=== PATIENT | female | born 1935 | race Caucasian/White ===

== ENCOUNTER 2020-04-08 10:43 | Outpatient (REF) | payer MEDICARE, SELFPAY ==
[2020-04-08 13:55] LABS: Red Blood Count 4.61 X10*6/uL (4.20-5.50); Red Cell Distribution Width 23.5 % (11.0-16.0)
[2020-04-08 13:57] LABS: Basophils Absolute Auto 0.1 X10*3/uL (0.0-0.2); Basophils Percent Auto 1.3 % (0-2); Eosinophils Absolute Auto 0.3 X10*3/uL (0.0-0.4); Eosinophils Percent Auto 6.9 % (0-4); Hematocrit 35.8 % (37-47); Hemoglobin 10.1 g/dl (12.0-16.0); Imm Gran Abs Auto 0.01 X10*3/uL (0.00-0.03); Imm Gran Pct Auto 0.2 % (0.0-0.4); Lymphocytes Absolute Auto 1.3 X10*3/uL (1.2-4.9); Lymphocytes Percent Auto 26.3 % (20-40); Mean Corpuscular HGB Conc 28.2 g/dl (31.0-35.0); Mean Corpuscular Hemoglobin 21.9 pg (27.0-33.0); Mean Corpuscular Volume 77.7 fL (80-98); Mean Platelet Volume 10.6 fL (9.4-12.3); Monocytes Absolute Auto 0.6 X10*3/uL (0.1-1.2); Monocytes Percent Auto 13.1 % (2-11); Neutrophils Absolute Auto 2.5 X10*3/uL (2.0-8.3); Neutrophils Percent Auto 52.2 % (45-73); Platelet Count 202 X10*3/uL (160-400); White Blood Count 4.8 X10*3/uL (4.8-10.8)
[2020-04-08 14:01] LABS: MANUAL DIFF FLAG NO
== END 2020-04-08 10:44 | disposition home or self-care (01) ==
LOC: HO.HMGCLDS 10:43
PROVIDERS: PCP Internal Medicine; Visit Provider Internal Medicine
DX: I34.0 Nonrheumatic mitral (valve) insufficiency (principal); I51.7 Cardiomegaly; K92.1 Melena; D64.9 Anemia, unspecified; R58 Hemorrhage, not elsewhere classified; K92.2 Gastrointestinal hemorrhage, unspecified
CPT/HCPCS: 36415; 85025

== ENCOUNTER → 2020-04-17 09:20 | Outpatient (BNVA) | payer MEDICARE, SELFPAY | PROVIDERS: PCP Internal Medicine; Referring Provider Internal Medicine; Visit Provider Nurse Practitioner | DX: K92.1 Melena (principal); K59.00 Constipation, unspecified; K21.9 Gastro-esophageal reflux disease without esophagitis; I34.0 Nonrheumatic mitral (valve) insufficiency; I51.7 Cardiomegaly; Z87.19 Personal history of other diseases of the digestive system | CPT/HCPCS: 99203 ==

== ENCOUNTER 2020-04-22 13:46 | Outpatient (REF) | payer MEDICARE, SELFPAY ==
[2020-04-22 15:45] LABS: Hematocrit 35.2 % (37-47); Hemoglobin 10.5 g/dl (12.0-16.0); Mean Corpuscular HGB Conc 29.8 g/dl (31.0-35.0); Mean Corpuscular Hemoglobin 23.1 pg (27.0-33.0); Mean Corpuscular Volume 77.5 fL (80-98); Mean Platelet Volume 10.5 fL (9.4-12.3); Platelet Count 202 X10*3/uL (160-400); Red Blood Count 4.54 X10*6/uL (4.20-5.50); Red Cell Distribution Width 23.9 % (11.0-16.0); White Blood Count 5.7 X10*3/uL (4.8-10.8)
== END 2020-04-22 13:47 | disposition home or self-care (01) ==
LOC: HO.LAB 13:46
PROVIDERS: PCP Internal Medicine; Referring Provider Internal Medicine; Visit Provider Internal Medicine Cardiovascular Disease
DX: Z01.818 Encounter for other preprocedural examination (principal); K92.2 Gastrointestinal hemorrhage, unspecified
CPT/HCPCS: 36415; 85027; 99204

== ENCOUNTER → 2020-04-30 14:15 | Outpatient (BNVA) | payer MEDICARE, SELFPAY | PROVIDERS: PCP Internal Medicine; Referring Provider Internal Medicine; Visit Provider Nurse Practitioner | DX: K92.1 Melena (principal); K59.00 Constipation, unspecified; D64.9 Anemia, unspecified; Z87.19 Personal history of other diseases of the digestive system | CPT/HCPCS: 99212 ==

== ENCOUNTER 2020-06-25 07:26 | Day surgery (SDC) | payer MEDICARE, SELFPAY ==
--- NOTE | 2020-06-22 12:04 | P.CONAN_ITS ---
Documented by User: Josee Johnson 06/22/20 12:10 HPI - Anesthesia Eval Consult details Narrative: 84yo F for Upper Endoscopy and Colonoscopy Cardiac cleared @ [facility] (in April, pt was rescheduled) [facility] Past Medical History Medical History Atrial enlargement, left Cancer of left tibia Constipation Depression with anxiety GERD (gastroesophageal reflux disease) High cholesterol History of small bowel obstruction Lipid disorder Lipoma Low hematocrit Mitral valve insufficiency Morbid obesity Osteoarthritis of both hips Osteosarcoma of bone RLS (restless legs syndrome) Tricuspid regurgitation Tubular adenoma of colon Urinary, incontinence, stress female Family History Family History Mother Alzheimers disease Brother Lung cancer Epilepsy Surgical History Surgical History H/O hysterectomy with oophorectomy History of appendectomy History of intestinal surgery Hx of colonoscopy S/P cataract surgery Social History Social History Alcohol intake: never Smoking Status: Never smoker Use of substances other than those prescribed or required for medical reasons: No Advance Directives: No Advance Directives Information Provided: No Meds Allergies Allergy/AdvReac Type Severity Reaction Status Date / Time codeine AdvReac Unknown GI upset Verified 06/25/20 08:19 Home Medications Medication Instructions Recorded Confirmed Type clotrimazole-betamethasone 1 applic TOPICAL 04/08/20 06/23/20 History %-0.05 % topical cream ropinirole 0.5 mg tablet 0.5 mg PO DAILY tab 04/22/20 06/23/20 History Exam Exam Date and Time: June 22, 2020 1204 Pertinent Lab Results Pertinent Lab Results: Laboratory Tests 03/27/20 04/22/20 09:40 15:05 WBC 5.7 Hgb 10.5 L Hct 35.2 L Plt Count 202 Sodium 140 Potassium 4.5 Chloride 105 BUN 13 Creatinine 1.12 Narrative Narrative: EKG 04/2020: NSR, LBBB ECHO 04/2019: EF 60-65%, pseudonormal filling pattern Mod LAE Mild to mod MR Mod to Severe TR Normal RV systolic pressure No pericardial pathology Assessment and Plan Assessment Anesthesia Assessment: Chart Reviewed Documented by User: Rusty Kwon MD 06/25/20 08:39 PMFSH Past Medical History Medical History Atrial enlargement, left Cancer of left tibia Constipation Depression with anxiety GERD (gastroesophageal reflux disease) High cholesterol History of small bowel obstruction Lipid disorder Lipoma Low hematocrit Mitral valve insufficiency Morbid obesity Osteoarthritis of both hips Osteosarcoma of bone RLS (restless legs syndrome) Tricuspid regurgitation Tubular adenoma of colon Urinary, incontinence, stress female Family History Family History Mother Alzheimers disease Brother Lung cancer Epilepsy Surgical History Surgical History H/O hysterectomy with oophorectomy History of appendectomy History of intestinal surgery Hx of colonoscopy S/P cataract surgery Social History Social History Alcohol intake: never Smoking Status: Never smoker Use of substances other than those prescribed or required for medical reasons: No Advance Directives: No Advance Directives Information Provided: No Meds Allergies Allergy/AdvReac Type Severity Reaction Status Date / Time codeine AdvReac Unknown GI upset Verified 06/25/20 08:19 Home Medications Medication Instructions Recorded Confirmed Type clotrimazole-betamethasone 1 applic TOPICAL 04/08/20 06/23/20 History %-0.05 % topical cream ropinirole 0.5 mg tablet 0.5 mg PO DAILY tab 04/22/20 06/23/20 History Exam Airway TM Dist: >3cm Neck ROM: Full Denture: Upper Loose/Missing/Broken Teeth: No Heart: irregular rhythm Lungs: Assessment and Plan Assessment Anesthesia Assessment: Anesthesia Plan Discussed and Chart Reviewed Final Anesthetic Review NPO: Yes ASA Class: III Final Preanesthetic Review: No Changes in Pt Med Stat, Meds/Allgs Chart Reviewed and Anes Risks/Benef Reviewed Patient Risk: High Procedure Risk: Low Anesthetic Plan Anesthetic Plan: MAC: Disposition: Standard PACU
[2020-06-22 14:52] VITALS: BMI 26.1
[2020-06-25 07:54] VITALS: BP 143/46; PULSE 52; RESP 20; TEMP 36.1; O2SAT 97
[2020-06-25] MEDS: Lactated Ringers 1,000 ML 20 ML IVCONT (08:18)
--- NOTE | 2020-06-25 08:40 | P.HPSUR_ITS ---
Pre-Procedural Eval Section B Chief Complaint: GI bleed Details of Present Illness: daughter with smith syndrome, hx of anemia and rectal bleeding Relevant Family History (Specify if Yes): Yes Relevant Social History: None Present Medications: see Short Stay Collaborative assessment Medical History: Significant History (Atrial enlargement, left Cancer of left tibia Constipation Depression with anxiety GERD (gastroesophageal reflux disease) High cholesterol History of small bowel obstruction Lipid disorder Lipoma Low hematocrit Mitral valve insufficiency Morbid obesity Osteoarthritis of both hips Osteosarcoma of bon) History of Previous Operations: Relevant previous surgery/procedure and date(s) (H/O hysterectomy with oophorectomy History of appendectomy History of intestinal surgery Hx of colonoscopy S/P cataract surgery) Allergies: Allergies Allergy/AdvReac Type Severity Reaction Status Date / Time codeine AdvReac Unknown GI upset Verified 06/25/20 08:19 Review of Systems Sugical H&P ROS: Negative: Constitution, Cardiovascular, Respiratory, Suzie rological, Psychiatric, Hem-Onc, Allergic/Immunologic, Gastrointestinal, Genitourinary, Musculoskeletal, Integumentary, Endocrine and Eyes/Ears/Nose/Throat Exam Surgical H&P Exam: Normal: HEENT, Normal: Heart, Normal: Lungs, Normal: Extremities, Normal: Abdomen, Normal: Skin and Normal: Neurological Plan Diagnosis/Plan: Unchanged I have reviewed the history and physical and performed a pertinent physical examination on my patient. No changes have occurred unless specified.
--- NOTE | 2020-06-25 08:56 | PM.OP ---
Brief Operative Note Date of Service: 06/25/20 Pre-op diagnosis: anemia, rectal bleeding, daughter with smith syndrome Post-op diagnosis: same Procedure: Operative Information Procedure Description: EGD, Colonoscopy FLEXIBLE TRANSORAL UPPER GASTROINTESTINAL ENDOSCOPY AND COLONOSCOPY PROCEDURE NOTE UPPER ENDOSCOPY Consent: Indications for the procedure and potential complications of bleeding, perforation, reaction to medications and missed diagnosis were discussed with the patient and informed consent was obtained. Instrument: Olympus GIF H 190 J mid size upper endoscope Monitoring: Vital signs and clinical assessment, continuous EKG monitoring, Pulse oximetry, Carbon Dioxide monitoring and blood pressure monitoring were done throughout the procedure. Procedure: The patient was placed in the left lateral decubitis position and pre-procedure medications were administered and a bite block was placed. The endoscope was inserted into the mouth and advanced under direct vision to the third part of duodenum. A careful inspection was made as the upper endoscope was withdrawn including a retroflexed examination of the proximal stomach; Findings and interventions are described below. Findings: Larynx:normal Esophagus: GE junction at 30 cm, diaphragm hiatus at 36 cm, consistent with 6 cm sliding hiatal hernia, normal mucosa Stomach: Patchy erythema and erosions in antrum. Biopsies were obtained. Grade 2 flap valve on retroflexed examination of the cardia. Duodenum: erosive bulbar duodenitis, bx taken Intervention: Biopsies as noted above COLONOSCOPY Instrument: Olympus variable stiffness pediatric scope 190L Colonoscopy Monitoring: Vital signs and clinical assessment, continuous EKG monitoring, Pulse oximetry, Carbon Dioxide monitoring and blood pressure monitoring were done throughout the procedure. Colon withdrawal time was 16 minutes. Procedure: The patient was placed in the left lateral decubitis position and pre-procedure medications were administered. After a digital rectal examination of the ano-rectum, the video colonoscope was inserted into the rectum and advanced through the colon to the cecum/TI. The colonoscope was slowly withdrawn in a retrograde panoramic fashion and the colon mucosa was carefully examined including a retroflexed view of the rectum. Findings and interventions are described below. Procedure Difficulty:easy Findings: Terminal Ileum-normal, bx taken right sided bx, transverse, descending and sigmoid, rectal bx taken in separate jars Cecum:normal Ascending Colon: normal Transverse Colon -normal Descending Colon:normal Sigmoid Colon: severe erythema, micro abscesses, edema and friability contiguous from rectum to 38 cm from anal verge-bx taken, the proximal sigmoid appeared normal. Scattered diverticula noted. A 9-10 mm pedunculated polypoid lesion was removed with cold snare Rectum: Retroflexion not done due to severe inflammation, bx taken Anorectum - normal Colon preparation: Mcwilliams Bowel Preparation Scale Right colon; 3 Transverse colon: 3 Left colon; 3 (0 = Unprepared colon segment with mucosa not seen due to solid stool that cannot be cleared. 1 = Portion of mucosa of the colon segment seen, but other areas of the colon segment not well seen due to staining, residual stool and/or opaque liquid. 2 = Minor amount of residual staining, small fragments of stool and/or opaque liquid, but mucosa of colon segment seen well. 3 = Entire mucosa of colon segment seen well with no residual staining, small fragments of stool or opaque liquid) Impression and Post Procedure Diagnosis: Endoscopy Findings: gastritis erosive duodenitis hiatal hernia Colonoscopy Findings: severe proctosigmoiditis polyp diverticular disease Plan: Await Pathology results Repeat Colonoscopy in 1-2 years or earlier if clinically indicated High fiber diet leaflet confirm compliance with PPI, check NSAID hx commence mesalamine enema and PO tabs short course of pred 40 mg for 1 week Above findings were reviewed with the patient and relevant handouts were provided if indicated. Surgeon: Margret Clark MD Anesthesia: MAC Estimated blood loss (mL): 0 Condition: stable Disposition: PACU
[2020-06-25 09:31] VITALS: BP 122/101; PULSE 58; RESP 20; TEMP 36.2; O2SAT 100
[2020-06-25 09:33] VITALS: BP 106/48
[2020-06-25 09:48] VITALS: BP 109/54; PULSE 53; RESP 14; TEMP 36.2; O2SAT 99
== END 2020-06-25 10:52 | disposition home or self-care (01) ==
PROVIDERS: PCP Internal Medicine; Visit Provider Internal Medicine Gastroenterology
PROC: (CPT 45385; principal; 2020-06-25 08:30)
DX: K52.9 Noninfective gastroenteritis and colitis, unspecified (principal); D12.5 Benign neoplasm of sigmoid colon; K57.30 Diverticulosis of large intestine without perforation or abscess without bleeding; K59.00 Constipation, unspecified; K29.80 Duodenitis without bleeding; K29.50 Unspecified chronic gastritis without bleeding; K44.9 Diaphragmatic hernia without obstruction or gangrene; D64.9 Anemia, unspecified; Z87.19 Personal history of other diseases of the digestive system
CPT/HCPCS: 45385; 45380; 88305; 88342; J0171; J3010

== ENCOUNTER 2020-07-21 14:58 | Inpatient (IN) | payer MEDICARE, SELFPAY ==
--- NOTE | 2020-07-21 | ECG_ITS ---
Test Reason : BRADYCARDIA Blood Pressure : / mmHG Vent. Rate : 056 BPM Atrial Rate : 056 BPM P-R Int : 254 ms QRS Dur : 118 ms QT Int : 506 ms P-R-T Axes : 079 -43 056 degrees QTc Int : 488 ms Sinus bradycardia with 1st degree A-V block Left axis deviation Left bundle branch block Abnormal ECG When compared with ECG of 18-DEC-2001 13:42, Significant changes have occurred Referred By: Generic ED Physician Electronically Signed By:CHAVEZ SQUIRES
[2020-07-21 15:09] VITALS: BP 132/52; PULSE 49; RESP 15; O2SAT 98; BMI 27.4
--- NOTE | 2020-07-21 15:21 | ED.SOB ---
HPI - SOB/Dyspnea General Chief Complaint: Dyspnea Stated Complaint: sob Time Seen by Provider: 07/21/20 14:59 Source: patient Mode of arrival: ambulatory Limitations: no limitations History of Present Illness HPI Narrative: For the past few weeks patient with increasing shortness of breath. Patient states when she walks around her house she is very short of breath and lightheaded MD elicited complaint: shortness of breath Onset (ago): week(s) Timing: intermittent Severity: moderate Exacerbating factors: exertion Known history of: congestive heart failure Associated symptoms: orthopnea and lightheadedness Related Data Home Medications Medication Instructions Recorded Confirmed ropinirole 0.5 mg tablet 0.5 mg PO DAILY tab 04/22/20 07/21/20 permethrin 1 appl TOPICAL DAILY 07/21/20 07/21/20 Previous Rx's Medication Instructions Recorded atorvastatin 10 mg tablet 10 mg PO DAILY 90 Days #90 tab 06/15/20 escitalopram oxalate 20 mg tablet 20 mg PO ONCE 90 Days #90 tab 06/15/20 lansoprazole 30 mg capsule,delayed 30 mg PO DAILY 90 Days #90 cap 06/15/20 release furosemide 20 mg tablet 20 mg PO DAILY #30 tab 07/06/20 mesalamine 1.2 gram tablet,delayed 4.8 g PO DAILY 30 Days #120 tab 07/09/20 release mesalamine 4 gram/60 mL enema 4 g [place] BEDTIME 30 Days #1800 ml 07/09/20 Allergies Allergy/AdvReac Type Severity Reaction Status Date / Time codeine AdvReac Unknown GI upset Verified 06/25/20 08:19 Review of Systems Constitutional: Constitutional: Reports no additional constitutional complaints Eyes: Eyes: Reports no additional eye complaints ENT: Denies dizziness Cardiovascular: Cardiovascular: Reports no additional cardiovascular complaints Respiratory: Respiratory: Reports as per HPI Gastrointestinal: Gastrointestinal: Reports no additional gastrointestinal complaints Genitourinary: Genitourinary: Reports no additional female genitourinary complaints Musculoskeletal: Musculoskeletal: Reports no additional musculoskeletal complaints Integumentary/Breasts: Skin/Breast: Denies rash Neurologic: Reports system reviewed and no additional complaints, except as documented, Denies dizziness and Denies Sensory deficit (Neuro) Psychiatric: Psychiatric: Denies anxiety PMFSH Past Medical History Medical History Atrial enlargement, left Cancer of left tibia Constipation Depression with anxiety GERD (gastroesophageal reflux disease) High cholesterol History of small bowel obstruction Lipid disorder Lipoma Low hematocrit Mitral valve insufficiency Morbid obesity Osteoarthritis of both hips Osteosarcoma of bone RLS (restless legs syndrome) Tricuspid regurgitation Tubular adenoma of colon Urinary, incontinence, stress female Surgical History H/O hysterectomy with oophorectomy History of appendectomy History of intestinal surgery Hx of colonoscopy S/P cataract surgery Family History Family History Mother Alzheimers disease Brother Lung cancer Epilepsy Social History Social History Alcohol intake: never Smoking Status: Never smoker Use of substances other than those prescribed or required for medical reasons: No Advance Directives: No Advance Directives Information Provided: No Physical Exam Vital Signs: Vital Signs: Last Vital Signs Pulse 43 L 07/21/20 16:00 Resp 16 07/21/20 16:00 BP 136/55 L 07/21/20 16:00 Pulse Ox 97 07/21/20 16:00 Body Mass Index 27.4 Const: Other: elderly female looking comfortable Nutritional Appearance: average body habitus Orientation/consciousness: oriented to person and patient oriented x3 Limitations: no limitations HENMT: Head: Yes normal to inspection Ears: external ears normal General nose exam: Normal external nose present Mouth: Normal oral and palatal mucosa present and oropharynx normal Throat: Yes posterior oropharynx normal Eyes: General: appearance normal, both eyes and all related structures Neck: Other: supple, slight JVD Neck: Yes normal visual inspection Chest: Chest palpation & inspection: normal inspection of the chest Resp: Auscultation: clear to auscultation bilaterally Cardio: Other: moments of bradycardia Jugular venous distension: no JVD Rate: regular rate Rhythm: regular rhythm Heart sounds: S1 normal heart sound present and S2 normal heart sound present GI: Inspection: Yes normal to inspection Palpation (GI): Soft to palpation, nontender and No hepatosplenomegaly present Auscultation: normal bowel sounds : General: Yes no CVA tenderness Back/Spine/Pelvis: Back: no CVA tenderness Skin: General skin exam: no rashes or lesions noted Neuro: General: oriented to person and patient oriented x3 Cranial nerves: Yes CN's II-XII intact bilaterally Motor exam (neuro): 5/5 motor strength present throughout Sensory Exam: No Sensory deficit (Neuro) Extrem: General: Yes normal to inspection Psych: Appearance: grossly normal Course Course Course Narrative: patients heart rate went down to 30, rhythm strip looked like second degree heart block Reevaluation(s) Reevaluation #1: Troponin negative, BNP only slightly elevated, will admit for symptomatic second degree heart block Time: 16:47 MDM - SOB/Dyspnea MDM Narrative Medical decision making narrative: heart block, TX, CHF, COVID, pneumonia all considered Lab Data Result diagrams: 07/21/20 15:56 07/21/20 15:56 Labs: Lab Results 07/21/20 07/21/20 07/21/20 Range/Units 15:56 15:56 15:56 WBC 4.8 (4.8-10.8) X10*3/uL RBC 3.42 L D (4.20-5.50) X10*6/uL Hgb 8.5 L (12.0-16.0) g/dl Hct 28.3 L (37-47) % MCV 82.7 (80-98) fL MCH 24.9 L (27.0-33.0) pg MCHC 30.0 L (31.0-35.0) g/dl RDW 14.6 (11.0-16.0) % Plt Count 232 (160-400) X10*3/uL MPV 9.3 L (9.4-12.3) fL Immature Gran % (Auto) 0.4 (0.0-0.4) % Neut % (Auto) 57.5 (45-73) % Lymph % (Auto) 27.5 (20-40) % [place] % (Auto) 10.0 (2-11) % Eos % (Auto) 4.0 (0-4) % Baso % (Auto) 0.6 (0-2) % Lymph # (Auto) 1.3 (1.2-4.9) X10*3/uL [place] # (Auto) 0.5 (0.1-1.2) X10*3/uL Eos # (Auto) 0.2 (0.0-0.4) X10*3/uL Baso # (Auto) 0.0 (0.0-0.2) X10*3/uL Abs Immat Gran (auto) 0.02 (0.00-0.03) X10*3/uL Absolute Neuts (auto) 2.8 (2.0-8.3) X10*3/uL Absolute Nucleated RBC 0.000 (0.0-0.012) X10*3/uL Nucleated RBC % (auto) 0.0 (0.0-0.2) /100WBC Hold Blue Top Sodium 141 (135-145) mmol/L Potassium 4.7 (3.3-5.1) mmol/l Chloride 107 (96-108) mmol/L Carbon Dioxide 23 (22-29) mmol/L Anion Gap 16 (12-20) BUN 23 H (9-16) mg/dL Creatinine 1.44 H (0.5-1.4) mg/dL Estim Creat Clear Calc 27.9 Estimated GFR 35 Random Glucose 98 (60-115) mg/dL Calcium 8.6 (8.4-10.2) mg/dL Troponin I High Sens 4.8 (<3.5-17.0) ng/L B-Natriuretic Peptide (<100) pg/mL COVID-19 ([facility]URU) (Negative) COVID-19 Clin Com 07/21/20 07/21/20 07/21/20 Range/Units 15:56 15:56 15:56 WBC (4.8-10.8) X10*3/uL RBC (4.20-5.50) X10*6/uL Hgb (12.0-16.0) g/dl Hct (37-47) % MCV (80-98) fL MCH (27.0-33.0) pg MCHC (31.0-35.0) g/dl RDW (11.0-16.0) % Plt Count (160-400) X10*3/uL MPV (9.4-12.3) fL Immature Gran % (Auto) (0.0-0.4) % Neut % (Auto) (45-73) % Lymph % (Auto) (20-40) % [place] % (Auto) (2-11) % Eos % (Auto) (0-4) % Baso % (Auto) (0-2) % Lymph # (Auto) (1.2-4.9) X10*3/uL [place] # (Auto) (0.1-1.2) X10*3/uL Eos # (Auto) (0.0-0.4) X10*3/uL Baso # (Auto) (0.0-0.2) X10*3/uL Abs Immat Gran (auto) (0.00-0.03) X10*3/uL Absolute Neuts (auto) (2.0-8.3) X10*3/uL Absolute Nucleated RBC (0.0-0.012) X10*3/uL Nucleated RBC % (auto) (0.0-0.2) /100WBC Hold Blue Top SEE NOTE Sodium (135-145) mmol/L Potassium (3.3-5.1) mmol/l Chloride (96-108) mmol/L Carbon Dioxide (22-29) mmol/L Anion Gap (12-20) BUN (9-16) mg/dL Creatinine (0.5-1.4) mg/dL Estim Creat Clear Calc Estimated GFR Random Glucose (60-115) mg/dL Calcium (8.4-10.2) mg/dL Troponin I High Sens (<3.5-17.0) ng/L B-Natriuretic Peptide 733 H (<100) pg/mL COVID-19 (GURU) Negative (Negative) COVID-19 Clin Com See Note ECG Data Attestation: I personally reviewed and interpreted this ECG as follows: Interpretation: normal sinus second degree AV block old septal TX, no acute st or twave changes Critical Care Time Critical Care Time Attestation: I spent 40 minutes of critical care, with interventions, assessments, speaking to patient, consultants, and family. Discharge Plan Discharge Clinical Impression: Heart block AV second degree Congestive heart failure Qualifiers: Heart failure type: combined systolic and diastolic Heart failure chronicity: unspecified Qualified Code(s): I50.40 - Unspecified combined systolic (congestive) and diastolic (congestive) heart failure Patient Disposition: Admitted As Inpatient
--- NOTE | 2020-07-21 15:25 | PC.NURSE ---
During triage pt placed on pacer pads, EKG obtained, Dr. Kaur and Roma ETIENNE brought to bedside. 18gL ac established.
[2020-07-21 15:27] VITALS: PULSE 42
[2020-07-21 15:32] VITALS: BP 126/56; PULSE 48; RESP 18; O2SAT 97
--- NOTE | 2020-07-21 15:41 | XR_ITS ---
EXAMINATION: XR CHEST CLINICAL INFORMATION: Shortness of breath COMPARISON: None TECHNIQUE: Frontal portable view of the chest was obtained. 1552 hours FINDINGS: No significant abnormality is noted involving the heart, lungs, mediastinum, bony thorax or soft tissues. XR/XR chest 1V IMPRESSION: Unremarkable examination.
[2020-07-21 16:00] VITALS: BP 136/55; PULSE 43; RESP 16; O2SAT 97
[2020-07-21 16:03] LABS: MANUAL DIFF FLAG NO
[2020-07-21 16:06] LABS: Basophils Percent Auto 0.6 % (0-2); Eosinophils Absolute Auto 0.2 X10*3/uL (0.0-0.4); Hematocrit 28.3 % (37-47); Hemoglobin 8.5 g/dl (12.0-16.0); Imm Gran Abs Auto 0.02 X10*3/uL (0.00-0.03); Imm Gran Pct Auto 0.4 % (0.0-0.4); Lymphocytes Absolute Auto 1.3 X10*3/uL (1.2-4.9); Lymphocytes Percent Auto 27.5 % (20-40); Mean Corpuscular Hemoglobin 24.9 pg (27.0-33.0); Mean Corpuscular Volume 82.7 fL (80-98); Mean Platelet Volume 9.3 fL (9.4-12.3); Monocytes Absolute Auto 0.5 X10*3/uL (0.1-1.2); Neutrophils Absolute Auto 2.8 X10*3/uL (2.0-8.3); Neutrophils Percent Auto 57.5 % (45-73); Platelet Count 232 X10*3/uL (160-400); Red Blood Count 3.42 X10*6/uL (4.20-5.50); Red Cell Distribution Width 14.6 % (11.0-16.0); White Blood Count 4.8 X10*3/uL (4.8-10.8)
[2020-07-21 16:23] LABS: IDNOW Serial# 9DD0AD1C
[2020-07-21 16:24] LABS: COVID-19 Test Negative (Negative)
[2020-07-21 16:32] LABS: Anion Gap 16 (12-20); Blood Urea Nitrogen 23 mg/dL (9-16); Calcium 8.6 mg/dL (8.4-10.2); Carbon Dioxide 23 mmol/L (22-29); Chloride 107 mmol/L (96-108); Creatinine Clr Calc Pharmacy 27.9; Estimated Glomerular Filt Rate 35; Glucose Random 98 mg/dL (60-115); Potassium 4.7 mmol/l (3.3-5.1); Sodium 141 mmol/L (135-145)
[2020-07-21 16:41] LABS: B Type Natriuretic Peptide 733 pg/mL (<100); Troponin-I High Sensitivity 4.8 ng/L (<3.5-17.0)
[2020-07-21 19:22] VITALS: BP 145/93; PULSE 36; RESP 20; O2SAT 98
[2020-07-21] MEDS: Heparin Sodium,Porcine 5,000 UNIT/ML VIAL 5000 UNIT SUBCUT (19:29)
[2020-07-21] MEDS: rOPINIRole HCL 0.5 MG TABLET PO (19:29)
[2020-07-21 19:30] LABS: Magnesium 2.2 mg/dL (1.6-2.6)
--- NOTE | 2020-07-21 19:32 | PC.NURSE ---
Pt found ringing her call milan, requesting to use the bathroom. Pt was assisted to the bathroom, moving a large loose, liquid, brown stool. Pt reports persistent diarrhea since her Colonoscopy around [place]. Pt states that she has been discussing this with her MD. Pt assisted OOB onto toilet, reports dizziness and increased SOB. Pt assisted back to bed and into room. Pt medicated per MAR with Requip and Heparin. VSS. Pt aware of plan for placement of pacemaker in the morning. Pt resting in POC, lights dim for comfort. Continue to monitor.
--- NOTE | 2020-07-21 20:22 | HP_ITS ---
DATE OF SERVICE: 07/21/2020 HISTORY OF PRESENTING ILLNESS: This is an 84-year-old female patient with past medical history significant for anxiety, depression, history of GERD, history of recent upper and lower colonoscopy that showed that the patient has significant colitis of large bowel with [id number] acute ulceration in the rectum. The patient was recently treated with prednisone. The patient also has history of hyperlipidemia, history of mitral valve insufficiency with left atrial enlargement, history of osteoarthritis of both hips, history of osteosarcoma of bone, and restless legs syndrome. The patient presented to [facility] with several weeks history of being lightheaded, dizzy, and with worsening shortness of breath. As per patient, her shortness of breath is gradually getting worse, now feels short of breath with minimal activity, accompanied with lightheadedness. She denies any symptoms of chest pain, palpitation. She denies any syncope, loss of consciousness, or fall. The patient's workup in the emergency room revealed that her hematocrit is 28.3 with a hemoglobin 8.5. Her last hematocrit was 35.2 in April of 2020. Her electrolytes are stable with a creatinine of 1.4 that had jumped up from a creatinine 1.1 in March of 2020. Her potassium is within normal range. Her EKG revealed significant bradycardia with heart rate in mid 30s to 40 range with 2:1 heart block. The patient has pacer pads in place. The patient is now being admitted to [facility] with a diagnosis of shortness of breath and lightheadedness related to second-degree heart block. PAST MEDICAL HISTORY: 1. History of GI bleed, status post both upper and lower endoscopy, which showed that the patient has focal active colitis of proximal sigmoid and chronic active colitis with [id number] activity as well as a rectal biopsy shows chronic active colitis with moderate to severe activity and ulceration. No granulomas or dysplasias were seen. The patient was treated with prednisone. 2. History of anxiety and depression. 3. History of GERD. 4. History of hyperlipidemia. 5. History of mitral valve insufficiency. 6. History of osteoarthritis of both hips. 7. History of osteosarcoma of bone. 8. History of restless legs syndrome. 9. History of tricuspid regurgitation. 10. History of tubular adenoma of colon. 11. History of urinary incontinence. MEDICATIONS: On admission are, 1. Lipitor 10 mg at bedtime. 2. Escitalopram 20 mg daily. 3. Lasix 20 mg daily. 4. Lansoprazole 30 mg daily. 5. Mesalamine 1.2 g tablet, the patient is taking 4.8 g by mouth daily. 6. Permethrin 1 application topically daily. 7. Requip 0.5 mg by mouth daily. SOCIAL HISTORY: The patient lives alone. She ambulates with the help of a cane and a walker. Her daughter assists her in decision-making and groceries. PAST SURGICAL HISTORY: 1. The patient is status post hysterectomy and oophorectomy. 2. Status post appendectomy. 3. Status post colonoscopy. 4. Status post cataract surgery. FAMILY HISTORY: Mother is , had Alzheimer disease. Brother , had lung cancer and epilepsy. REVIEW OF SYSTEMS: CONSTITUTIONAL: The patient denies headache, complaining of lightheadedness with ambulation. CVS: Denies any chest pain or palpitation. Denies orthopnea or PND. GI: Denies nausea, vomiting. Denies bloody stools. SKIN: Denies any rashes. Rest of all other systems are reviewed and negative. PHYSICAL EXAMINATION: GENERAL: The patient is awake, alert. Does not appear to be in acute distress. VITAL SIGNS: Her blood pressure is 136/55 with a pulse of 43, respiratory rate 16, O2 saturation 97% on room air. HEENT: Pupils equal, round, and reactive to light and accommodation. NECK: Supple. No JVD. LUNGS: Clear to auscultation. No crackles. No respiratory distress. HEART: Regular, shirley. ABDOMEN: Soft, nontender. Bowel sounds are audible. No palpable masses. EXTREMITIES: Without clubbing, cyanosis, or edema. She has good peripheral pulses. SKIN: Warm and dry. NEURO: Nonfocal. LABORATORY DATA: Hemoglobin 8.5, hematocrit 28.3, platelet of 232. Sodium 141, potassium 4.7, chloride 107, carbon dioxide 23, anion gap 16, creatinine 1.4. BNP 733. COVID-19 is negative. Chest x-ray showed no acute cardiopulmonary disease. ASSESSMENT AND PLAN: This is an 84-year-old female patient, who came into [facility] due to lightheadedness, dizziness, and shortness of breath with exertion. The patient has been diagnosed to have significant bradycardia with 2:1 block. The patient will be admitted to telemetry for continued monitoring and treatment. 1. Symptomatic bradycardia with second-degree heart block. The patient will be admitted to telemetry unit. The patient has external pacer in place. We will order atropine 0.5 mg every 8 minutes x3. We will keep the patient n.p.o. after midnight. The patient is not on beta blockers or calcium channel blockers at home. The patient was noticed to have similar rhythm in June of 2020. The patient has mild anemia. The hematocrit and hemoglobin will be followed closely. The patient's electrolytes are stable. We will check magnesium level. 2. History of recent GI bleed and anemia. We will follow hematocrit closely. Currently, no active bleeding noted. 3. History of hypertension. Currently blood pressure is stable. 4. History of hyperlipidemia. Continue beta janelle. 5. History of restless legs syndrome. Continue Requip. 6. Deep vein thrombosis prophylaxis. We will place patient on mechanical device. MD ARELY Ray/ERIC / [id number]
[2020-07-21 20:43] VITALS: BP 130/58; PULSE 38; RESP 24
--- NOTE | 2020-07-21 21:15 | PC.NURSE ---
Pt incontinent of another small, liquid stool. Pt provided buck care and clean bedding. Pt moved from [facility] 3 to 3 due to negative Covid result. VSS. Continue to monitor.
[2020-07-22] VITALS (16 sets, daily range): BP systolic 116–176; BP diastolic 46–74; PULSE 34–64; RESP 16–22; TEMP 36.1–36.7; O2SAT 97–100
--- NOTE | 2020-07-22 | XR_ITS ---
EXAMINATION: XR CHEST CLINICAL INFORMATION: Pacemaker COMPARISON: 07/21/2020 TECHNIQUE: Frontal view of the chest was obtained. FINDINGS: New 2-lead left pectoral pacemaker in place with contiguous, intact leads terminating over the expected location of the right atrium and right ventricle. There is a similar appearance of diffuse interstitial opacity. No focal consolidation or mass. No pleural effusion or pneumothorax. S-shaped thoracolumbar scoliosis and multilevel degenerative changes. XR/XR chest 1V IMPRESSION: New 2-lead left pectoral pacemaker with leads terminating over the expected location of the right atrium and right ventricle. Similar appearance of diffuse interstitial prominence. This can be seen acutely with interstitial pulmonary edema, bronchiolitis or viral pneumonitis, chronically with chronic bronchitis or reactive airways disease.
[2020-07-22] MEDS: 0.9 % Sodium Chloride Flush 3 ML SYRINGE IVFLUSH ×3 (00:35→19:30)
[2020-07-22] MEDS: rOPINIRole HCL 0.5 MG TABLET PO (04:32)
[2020-07-22] MEDS: Omeprazole 40 MG CAPSULE.DR PO (04:42)
--- NOTE | 2020-07-22 05:51 | ECG_ITS ---
Test Reason : confirm heart block Blood Pressure : / mmHG Vent. Rate : 036 BPM Atrial Rate : 036 BPM P-R Int : 000 ms QRS Dur : 110 ms QT Int : 600 ms P-R-T Axes : 000 -27 040 degrees QTc Int : 464 ms Artifact tracing sinus rhythm with 2nd degree A-V block (Mobitz I) Low voltage QRS Abnormal ECG When compared to the previous EKG of 21 jul 2020, changes noted- progression of heart block Referred By: Mari Amin Electronically Signed By:CHAVEZ SQUIRES
[2020-07-22] MEDS: Atropine Sulfate 1 MG/ML VIAL 0.5 MG IVPUSH (06:00)
--- NOTE | 2020-07-22 06:08 | PC.NURSE ---
HR 27-38, Mobitz 1 type 2 into 3rd degree Heart block intermittently. Patient asymptomatic. MD notified. EKG obtained- Junctional Bradycardia. Cardiology consult pending. Atropine 0.5mg IV given at 0608. HR at this time 34-45. NPO incase of pacemaker placement today.
--- NOTE | 2020-07-22 09:15 | MHC.CM.PN ---
spoke with pt s daughter maurice she explainsthat pt is from independent living pt receives laundry servcies and meals plan is for pt to return to her indepdent living when she is dcd her daughter will transport her home
[2020-07-22 10:49] LABS: INTERNATIONAL NORM RATIO 1.1 (0.9-1.1); Prothrombin Time 12.6 SEC (10.8-13.0)
--- NOTE | 2020-07-22 10:58 | PM.CNCAR ---
History of Present Illness History of Present Illness Date of Service: 07/22/20 Consult reason: other (Heart block) Chief complaint: dizziness and 2ng degree heart block Narrative: This is a cardiology consultation regarding heart block. Patient states that she has been feeling dizzy in the last few weeks. She has also been having difficulty breathing. Because of this, she got hospitalized. She was found to have Mobitz type 1 heart block at times and at other times 2-1 block as well as some episodes of complete heart block. Hence we have been asked to see her. Patient states that these symptoms started in the last 3 weeks or so but prior to that she was doing reasonably okay. There is a question of heart failure in the past based on office records. Otherwise she also has a history of GI bleeding and anemia as well. Review of Systems Review of Systems: Yes all other systems are reviewed and are negative ENT: Denies dizziness Cardiovascular: Cardiovascular: Reports as per HPI, Reports no additional cardiovascular complaints, Denies acrocyanosis, Denies cool extremities, Denies painful fingertips, Denies chest pain, Denies chest pain at rest, Denies diaphoresis, Denies syncope, Denies irregular heart rhythm, Denies claudication, Denies leg edema, Reports lightheadedness, Denies palpitations and Reports dyspnea Respiratory: Respiratory: Reports dyspnea Neurologic: Reports system reviewed and no additional complaints, except as documented, Denies dizziness, Denies syncope and Denies Sensory deficit (Neuro) Endocrine: Endocrine: Denies palpitations [facility] Past Medical History Medical History Atrial enlargement, left Cancer of left tibia Constipation Depression with anxiety GERD (gastroesophageal reflux disease) High cholesterol History of small bowel obstruction Lipid disorder Lipoma Low hematocrit Mitral valve insufficiency Morbid obesity Osteoarthritis of both hips Osteosarcoma of bone RLS (restless legs syndrome) Tricuspid regurgitation Tubular adenoma of colon Urinary, incontinence, stress female Family History Family History Mother Alzheimers disease Brother Lung cancer Epilepsy Surgical History Surgical History H/O hysterectomy with oophorectomy History of appendectomy History of intestinal surgery Hx of colonoscopy S/P cataract surgery Social History Social History Housing: Assisted Living Facility Do you presently have visiting nurse or other home services: Yes Alcohol intake: never Smoking Status: Never smoker Use of substances other than those prescribed or required for medical reasons: No Have you been hit, kicked, punched, or otherwise hurt by someone within the past year? If so, by whom?: No Do you feel safe in your current relationship?: No Current Relationship Is there a partner from a previous relationship who is making you feel unsafe now?: No Are you made to feel afraid or neglected: No Spiritual Healthcare Practices: None. [facility] Healthcare Practices: None. Cultural Healthcare Practices: None. Advance Directives: No Advance Directives Information Provided: No Do you have thoughts of harming others: None Do you have a plan to hurt others: No Plan Recently lost weight without trying: No service: No Meds Allergies Allergy/AdvReac Type Severity Reaction Status Date / Time codeine AdvReac Unknown GI upset Verified 06/25/20 08:19 Home Medications Medication Instructions Recorded Confirmed Type ropinirole 0.5 mg tablet 0.5 mg PO DAILY tab 04/22/20 07/21/20 History permethrin 1 appl TOPICAL DAILY 07/21/20 07/21/20 History Physical Exam Vital Signs: Vital Signs: Last Vital Signs Temp 97 F 07/22/20 07:12 Pulse 64 07/22/20 07:12 Resp 20 07/22/20 07:12 BP 125/60 07/22/20 07:12 Pulse Ox 98 07/22/20 07:12 Body Mass Index 27.4 Const: General: cooperative, comfortable and no acute distress Orientation/consciousness: patient oriented x3 HENMT: Other: Unremarkable Neck: Neck: Yes normal visual inspection Chest: Chest palpation & inspection: normal inspection of the chest Resp: Auscultation: clear to auscultation bilaterally, no crackles and no wheezes Cardio: Jugular venous distension: no JVD Palpation: normal PMI Heart sounds: S1 normal heart sound present, S2 normal heart sound present, no gallops, Murmur heart sound present systolic II/ and at the left sternal border and no rubs GI: Palpation (GI): Soft to palpation Back/Spine/Pelvis: Other: unremarkable Skin: General skin exam: no rashes or lesions noted Neuro: General: patient oriented x3 Sensory Exam: No Sensory deficit (Neuro) Extrem: General: Yes no clubbing, cyanosis or edema Psych: Mental Status: mental status grossly normal Results Labs and Meds Result diagrams: 07/21/20 15:56 07/21/20 15:56 Lab results: Laboratory Results - last 24 hr 07/21/20 07/21/20 07/21/20 15:56 15:56 15:56 WBC 4.8 RBC 3.42 L D Hgb 8.5 L Hct 28.3 L MCV 82.7 MCH 24.9 L MCHC 30.0 L RDW 14.6 Plt Count 232 MPV 9.3 L Immature Gran % (Auto) 0.4 Neut % (Auto) 57.5 Lymph % (Auto) 27.5 [place] % (Auto) 10.0 Eos % (Auto) 4.0 Baso % (Auto) 0.6 Lymph # (Auto) 1.3 [place] # (Auto) 0.5 Eos # (Auto) 0.2 Baso # (Auto) 0.0 Abs Immat Gran (auto) 0.02 Absolute Neuts (auto) 2.8 Absolute Nucleated RBC 0.000 Nucleated RBC % (auto) 0.0 PT INR Hold Blue Top Sodium 141 Potassium 4.7 Chloride 107 Carbon Dioxide 23 Anion Gap 16 BUN 23 H Creatinine 1.44 H Estim Creat Clear Calc 27.9 Estimated GFR 35 Random Glucose 98 Calcium 8.6 Magnesium 2.2 Troponin I High Sens 4.8 B-Natriuretic Peptide COVID-19 (GURU) COVID-Authorly Com 07/21/20 07/21/20 07/21/20 15:56 15:56 15:56 WBC RBC Hgb Hct MCV MCH MCHC RDW Plt Count MPV Immature Gran % (Auto) Neut % (Auto) Lymph % (Auto) [place] % (Auto) Eos % (Auto) Baso % (Auto) Lymph # (Auto) [place] # (Auto) Eos # (Auto) Baso # (Auto) Abs Immat Gran (auto) Absolute Neuts (auto) Absolute Nucleated RBC Nucleated RBC % (auto) PT INR Hold Blue Top SEE NOTE Sodium Potassium Chloride Carbon Dioxide Anion Gap BUN Creatinine Estim Creat Clear Calc Estimated GFR Random Glucose Calcium Magnesium Troponin I High Sens B-Natriuretic Peptide 733 H COVID-19 (GURU) Negative COVID-BiOM Clin Com See Note 07/22/20 10:10 WBC RBC Hgb Hct MCV MCH MCHC RDW Plt Count MPV Immature Gran % (Auto) Neut % (Auto) Lymph % (Auto) [place] % (Auto) Eos % (Auto) Baso % (Auto) Lymph # (Auto) [place] # (Auto) Eos # (Auto) Baso # (Auto) Abs Immat Gran (auto) Absolute Neuts (auto) Absolute Nucleated RBC Nucleated RBC % (auto) PT 12.6 INR 1.1 Hold Blue Top Sodium Potassium Chloride Carbon Dioxide Anion Gap BUN Creatinine Estim Creat Clear Calc Estimated GFR Random Glucose Calcium Magnesium Troponin I High Sens B-Natriuretic Peptide COVID-19 (GURU) COVID-19 Clin Com ECG Attestation: I personally reviewed and interpreted this ECG as follows: Interpretation: EKGs reviewed. There is evidence of bradycardia/Mobitz type 1 heart block. Heart rate on the EKG was 36/Min. Admission EKG had shown [place] bradycardia at 56/Min with first-degree heart block with left bundle morphology. Telemetry shows evidence of Mobitz type 1 as well as 2-1 and some episodes of complete heart block. Imaging Radiologist's impression: Impressions Chest X-Ray 07/21/20 15:41 IMPRESSION: Unremarkable examination. Assessment and Plan (1) Heart block AV second degree: Status: Acute (2) Complete heart block: Status: Acute Patient with symptoms of dizziness, shortness of breath for the last few weeks accompanied by conduction system disease manifesting as second-degree as well as third-degree heart block. She needs a permanent pacemaker. Discussed with the patient and she seems to understand and okay with. We will plan on proceeding with the procedure today. Also discussed with Dr. Amin from hospitalist. Informed thoracic surgery, .
--- NOTE | 2020-07-22 11:42 | MHC.CM.PN ---
per rounds pt to have pacemaker today or tomorrow dc plan remanins to return to her independent living situaion
--- NOTE | 2020-07-22 14:23 | FL_ITS ---
EXAMINATION: XR FLUOROSCOPY WITH IMAGES CLINICAL INFORMATION: Insertion dual-chamber pacemaker COMPARISON: Chest x-ray 07/21/2020 TECHNIQUE: Fluoroscopy performed by Dr. Alisha Conteh. Fluoroscopy time: 2.5) minutes DAP: [id number] A single fluoroscopic spot image and a dose report were submitted for review. FL/FL guidance in OR IMPRESSION: Single intraoperative fluoroscopic spot image demonstrates pacer leads projecting over the expected location of the right atrium and right ventricle.
--- NOTE | 2020-07-22 15:58 | MHC.SHP ---
Pre-Procedural Eval Section B Chief Complaint: dizziness and 2ng degree heart block Allergies: Allergies Allergy/AdvReac Type Severity Reaction Status Date / Time codeine AdvReac Unknown GI upset Verified 06/25/20 08:19 Plan I have reviewed the history and physical and performed a pertinent physical examination on my patient. No changes have occurred unless specified.
--- NOTE | 2020-07-22 16:01 | P.CONAN_ITS ---
HPI - Anesthesia Eval Consult details Narrative: 84 F for pacemaker insertion PMFSH Past Medical History Medical History Atrial enlargement, left Cancer of left tibia Constipation Depression with anxiety GERD (gastroesophageal reflux disease) High cholesterol History of small bowel obstruction Lipid disorder Lipoma Low hematocrit Mitral valve insufficiency Morbid obesity Osteoarthritis of both hips Osteosarcoma of bone RLS (restless legs syndrome) Tricuspid regurgitation Tubular adenoma of colon Urinary, incontinence, stress female Family History Family History Mother Alzheimers disease Brother Lung cancer Epilepsy Surgical History Surgical History H/O hysterectomy with oophorectomy History of appendectomy History of intestinal surgery Hx of colonoscopy S/P cataract surgery Social History Social History Housing: Assisted Living Facility Do you presently have visiting nurse or other home services: Yes Alcohol intake: never Smoking Status: Never smoker Use of substances other than those prescribed or required for medical reasons: No Have you been hit, kicked, punched, or otherwise hurt by someone within the past year? If so, by whom?: No Do you feel safe in your current relationship?: No Current Relationship Is there a partner from a previous relationship who is making you feel unsafe now?: No Are you made to feel afraid or neglected: No Spiritual Healthcare Practices: None. [facility] Healthcare Practices: None. Cultural Healthcare Practices: None. Advance Directives: No Advance Directives Information Provided: No Do you have thoughts of harming others: None Do you have a plan to hurt others: No Plan Recently lost weight without trying: No service: No Meds Allergies Allergy/AdvReac Type Severity Reaction Status Date / Time codeine AdvReac Unknown GI upset Verified 06/25/20 08:19 Home Medications Medication Instructions Recorded Confirmed Type ropinirole 0.5 mg tablet 0.5 mg PO DAILY tab 04/22/20 07/21/20 History permethrin 1 appl TOPICAL DAILY 07/21/20 07/21/20 History Exam Exam Date and Time: July 22, 2020 1601 Height,Weight and Vital Signs: Height 5 ft 4 in Weight 72.575 kg Last Vital Signs Temp 97.0 F 07/22/20 15:36 Pulse 47 L 07/22/20 15:36 Resp 16 07/22/20 15:36 BP 166/56 H 07/22/20 15:36 Pulse Ox 97 07/22/20 15:36 Pertinent Lab Results Pertinent Lab Results: Laboratory Tests 07/21/20 07/21/20 07/21/20 15:56 15:56 15:56 WBC 4.8 RBC 3.42 L D Hgb 8.5 L Hct 28.3 L MCV 82.7 MCH 24.9 L MCHC 30.0 L RDW 14.6 Plt Count 232 MPV 9.3 L Immature Gran % (Auto) 0.4 Neut % (Auto) 57.5 Lymph % (Auto) 27.5 [place] % (Auto) 10.0 Eos % (Auto) 4.0 Baso % (Auto) 0.6 Lymph # (Auto) 1.3 [place] # (Auto) 0.5 Eos # (Auto) 0.2 Baso # (Auto) 0.0 Abs Immat Gran (auto) 0.02 Absolute Neuts (auto) 2.8 Absolute Nucleated RBC 0.000 Nucleated RBC % (auto) 0.0 PT INR Hold Blue Top Sodium 141 Potassium 4.7 Chloride 107 Carbon Dioxide 23 Anion Gap 16 BUN 23 H Creatinine 1.44 H Estim Creat Clear Calc 27.9 Estimated GFR 35 Random Glucose 98 Calcium 8.6 Magnesium 2.2 Troponin I High Sens 4.8 B-Natriuretic Peptide COVID-19 (GURU) COVID-19 Clin [facility] Blood Type Antibody Screen Crossmatch (AHG) 07/21/20 07/21/20 07/21/20 15:56 15:56 15:56 WBC RBC Hgb Hct MCV MCH MCHC RDW Plt Count MPV Immature Gran % (Auto) Neut % (Auto) Lymph % (Auto) [place] % (Auto) Eos % (Auto) Baso % (Auto) Lymph # (Auto) [place] # (Auto) Eos # (Auto) Baso # (Auto) Abs Immat Gran (auto) Absolute Neuts (auto) Absolute Nucleated RBC Nucleated RBC % (auto) PT INR Hold Blue Top SEE NOTE Sodium Potassium Chloride Carbon Dioxide Anion Gap BUN Creatinine Estim Creat Clear Calc Estimated GFR Random Glucose Calcium Magnesium Troponin I High Sens B-Natriuretic Peptide 733 H COVID-19 (GURU) Negative COVID-19 Clin Com See Note Blood Type Antibody Screen Crossmatch (AHG) 07/22/20 07/22/20 10:10 11:16 WBC RBC Hgb Hct MCV MCH MCHC RDW Plt Count MPV Immature Gran % (Auto) Neut % (Auto) Lymph % (Auto) [place] % (Auto) Eos % (Auto) Baso % (Auto) Lymph # (Auto) [place] # (Auto) Eos # (Auto) Baso # (Auto) Abs Immat Gran (auto) Absolute Neuts (auto) Absolute Nucleated RBC Nucleated RBC % (auto) PT 12.6 INR 1.1 Hold Blue Top Sodium Potassium Chloride Carbon Dioxide Anion Gap BUN Creatinine Estim Creat Clear Calc Estimated GFR Random Glucose Calcium Magnesium Troponin I High Sens B-Natriuretic Peptide COVID-19 (GURU) COVID-19 Clin Com Blood Type A Positive Antibody Screen NEGATIVE Crossmatch ([facility]) See Detail Airway Mallampati Class: III TM Dist: >3cm Denture: Upper and Lower Heart: Bradycardia Lungs: NL Assessment and Plan Assessment Anesthesia Assessment: Anesthesia Plan Discussed and Chart Reviewed Final Anesthetic Review NPO: Yes ASA Class: IV Final Preanesthetic Review: No Changes in Pt Med Stat, Meds/Allgs Chart Reviewed, Consent Obtained/Reviewed and Anes Risks/Benef Reviewed Patient Risk: High Procedure Risk: Intermediate Anesthetic Plan Anesthetic Plan: MAC: Disposition: Standard PACU
--- NOTE | 2020-07-22 16:01 | HO.POSTANES ---
Post Anesthesia Evaluation Post Anesthesia Evaluation Vital Signs: Vital Signs Temp Pulse Resp BP Pulse Ox 07/22/20 15:36 97.0 F 47 L 16 166/56 H 97 07/22/20 11:09 98 F 34 L 18 136/62 97 07/22/20 07:12 97 F 64 20 125/60 98
--- NOTE | 2020-07-22 17:08 | P.PNIM_ITS ---
Subjective Subjective Date of Service: 07/22/20 Interval History: Patient admitted for lightheadedness and shortness of breath, patient had an uneventful night heart rate remained low overnight, patient is NPO for possible pacemaker placement this afternoon. Review of Systems General no headache, mild lightheadedness, no fever chills. CVS no chest pain, no palpitation. Respiratory no cough, no shortness of breath. Gastrointestinal no nausea, no vomiting, no abdominal pain Physical Exam Vital Signs: Vital Signs: Last Vital Signs Temp 97.0 F 07/22/20 15:36 Pulse 47 L 07/22/20 15:36 Resp 16 07/22/20 15:36 BP 166/56 H 07/22/20 15:36 Pulse Ox 97 07/22/20 15:36 Body Mass Index 27.4 Const: Other: General patient resting comfortably in no acute distress. Neck is supple no JVD. CVS bradycardia Respiratory lungs clear to auscultation, no respiratory distress Gastrointestinal abdomen soft, nontender, bowel sounds audible Extremities no clubbing cyanosis or edema. Neuro nonfocal Skin no rash Objective Data Current Medications Generic Name Dose Route Start Last Admin Trade Name Freq PRN Reason Stop Dose Admin Acetaminophen 650 mg 07/21/20 18:34 Acetaminophen 325 Mg Tablet PO Q6H PRN Pain, Mild (Pain Scale 1-3) Acetaminophen 650 mg 07/22/20 17:03 Acetaminophen 325 Mg Tablet PO ONCE PRN Pain, Mild (Pain Scale 1-3) Atorvastatin Calcium 10 mg 07/22/20 09:00 07/22/20 07:34 Atorvastatin Calcium 10 Mg Tablet PO Not Given DAILY [facility] Atropine Sulfate 0.5 mg 07/21/20 18:34 07/22/20 06:00 Atropine Sulfate 1 Mg/Ml Vial IVPUSH 0.5 mg Q5MX3 PRN Administration Bradycardia Escitalopram Oxalate 20 mg 07/21/20 18:34 Escitalopram Oxalate 20 Mg Tablet PO ONCE [facility] Heparin Sodium (Porcine) 5,000 unit 07/21/20 20:00 07/22/20 05:52 Heparin Sodium,Porcine 5,000 Unit/Ml Vial SUBCUT Not Given Q12H [facility] Omeprazole 40 mg 07/22/20 06:30 07/22/20 04:42 Omeprazole 40 Mg Capsule. PO 40 mg DAILY@0630 [facility] Administration Ondansetron HCl 4 mg 07/21/20 18:34 Ondansetron Hcl 4 Mg/2 Ml Vial IVPUSH Q8H PRN Nausea and Vomiting Ondansetron HCl 4 mg 07/22/20 17:03 Ondansetron Hcl 4 Mg/2 Ml Vial IVPUSH ONCE PRN Nausea and Vomiting Pharmacy Consult 1 each 07/21/20 16:50 Consult Rx Perform Med Rec MISCELLANE ONCE PRN Consult order Ropinirole HCl 0.5 mg 07/21/20 18:45 07/22/20 04:32 Ropinirole Hcl 0.5 Mg Tablet PO 0.5 mg DAILY [facility] Administration Sodium Chloride 3 ml 07/22/20 00:00 07/22/20 04:43 0.9 % Sodium Chloride Flush 3 Ml Syringe IVFLUSH 3 ml QSHIFT DENISE Administration Labs CBC & Chem 7: 07/21/20 15:56 07/21/20 15:56 Assessment and Plan (1) Complete heart block: Status: Acute (2) Congestive heart failure: Status: Acute (3) Heart block AV second degree: Status: Acute (4) Anemia: Status: Acute (5) Lipid disorder: Status: Acute Assessment and Plan: 84-year-old female patient, who came into [facility] due to lightheadedness, dizziness, and shortness of breath with exertion. The patient has been diagnosed to have significant bradycardia with 2:1 block. The patient will be admitted to telemetry for continued monitoring and treatment. 1. Symptomatic bradycardia with second-degree and complete heart block. Tele monitor showed persistent bradycardia and heart block, obtain cardiology and thoracic surgery consultation case discussed with Dr. Sandoval and thoracic surgery PA patient is scheduled for pacemaker placement this afternoon Patient is NPO, spoke with patient's daughter and informed her about the plan patient and daughter are agreeable for pacemaker placement. 2. History of recent GI bleed and anemia. Case discussed with patient polysomnograph tech Dr. Johnston he recommend IV iron infusion since hct trending down, patient has no active GI bleed But has colitis likely intermittent blood loss. 3. History of hypertension. Currently blood pressure is stable not on antihypertensive medication. 4. History of hyperlipidemia. Continue Lipitor. 5. History of restless legs syndrome. Continue Requip. 6. Deep vein thrombosis prophylaxis. mechanical device.
[2020-07-22] MEDS: Heparin Sodium,Porcine 5,000 UNIT/ML VIAL 5000 UNIT SUBCUT (22:46)
[2020-07-23] VITALS (13 sets, daily range): BP systolic 111–157; BP diastolic 45–73; PULSE 36–66; RESP 18–26; TEMP 36.1–37.1; O2SAT 93–99
--- NOTE | 2020-07-23 | XR_ITS ---
EXAMINATION: XR CHEST CLINICAL INFORMATION: New pacemaker. Lead placement COMPARISON: Chest 07/21/2020 TECHNIQUE: Frontal view of the chest was obtained. FINDINGS: There are new pacer electrodes with tips in the right atrium and right ventricle. Heart size and pulmonary vascularity is normal. The lungs are expanded and clear. No gross bony abnormality. XR/XR chest 1V IMPRESSION: New pacer electrodes in right atrium and right ventricle. The lungs are clear.
--- NOTE | 2020-07-23 00:10 | OP_ITS ---
SURGEON: Alisha Conteh MD PREOPERATIVE DIAGNOSIS: Complete heart block. POSTOPERATIVE DIAGNOSIS: Complete heart block. PROCEDURE PERFORMED: Dual-chamber permanent pacemaker with fluoroscopic guidance. ESTIMATED BLOOD LOSS: Minimal. COMPLICATIONS: ANESTHESIA: MAC with local. ASSISTANTS: SPECIMENS: None. OPERATIVE FINDINGS: The pacemaker placed was a [employer] Assurity MRI 2272, serial number [id number]. The atrial lead placed was [employer] Tendril STS 2088TC/46 cm, serial number is [id number]. The ventricular lead placed was [employer] Tendril STS 2088TC/52 cm, serial number [id number]. The patient's parameters in the atrial lead, threshold is 1.25 V at 0.5 milliseconds with a P-wave of 1.5 mV and impedance of 400 ohms. Ventricular lead threshold was 0.375 V at 0.5 milliseconds with an R-wave of 4.3 mV and an impedance of 540 ohms. The patient tolerated the procedure well. DESCRIPTION OF PROCEDURE: On the day of the operation, the patient was brought to the operating room and placed supine on the operating room table. Anesthesia and monitoring devices were placed. The patient was gently sedated. The left infraclavicular area was then prepped and draped in the standard sterile fashion and a time-out was performed confirming the correct patient, site and procedure. After injection of local anesthetic, a 3 cm incision was made and carried down to the pectoralis fascia with electrocautery. The patient was then placed in Trendelenburg. An 18-gauge needle was used to access the subclavian vein and a wire was placed and parked in the right atrium under fluoroscopic guidance. Additional attempts at accessing the vein were a little more difficult and for that reason, the 6-Faroese sheath was placed over the wire that was in place. The dilator was removed and the second wire was placed through that same sheath, removing the sheath completely now having 2 wires parked in the right atrium. The patient was then taken out of Trendelenburg and the pocket was formed using electrocautery and blunt dissection. The first 6-Faroese sheath was placed over the first wire, and the wire and dilator were removed. The ventricular lead was then placed and directed into the right ventricular apex under fluoroscopic guidance. The endocardial screw was deployed and the lead was tested with excellent parameters above. This lead was secured to the pectoralis fascia with silk sutures. The second 6-Faroese sheath was placed over the second wire and the wire and dilator were removed. The atrial lead was then placed and parked in the right atrium. A J-stylet was used to access the right atrial appendage and the endocardial screw was deployed. The lead was tested with excellent parameters listed above. The peel-away sheath was removed and the lead was secured to the pectoralis fascia with silk sutures. The pocket was then copiously irrigated with antibiotic solution and the excess lead and generator were then placed into the pocket and the wound was closed with a deep layer of running 3-0 Vicryl suture, followed by running 3-0 Vicryl suture, and Dermabond glue on the skin. The leads were again tested wirelessly with excellent parameters. The patient tolerated procedure well and was brought to the recovery room in stable condition. MD MECHELLE Ayon/ERIC / [phone]
--- NOTE | 2020-07-23 00:35 | CONS_ITS ---
DATE OF SERVICE: 07/22/2020 REFERRING PHYSICIAN: Oscar Sandoval MD REASON FOR CONSULTATION: Heart block. HISTORY OF PRESENT ILLNESS: The patient is an 84-year-old woman, who has been feeling dizzy in the past few weeks. She has also been complaining of some shortness of breath. She was hospitalized and had Mobitz type 1 heart block at times and other times 2:1 block as well as some episodes of complete heart block on EKG and telemetry. REVIEW OF SYSTEMS: Other than above, 12-point review of systems was done and is negative. PAST MEDICAL HISTORY: Enlarged left atrium, cancer of the left tibia, constipation, depression, anxiety, GERD, high cholesterol, history of small-bowel obstruction, lipid disorder, lipoma, low hematocrit, mitral valve insufficiency, morbid obesity, osteoarthritis of both hips, osteosarcoma of the bone, restless legs syndrome, tricuspid regurgitation, tubular adenoma of the colon, urinary incontinence to stress. FAMILY HISTORY: Mother from Alzheimer's. Brother from lung cancer and epilepsy. PAST SURGICAL HISTORY: Hysterectomy with oophorectomy, appendectomy, intestinal surgery, history of colonoscopy, status post cataract. SOCIAL HISTORY: She lives in assisted living. She does not drink alcohol. She is a nonsmoker and never smoker. HOME MEDICATIONS: Ropinirole and permethrin. PHYSICAL EXAMINATION: VITAL SIGNS: Temperature is 97, heart rate is in the 20s currently, respiratory rate 20, blood pressure is 166/60, pulse oximetry is 98% on room air. GENERAL: She is not in acute distress. HEENT: Moist mucous membranes. No scleral icterus. Normocephalic. NECK: Supple. No JVD. No thyromegaly. LYMPH: There is no cervical, supraclavicular, or other lymphadenopathy appreciated. CHEST: No chest wall abnormalities or deformities. HEART: Regular rate and rhythm. Bradycardic. LUNGS: Clear to auscultation bilaterally. ABDOMEN: Soft, nontender, nondistended. Normal bowel sounds. No hernias appreciated. EXTREMITIES: No lower extremity edema. Warm and well perfused. No cyanosis or clubbing. Full range of motion. NEUROLOGIC: Grossly intact. Alert and oriented x3. Nonfocal. SKIN: Warm and dry. PSYCHIATRIC: Her affect is appropriate. LABORATORY DATA: Her hematocrit is 28.3, white count is 4.8, and platelets are 232. BUN and creatinine are 23 and 1.44, potassium is 4.7. EKG shows episodes of complete heart block and Mobitz type 1 heart block. ASSESSMENT AND PLAN: In summary, she is an 84-year-old woman with second-degree and intermittent complete heart block with heart rate in the 20s and 30s that is symptomatic. I had a long discussion with her about the pacemaker placement, including the risks, benefits, and alternatives, which she understood and agreed to proceed. The patient has been n.p.o. and will be brought to the operating room for a dual-chamber permanent pacemaker. MD MECHELLE Ayon/ERIC / [phone]
[2020-07-23] MEDS: 0.9 % Sodium Chloride Flush 3 ML SYRINGE IVFLUSH ×3 (01:12→15:39)
--- NOTE | 2020-07-23 04:34 | ECG_ITS ---
Test Reason : dizzy, sob Blood Pressure : / mmHG Vent. Rate : 045 BPM Atrial Rate : 045 BPM P-R Int : 000 ms QRS Dur : 112 ms QT Int : 552 ms P-R-T Axes : 000 -38 007 degrees QTc Int : 477 ms Atrial pacing noted Ventricular pacing spikes without capture Underlying 2:1 block Pacemaker malfunction Abnormal ECG No previous ECGs available Referred By: Mari Amin Electronically Signed By:CHAVEZ SQUIRES
--- NOTE | 2020-07-23 05:20 | PM.EVENT ---
Event Note Date of Service: 07/23/20 Event Note: pt s/p pacemaker. has episodes of bradycardia on tele dipping to the 30s. Pt is symptomatic with dizziness and sob. will give one dose of atropine
[2020-07-23] MEDS: Atropine Sulfate 1 MG/ML VIAL 0.5 MG IVPUSH ×2 (05:33→06:23)
[2020-07-23] MEDS: Omeprazole 40 MG CAPSULE.DR PO (05:34)
--- NOTE | 2020-07-23 05:37 | PC.NURSE ---
Addendum entered by Maria E Bruner RN 07/23/20 07:17: Patient pressure stable 119/58, placed on 2lpm oxygen for discomfort. Day MD made aware Original Note: 0500 Patient had runs of VT, RN in room to assess patient. Complaints of SOB and dizziness. Vitals are stable, lung sounds clear throughout. Tele is reading heart rate of low 30s, patient had pacemaker placed late afternoon on 07/22. EKG performed, interpreted as dual paced with junctional. MD made aware at this time, new order for atropine IV push x1. Administered with education to patient, heart rate reached to mid 70s briefly and returned to mid 30s/40s. Patient only complaint now is dizziness with ambulation, will recheck pressure and update.
[2020-07-23] MEDS: rOPINIRole HCL 0.5 MG TABLET PO (06:45)
--- NOTE | 2020-07-23 08:14 | P.CDIC_ITS ---
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 Please clarify the information noted below in your progress notes and discharge summary. Risk Factors/Clinical Indicators/Treatments 84 year old female admitted with symptomatic bradycardia with Second Degree Heart Block. Plan is for OR 07/23/20 for insertion dual chamber pacemaker H/H 8.5/28.3 History GI bleed and mild anemia Per H&P: Mild Anemia, currently no active bleeding. Per GI: recommend iron infusion since HCT trending down. Has Colitis, intermittent blood loss CDS: Marline De Los Santos RN Contact Number: [phone] Please Review the information above and exercise your independent professional judgment in responding to the query. If you concur, pleas document in the PROGRESS NOTES and DISCHARGE SUMMARY. If you do not agree with the query, please document in the query above. THIS QUERY IS PART OF THE PERMANENT MEDICAL RECORD
--- NOTE | 2020-07-23 09:15 | PM.PNCARD ---
Subjective Subjective Date of Service: 07/23/20 Principal diagnosis: Second degree heart block, s/p [employer] Dual chamber pacemaker placement Interval history: Cardiology follow up for heart block, s/p PPM. Seen at 0840. Pt awake, confused. Denies pain, sob. Accuracy of subjective exam unclear. Did not eat breakfast. Tele showing pacemaker has intermittent loss of capture. Review of Systems Review of Systems as above - unable to obtain accurate assessment Physical Exam Vital Signs: Last Vital Signs Temp 98 F 07/23/20 07:09 Pulse 56 07/23/20 07:09 Resp 22 H 07/23/20 07:09 BP 132/64 07/23/20 07:09 Pulse Ox 94 07/23/20 07:09 Body Mass Index 27.4 Const Other: Mildly restless, wearing sling losely on left arm, not oriented, pleasant. General: cooperative, no acute distress, alert and awake Neck Neck: Yes normal visual inspection and Yes no JVD Chest Other: Pacemaker site left upper chest with mild swelling, no drainage, fulling intact. Resp Effort & Inspection: able to speak in complete sentences and not labored Auscultation: clear to auscultation bilaterally, no rales, no rhonchi and no wheezes Cardio Jugular venous distension: JVD present Palpation: normal PMI Rate: regular rate Rhythm: regular rhythm Heart sounds: S1 normal heart sound present and S2 normal heart sound present GI Inspection: Yes normal to inspection Skin Other: Warm and dry, normal skin color General skin exam: no rashes or lesions noted Extrem General: Yes normal to inspection and No edema Results Labs and Meds Result diagrams: 07/21/20 15:56 07/21/20 15:56 Lab results: Laboratory Results - last 24 hr 07/22/20 07/22/20 10:10 11:16 PT 12.6 INR 1.1 Blood Type A Positive Antibody Screen NEGATIVE Crossmatch (AHG) See Detail Imaging Radiologist's impression: Impressions Chest X-Ray 07/22/20 00:00 IMPRESSION: New 2-lead left pectoral pacemaker with leads terminating over the expected location of the right atrium and right ventricle. Similar appearance of diffuse interstitial prominence. This can be seen acutely with interstitial pulmonary edema, bronchiolitis or viral pneumonitis, chronically with chronic bronchitis or reactive airways disease. Guidance Fluoroscopy 07/22/20 14:23 IMPRESSION: Single intraoperative fluoroscopic spot image demonstrates pacer leads projecting over the expected location of the right atrium and right ventricle. Progress Note: A&P Assessment and plan (1) Heart block AV second degree: Status: Acute Assessment and Plan: Admit with sob and dizziness. EKG/ Tele showing 2:1 heart block with rates into 30s. She underwent [employer] dual chamber pacemaker placement yesterday with Dr Conteh. Wearing sling. Does have confusion. Initially pacemaker working normally. During the night, tele strips show loss of capture at times in both the A and the V. Interrogation this am does show device again functioning normally at that moment however, Afterwards noted to have loss of capture again. Pt tolerates without noted symptoms, BP stable. Dr Conteh notified of events. Portable CXR pending. Will need lead placement revision. Keep NPO. Continual Tele monitoring. Discussed with RN. We will follow (2) Pacemaker: Status: Acute Assessment and Plan: Interrogation this am shows batttery 2.98 V, A capture 1.25 v @ 0.5ms, V 0.75 @ 0.5ms, DDD mode, low rate 60, auto capture turned off, V pulse amplitude turned up to 3.5 V, V sensitivity changed to auto with max 0.5mV. There was capture at time of interrogation - then noted again to have loss of capture with underlying second degree heart block. (3) Pacemaker complications: Status: Acute Fall Risk Details Current Medications: Current Medications Generic Name Dose Route Start Last Admin Trade Name Freq PRN Reason Stop Dose Admin Acetaminophen 650 mg 07/21/20 18:34 Acetaminophen 325 Mg Tablet PO Q6H PRN Pain, Mild (Pain Scale 1-3) Acetaminophen 650 mg 07/22/20 17:03 Acetaminophen 325 Mg Tablet PO ONCE PRN Pain, Mild (Pain Scale 1-3) Atorvastatin Calcium 10 mg 07/22/20 09:00 07/22/20 07:34 Atorvastatin Calcium 10 Mg Tablet PO Not Given DAILY [facility] Atropine Sulfate 0.5 mg 07/21/20 18:34 07/23/20 06:23 Atropine Sulfate 1 Mg/Ml Vial IVPUSH 0.5 mg Q5MX3 PRN Administration Bradycardia Escitalopram Oxalate 20 mg 07/21/20 18:34 Escitalopram Oxalate 20 Mg Tablet PO ONCE [facility] Fentanyl 25 mcg 07/22/20 17:37 Fentanyl Citrate/Pf 100 Mcg/2 Ml Vial IVPUSH Q5M PRN Pain, Moderate (Pain Scale 4-6 Heparin Sodium (Porcine) 5,000 unit 07/21/20 20:00 07/22/20 22:46 Heparin Sodium,Porcine 5,000 Unit/Ml Vial SUBCUT 5,000 unit Q12H DENISE Administration Ferric Sodium Gluconate 110 mls @ 100 mls/hr 07/23/20 08:21 Complex 125 mg/ Sodium IV 07/23/20 09:26 Chloride ONCE ONE Omeprazole 40 mg 07/22/20 06:30 07/23/20 05:34 Omeprazole 40 Mg Capsule.Dr PO 40 mg DAILY@0630 [facility] Administration Ondansetron HCl 4 mg 07/21/20 18:34 Ondansetron Hcl 4 Mg/2 Ml Vial IVPUSH Q8H PRN Nausea and Vomiting Ondansetron HCl 4 mg 07/22/20 17:03 Ondansetron Hcl 4 Mg/2 Ml Vial IVPUSH ONCE PRN Nausea and Vomiting Pharmacy Consult 1 each 07/21/20 16:50 Consult Rx Perform Med Rec MISCELLANE ONCE PRN Consult order Ropinirole HCl 0.5 mg 07/21/20 18:45 07/23/20 06:45 Ropinirole Hcl 0.5 Mg Tablet PO 0.5 mg DAILY [facility] Administration Sodium Chloride 3 ml 07/22/20 00:00 07/23/20 05:33 0.9 % Sodium Chloride Flush 3 Ml Syringe IVFLUSH 3 ml QSHIFT DENISE Administration Time Spent With Patient Time: Total time spent is greater than 50% in coordination of care (as documented) at patient's floor/unit and/or counseling patient: 30 Time with patient: 25 - 35 minutes
--- NOTE | 2020-07-23 09:18 | ECG_ITS ---
Test Reason : PACER CHECK Blood Pressure : / mmHG Vent. Rate : 022 BPM Atrial Rate : 000 BPM P-R Int : 000 ms QRS Dur : 132 ms QT Int : 564 ms P-R-T Axes : 000 -39 -36 degrees QTc Int : 341 ms Idioventricular rhythm with Premature ventricular complexes or Fusion complexes Left axis deviation Left bundle branch block Abnormal ECG When compared with ECG of 23-JUL-2020 04:45, Idioventricular rhythm has replaced Electronic ventricular pacemaker Vent. rate has decreased BY 23 BPM Referred By: Chavez Squires Electronically Signed By: CHAVEZ SQUIRES [facility]
[2020-07-23] MEDS: Atorvastatin Calcium 10 MG TABLET PO (09:32)
[2020-07-23] MEDS: Sodium Ferric Gluconat/Sucrose 125 MG in 0.9 % Sodium Chloride 100 ML 100 MG IV (09:33)
--- NOTE | 2020-07-23 10:24 | FL_ITS ---
EXAMINATION: XR FLUOROSCOPY WITH IMAGES CLINICAL INFORMATION: Pacemaker lead revision. COMPARISON: None. TECHNIQUE: Fluoroscopy performed by Dr. Alisha Conteh. Fluoroscopy time: 3.9 minutes Total dose: 62.25 mGycm2 Images: 1 FINDINGS: Single fluoroscopic spot view coned to the cardiopericardial silhouette demonstrates both atrial and ventricular pacer leads. FL/FL guidance in OR IMPRESSION: Fluoroscopy for pacer lead revision.
--- NOTE | 2020-07-23 10:54 | HO.ANESPROP2 ---
HPI - Anesthesia Eval Consult details Narrative: 84 F s/p pacemaker insertion yesterday represents for pacemaker revision emergently due to lead malfunction. patient is pleasantly delirious and not oriented PMFSH Past Medical History Medical History Atrial enlargement, left Cancer of left tibia Constipation Depression with anxiety GERD (gastroesophageal reflux disease) High cholesterol History of small bowel obstruction Lipid disorder Lipoma Low hematocrit Mitral valve insufficiency Morbid obesity Osteoarthritis of both hips Osteosarcoma of bone RLS (restless legs syndrome) Tricuspid regurgitation Tubular adenoma of colon Urinary, incontinence, stress female Family History Family History Mother Alzheimers disease Brother Lung cancer Epilepsy Surgical History Surgical History H/O hysterectomy with oophorectomy History of appendectomy History of intestinal surgery Hx of colonoscopy S/P cataract surgery Social History Social History Housing: Assisted Living Facility Do you presently have visiting nurse or other home services: Yes Alcohol intake: never Smoking Status: Never smoker Use of substances other than those prescribed or required for medical reasons: No Currently Displaying Signs/Symptoms of Drug Intoxication Withdrawal: No Have you been hit, kicked, punched, or otherwise hurt by someone within the past year? If so, by whom?: No Do you feel safe in your current relationship?: No Current Relationship Is there a partner from a previous relationship who is making you feel unsafe now?: No Are you made to feel afraid or neglected: No Spiritual Healthcare Practices: None. [facility] Healthcare Practices: None. Cultural Healthcare Practices: None. Advance Directives: No Advance Directives Information Provided: No Do you have thoughts of harming others: None Do you have a plan to hurt others: No Plan Recently lost weight without trying: No service: No Meds Allergies Allergy/AdvReac Type Severity Reaction Status Date / Time codeine AdvReac Unknown GI upset Verified 06/25/20 08:19 Home Medications Medication Instructions Recorded Confirmed Type ropinirole 0.5 mg tablet 0.5 mg PO DAILY tab 04/22/20 07/21/20 History permethrin 1 appl TOPICAL DAILY 07/21/20 07/21/20 History Exam Exam Date and Time: July 23, 2020 1054 Height,Weight and Vital Signs: Height 5 ft 4 in Weight 72.575 kg Last Vital Signs Temp 98 F 07/23/20 07:09 Pulse 56 07/23/20 07:09 Resp 22 H 07/23/20 07:09 BP 132/64 07/23/20 07:09 Pulse Ox 94 07/23/20 07:09 Pertinent Lab Results Pertinent Lab Results: Laboratory Tests 07/21/20 07/21/20 07/21/20 15:56 15:56 15:56 WBC 4.8 RBC 3.42 L D Hgb 8.5 L Hct 28.3 L MCV 82.7 MCH 24.9 L MCHC 30.0 L RDW 14.6 Plt Count 232 MPV 9.3 L Immature Gran % (Auto) 0.4 Neut % (Auto) 57.5 Lymph % (Auto) 27.5 [place] % (Auto) 10.0 Eos % (Auto) 4.0 Baso % (Auto) 0.6 Lymph # (Auto) 1.3 [place] # (Auto) 0.5 Eos # (Auto) 0.2 Baso # (Auto) 0.0 Abs Immat Gran (auto) 0.02 Absolute Neuts (auto) 2.8 Absolute Nucleated RBC 0.000 Nucleated RBC % (auto) 0.0 PT INR Hold Blue Top Sodium 141 Potassium 4.7 Chloride 107 Carbon Dioxide 23 Anion Gap 16 BUN 23 H Creatinine 1.44 H Estim Creat Clear Calc 27.9 Estimated GFR 35 Random Glucose 98 Calcium 8.6 Magnesium 2.2 Troponin I High Sens 4.8 B-Natriuretic Peptide COVID-19 ([facility]) COVID-19 Clin Com Blood Type Antibody Screen Crossmatch ([facility]G) 07/21/20 07/21/20 07/21/20 15:56 15:56 15:56 WBC RBC Hgb Hct MCV MCH MCHC RDW Plt Count MPV Immature Gran % (Auto) Neut % (Auto) Lymph % (Auto) [place] % (Auto) Eos % (Auto) Baso % (Auto) Lymph # (Auto) [place] # (Auto) Eos # (Auto) Baso # (Auto) Abs Immat Gran (auto) Absolute Neuts (auto) Absolute Nucleated RBC Nucleated RBC % (auto) PT INR Hold Blue Top SEE NOTE Sodium Potassium Chloride Carbon Dioxide Anion Gap BUN Creatinine Estim Creat Clear Calc Estimated GFR Random Glucose Calcium Magnesium Troponin I High Sens B-Natriuretic Peptide 733 H COVID-19 ([facility]) Negative COVID-19 Clin Com See Note Blood Type Antibody Screen Crossmatch ([facility]G) 07/22/20 07/22/20 10:10 11:16 WBC RBC Hgb Hct MCV MCH MCHC RDW Plt Count MPV Immature Gran % (Auto) Neut % (Auto) Lymph % (Auto) [place] % (Auto) Eos % (Auto) Baso % (Auto) Lymph # (Auto) [place] # (Auto) Eos # (Auto) Baso # (Auto) Abs Immat Gran (auto) Absolute Neuts (auto) Absolute Nucleated RBC Nucleated RBC % (auto) PT 12.6 INR 1.1 Hold Blue Top Sodium Potassium Chloride Carbon Dioxide Anion Gap BUN Creatinine Estim Creat Clear Calc Estimated GFR Random Glucose Calcium Magnesium Troponin I High Sens B-Natriuretic Peptide COVID-19 ([facility]) COVID-19 Clin Com Blood Type A Positive Antibody Screen NEGATIVE Crossmatch ([facility]) See Detail Airway Mallampati Class: III TM Dist: >3cm Denture: Upper and Lower Assessment and Plan Assessment Anesthesia Assessment: Anesthesia Plan Discussed and Chart Reviewed Final Anesthetic Review NPO: Yes ASA Class: IV and Emergency Final Preanesthetic Review: No Changes in Pt Med Stat, Meds/Allgs Chart Reviewed, Consent Obtained/Reviewed and Anes Risks/Benef Reviewed Patient Risk: High Procedure Risk: Low Anesthetic Plan Anesthetic Plan: MAC: Disposition: Standard PACU
[2020-07-23] MEDS: ceFAZolin Sodium/Dextrose,Iso 2 GM/50 ML PIGGYBACK IV (11:03)
--- NOTE | 2020-07-23 11:04 | PC.NURSE ---
CALLED [facility] FOR PERMISSION. PATIENT DELIRIOUS AND CONFUSED. UNABLE TO GET IN TOUCH WITH [facility] ON THE [facility] FORM. EMERGENT CASE PER MD CONDON. TWO MD'S AND MYSELF SIGNED CONSENT FOR PATIENT. PATIENT WASNT ABLE TO TELL WHAT PROCEDURE, WHERE SHE WAS, LAUGHING AND SMILING.
--- NOTE | 2020-07-23 12:29 | PM.OP ---
Brief Operative Note Date of Service: 07/23/20 Pre-op diagnosis: Pacemaker lead dislodgement Post-op diagnosis: same Procedure: Atrial and ventricular lead revisions with fluoro Surgeon: Alisha Conteh MD Anesthesia: MAC Estimated blood loss (mL): 2 Condition: stable Disposition: PACU
[2020-07-23] MEDS: Dextrose 5 % and 0.9 % NaCl 1,000 ML 100 ML IVCONT (14:34)
[2020-07-23 15:53] LABS: Hematocrit 26.6 % (37-47); Hemoglobin 7.9 g/dl (12.0-16.0)
--- NOTE | 2020-07-23 15:56 | HO.POSTANES ---
Post Anesthesia Evaluation Post Anesthesia Evaluation Vital Signs: Vital Signs Temp Pulse Resp BP Pulse Ox 07/23/20 15:38 97.3 F 63 19 137/64 96 07/23/20 12:50 66 20 118/45 L 93 07/23/20 12:45 61 22 H 132/59 L 97 07/23/20 12:41 60 22 H 136/53 L 97 07/23/20 12:35 98.0 F 60 26 H 128/58 L 97 07/23/20 07:09 98 F 56 22 H 132/64 94 07/23/20 06:24 36 L 19 119/58 L 94 07/23/20 04:00 97.7 F 59 18 116/63 95 Anesthesia: Monitored Mental Status: Awake Pain Control: Satisfactory Nausea/Vomiting: None Hydration: Adequate Anesthesia-Related Issues: No Anes. Related Issues
--- NOTE | 2020-07-23 16:15 | HO.PM.IMPN ---
Subjective Subjective Date of Service: 07/23/20 Interval History: Patient admitted for lightheadedness and shortness of breath, patient had an uneventful night heart rate remained low overnight, patient is NPO for possible pacemaker placement this afternoon. Review of Systems Patient unable to provide any meaningful history due to confusion except complaining of dry mouth. Physical Exam Vital Signs: Vital Signs: Last Vital Signs Temp 97.3 F 07/23/20 15:38 Pulse 63 07/23/20 15:38 Resp 19 07/23/20 15:38 BP 137/64 07/23/20 15:38 Pulse Ox 96 07/23/20 15:38 Body Mass Index 27.4 Const: Other: General no acute distress. Neck is supple no JVD. CVS bradycardia site of pace maker with clean incision, no drainage Respiratory lungs clear to auscultation, no respiratory distress Gastrointestinal abdomen soft, nontender, bowel sounds audible Extremities edema. Neuro pleasantly confused not aware of place or person Skin no rash Objective Data Current Medications Generic Name Dose Route Start Last Admin Trade Name Freq PRN Reason Stop Dose Admin Acetaminophen 650 mg 07/21/20 18:34 Acetaminophen 325 Mg Tablet PO Q6H PRN Pain, Mild (Pain Scale 1-3) Acetaminophen 650 mg 07/22/20 17:03 Acetaminophen 325 Mg Tablet PO ONCE PRN Pain, Mild (Pain Scale 1-3) Atorvastatin Calcium 10 mg 07/22/20 09:00 07/23/20 09:32 Atorvastatin Calcium 10 Mg Tablet PO 10 mg DAILY DENISE Administration Atropine Sulfate 0.5 mg 07/21/20 18:34 07/23/20 06:23 Atropine Sulfate 1 Mg/Ml Vial IVPUSH 0.5 mg Q5MX3 PRN Administration Bradycardia Escitalopram Oxalate 20 mg 07/21/20 18:34 Escitalopram Oxalate 20 Mg Tablet PO ONCE DENISE Fentanyl 25 mcg 07/22/20 17:37 Fentanyl Citrate/Pf 100 Mcg/2 Ml Vial IVPUSH Q5M PRN Pain, Moderate (Pain Scale 4-6 Heparin Sodium (Porcine) 5,000 unit 07/21/20 20:00 07/23/20 09:33 Heparin Sodium,Porcine 5,000 Unit/Ml Vial SUBCUT Not Given Q12H DENISE Dextrose/Sodium Chloride 1,000 mls @ 100 mls/hr 07/23/20 11:00 07/23/20 14:34 D5ns IVCONT 100 mls/hr .Q10H DENISE Administration Omeprazole 40 mg 07/22/20 06:30 07/23/20 05:34 Omeprazole 40 Mg Capsule. PO 40 mg DAILY@0630 DENISE Administration Ondansetron HCl 4 mg 07/21/20 18:34 Ondansetron Hcl 4 Mg/2 Ml Vial IVPUSH Q8H PRN Nausea and Vomiting Ondansetron HCl 4 mg 07/22/20 17:03 Ondansetron Hcl 4 Mg/2 Ml Vial IVPUSH ONCE PRN Nausea and Vomiting Pharmacy Consult 1 each 07/21/20 16:50 Consult Rx Perform Med Rec MISCELLANE ONCE PRN Consult order Ropinirole HCl 0.5 mg 07/21/20 18:45 07/23/20 06:45 Ropinirole Hcl 0.5 Mg Tablet PO 0.5 mg DAILY DENISE Administration Sodium Chloride 3 ml 07/22/20 00:00 07/23/20 15:39 0.9 % Sodium Chloride Flush 3 Ml Syringe IVFLUSH 3 ml QSHIFT DENISE Administration Labs CBC & Chem 7: 07/23/20 15:43 07/21/20 15:56 Assessment and Plan (1) Complete heart block: Status: Acute (2) Congestive heart failure: Status: Acute (3) Heart block AV second degree: Status: Acute (4) Anemia: Status: Acute (5) Lipid disorder: Status: Acute Assessment and Plan: 84-year-old female patient, who came into [facility] due to lightheadedness, dizziness, and shortness of breath with exertion. The patient has been diagnosed to have significant bradycardia with 2:1 block. The patient will be admitted to telemetry for continued monitoring and treatment. 1. Symptomatic bradycardia with second-degree and complete heart block. Status post dual-chamber permanent pacemaker placement due to complete heart block, this morning noted to have heart rate in 30s, pacemaker interrogated patient found to have pacemaker lead dislodgement therefore patient taken back to the whole a for revision of atrial and ventricular leads Tele monitor showed heart rate in 60s. Call daughter and updated her about patient's condition 2. Acute on chronic blood loss anemia due to chronic GI loss patient recently diagnosed to have colitis being treated with mesalamine, patient given 1 dose of IV iron as per GI recommendation, Since patient noted to have significant drop in hematocrit will transfuse 1 unit of packed RBC , check iron studies and stool guaiac, no active GI bleed noted follow CBC closely Obtain GI consult if noted to have any active bleed 3. Acute kidney injury noted to have elevated creatinine on admission now normalized likely due to poor perfusion with complete heart block 4. History of hypertension. Currently blood pressure is stable not on antihypertensive medication. 4. History of hyperlipidemia. Continue Lipitor. 5. History of restless legs syndrome. Continue Requip. 6. Deep vein thrombosis prophylaxis. mechanical device.
[2020-07-23 16:19] LABS: Anion Gap 11 (12-20); Blood Urea Nitrogen 18 mg/dL (9-16); Calcium 8.4 mg/dL (8.4-10.2); Carbon Dioxide 26 mmol/L (22-29); Chloride 107 mmol/L (96-108); Estimated Glomerular Filt Rate 41; Glucose Random 108 mg/dL (60-115); Sodium 140 mmol/L (135-145)
--- NOTE | 2020-07-23 21:25 | OP_ITS ---
SURGEON: Alisha Conteh MD PREOPERATIVE DIAGNOSIS: Atrial and ventricular lead dislodgement. POSTOPERATIVE DIAGNOSIS: Atrial and ventricular lead dislodgement. PROCEDURE PERFORMED: Atrial and ventricular lead revision. ESTIMATED BLOOD LOSS: Minimal. COMPLICATIONS: ANESTHESIA: MAC. ASSISTANTS: SPECIMENS: None. OPERATIVE INDICATIONS: The patient is an 84-year-old woman with complete heart block, who had the dual-chamber pacemaker placed yesterday without incident. Overnight, she did become confused and delirious and was moving around quite a bit and then was having intermittent periods of non-capture of the ventricular lead. Chest x-ray done at that time showed the atrial lead to be in good position. However, the ventricular lead did both different from the last shot on fluoroscopy in the postop x-ray. For this reason, we took her emergently back to the operating room for pacemaker lead revision. OPERATIVE FINDINGS: On initial fluoroscopy, it did appear that the ventricular lead had moved and now also the atrial lead was not in the appendage any longer. The parameters in the atrial lead, the new threshold was 1.25 V at 0.5 milliseconds with the P-wave of 1 mV. In the ventricular lead, the threshold was 0.5 V at 0.5 milliseconds and 8 mV R-wave and impedance 610 ohms. The patient tolerated procedure well. DESCRIPTION OF PROCEDURE: On the day of the operation, the patient was brought to the operating room, placed supine on the operating room table. Anesthesia and monitoring devices were placed. The patient was gently sedated. The left infraclavicular area was then prepped and draped in standard sterile fashion. A time-out was performed confirming the correct patient, site and procedure. The previous incision was opened up and the suture was cut out. The pacemaker generator and excess lead were then brought out of the pocket and placed on antibiotic sponge. The atrial lead was disconnected first and then wall pacing the ventricle as it was working intermittently in fact most of the time. I then took the sutures out from the pectoralis fascia on both leads, so that they were free and then took the ventricular lead out and connected them to the cables with ongoing pacing in that way. The rate was then brought down to about 30 and she did have some of her own rhythm at that point. Her blood pressure did tolerate as well. A straight stylet was then placed through the ventricular lead and the lead was repositioned back down into the apex with slack. The endocardial screw was deployed and the lead was tested with excellent parameters above. The stylet was removed and this lead was secured to the pectoralis fascia with silk sutures. Next, a J-stylet was placed into the atrial lead again positioning the lead in the right atrial appendage with an excellent fluoroscopic results. The endocardial screw was deployed and the lead was tested with excellent parameters above. This lead was also secured to the pectoralis fascia with silk sutures. We then disconnected the cables from the ventricular lead and she did have a rhythm on her own that was in the 20s and 30s. The pocket was then copiously irrigated with antibiotic solution and the leads were placed in the appropriate receptacles of the pacemaker generator. The pacemaker and excess lead were then placed into the pocket and the wound was closed with a deep running 3-0 Vicryl suture followed by running 3-0 Vicryl suture and Dermabond glue. Telfa and Tegaderm were used as dressing. The leads were again tested wirelessly during closure with parameters above. The patient tolerated procedure well and was brought to the recovery room in stable condition. MD MECHELLE Ayon/ERIC / [id number]
[2020-07-24] MEDS: 0.9 % Sodium Chloride Flush 3 ML SYRINGE IVFLUSH ×2 (00:12→08:38)
[2020-07-24 00:26] VITALS: BP 122/60; PULSE 61; RESP 18; TEMP 36.3
[2020-07-24 04:00] VITALS: BP 135/60; PULSE 60; RESP 20; TEMP 36.6; O2SAT 94
[2020-07-24 07:01] LABS: Hematocrit 33.1 % (37-47); Hemoglobin 9.7 g/dl (12.0-16.0)
--- NOTE | 2020-07-24 07:10 | HO.POSTANES ---
Post Anesthesia Evaluation Post Anesthesia Evaluation Vital Signs: Vital Signs Temp Pulse Resp BP Pulse Ox 07/24/20 04:00 97.8 F 60 20 135/60 94 07/24/20 00:26 97.4 F 61 18 122/60 07/23/20 23:41 97.9 F 60 22 H 157/73 H 97 07/23/20 21:42 98.3 F 60 20 111/56 L 07/23/20 21:23 98.8 F 60 20 118/56 L 07/23/20 19:21 97.8 F 61 19 125/60 99 Patient brought back to OR from previous day for heart block Anesthesia: Monitored Mental Status: Awake Pain Control: Satisfactory Nausea/Vomiting: None Hydration: Adequate Anesthesia-Related Issues: No Anes. Related Issues
[2020-07-24 08:00] VITALS: BP 145/66; PULSE 63; RESP 20; TEMP 37; O2SAT 95
[2020-07-24] MEDS: Atorvastatin Calcium 10 MG TABLET PO (08:37)
[2020-07-24] MEDS: Omeprazole 40 MG CAPSULE.DR PO (08:37)
[2020-07-24] MEDS: rOPINIRole HCL 0.5 MG TABLET PO (08:38)
--- NOTE | 2020-07-24 10:42 | P.PNTS_ITS ---
Subjective Subjective Date of Service: 07/24/20 Interval history: Patient is pod 1. Status post pacer wire revision for complete heart block. Patient's overnight overall was uneventful. The patient was interrogated and reportedly is running properly. Patient denies fever, chills, chest pain and admits to dyspnea on exertion which has been persistent for the past couple months. Physical Exam Vital Signs: Vital Signs: Last Vital Signs Temp 98.6 F 07/24/20 08:00 Pulse 63 07/24/20 08:00 Resp 20 07/24/20 08:00 BP 145/66 H 07/24/20 08:00 Pulse Ox 95 07/24/20 08:00 Body Mass Index 27.4 Const: General: comfortable and no acute distress Orientation/consciousness: patient oriented x3 HENMT: Head: Yes normal to inspection, Yes normocephalic and Yes atraumatic Neck: Neck: Yes normal visual inspection, No tracheal deviation and Yes no JVD Chest: Other: Left-sided pacer insertion site is at midclavicular line, with dressing clean dry and intact. There is a small amount of ecchymosis and edema overlying insertion site which is to be expected. No induration, increased warmth or drainage noted. Resp: Other: Breath sounds are clear to auscultation bilaterally with no wheezes, rales or rhonchi. Cardio: Rate: regular rate Rhythm: regular rhythm Heart sounds: S1 normal heart sound present and S2 normal heart sound present GI: Inspection: Yes normal to inspection Palpation (GI): Soft to palpation Auscultation: normal bowel sounds Neuro: General: patient oriented x3 Progress Note: A&P Assessment and plan (1) Pacemaker complications: Problem details: Patient is 84-year-old female who is pod 1. Status post pacemaker wire revision. Postoperatively patient is doing well. Her pacemaker was interrogated and reportedly is running properly. ACTIVITY: ARM MOVEMENT RESTRICTIONS: No lifting your left arm over your head or behind your back, no pushing/pulling/lifting anything >10lb with your left arm for 6-8 weeks. This ensures the pacemaker wires stay in place and do not get pulled out accidentally. Make sure you are doing gentle range of motion exercises with the left arm (such as pendulum exercise) to make sure your elbow and shoulder do not get frozen up. ARM SLING: Keep the sling on until 2 weeks from now when you follow up with Dr Conteh. You can still exercise. It is good for your body and your heart. Talk with your doctor about an exercise plan. INCISION CARE: You may shower starting tomorrow. Sponge bathe only until then. Do not submerge yourself in water (baths, pools, etc.) for 2 weeks. Monitor the incision for increased redness, swelling, bruising, pain, open area, or drainage. OTHER PRECAUTIONS: Before you receive any treatment, tell all healthcare providers (including your dentist) that you have a pacemaker. You will be given an ID card that contains information about your pacemaker. Always carry this card with you. You can show this card if your pacemaker sets off a metal detector. You should also show it to avoid screening with a hand-held security wand. Keep your cell phone away from your pacemaker. Do not carry the phone in your shirt pocket, even it if is turned off. Avoid strong magnets. Examples are those used in MRI's or in hand-held security wands. Avoid strong electrical moore. Examples are those made by radio transmitting towers, [place] [employer] radios, and heavy-duty electrical equipment. Avoid leaning over the open arreaga of a running car. A running engine creates an electrical field. Most household and yard appliances will not cause any problems. If you use any large power tools, such as an industrial starch crab, talk with your doctor. WHEN TO CALL YOUR DOCTOR: Call your doctor immediately if you have any of the following: Dizziness Chest pain Lack of energy Fainting spells Twitching chest muscles Rapid pule or pounding heartbeat Shortness of breath Pain around your pacemaker Fever above 100.4 F (38 C) or other signs of infection (redness, swelling, drainage, or warmth at the incision site). Hiccups that will not stop FOLLOWUP APPOINTMENTS: Call Dr. Conteh's office (Thoracic Surgery) as soon as you get home to schedule a followup appointment for 2 weeks from now. The office number is / . Call your cinder pitman to make an appointment for the next couple weeks. Make regular follow-up appointments with your doctor. He or she will check the pacemaker to make sure it is working properly. Status: Acute Fall Risk Details Current Medications: Current Medications Generic Name Dose Route Start Last Admin Trade Name Freq PRN Reason Stop Dose Admin Acetaminophen 650 mg 07/21/20 18:34 Acetaminophen 325 Mg Tablet PO Q6H PRN Pain, Mild (Pain Scale 1-3) Acetaminophen 650 mg 07/22/20 17:03 Acetaminophen 325 Mg Tablet PO ONCE PRN Pain, Mild (Pain Scale 1-3) Atorvastatin Calcium 10 mg 07/22/20 09:00 07/24/20 08:37 Atorvastatin Calcium 10 Mg Tablet PO 10 mg DAILY DENISE Administration Atropine Sulfate 0.5 mg 07/21/20 18:34 07/23/20 06:23 Atropine Sulfate 1 Mg/Ml Vial IVPUSH 0.5 mg Q5MX3 PRN Administration Bradycardia Escitalopram Oxalate 20 mg 07/21/20 18:34 Escitalopram Oxalate 20 Mg Tablet PO ONCE DENISE Fentanyl 25 mcg 07/22/20 17:37 Fentanyl Citrate/Pf 100 Mcg/2 Ml Vial IVPUSH Q5M PRN Pain, Moderate (Pain Scale 4-6 Omeprazole 40 mg 07/22/20 06:30 07/24/20 08:37 Omeprazole 40 Mg Capsule.Dr PO 40 mg DAILY@0630 DENISE Administration Ondansetron HCl 4 mg 07/21/20 18:34 Ondansetron Hcl 4 Mg/2 Ml Vial IVPUSH Q8H PRN Nausea and Vomiting Ondansetron HCl 4 mg 07/22/20 17:03 Ondansetron Hcl 4 Mg/2 Ml Vial IVPUSH ONCE PRN Nausea and Vomiting Pharmacy Consult 1 each 07/21/20 16:50 Consult Rx Perform Med Rec MISCELLANE ONCE PRN Consult order Ropinirole HCl 0.5 mg 07/21/20 18:45 07/24/20 08:38 Ropinirole Hcl 0.5 Mg Tablet PO 0.5 mg DAILY DENISE Administration Sodium Chloride 3 ml 07/22/20 00:00 07/24/20 08:38 0.9 % Sodium Chloride Flush 3 Ml Syringe IVFLUSH 3 ml QSHIFT DENISE Administration Time Spent With Patient Time: Total time spent is greater than 50% in coordination of care (as documented) at patient's floor/unit and/or counseling patient: Time with patient: less than 15 minutes
[2020-07-24 11:12] VITALS: PULSE 61; RESP 20; TEMP 36.4; O2SAT 97
--- NOTE | 2020-07-24 12:00 | P.PNCA_ITS ---
Subjective Subjective Date of Service: 07/24/20 Principal diagnosis: Second degree heart block, s/p [facility] [place] Dual chamber pacemaker placement Interval history: She states that she feels okay. No specific complaints. Review of Systems Review of Systems Yes all other systems are reviewed and are negative Denies dizziness Cardiovascular: Reports as per HPI, Reports no additional cardiovascular complaints, Reports painful fingertips, Denies chest pain, Denies syncope, Denies irregular heart rhythm, Denies lightheadedness and Denies dyspnea on exertion Respiratory: Denies dyspnea on exertion Reports system reviewed and no additional complaints, except as documented, Denies dizziness, Denies syncope and Denies Sensory deficit (Neuro) Physical Exam Vital Signs: Last Vital Signs Temp 97.6 F 07/24/20 11:12 Pulse 61 07/24/20 11:12 Resp 20 07/24/20 11:12 BP 145/66 H 07/24/20 08:00 Pulse Ox 97 07/24/20 11:12 Body Mass Index 27.4 Const General: cooperative, comfortable and no acute distress Orientation/consciousness: patient oriented x3 HENRI Other: Unremarkable Neck Neck: Yes normal visual inspection Chest Chest palpation & inspection: normal inspection of the chest Resp Auscultation: clear to auscultation bilaterally, no crackles and no wheezes Cardio Jugular venous distension: no JVD Palpation: normal PMI Heart sounds: S1 normal heart sound present, S2 normal heart sound present, no gallops, Murmur heart sound present systolic II/ and at the left sternal border and no rubs GI Palpation (GI): Soft to palpation Back/Spine/Pelvis Other: unremarkable Skin General skin exam: no rashes or lesions noted Neuro General: patient oriented x3 Sensory Exam: No Sensory deficit (Neuro) Extrem General: Yes no clubbing, cyanosis or edema Psych Mental Status: mental status grossly normal Results Labs and Meds Result diagrams: 07/24/20 05:18 07/23/20 15:43 Lab results: Laboratory Results - last 24 hr 07/22/20 07/23/20 07/23/20 11:16 15:43 15:43 Hgb 7.9 L Hct 26.6 L Sodium 140 Potassium 4.0 Chloride 107 Carbon Dioxide 26 Anion Gap 11 L BUN 18 H Creatinine 1.25 Estim Creat Clear Calc 32.0 Estimated GFR 41 Random Glucose 108 Calcium 8.4 Blood Type A Positive Antibody Screen NEGATIVE Crossmatch ([facility]) See Detail 07/24/20 05:18 Hgb 9.7 L D Hct 33.1 L D Sodium Potassium Chloride Carbon Dioxide Anion Gap BUN Creatinine Estim Creat Clear Calc Estimated GFR Random Glucose Calcium Blood Type Antibody Screen Crossmatch ([facility]) Imaging Radiologist's impression: Impressions Guidance Fluoroscopy 07/23/20 10:24 IMPRESSION: Fluoroscopy for pacer lead revision. Progress Note: A&P Assessment and plan (1) Heart block AV second degree: Status: Acute (2) Complete heart block: Status: Acute Assessment and Plan: Advanced heart block and she is now status post permanent pacemaker implantation. There was loss of capture yesterday most likely from lead dislodgement. This could have happened because of her confusion. Hence, leads have been revised. Recheck and now device is functioning normally. Telemetry is also unremarkable. May be discharged home. We will arrange followup. Fall Risk Details Current Medications: Current Medications Generic Name Dose Route Start Last Admin Trade Name Freq PRN Reason Stop Dose Admin Acetaminophen 650 mg 07/21/20 18:34 Acetaminophen 325 Mg Tablet PO Q6H PRN Pain, Mild (Pain Scale 1-3) Acetaminophen 650 mg 07/22/20 17:03 Acetaminophen 325 Mg Tablet PO ONCE PRN Pain, Mild (Pain Scale 1-3) Atorvastatin Calcium 10 mg 07/22/20 09:00 07/24/20 08:37 Atorvastatin Calcium 10 Mg Tablet PO 10 mg DAILY DENISE Administration Atropine Sulfate 0.5 mg 07/21/20 18:34 07/23/20 06:23 Atropine Sulfate 1 Mg/Ml Vial IVPUSH 0.5 mg [id number] PRN Administration Bradycardia Escitalopram Oxalate 20 mg 07/21/20 18:34 Escitalopram Oxalate 20 Mg Tablet PO ONCE DENISE Fentanyl 25 mcg 07/22/20 17:37 Fentanyl Citrate/Pf 100 Mcg/2 Ml Vial IVPUSH Q5M PRN Pain, Moderate (Pain Scale 4-6 Omeprazole 40 mg 07/22/20 06:30 07/24/20 08:37 Omeprazole 40 Mg Capsule. PO 40 mg DAILY@0630 DENISE Administration Ondansetron HCl 4 mg 07/21/20 18:34 Ondansetron Hcl 4 Mg/2 Ml Vial IVPUSH Q8H PRN Nausea and Vomiting Ondansetron HCl 4 mg 07/22/20 17:03 Ondansetron Hcl 4 Mg/2 Ml Vial IVPUSH ONCE PRN Nausea and Vomiting Pharmacy Consult 1 each 07/21/20 16:50 Consult Rx Perform Med Rec MISCELLANE ONCE PRN Consult order Ropinirole HCl 0.5 mg 07/21/20 18:45 07/24/20 08:38 Ropinirole Hcl 0.5 Mg Tablet PO 0.5 mg DAILY DENISE Administration Sodium Chloride 3 ml 07/22/20 00:00 07/24/20 08:38 0.9 % Sodium Chloride Flush 3 Ml Syringe IVFLUSH 3 ml QSHIFT DENISE Administration Time Spent With Patient Time: Total time spent is greater than 50% in coordination of care (as documented) at patient's floor/unit and/or counseling patient: Time with patient: less than 15 minutes
--- NOTE | 2020-07-24 13:45 | P.DS_ITS ---
DS: Providers Provider Date of Service: 07/24/20 Date of admission: 07/21/20 18:34 Primary care physician: Unknown Physician Consults: 07/22/20 05:46 Consult to Cardiology Routine Consulting Provider: Oscar Sandoval Reason for consultation: heart block Has provider been notified: No 07/22/20 08:32 Consult to Cardiology Routine Consulting Provider: Oscar Sandoval Reason for consultation: heart block Has provider been notified: No 07/22/20 08:35 Consult to Thoracic Surgery Routine Consulting Provider: Alisha Conteh Reason for consultation: heart block Has provider been notified: No DS: Diagnosis Discharge Diagnosis (1) Heart block AV second degree: Status: Acute (2) Complete heart block: Status: Acute DS: Medications Discharge Medications Home Medications: Home Medications Medication Instructions Recorded Confirmed ropinirole 0.5 mg tablet 0.5 mg PO DAILY tab 04/22/20 07/21/20 permethrin 1 appl TOPICAL DAILY 07/21/20 07/21/20 Previous Rx's Medication Instructions Recorded atorvastatin 10 mg tablet 10 mg PO DAILY 90 Days #90 tab 06/15/20 escitalopram oxalate 20 mg tablet 20 mg PO ONCE 90 Days #90 tab 06/15/20 lansoprazole 30 mg capsule,delayed 30 mg PO DAILY 90 Days #90 cap 06/15/20 release furosemide 20 mg tablet 20 mg PO DAILY #30 tab 07/06/20 mesalamine 1.2 gram tablet,delayed 4.8 g PO DAILY 30 Days #120 tab 07/09/20 release mesalamine 4 gram/60 mL enema 4 g [place] BEDTIME 30 Days #1800 ml 07/09/20 DS: Summary Hospital Course Hospital Course: History of presenting illness 84-year-old female patient with past medical history significant for anxiety, depression, history of GERD, history of recent upper and lowercolonoscopy that showed that the patient has significant colitis of large bowelwith [id number] acute ulceration in the rectum. The patient wasrecently treated with prednisone. The patient also has history ofhyperlipidemia, history of mitral valve insufficiency with left atrialenlargement, history of osteoarth ritis of both hips, history of osteosarcoma ofbone, and restless legs syndrome. [facility], dizzy, and with worseningshortness of breath. As per patient, her shortness of breath is graduallygetting worse, now feels short of breath with minimal activity, accompanied with lightheadedness. She denies any symptoms of chest pain, palpitation. Shedenies any syncope, loss of consciousness, or fall. The patient's workup inthe emergency room revealed that her hematocrit is 28.3 with a hemoglobin 8.5.Her last hematocrit was 35.2 in April of 2020. Her electrolytes are stablewith a creatinine of 1.4 that had jumped up from a creatinine 1.1 in March of 2020. Her potassium is within normal range. Her EKG revealed significantbradycardia with heart rate in mid 30s to 40 range with 2:1 heart block. Thepatient has pacer pads in place. The patient is now being admitted to [facility] with a diagnosis of shortness of breath and lightheadedness related to second-degree heart block. PAST MEDICAL HISTORY: 1. History of GI bleed, status post both upper and lower endoscopy, which showed that the patient has focal active colitis of proximal sigmoid and chronic active colitis with [id number] activity as well as a rectal biopsy shows chronic active colitis with moderate to severe activity and ulceration. No granulomas or dysplasias were seen. The patient was treated with prednisone. 2. History of anxiety and depression. 3. History of GERD. 4. History of hyperlipidemia. 5. History of mitral valve insufficiency. 6. History of osteoarthritis of both hips. 7. History of osteosarcoma of bone. 8. History of restless legs syndrome. 9. History of tricuspid regurgitation. 10. History of tubular adenoma of colon. 11. History of urinary incontinence. 84-year-old female patient, who came into [facility] due to lightheadedness, dizziness, and shortness of breath with exertion. The patient has been diagnosed to have significant bradycardia with 2:1 block. The patient will be admitted to telemetry for continued monitoring and treatment. 1. Symptomatic bradycardia with second-degree and complete heart block. Status post dual-chamber permanent pacemaker placement due to complete heart block, next a noted to have heart rate in 30s, pacemaker interrogated patient found to have pacemaker lead dislodgement therefore patient taken back to OR for revision of atrial and ventricular leads post revision pacemaker has been interrogated and functioning fine, Tele monitor showed heart rate in 60s. Patient is awake alert no confusion therefore being discharged home with recommendation to continue wearing left arm sling, post pacemaker instructions given patient is now being discharged to assisted living. 2. Acute on chronic blood loss anemia due to chronic GI loss patient recently diagnosed to have colitis being treated with mesalamine, patient given 1 dose of IV iron as per GI recommendation, And 1 unit of packed RBC was transfused, repeat hematocrit is stable no active GI bleed is noted patient is being discharged on home medications 3. Acute kidney injury noted to have elevated creatinine on admission now normalized likely due to poor perfusion with complete heart block. 4. History of hypertension. Currently blood pressure is stable. 4. History of hyperlipidemia. Continue Lipitor. 5. History of restless legs syndrome. Continue Requip. Time Spent with Patient Time attestation: Total time spent providing and/or coordinating discharge services: Discharge coordination time: Greater than 30 minutes Physical Exam Vital Signs: Vital Signs: Last Vital Signs Temp 97.6 F 07/24/20 11:12 Pulse 61 07/24/20 11:12 Resp 20 07/24/20 11:12 BP 145/66 H 07/24/20 08:00 Pulse Ox 97 07/24/20 11:12 Body Mass Index 27.4 General no acute distress. Neck is supple no JVD. CVS regular rate, site of pace maker with clean incision, no drainage. Respiratory lungs clear to auscultation, no respiratory distress Gastrointestinal abdomen soft, nontender, bowel sounds audible Extremities edema. Neuro awake alert no confusion Skin no rash DS: Data Data Completed and Pending Labs on day of discharge: Laboratory Tests 07/21/20 07/21/20 07/21/20 15:56 15:56 15:56 WBC 4.8 RBC 3.42 L D Hgb 8.5 L Hct 28.3 L MCV 82.7 MCH 24.9 L MCHC 30.0 L RDW 14.6 Plt Count 232 MPV 9.3 L Immature Gran % (Auto) 0.4 Neut % (Auto) 57.5 Lymph % (Auto) 27.5 [place] % (Auto) 10.0 Eos % (Auto) 4.0 Baso % (Auto) 0.6 Lymph # (Auto) 1.3 [place] # (Auto) 0.5 Eos # (Auto) 0.2 Baso # (Auto) 0.0 Abs Immat Gran (auto) 0.02 Absolute Neuts (auto) 2.8 Absolute Nucleated RBC 0.000 Nucleated RBC % (auto) 0.0 PT INR Hold Blue Top Sodium 141 Potassium 4.7 Chloride 107 Carbon Dioxide 23 Anion Gap 16 BUN 23 H Creatinine 1.44 H Estim Creat Clear Calc 27.9 Estimated GFR 35 Random Glucose 98 Calcium 8.6 Magnesium 2.2 Troponin I High Sens 4.8 B-Natriuretic Peptide COVID-19 ([facility]) COVID-[facility] Blood Type Antibody Screen Crossmatch ([facility]) 07/21/20 07/21/20 07/21/20 15:56 15:56 15:56 WBC RBC Hgb Hct MCV MCH MCHC RDW Plt Count MPV Immature Gran % (Auto) Neut % (Auto) Lymph % (Auto) [place] % (Auto) Eos % (Auto) Baso % (Auto) Lymph # (Auto) [place] # (Auto) Eos # (Auto) Baso # (Auto) Abs Immat Gran (auto) Absolute Neuts (auto) Absolute Nucleated RBC Nucleated RBC % (auto) PT INR Hold Blue Top SEE NOTE Sodium Potassium Chloride Carbon Dioxide Anion Gap BUN Creatinine Estim Creat Clear Calc Estimated GFR Random Glucose Calcium Magnesium Troponin I High Sens B-Natriuretic Peptide 733 H COVID-19 ([facility]) Negative COVID-[facility] See Note Blood Type Antibody Screen Crossmatch ([facility]) 07/22/20 07/22/20 07/23/20 10:10 11:16 15:43 WBC RBC Hgb 7.9 L Hct 26.6 L MCV MCH MCHC RDW Plt Count MPV Immature Gran % (Auto) Neut % (Auto) Lymph % (Auto) [place] % (Auto) Eos % (Auto) Baso % (Auto) Lymph # (Auto) [place] # (Auto) Eos # (Auto) Baso # (Auto) Abs Immat Gran (auto) Absolute Neuts (auto) Absolute Nucleated RBC Nucleated RBC % (auto) PT 12.6 INR 1.1 Hold Blue Top Sodium Potassium Chloride Carbon Dioxide Anion Gap BUN Creatinine Estim Creat Clear Calc Estimated GFR Random Glucose Calcium Magnesium Troponin I High Sens B-Natriuretic Peptide COVID-19 ([facility]) [facility] Blood Type A Positive Antibody Screen NEGATIVE Crossmatch ([facility]) See Detail 07/23/20 07/24/20 15:43 05:18 WBC RBC Hgb 9.7 L D Hct 33.1 L D MCV MCH MCHC RDW Plt Count MPV Immature Gran % (Auto) Neut % (Auto) Lymph % (Auto) [place] % (Auto) Eos % (Auto) Baso % (Auto) Lymph # (Auto) [place] # (Auto) Eos # (Auto) Baso # (Auto) Abs Immat Gran (auto) Absolute Neuts (auto) Absolute Nucleated RBC Nucleated RBC % (auto) PT INR Hold Blue Top Sodium 140 Potassium 4.0 Chloride 107 Carbon Dioxide 26 Anion Gap 11 L BUN 18 H Creatinine 1.25 Estim Creat Clear Calc 32.0 Estimated GFR 41 Random Glucose 108 Calcium 8.4 Magnesium Troponin I High Sens B-Natriuretic Peptide COVID-19 ([facility]) COVID-19 Clin Com Blood Type Antibody Screen Crossmatch ([facility]) Discharge Plan Discharge Patient Disposition: Home, Self-Care Referrals: Physician,Unknown [Primary Care Provider] - Discharge Medications: Continued atorvastatin 10 mg tablet 10 mg PO DAILY 90 Days Qty: 90 RF: 0 escitalopram oxalate 20 mg tablet 20 mg PO ONCE 90 Days Qty: 90 RF: 0 lansoprazole 30 mg capsule,delayed release(DR/EC) 30 mg PO DAILY 90 Days Qty: 90 RF: 0 furosemide 20 mg tablet 20 mg PO DAILY Qty: 30 RF: 0 mesalamine 4 gram/60 mL enema 4 g AZ BEDTIME 30 Days Qty: 1800 RF: 3 mesalamine 1.2 gram tablet,delayed release (DR/EC) 4.8 g PO DAILY 30 Days Qty: 120 RF: 3 permethrin 5 % cream 1 appl topical DAILY RF: 0 ropinirole 0.5 mg tablet 0.5 mg PO DAILY RF: 0 Discharge Orders: Discharge Order (Routine); Ordered 07/24/20 Ordered By: Mari Amin Stand Alone Forms: Patient Portal Discharge page Activity Restrictions/Additional Instructions: ACTIVITY: ARM MOVEMENT RESTRICTIONS: No lifting your left arm over your head or behind your back, no pushing/pulling/lifting anything >10lb with your left arm for 6-8 weeks. This ensures the pacemaker wires stay in place and do not get pulled out accidentally. Make sure you are doing gentle range of motion exercises with the left arm (such as pendulum exercise) to make sure your elbow and shoulder do not get frozen up. ARM SLING: Keep the sling on until 2 weeks from now when you follow up with Dr Conteh. You can still exercise. It is good for your body and your heart. Talk with your doctor about an exercise plan. INCISION CARE: You may shower starting tomorrow. Sponge bathe only until then. Do not submerge yourself in water (baths, pools, etc.) for 2 weeks. Monitor the incision for increased redness, swelling, bruising, pain, open area, or drainage. OTHER PRECAUTIONS: Before you receive any treatment, tell all healthcare providers (including your dentist) that you have a pacemaker. You will be given an ID card that contains information about your pacemaker. Always carry this card with you. You can show this card if your pacemaker sets off a metal detector. You should also show it to avoid screening with a hand-held security wand. Keep your cell phone away from your pacemaker. Do not carry the phone in your shirt pocket, even it if is turned off. Avoid strong magnets. Examples are those used in MRI's or in hand-held security wands. Avoid strong electrical moore. Examples are those made by radio transmitting towers, [id number] radios, and heavy-duty electrical equipment. Avoid leaning over the open arreaga of a running car. A running engine creates an electrical field. Most household and yard appliances will not cause any problems. If you use any large power tools, such as an industrial azure architect, talk with your doctor. WHEN TO CALL YOUR DOCTOR: Call your doctor immediately if you have any of the following: Dizziness Chest pain Lack of energy Fainting spells Twitching chest muscles Rapid pule or pounding heartbeat Shortness of breath Pain around your pacemaker Fever above 100.4 F (38 C) or other signs of infection (redness, swelling, drainage, or warmth at the incision site). Hiccups that will not stop FOLLOWUP APPOINTMENTS: Call Dr. Conteh's office (Thoracic Surgery) as soon as you get home to schedule a followup appointment for 2 weeks from now. The office number is / . Call your catcher plug to make an appointment for the next couple weeks. Make regular follow-up appointments with your doctor. He or she will check the pacemaker to make sure it is working properly. Visit Report Forms: Patient Portal Discharge page Care Plan Goals: Follow activity instructions and follow-up with thoracic surgery in 2 weeks Health Concerns: Pacemaker placement Plan of Treatment: Follow-up with PCP in 1 week
== END 2020-07-24 15:46 | disposition home or self-care (01) | DRG 243 ==
LOC: HO.ED 16:49 → HO.EDOVER 18:39 → HO.IMC 23:35
PROVIDERS: Physician Assistant; Surgery; Admitting Provider Hospitalist; Emergency Provider Emergency Medicine; Visit Provider Hospitalist
PROC: 0JH606Z Insertion of Pacemaker, Dual Chamber into Chest Subcutaneous Tissue and Fascia, Open Approach (ICD-10-PCS; principal; 2020-07-22 16:20)
PROC: 02WA3MZ Revision of Cardiac Lead in Heart, Percutaneous Approach (ICD-10-PCS; principal; 2020-07-23 10:40)
DX: I44.1 Atrioventricular block, second degree (principal); T82.120A Displacement of cardiac electrode, initial encounter; D62 Acute posthemorrhagic anemia; N17.9 Acute kidney failure, unspecified; I50.42 Chronic combined systolic (congestive) and diastolic (congestive) heart failure; K52.9 Noninfective gastroenteritis and colitis, unspecified; K21.9 Gastro-esophageal reflux disease without esophagitis; G25.81 Restless legs syndrome; E78.5 Hyperlipidemia, unspecified; I11.0 Hypertensive heart disease with heart failure; Z20.822 Contact with and (suspected) exposure to COVID-19; Z85.830 Personal history of malignant neoplasm of bone; Z88.6 Allergy status to analgesic agent; Z79.899 Other long term (current) drug therapy
CPT/HCPCS: 36415; 71045; 80048; 83735; 83880; 84484; 85014; 85018; 85025; 85610; 86850; 86900; 86901; 86902; 86920; 86922; 87635; 93005; 99285; C1785; C1892; J0461; J0690; J2916; J3010; J3370; P9016

== ENCOUNTER → 2020-08-07 09:23 | Outpatient (BNVA) | payer MEDICARE, SELFPAY | PROVIDERS: PCP Internal Medicine; Visit Provider Surgery | DX: I44.1 Atrioventricular block, second degree (principal); Z95.0 Presence of cardiac pacemaker | CPT/HCPCS: 93288; 99212 ==

== ENCOUNTER → 2020-08-31 13:14 | Outpatient (BNVA) | payer MEDICARE, SELFPAY | PROVIDERS: PCP Internal Medicine; Visit Provider Nurse Practitioner Family | DX: Z45.018 Encounter for adjustment and management of other part of cardiac pacemaker (principal); I44.2 Atrioventricular block, complete; I07.1 Rheumatic tricuspid insufficiency | CPT/HCPCS: 99212 ==

== ENCOUNTER → 2020-10-06 10:00 | Outpatient (BNVA) | payer MEDICARE, SELFPAY | PROVIDERS: PCP Internal Medicine; Visit Provider Internal Medicine Gastroenterology | DX: E61.1 Iron deficiency (principal); D64.9 Anemia, unspecified; K51.90 Ulcerative colitis, unspecified, without complications | CPT/HCPCS: Q3014 ==

== ENCOUNTER 2020-10-08 16:25 | Outpatient (REF) | payer MEDICARE, SELFPAY ==
[2020-10-08 16:55] LABS: MANUAL DIFF FLAG NO
[2020-10-08 17:06] LABS: Basophils Percent Auto 0.3 % (0-2); Eosinophils Absolute Auto 0.1 X10*3/uL (0.0-0.4); Hematocrit 32.5 % (37-47); Hemoglobin 9.4 g/dl (12.0-16.0); Imm Gran Abs Auto 0.03 X10*3/uL (0.00-0.03); Imm Gran Pct Auto 0.5 % (0.0-0.4); Lymphocytes Absolute Auto 0.7 X10*3/uL (1.2-4.9); Lymphocytes Percent Auto 12.7 % (20-40); Mean Corpuscular HGB Conc 28.9 g/dl (31.0-35.0); Mean Corpuscular Hemoglobin 24.5 pg (27.0-33.0); Mean Corpuscular Volume 84.6 fL (80-98); Mean Platelet Volume 10.9 fL (9.4-12.3); Monocytes Absolute Auto 0.4 X10*3/uL (0.1-1.2); Monocytes Percent Auto 6.1 % (2-11); Neutrophils Absolute Auto 4.6 X10*3/uL (2.0-8.3); Neutrophils Percent Auto 79.4 % (45-73); Platelet Count 169 X10*3/uL (160-400); Red Blood Count 3.84 X10*6/uL (4.20-5.50); Red Cell Distribution Width 17.2 % (11.0-16.0); White Blood Count 5.8 X10*3/uL (4.8-10.8)
[2020-10-08 17:35] LABS: Alanine Aminotransferase 22 U/L (0-31); Albumin Level 3.8 g/dL (3.5-5.0); Alkaline Phosphatase 89 U/L (39-117); Anion Gap 14 (12-20); Aspartate Amino Transferase 22 U/L (5-31); Bilirubin Total 0.7 mg/dL (0.0-1.0); Blood Urea Nitrogen 24 mg/dL (9-16); C Reactive Protein 0.51 mg/dL (< or = 0.50); Calcium 8.6 mg/dL (8.4-10.2); Carbon Dioxide 29 mmol/L (22-29); Chloride 103 mmol/L (96-108); Estimated Glomerular Filt Rate 38; Glucose Random 116 mg/dL (60-115); Iron 19 mcg/dL (30-160); Percent Iron Saturation 5 % (15-50); Potassium 4.7 mmol/L (3.3-5.1); Sodium 141 mmol/L (135-145); Total Iron Binding Capacity 380 mcg/dL (228-428); Total Protein 6.1 g/dL (6.5-8.0); Unsaturated Iron Binding 361 ug/dL
[2020-10-08 17:55] LABS: Ferritin 6 ng/mL (10-250)
[2020-10-08 18:07] LABS: Folate 14.3 ng/mL (> or = 4.0); Vitamin B12 496 pg/mL (200-900)
[2020-10-08 18:16] LABS: Erythrocyte Sedimentation Rate 8 MM/HR (0-20)
[2020-10-09 04:34] LABS: HBc Num1 0.08 S/CO (0.00-0.79); Hepatitis A Antibody IgM 0.43 Index (0-0.79); Hepatitis B Core Antibody Nonreactive (Nonreactive); ~HepC Num1 0.06 S/CO (0.00-0.79); ~Hepatitis A Antibody IgM Nonreactive (Nonreactive); ~Hepatitis C Antibody Nonreactive (Nonreactive)
[2020-10-09 04:59] LABS: HBS Num1 18.09 mIU/mL (0-7.99); Hepatitis B Surface Antigen Negative (Negative); ~Hepatitis B Surface Antibody REACTIVE (Nonreactive)
[2020-10-12 10:52] LABS: TS Negative Control Passed; TS Panel A 0; TS Panel B 0; TS Positive Control Passed; TSpotTB Negative (SeeBelow)
== END 2020-10-08 16:26 | disposition home or self-care (01) ==
LOC: HO.LAB 16:25
PROVIDERS: Absent Provider Internal Medicine; PCP Internal Medicine; Visit Provider Internal Medicine Gastroenterology
DX: K51.90 Ulcerative colitis, unspecified, without complications (principal); E61.1 Iron deficiency
CPT/HCPCS: 36415; 80053; 82607; 82728; 82746; 83540; 85025; 85652; 86140; 86481; 86704; 86706; 86709; 86803; 87340

== ENCOUNTER → 2020-10-14 09:49 | Outpatient (REF) | payer MEDICARE, SELFPAY ==
--- NOTE | 2020-10-14 09:53 | CA_ITS ---
Transthoracic Echocardiogram Patient (Last, First, Middle): Yahaira Cortes A Gender: Female Date of : 1935 Age: 84 Procedure Date: 10/14/2020 Procedure Type: Transthoracic Echocardiogram Location: OP Height: 157.48 cm Weight: 72.58 kg BSA: 1.74 m2 Heart Rate: bpm BP: 132 / 66 mmHg Botany Technician: DSFeli Referring MD: Prabha Guillen ATHLETICS TEACHERMarkC Symptoms: Z95.0 - Presence of cardiac pacemaker Study Quality: Fair ECG Rhythm: Ventriculary paced rhythm Conclusions: - The left ventricular systolic function is normal. The visually estimated ejection fraction is between 60-65%. - Mildly increased right ventricular cavity size. - There is mild to moderate tricuspid valve regurgitation. Findings Left Ventricle Normal left ventricular cavity size. There is normal left ventricular wall thickness. The left ventricular systolic function is normal. The visually estimated ejection fraction is between 60-65%. There is no evidence of regional wall motion abnormalities. Diastolic function is normal for age. E/E prime ratio is <8, consistent with normal filling pressures. Right Ventricle Mildly increased right ventricular cavity size. There is normal right ventricular systolic function. There is a pacemaker wire seen in the right ventricle. Atria The left atrium is normal in size. The right atrium is normal in size. A pacemaker wire is identified in the right atrium. Aortic Valve There is a normal trileaflet aortic valve. There is no aortic valve stenosis. There is no aortic valve regurgitation. Mitral Valve The mitral valve appears normal. There is mild mitral valve regurgitation. There is no mitral valve stenosis. Pulmonic Valve The pulmonic valve was not well visualized. Tricuspid Valve Normal tricuspid valve structure. There is mild to moderate tricuspid valve regurgitation. The pulmonary artery systolic pressure is normal. Great Vessels The aortic annulus, sinuses of valsalva, and asc aorta are normal in size. Venous The inferior vena cava is mildly dilated and collapses less than 50% with inspiration. Pericardium/Pleural There is no evidence of pericardial effusion. Prior Study Comparison Changes noted compared to prior study dated: 04/30/2019. Tricuspid regurgitation seems less prominent. Measurements 2D Linear Measurements IVSd: 0.85 0.6-0.9/0.6-1.0 cm LVIDd: 3.91 3.9-5.3/4.2-5.9 cm LVIDd Index: 2.25 2.4-3.2/2.2-3.1 cm/m2 LVIDs: 2.51 2.0-3.6 cm LVPWd: 0.98 0.7-1.1 cm Ao Root: 2.70 2.1-3.5 cm LA Diam: 3.90 2.7-3.8/3.0-4.0 cm LAIDs Index: 2.24 1.5-2.3 cm/m2 LV Mass: 134.83 67-162/88-224 g LV Mass Index: 77.49 43-95/49-115 g/m2 LVOT Diam: 1.80 3.0+(-)1.3 cm 2D Systolic Function EF 4C: 61.60 >55% EF 2C: 45.30 >55% EF BiP: 55.80 >55% Mitral Valve MV Pk E: 0.67 MV PK A: 0.58 MV Decel Time: 186.00 E/A: 1.20 E'Lateral: 12.20 E'Medial: 7.72 E/E' Med: 8.70 E/E' Lat: 5.50 PHT: 55.00 MVA PHT: 4.00 Decel Bullock: 3.61 MR Vol - PW Dopp: 6.68 MR VTI: 1.67 MR ERO: 4.00 MR Alias Shamir: 0.34 MR RAD: 0.30 Aortic Valve AoV Pk Shamir: 1.18 AoV Pk Grad: 6.00 LVOT LVOT Pk Shamir: 0.80 LVOT Mn Shamir: 0.55 LVOT VTI: 0.15 LVOT Pk Grad: 3.00 LVOT Mn Grad: 1.00 LVOT Diam: 1.80 LVOT Area: 2.54 Diastolic Function MV Pk E: 0.67 MV Pk A: 0.58 E/A: 1.20 E'Medial: 7.72 E/E' Med: 8.70 E' Laterial: 12.20 E/E' Lat: 5.50 Tricuspid Valve TV Area: 186.00 TR Pk Shamir: 14.00 RA Press: 15.00 Great Vessels Aorta Ao Root-2D: 2.70 2.0-3.7 cm Ao Asc: 2.90 2.1-3.4 cm Updated in Other Vendor System with Status of Final Oscar Sandoval MD electronically signed on 10/15/2020 5:48:10 PM with status of Final
[2020-10-19 22:12] LABS: Calprotectin, Fecal 104 mcg/g
== END ==
LOC: HO.CARD 09:49
PROVIDERS: Internal Medicine Gastroenterology; Visit Provider Nurse Practitioner Family
DX: I07.1 Rheumatic tricuspid insufficiency (principal); I44.2 Atrioventricular block, complete; D64.9 Anemia, unspecified; E61.1 Iron deficiency; K51.90 Ulcerative colitis, unspecified, without complications; Z95.0 Presence of cardiac pacemaker
CPT/HCPCS: 83993; 93306

== ENCOUNTER 2020-10-27 10:52 | Outpatient (REF) | payer MEDICARE, SELFPAY | END 2020-10-27 10:53 | disposition home or self-care (01) | LOC: HO.MDS 10:52 | PROVIDERS: PCP Internal Medicine; Visit Provider Internal Medicine Gastroenterology | DX: D50.9 Iron deficiency anemia, unspecified (principal) | CPT/HCPCS: 96365; J2916 ==

== ENCOUNTER 2020-10-28 11:30 | Inpatient (IN) | payer MEDICARE, SELFPAY ==
--- NOTE | ~2020-10-28 | XR_ITS ---
EXAMINATION: XR CHEST CLINICAL INFORMATION: Shortness of breath COMPARISON: Previous chest x-ray most recent July 2020 TECHNIQUE: 2 views of the chest were obtained. FINDINGS: The cardiac silhouette is enlarged but stable. There is a left subclavian dual chamber pacemaker in satisfactory position. There may be pulmonary venous redistribution. Increased density in the central lower mediastinum probably representing an esophageal hernia that is unchanged. There is subsegmental atelectasis in the left midlung. The lungs are otherwise clear. There is no pleural effusion or pneumothorax. There are degenerative changes of the spine. XR/XR chest 2V IMPRESSION: Enlarged cardiac silhouette and question pulmonary venous redistribution. Subsegmental atelectasis in the left midlung.
[2020-10-28 11:36] VITALS: BP 147/70; PULSE 58; RESP 20; TEMP 36.3; O2SAT 97; BMI 29.8
--- NOTE | 2020-10-28 13:13 | ECG_ITS ---
Test Reason : SHORT OF BREATH Blood Pressure : / mmHG Vent. Rate : 064 BPM Atrial Rate : 064 BPM P-R Int : 208 ms QRS Dur : 144 ms QT Int : 498 ms P-R-T Axes : 000 -85 075 degrees QTc Int : 513 ms Atrial-sensed ventricular-paced rhythm Abnormal ECG When compared with ECG of 23-JUL-2020 09:22, Ventricular-paced rhythm has replaced Normal sinus rhythm with complete heart block Referred By: Melvina Terry Electronically Signed By:ALDEN DEL CID MD
--- NOTE | 2020-10-28 13:17 | ED.SOB ---
HPI - SOB/Dyspnea General Chief Complaint: Dyspnea Stated Complaint: sob Time Seen by Provider: 10/28/20 13:11 Source: patient Mode of arrival: wheelchair Limitations: no limitations History of Present Illness HPI Narrative: Patient is an 84-year-old female with a past medical history of cancer of the left tibia, constipation, depression with anxiety, GERD, HLD, HLD, mitral valve insufficiency, osteoarthritis, tubular adenoma of colon who is here with her daughter complaining of shortness of breath for ?weeks ? as well as dizziness. Patient was sent here from Dr. Whitney office. Patient states she has been short of breath for more than a few weeks, she has been getting iron transfusions, she rec'd her last one yesterday. She states she has a history of rectal bleeding but had a colonoscopy in June and the bleeding has stopped. She did require 2 blood transfusions during that time. She is also status post dual chamber pacemaker placement 07/22/[address] Sandoval. Today, the patient is complaining of shortness of breath, bilateral extremity swelling, left breast swelling. She is also complaining of right eye swelling which has resolved since this morning. She states her security infrastructure engineer told her to increase her Lasix from 20 mg daily to 40 but she did not have a chance to take the 40 mg this morning because she came straight here. Patient's daughter states the patient is somewhat ambulatory but if she takes a few steps, she gets extremely short of breath so she has gotten a wheelchair for her to get around with. Patient denies fevers, chest pain. Related Data Home Medications Medication Instructions Recorded Confirmed budesonide 3 mg 6 mg PO DAILY ea 10/28/20 10/28/20 capsule,delayed,extended release Previous Rx's Medication Instructions Recorded escitalopram oxalate 20 mg tablet 20 mg PO ONCE 90 Days #90 tab 06/15/20 ropinirole 0.5 mg tablet 0.5 mg PO BID PRN 90 Days #180 tab 08/03/20 lansoprazole 30 mg capsule,delayed 30 mg PO DAILY 90 Days #90 cap 08/26/20 release furosemide 20 mg tablet 20 mg PO DAILY #30 tab 09/28/20 atorvastatin 10 mg tablet 10 mg PO DAILY #90 tab 10/16/20 Allergies Allergy/AdvReac Type Severity Reaction Status Date / Time cat dander Allergy stuffy Verified 10/28/20 10:47 nose, red eye codeine AdvReac Unknown GI upset Verified 10/28/20 10:47 Review of Systems Review of Systems: Yes all other systems are reviewed and are negative [facility] Past Medical History Medical History Atrial enlargement, left Cancer of left tibia Constipation Depression with anxiety GERD (gastroesophageal reflux disease) High cholesterol History of small bowel obstruction Lipid disorder Lipoma Low hematocrit Mitral valve insufficiency Morbid obesity Osteoarthritis of both hips Osteosarcoma of bone RLS (restless legs syndrome) Tricuspid regurgitation Tubular adenoma of colon Urinary, incontinence, stress female Surgical History H/O hysterectomy with oophorectomy History of appendectomy History of intestinal surgery Hx of colonoscopy S/P cataract surgery S/P placement of cardiac pacemaker (~07/2020) Family History Family History Mother Alzheimers disease Brother Lung cancer Epilepsy Social History Social History Household Members: None Housing: Assisted Living Facility Alcohol intake: current Alcohol intake frequency: does not drink Smoking Status: Never smoker Advance Directives: No Advance Directives Information Provided: No service: No Physical Exam Vital Signs: Vital Signs: Last Vital Signs Temp 97.3 F 10/28/20 11:36 Pulse 60 10/28/20 15:17 Resp 16 10/28/20 15:17 BP 118/69 10/28/20 15:17 Pulse Ox 98 10/28/20 15:17 Body Mass Index 29.8 Const: General: cooperative, healthy appearing, comfortable and no acute distress Nutritional Appearance: overweight Orientation/consciousness: patient oriented x3 Limitations: ambulation with cane HENMT: Head: Yes normal to inspection Ears: hearing grossly normal bilaterally General nose exam: Normal external nose present Eyes: General: appearance normal, both eyes and all related structures Pupils: Equal, round and reactive pupils present EOM: EOMs intact bilaterally Neck: Neck: Yes normal visual inspection, Yes full ROM, Yes trachea midline and Yes supple Chest: Breast/axilla inspection: abnormal inspection of the breast (Left breast markedly larger than right, no peau de orange) Breast/axilla palpation: abnormal palpation of the breast (right breast, circumfential to areola and left side) Resp: Effort & Inspection: normal respiratory effort and able to speak in complete sentences Auscultation: clear to auscultation bilaterally and diminished lung sounds diffuse Cardio: Rate: regular rate Rhythm: regular rhythm Heart sounds: normal S1 and S2 GI: Inspection: Yes normal to inspection Palpation (GI): Soft to palpation and nontender Neuro: General: patient oriented x3 Cranial nerves: Yes Equal, round and reactive pupils present Extrem: General: Yes capillary refill normal, No calf tenderness and Yes edema (1+ pitting bilaterally) Course Course Course Narrative: Patient is an 84-year-old female with a past medical history of cancer of the left tibia, constipation, depression with anxiety, GERD, HLD, HLD, mitral valve insufficiency, osteoarthritis, tubular adenoma of colon who is here with her daughter complaining of shortness of breath for ?weeks ? as well as dizziness. Will get CXR, EKG, labs and reassess. Likely CHF exacerbation, ? malignancy of left breast as pt has hx of tibial cancer. MDM - SOB/Dyspnea Medical Records Attestation: I reviewed the patient's medical records. Lab Data Result diagrams: 10/28/20 15:06 10/28/20 15:06 Labs: Lab Results 10/28/20 10/28/20 10/28/20 Range/Units 15:06 15:06 15:06 WBC 5.1 (4.8-10.8) X10*3/uL RBC 3.95 L (4.20-5.50) X10*6/uL Hgb 9.6 L (12.0-16.0) g/dl Hct 33.6 L (37-47) % MCV 85.1 (80-98) fL MCH 24.3 L (27.0-33.0) pg MCHC 28.6 L (31.0-35.0) g/dl RDW 16.8 H (11.0-16.0) % Plt Count 139 L (160-400) X10*3/uL MPV 11.0 (9.4-12.3) fL Immature Gran % (Auto) 0.4 (0.0-0.4) % Neut % (Auto) 68.9 (45-73) % Lymph % (Auto) 18.6 L (20-40) % [place] % (Auto) 9.0 (2-11) % Eos % (Auto) 2.5 (0-4) % Baso % (Auto) 0.6 (0-2) % Lymph # (Auto) 1.0 L (1.2-4.9) X10*3/uL [place] # (Auto) 0.5 (0.1-1.2) X10*3/uL Eos # (Auto) 0.1 (0.0-0.4) X10*3/uL Baso # (Auto) 0.0 (0.0-0.2) X10*3/uL Abs Immat Gran (auto) 0.02 (0.00-0.03) X10*3/uL Absolute Neuts (auto) 3.5 (2.0-8.3) X10*3/uL Absolute Nucleated RBC 0.000 (0.0-0.012) X10*3/uL Nucleated RBC % (auto) 0.0 (0.0-0.2) /100WBC Hold Blue Top SEE NOTE Sodium 143 (135-145) mmol/L Potassium 4.3 (3.3-5.1) mmol/L Chloride 105 (96-108) mmol/L Carbon Dioxide 28 (22-29) mmol/L Anion Gap 14 (12-20) BUN 17 H (9-16) mg/dL Creatinine 1.13 (0.5-1.4) mg/dL Estim Creat Clear Calc 34.3 Estimated GFR 46 Random Glucose 111 (60-115) mg/dL Calcium 9.0 (8.4-10.2) mg/dL Troponin I High Sens (<3.5-17.0) ng/L B-Natriuretic Peptide (<100) pg/mL 10/28/20 Range/Units 15:06 WBC (4.8-10.8) X10*3/uL RBC (4.20-5.50) X10*6/uL Hgb (12.0-16.0) g/dl Hct (37-47) % MCV (80-98) fL MCH (27.0-33.0) pg MCHC (31.0-35.0) g/dl RDW (11.0-16.0) % Plt Count (160-400) X10*3/uL MPV (9.4-12.3) fL Immature Gran % (Auto) (0.0-0.4) % Neut % (Auto) (45-73) % Lymph % (Auto) (20-40) % [place] % (Auto) (2-11) % Eos % (Auto) (0-4) % Baso % (Auto) (0-2) % Lymph # (Auto) (1.2-4.9) X10*3/uL [place] # (Auto) (0.1-1.2) X10*3/uL Eos # (Auto) (0.0-0.4) X10*3/uL Baso # (Auto) (0.0-0.2) X10*3/uL Abs Immat Gran (auto) (0.00-0.03) X10*3/uL Absolute Neuts (auto) (2.0-8.3) X10*3/uL Absolute Nucleated RBC (0.0-0.012) X10*3/uL Nucleated RBC % (auto) (0.0-0.2) /100WBC Hold Blue Top Sodium (135-145) mmol/L Potassium (3.3-5.1) mmol/L Chloride (96-108) mmol/L Carbon Dioxide (22-29) mmol/L Anion Gap (12-20) BUN (9-16) mg/dL Creatinine (0.5-1.4) mg/dL Estim Creat Clear Calc Estimated GFR Random Glucose (60-115) mg/dL Calcium (8.4-10.2) mg/dL Troponin I High Sens 18.3 H D (<3.5-17.0) ng/L B-Natriuretic Peptide 1024 H (<100) pg/mL ECG Data Attestation: I personally reviewed and interpreted this ECG as follows: ECG interpretation date: 10/28/20 ECG interpretation time: 13:45 Prior ECG tracings: not available for review Interpretation: pacemaker paced 64BPM confirmed with Dr Maldonado Discharge Plan Discharge Prescriptions: No Action escitalopram oxalate 20 mg tablet 20 mg PO ONCE 90 Days Qty: 90 RF: 0 ropinirole 0.5 mg tablet 0.5 mg PO BID PRN (Reason: restless leg) 90 Days Qty: 180 RF: 0 lansoprazole 30 mg capsule,delayed release(DR/EC) 30 mg PO DAILY 90 Days Qty: 90 RF: 0 furosemide 20 mg tablet 20 mg PO DAILY Qty: 30 RF: 2 atorvastatin 10 mg tablet 10 mg PO DAILY Qty: 90 RF: 0 budesonide 3 mg capsule,delayed,extend.release 6 mg PO DAILY RF: 0
[2020-10-28 15:11] LABS: MANUAL DIFF FLAG NO
[2020-10-28 15:14] LABS: Basophils Percent Auto 0.6 % (0-2); Eosinophils Absolute Auto 0.1 X10*3/uL (0.0-0.4); Eosinophils Percent Auto 2.5 % (0-4); Hematocrit 33.6 % (37-47); Hemoglobin 9.6 g/dl (12.0-16.0); Imm Gran Abs Auto 0.02 X10*3/uL (0.00-0.03); Imm Gran Pct Auto 0.4 % (0.0-0.4); Lymphocytes Percent Auto 18.6 % (20-40); Mean Corpuscular HGB Conc 28.6 g/dl (31.0-35.0); Mean Corpuscular Hemoglobin 24.3 pg (27.0-33.0); Mean Corpuscular Volume 85.1 fL (80-98); Monocytes Absolute Auto 0.5 X10*3/uL (0.1-1.2); Neutrophils Absolute Auto 3.5 X10*3/uL (2.0-8.3); Neutrophils Percent Auto 68.9 % (45-73); Platelet Count 139 X10*3/uL (160-400); Red Blood Count 3.95 X10*6/uL (4.20-5.50); Red Cell Distribution Width 16.8 % (11.0-16.0); White Blood Count 5.1 X10*3/uL (4.8-10.8)
[2020-10-28 15:17] VITALS: BP 118/69; PULSE 60; RESP 16; O2SAT 98
[2020-10-28] MEDS: Furosemide 40 MG/4 ML VIAL IVPUSH (15:18)
[2020-10-28 15:37] LABS: Anion Gap 14 (12-20); Blood Urea Nitrogen 17 mg/dL (9-16); Carbon Dioxide 28 mmol/L (22-29); Chloride 105 mmol/L (96-108); Creatinine Clr Calc Pharmacy 34.3; Estimated Glomerular Filt Rate 46; Glucose Random 111 mg/dL (60-115); Potassium 4.3 mmol/L (3.3-5.1); Sodium 143 mmol/L (135-145)
[2020-10-28 15:48] LABS: B Type Natriuretic Peptide 1024 pg/mL (<100); Troponin-I High Sensitivity 18.3 ng/L (<3.5-17.0)
--- NOTE | 2020-10-28 16:13 | P.EN_ITS ---
Event Note Date of Service: 10/28/20 Event Note: admission note the patient was seen and evaluated with Erin Thorpe NP. I agree with her note, assessment and plan with the following. In summary, an 84 years old lady with PMH of depression, GERD, complete heart block post ppm placement, MR, TR among others who presented to the hospital with worsening dyspnea on exertion for the last few weeks. The patient has [employer] dual chamber pacemaker placed on July this year for complete heart block. Since then she noticed episodes of worsening shortness of breath but things as worsen over the last week or so. She reported increased swelling in her lower extremities with increased dyspnea over short distances with no associated chest pain, nausea, vomiting. In the emergency today she was found to have elevated BNP with chest x-ray suggestive of fluid overload. Started on IV Lasix and admitted for further evaluation and treatment. Acute diastolic CHF exacerbation Start IV Lasix Follow BNP To get cardiology evaluation Monitor intake and output Rest of evaluations by CRIMINAL JUSTICE INSTRUCTOR note.
--- NOTE | 2020-10-28 16:55 | P.HPHOSP_ITS ---
History of Present Illness Date of Service: 10/28/20 Chief Complaint: Shortness of breath 84-year-old woman presenting with complaints of worsening shortness of breath over the last several weeks. She is also reported increased lower extremity swelling. She has history of congestive heart failure and takes Lasix but reports. She has a history of complete heart block and has a [employer] dual chamber pacemaker that was placed in July of 2020. she has had visits with the cardiology office and interrogation started device. She reported that she recent had her limits changed from 40-60. Transthoracic echocardiogram on October 14 showed normal EF of 60-65% with normal systolic function. Patient denies chest pain, nausea, vomiting, diarrhea. She did report shortness of breath especially with exertion and lower extremity swelling. Initial troponin was 18.3, BNP 1024. No hypoxia noted. Stable blood pressure. Patient was given IV Lasix. She will be admitted for further management and treatment of acute on chronic congestive heart failure. Review of Systems Review of Systems: Denies any recent fever chills or decrease in appetite respiratory See HPI cardiovascular AV paced gastrointestinal denies any dysphagia abdominal pain nausea vomiting or diarrhea genitourinary denies any dysuria frequency or hematuria musculoskeletal denies any joint pain or swelling neuropsych denies any weakness or seizures all other systems reviewed are negative [facility] Medical History Atrial enlargement, left Cancer of left tibia Constipation Depression with anxiety GERD (gastroesophageal reflux disease) High cholesterol History of small bowel obstruction Lipid disorder Lipoma Low hematocrit Mitral valve insufficiency Morbid obesity Osteoarthritis of both hips Osteosarcoma of bone RLS (restless legs syndrome) Tricuspid regurgitation Tubular adenoma of colon Urinary, incontinence, stress female Family History Mother Alzheimers disease Brother Lung cancer Epilepsy Surgical History H/O hysterectomy with oophorectomy History of appendectomy History of intestinal surgery Hx of colonoscopy S/P cataract surgery S/P placement of cardiac pacemaker (~07/2020) Social History Household Members: None Housing: Assisted Living Facility Alcohol intake: current Alcohol intake frequency: does not drink Smoking Status: Never smoker Advance Directives: No Advance Directives Information Provided: No service: No Meds Allergies Allergy/AdvReac Type Severity Reaction Status Date / Time cat dander Allergy stuffy Verified 10/28/20 10:47 nose, red eye codeine AdvReac Unknown GI upset Verified 10/28/20 10:47 Active Medications: Current Medications Generic Name Dose Route Start Last Admin Trade Name Freq PRN Reason Stop Dose Admin Acetaminophen 650 mg 10/28/20 16:53 Acetaminophen 325 Mg Tablet PO Q6H PRN Pain, Mild (Pain Scale 1-3) Furosemide 20 mg 10/28/20 18:00 Furosemide 20 Mg/2 Ml Vial IVPUSH BID@0900,1800 [facility] Protocol Ondansetron HCl 4 mg 10/28/20 16:53 Ondansetron Hcl 4 Mg/2 Ml Vial IVPUSH Q8H PRN Nausea and Vomiting Pharmacy Consult 1 each 10/28/20 16:17 Consult Rx Perform Med Rec MISCELLANE ONCE PRN Consult order Sodium Chloride 3 ml 10/29/20 00:00 0.9 % Sodium Chloride Flush 3 Ml Syringe IVFLUSH QSHIFT [facility] Home Medications Medication Instructions Recorded Confirmed Last Taken Type budesonide 3 mg 6 mg PO DAILY ea 10/28/20 10/28/20 10/28/20 History capsule,delayed,extended release escitalopram oxalate 20 mg PO DAILY 10/28/20 10/28/20 10/27/20 History Physical Exam Vital Signs and Narrative: Vital Signs: Last Vital Signs Temp 97.3 F 10/28/20 11:36 Pulse 60 10/28/20 15:17 Resp 16 10/28/20 15:17 BP 118/69 10/28/20 15:17 Pulse Ox 98 10/28/20 15:17 Body Mass Index 29.8 Appearing in no acute distress head is normocephalic atraumatic eyes pupils are PERRLA sclera is anicteric mouth throat mucous membranes are intact and moist neck is supple no lymphadenopathy, no JVD noted lung sounds are clear to auscultation heart regular rate rhythm AV paced, +2 bilateral lower extremity edema positive bowel sounds, abdomen is soft, nontender neuro patient is alert x3, no focal deficits Results Labs CBC and Chem 7: 10/28/20 15:06 10/28/20 15:06 Labs: Laboratory Results - last 24 hr 10/28/20 10/28/20 10/28/20 15:06 15:06 15:06 MCV 85.1 MCH 24.3 L MCHC 28.6 L RDW 16.8 H Plt Count 139 L MPV 11.0 Immature Gran % (Auto) 0.4 Neut % (Auto) 68.9 Lymph % (Auto) 18.6 L [place] % (Auto) 9.0 Eos % (Auto) 2.5 Baso % (Auto) 0.6 Lymph # (Auto) 1.0 L [place] # (Auto) 0.5 Eos # (Auto) 0.1 Baso # (Auto) 0.0 Abs Immat Gran (auto) 0.02 Absolute Neuts (auto) 3.5 Absolute Nucleated RBC 0.000 Nucleated RBC % (auto) 0.0 Hold Blue Top SEE NOTE Anion Gap 14 Estim Creat Clear Calc 34.3 Estimated GFR 46 Random Glucose 111 Calcium 9.0 Troponin I High Sens B-Natriuretic Peptide 10/28/20 15:06 MCV MCH MCHC RDW Plt Count MPV Immature Gran % (Auto) Neut % (Auto) Lymph % (Auto) [place] % (Auto) Eos % (Auto) Baso % (Auto) Lymph # (Auto) [place] # (Auto) Eos # (Auto) Baso # (Auto) Abs Immat Gran (auto) Absolute Neuts (auto) Absolute Nucleated RBC Nucleated RBC % (auto) Hold Blue Top Anion Gap Estim Creat Clear Calc Estimated GFR Random Glucose Calcium Troponin I High Sens 18.3 H D B-Natriuretic Peptide 1024 H Imaging Radiologist's Impressions: Impressions Chest X-Ray 10/28/20 13:13 IMPRESSION: Enlarged cardiac silhouette and question pulmonary venous redistribution. Subsegmental atelectasis in the left midlung. Assessment and Plan (1) Congestive heart failure: Qualifiers: Heart failure chronicity: unspecified Heart failure type: combined systolic and diastolic Qualified Code(s): I50.40 - Unspecified combined systolic (congestive) and diastolic (congestive) heart failure Status: Acute 84-year-old woman admitted with acute on chronic congestive heart failure with increased shortness of breath and lower extremity swelling over the last several weeks. She recently had interrogation of her pacemaker done. Diastolic heart failure acute on chronic. No hypoxia noted. Recent echocardiogram 4/14 showed normal EF. -IV Lasix -cardiology consultation -daily weights, intake and output -trend BNP Normocytic anemia. No signs of bleeding. - trend H&H Hyperlipidemia. -Statin GERD. -PPI DVT prophylaxis with heparin Attending: Dr. Theodore Full code
[2020-10-28 17:52] VITALS: BP 128/61; PULSE 62; RESP 18; O2SAT 97
[2020-10-28] MEDS: Heparin Sodium,Porcine 5,000 UNIT/ML VIAL 5000 UNIT SUBCUT (18:50)
[2020-10-28] MEDS: Furosemide 20 MG/2 ML VIAL IVPUSH (18:50)
[2020-10-28 18:54] VITALS: BP 130/68; PULSE 60; RESP 16; O2SAT 99
--- NOTE | 2020-10-28 19:10 | PC.NURSE ---
PURE WICK IN PLACE FOR URINE COLLECTION. HOSPITALIST VERBALLY RESCINDED ORDER FOR CATH. DYSPNEA AT REST HAS NOW IMPROVED. VS WNL. AWAITING BED ASSIGNMENT. PT AWARE OF PLAN FOR CARE.
--- NOTE | 2020-10-28 19:41 | PC.NURSE ---
report given to [facility] RN
[2020-10-28] MEDS: rOPINIRole HCL 0.5 MG TABLET PO (20:29)
[2020-10-28] MEDS: 0.9 % Sodium Chloride Flush 3 ML SYRINGE IVFLUSH (20:37)
[2020-10-29 00:42] LABS: COVID-19 Test Negative (Negative); IDNOW Serial# 9DD0AD1C
[2020-10-29 04:00] VITALS: BP 156/67; PULSE 62; RESP 18; TEMP 36.4; O2SAT 96
[2020-10-29] MEDS: Omeprazole 20 MG CAPSULE.DR PO (05:44)
[2020-10-29] MEDS: Heparin Sodium,Porcine 5,000 UNIT/ML VIAL 5000 UNIT SUBCUT ×2 (05:44→17:20)
[2020-10-29 06:35] LABS: MANUAL DIFF FLAG NO
[2020-10-29 06:56] LABS: Basophils Percent Auto 0.8 % (0-2); Eosinophils Absolute Auto 0.1 X10*3/uL (0.0-0.4); Eosinophils Percent Auto 3.4 % (0-4); Hematocrit 31.8 % (37-47); Hemoglobin 9.2 g/dl (12.0-16.0); Imm Gran Abs Auto 0.02 X10*3/uL (0.00-0.03); Imm Gran Pct Auto 0.5 % (0.0-0.4); Lymphocytes Absolute Auto 1.2 X10*3/uL (1.2-4.9); Lymphocytes Percent Auto 30.2 % (20-40); Mean Corpuscular HGB Conc 28.9 g/dl (31.0-35.0); Mean Corpuscular Hemoglobin 24.1 pg (27.0-33.0); Mean Corpuscular Volume 83.2 fL (80-98); Mean Platelet Volume 11.1 fL (9.4-12.3); Monocytes Absolute Auto 0.4 X10*3/uL (0.1-1.2); Monocytes Percent Auto 10.3 % (2-11); Neutrophils Absolute Auto 2.1 X10*3/uL (2.0-8.3); Neutrophils Percent Auto 54.8 % (45-73); Platelet Count 134 X10*3/uL (160-400); Red Blood Count 3.82 X10*6/uL (4.20-5.50); Red Cell Distribution Width 17.1 % (11.0-16.0); White Blood Count 3.9 X10*3/uL (4.8-10.8)
[2020-10-29 07:46] LABS: Anion Gap 12 (12-20); Blood Urea Nitrogen 14 mg/dL (9-16); Calcium 8.5 mg/dL (8.4-10.2); Carbon Dioxide 32 mmol/L (22-29); Chloride 104 mmol/L (96-108); Creatinine Clr Calc Pharmacy 37.9; Estimated Glomerular Filt Rate 52; Glucose Random 86 mg/dL (60-115); Potassium 3.6 mmol/L (3.3-5.1); Sodium 144 mmol/L (135-145)
[2020-10-29 08:00] VITALS: BP 129/59; PULSE 60; RESP 20; TEMP 36.4; O2SAT 97
[2020-10-29] MEDS: 0.9 % Sodium Chloride Flush 3 ML SYRINGE IVFLUSH ×3 (09:44→20:12)
[2020-10-29] MEDS: Escitalopram Oxalate 20 MG TABLET PO (09:44)
[2020-10-29] MEDS: Furosemide 20 MG/2 ML VIAL IVPUSH ×2 (09:44→17:20)
[2020-10-29] MEDS: Atorvastatin Calcium 10 MG TABLET PO (09:44)
--- NOTE | 2020-10-29 10:35 | PM.CNCAR ---
History of Present Illness History of Present Illness Date of Service: 10/29/20 Requesting physician: Mari Amin Consult reason: congestive heart failure Chief complaint: CHF Narrative: We were asked to see Yahaira in cardiology consultation today because of presentation with decompensated congestive heart failure. She is a limited historian and is confused about the timeline of her overall presentation, however she says that she has been getting increasingly shortness of breath recently and increasing leg edema over the last few weeks and had been seen by her primary care physician of advised her to come to the hospital. In the ED she was noted to have worsening BNP, findings consistent with decompensated congestive heart failure was admitted. She was started on IV Lasix 20 mg b.i.d.. Has had negative balance of 600 cc. She says her breathing is improved and leg edema is improved but still persistent. She denies any clear orthopnea, PND. No lightheadedness, syncope however she is a limited historian. Review of Systems Constitutional: Constitutional: Reports no additional constitutional complaints Cardiovascular: Cardiovascular: Denies chest pain, Reports leg edema, Denies lightheadedness, Denies Loss of Consciousness, Denies palpitations, Reports dyspnea and Reports dyspnea on exertion Respiratory: Respiratory: Reports no additional respiratory complaints, Reports dyspnea and Reports dyspnea on exertion Gastrointestinal: Gastrointestinal: Reports no additional gastrointestinal complaints Genitourinary: Genitourinary: Reports no additional female genitourinary complaints Integumentary/Breasts: Skin/Breast: Reports breast swelling Neurologic: Reports system reviewed and no additional complaints, except as documented Psychiatric: Psychiatric: Reports no additional psychiatric complaints Endocrine: Endocrine: Reports no additional endocrine complaints and Denies palpitations PMFSH Past Medical History Medical History Atrial enlargement, left Cancer of left tibia Constipation Depression with anxiety GERD (gastroesophageal reflux disease) High cholesterol History of small bowel obstruction Lipid disorder Lipoma Low hematocrit Mitral valve insufficiency Morbid obesity Osteoarthritis of both hips Osteosarcoma of bone RLS (restless legs syndrome) Tricuspid regurgitation Tubular adenoma of colon Urinary, incontinence, stress female Family History Family History Mother Alzheimers disease Brother Lung cancer Epilepsy Surgical History Surgical History H/O hysterectomy with oophorectomy History of appendectomy History of intestinal surgery Hx of colonoscopy S/P cataract surgery S/P placement of cardiac pacemaker (~07/2020) Social History Social History Household Members: None Housing: Assisted Living Facility Do you presently have visiting nurse or other home services: No ([facility]) Alcohol intake: current Alcohol intake frequency: does not drink Smoking Status: Never smoker Use of substances other than those prescribed or required for medical reasons: No Currently Displaying Signs/Symptoms of Drug Intoxication Withdrawal: No Have you been hit, kicked, punched, or otherwise hurt by someone within the past year? If so, by whom?: No Do you feel safe in your current relationship?: No Current Relationship Is there a partner from a previous relationship who is making you feel unsafe now?: No Are you made to feel afraid or neglected: No Advance Directives: No Advance Directives Information Provided: No Do you have thoughts of harming others: None Do you have a plan to hurt others: No Plan Recently lost weight without trying: No service: No Meds Allergies Allergy/AdvReac Type Severity Reaction Status Date / Time cat dander Allergy stuffy Verified 10/28/20 10:47 nose, red eye codeine AdvReac Unknown GI upset Verified 10/28/20 10:47 Active Medications: Current Medications Generic Name Dose Route Start Last Admin Trade Name Freq PRN Reason Stop Dose Admin Acetaminophen 650 mg 10/28/20 16:53 Acetaminophen 325 Mg Tablet PO Q6H PRN Pain, Mild (Pain Scale 1-3) Atorvastatin Calcium 10 mg 10/29/20 09:00 10/29/20 09:44 Atorvastatin Calcium 10 Mg Tablet PO 10 mg DAILY DENISE Administration Escitalopram Oxalate 20 mg 10/29/20 09:00 10/29/20 09:44 Escitalopram Oxalate 20 Mg Tablet PO 20 mg DAILY DENISE Administration Furosemide 20 mg 10/28/20 18:00 10/29/20 09:44 Furosemide 20 Mg/2 Ml Vial IVPUSH 20 mg BID@0900,1800 EDNISE Administration Protocol Heparin Sodium (Porcine) 5,000 unit 10/28/20 17:30 10/29/20 05:44 Heparin Sodium,Porcine 5,000 Unit/Ml Vial SUBCUT 5,000 unit Q12H DENISE Administration Non-Formulary Medication 6 mg 10/29/20 09:00 Budesonide PO DAILY [facility] Omeprazole 20 mg 10/29/20 06:30 10/29/20 05:44 Omeprazole 20 Mg Capsule. PO 20 mg DAILY@0630 DENISE Administration Ondansetron HCl 4 mg 10/28/20 16:53 Ondansetron Hcl 4 Mg/2 Ml Vial IVPUSH Q8H PRN Nausea and Vomiting Pharmacy Consult 1 each 10/28/20 16:17 Consult Rx Perform Med Rec MISCELLANE ONCE PRN Consult order Ropinirole HCl 0.5 mg 10/28/20 17:13 10/28/20 20:29 Ropinirole Hcl 0.5 Mg Tablet PO 0.5 mg BID PRN Administration restless leg Sodium Chloride 3 ml 10/29/20 00:00 10/29/20 09:44 0.9 % Sodium Chloride Flush 3 Ml Syringe IVFLUSH 3 ml QSHIFT DENISE Administration Home Medications Medication Instructions Recorded Confirmed Last Taken Type budesonide 3 mg 6 mg PO DAILY ea 10/28/20 10/28/20 10/28/20 History capsule,delayed,extended release escitalopram oxalate 20 mg PO DAILY 10/28/20 10/28/20 10/27/20 History Physical Exam Vital Signs: Vital Signs: Last Vital Signs Temp 97.6 F 10/29/20 08:00 Pulse 60 10/29/20 08:00 Resp 20 10/29/20 08:00 BP 129/59 L 10/29/20 08:00 Pulse Ox 97 10/29/20 08:00 Body Mass Index 29.8 Const: General: cooperative, comfortable, no acute distress, alert and awake Nutritional Appearance: overweight Orientation/consciousness: patient oriented x3 HENMT: Head: Yes normocephalic and Yes atraumatic Neck: Neck: Yes trachea midline, Yes supple and Yes JVD Resp: Effort & Inspection: normal respiratory effort Auscultation: clear to auscultation bilaterally Cardio: Jugular venous distension: JVD Palpation: normal PMI Rate: regular rate Rhythm: regular rhythm Heart sounds: S1 normal heart sound present and S2 normal heart sound present GI: Auscultation: normal bowel sounds Skin: General skin exam: no rashes or lesions noted Neuro: General: patient oriented x3 and no focal motor deficits Extrem: General: No clubbing, No cyanosis and Yes edema Results Labs and Meds Result diagrams: 10/29/20 05:15 10/29/20 05:15 Lab results: Laboratory Results - last 24 hr 10/28/20 10/28/20 10/28/20 00:15 15:06 15:06 WBC 5.1 RBC 3.95 L Hgb 9.6 L Hct 33.6 L MCV 85.1 MCH 24.3 L MCHC 28.6 L RDW 16.8 H Plt Count 139 L MPV 11.0 Immature Gran % (Auto) 0.4 Neut % (Auto) 68.9 Lymph % (Auto) 18.6 L Whitman % (Auto) 9.0 Eos % (Auto) 2.5 Baso % (Auto) 0.6 Lymph # (Auto) 1.0 L Whitman # (Auto) 0.5 Eos # (Auto) 0.1 Baso # (Auto) 0.0 Abs Immat Gran (auto) 0.02 Absolute Neuts (auto) 3.5 Absolute Nucleated RBC 0.000 Nucleated RBC % (auto) 0.0 Hold Blue Top SEE NOTE Sodium Potassium Chloride Carbon Dioxide Anion Gap BUN Creatinine Estim Creat Clear Calc Estimated GFR Random Glucose Calcium Troponin I High Sens B-Natriuretic Peptide COVID-19 (GURU) Negative COVID-[place] Com See Note 10/28/20 10/28/20 10/29/20 15:06 15:06 05:15 WBC RBC Hgb Hct MCV MCH MCHC RDW Plt Count MPV Immature Gran % (Auto) Neut % (Auto) Lymph % (Auto) Whitman % (Auto) Eos % (Auto) Baso % (Auto) Lymph # (Auto) Whitman # (Auto) Eos # (Auto) Baso # (Auto) Abs Immat Gran (auto) Absolute Neuts (auto) Absolute Nucleated RBC Nucleated RBC % (auto) Hold Blue Top Sodium 143 144 Potassium 4.3 3.6 Chloride 105 104 Carbon Dioxide 28 32 H Anion Gap 14 12 BUN 17 H 14 Creatinine 1.13 1.02 Estim Creat Clear Calc 34.3 37.9 Estimated GFR 46 52 Random Glucose 111 86 Calcium 9.0 8.5 Troponin I High Sens 18.3 H D B-Natriuretic Peptide 1024 H COVID-19 (GURU) COVID-19 Clin Com 10/29/20 05:15 WBC 3.9 L RBC 3.82 L Hgb 9.2 L Hct 31.8 L MCV 83.2 MCH 24.1 L MCHC 28.9 L RDW 17.1 H Plt Count 134 L MPV 11.1 Immature Gran % (Auto) 0.5 H Neut % (Auto) 54.8 Lymph % (Auto) 30.2 Whitman % (Auto) 10.3 Eos % (Auto) 3.4 Baso % (Auto) 0.8 Lymph # (Auto) 1.2 Whitman # (Auto) 0.4 Eos # (Auto) 0.1 Baso # (Auto) 0.0 Abs Immat Gran (auto) 0.02 Absolute Neuts (auto) 2.1 Absolute Nucleated RBC 0.000 Nucleated RBC % (auto) 0.0 Hold Blue Top Sodium Potassium Chloride Carbon Dioxide Anion Gap BUN Creatinine Estim Creat Clear Calc Estimated GFR Random Glucose Calcium Troponin I High Sens B-Natriuretic Peptide COVID-19 (GURU) COVID-19 Clin Com EKG shows atrial sensed ventricular paced rhythm. Imaging Radiologist's impression: Impressions Chest X-Ray 10/28/20 13:13 IMPRESSION: Enlarged cardiac silhouette and question pulmonary venous redistribution. Subsegmental atelectasis in the left midlung. Assessment and Plan (1) CHF exacerbation: Status: Acute CHF exacerbation elderly woman without any clear cause. May be under diuresis. Currently getting Lasix 20 mg IV b.i.d. and diuresing well as per her. Continue the same. Continue strict intake and output chart. Will need repeat limited echocardiogram to assess LV systolic and diastolic function as well as to evaluate for RV systolic function and development of significant tricuspid regurgitation. Add Aldactone 12.5 mg to her regimen. Heart failure education to be provided. Heart failure admissions can be avoided by proper education with increasing diuretic therapy as outpatient when patient started developing progressive leg swelling was discussed with her. Not sure she understands completely. (2) Pacemaker: Problem details: St [employer]ron dual chamber Status: Acute Cardiac pacemaker in-situ due to complete heart block. Pacemaker seems to be working normally. No further interventions required from the same perspective. Will continue to follow the patient
--- NOTE | 2020-10-29 11:08 | HO.PM.IMPN ---
Subjective Subjective Date of Service: 10/29/20 Interval History: Patient complaining of shortness of breath and wobbly with ambulation, denies chest pain, feels left breast is larger than right, just recently noticed denies any pain, denies trauma. ROS General no headache, no dizziness, no fever chills. CVS no chest pain, no palpitation. Respiratory sob ,no pnd. Gastrointestinal no nausea no vomiting, no abdominal pain Physical Exam Vital Signs: Vital Signs: Last Vital Signs Temp 97.6 F 10/29/20 08:00 Pulse 60 10/29/20 08:00 Resp 20 10/29/20 08:00 BP 129/59 L 10/29/20 08:00 Pulse Ox 97 10/29/20 08:00 Body Mass Index 29.8 General patient resting comfortably in no acute distress. Neck + JVD. CVS regular rate rhythm, Respiratory lungs clear to auscultation, no respiratory distress, no rales Gastrointestinal abdomen soft, nontender, bowel sounds audible, no no guarding , no rigidity. Extremities b/l pitting edema. Neuro nonfocal , speech clear. Skin no rash Objective Data Current Medications Generic Name Dose Route Start Last Admin Trade Name Freq PRN Reason Stop Dose Admin Acetaminophen 650 mg 10/28/20 16:53 Acetaminophen 325 Mg Tablet PO Q6H PRN Pain, Mild (Pain Scale 1-3) Atorvastatin Calcium 10 mg 10/29/20 09:00 10/29/20 09:44 Atorvastatin Calcium 10 Mg Tablet PO 10 mg DAILY DENISE Administration Escitalopram Oxalate 20 mg 10/29/20 09:00 10/29/20 09:44 Escitalopram Oxalate 20 Mg Tablet PO 20 mg DAILY DENISE Administration Furosemide 20 mg 10/28/20 18:00 10/29/20 09:44 Furosemide 20 Mg/2 Ml Vial IVPUSH 20 mg BID@0900,1800 [facility] Administration Protocol Heparin Sodium (Porcine) 5,000 unit 10/28/20 17:30 10/29/20 05:44 Heparin Sodium,Porcine 5,000 Unit/Ml Vial SUBCUT 5,000 unit Q12H DENISE Administration Non-Formulary Medication 6 mg 10/29/20 09:00 Budesonide PO DAILY [facility] Omeprazole 20 mg 10/29/20 06:30 10/29/20 05:44 Omeprazole 20 Mg Capsule. PO 20 mg DAILY@0630 DENISE Administration Ondansetron HCl 4 mg 10/28/20 16:53 Ondansetron Hcl 4 Mg/2 Ml Vial IVPUSH Q8H PRN Nausea and Vomiting Pharmacy Consult 1 each 10/28/20 16:17 Consult Rx Perform Med Rec MISCELLANE ONCE PRN Consult order Ropinirole HCl 0.5 mg 10/28/20 17:13 10/28/20 20:29 Ropinirole Hcl 0.5 Mg Tablet PO 0.5 mg BID PRN Administration restless leg Sodium Chloride 3 ml 10/29/20 00:00 10/29/20 09:44 0.9 % Sodium Chloride Flush 3 Ml Syringe IVFLUSH 3 ml QSHIFT DENISE Administration Labs CBC & Chem 7: 10/29/20 05:15 10/29/20 05:15 Assessment and Plan (1) CHF exacerbation: Status: Acute (2) S/P placement of cardiac pacemaker: Problem details: [employer]ron dual chamber 07/22/20, revised 07/23/20 Status: Acute (3) Swelling of both lower extremities: Status: Acute Assessment and Plan: 84-year-old woman admitted with acute on chronic congestive heart failure with increased shortness of breath and lower extremity swelling over the last several weeks. She recently had interrogation of her pacemaker done. Acute on chronic Diastolic heart failure Patient feeling better with less shortness of breath and leg edema, put out 600 mL in last 24 hours still appear volume overloaded Will continue gentle diuresis with Lasix 20 mg IV b.i.d. case discussed with Dr. Fuller he recommend to add Aldactone 12.5 mg daily Recent echocardiogram 10/14 showed normal EF. Will repeat limited echocardiogram Monitor daily weights, intake and output trend BNP and follow BMP closely while being diuresed status post pacemaker placement for complete heart block, since pacemaker working normally no further intervention required Normocytic anemia. No signs of bleeding. Hematocrit stable Hyperlipidemia. Continue lipitor GERD. Continue omeprazole Left breast bigger than right recommend outpatient follow-up with PCP and mammogram. DVT prophylaxis with heparin
--- NOTE | 2020-10-29 11:16 | MHC.CM.PN ---
CM met with patient at the bedside who reports she lives alone, has private pay help with IADL's, amb with a cane/walker. Dtr/HCP [facility] [phone] ia also very supportive. Copy of HCP on file. IMM addressed. Discussed discharge plan, home no services. Dtr will provide transport. CM will continue to follow patient for discharge needs.
--- NOTE | 2020-10-29 11:20 | CA_ITS ---
Transthoracic Echocardiogram Patient (Last, First, Middle): Yahaira Cortes A Gender: Female Date of : 1935 Age: 84 Procedure Date: 10/29/2020 Procedure Type: Transthoracic Echocardiogram Location: [facility] [place] Height: 157.48 cm Weight: 73.94 kg BSA: 1.75 m2 Heart Rate: bpm BP: 129 / 59 mmHg Food Tester: DIANA Referring MD: Mari Amin MD Edger Hand: Morgan Bragg MD Symptoms: chf Study Quality: Fair ECG Rhythm: Ventriculary paced rhythm Conclusions: - 1. Normal LV systolic function with impaired relaxation filling pattern 2. Dilated right ventricle with systolic dysfunction 3. Moderate to severe tricuspid regurgitation with moderate pulmonary hypertension Findings Left Ventricle Normal left ventricular size, thickness, and systolic function. The visually estimated ejection fraction is between 60-65%. Spectral Doppler is indicative of an impaired relaxation filling pattern. E/E prime ratio is between 8 and 15 consistent with indeterminate filling pressures. Right Ventricle Moderately increased right ventricular cavity size. There is mildly decreased right ventricular systolic function. There is a pacemaker wire seen in the right ventricle. Tricuspid Valve There is moderate to severe tricuspid valve regurgitation. Significantly elevated right atrial pressure. Moderate pulmonary hypertension is present. Venous The inferior vena cava is moderately dilated and does not collapse with inspiration. Pericardium/Pleural There is no evidence of pericardial effusion. Prior Study Comparison Changes noted compared to prior study dated: 10/14/2020. Moderately severe tricuspid regurgitation noted. RV systolic pressure is further elevated Measurements 2D Linear Measurements IVSd: 0.94 0.6-0.9/0.6-1.0 cm LVIDd: 3.90 3.9-5.3/4.2-5.9 cm LVIDd Index: 2.23 2.4-3.2/2.2-3.1 cm/m2 LVIDs: 2.43 2.0-3.6 cm LVPWd: 0.84 0.7-1.1 cm LV Mass: 128.69 67-162/88-224 g LV Mass Index: 73.54 43-95/49-115 g/m2 2D Systolic Function EF 4C: 64.20 >55% EF 2C: 66.80 >55% EF BiP: 64.90 >55% Mitral Valve MV Pk E: 0.68 MV PK A: 0.75 MV Decel Time: 273.00 E/A: 0.90 E'Lateral: 13.30 E'Medial: 7.72 E/E' Med: 8.80 E/E' Lat: 5.10 PHT: 80.00 MVA PHT: 2.75 Decel Trinity: 2.51 Diastolic Function MV Pk E: 0.68 MV Pk A: 0.75 E/A: 0.90 E'Medial: 7.72 E/E' Med: 8.80 E' Laterial: 13.30 E/E' Lat: 5.10 Tricuspid Valve TR Pk Shamir: 2.96 TR Pk Grad: 35.00 RA Press: 15.00 RVSP: 50.00 Updated in Other Vendor System with Status of Final Morgan Bragg MD electronically signed on 10/29/2020 2:24:59 PM with status of Final
[2020-10-29 12:00] VITALS: BP 109/59; PULSE 60; RESP 19; TEMP 36.6; O2SAT 99
[2020-10-29 13:09] LABS: B Type Natriuretic Peptide 1375 pg/mL (<100)
[2020-10-29 15:13] VITALS: BP 106/57; PULSE 80; RESP 20; TEMP 36.6; O2SAT 95
[2020-10-29 19:12] VITALS: BP 107/59; PULSE 80; RESP 20; TEMP 36.1; O2SAT 97
[2020-10-29] MEDS: rOPINIRole HCL 0.5 MG TABLET PO (20:11)
[2020-10-29 23:39] VITALS: BP 110/66; PULSE 63; RESP 18; TEMP 36.3; O2SAT 96
[2020-10-30] VITALS (7 sets, daily range): BP systolic 115–157; BP diastolic 66–85; PULSE 60–69; RESP 16–20; TEMP 36–36.8; O2SAT 95–98
--- NOTE | 2020-10-30 03:28 | PC.NURSE ---
Patient repeatedly asking this RN for her medications- especially the one for her restless legs . This RN explained that her medications were given to her already and reminded the patient that we had discussed earlier in the shift all of the medications she was going to receive and what they were and why. Patient agreeable and stated that she forgot . Once again this RN was called into the patients room not long after and the patient was asking again for her medication for her restless legs as the dose I gave her was not enough . This RN once again went over the patients medications and her medication list from home to verify that the same exact dose was given to her here. Patient argumentative initially but once this RN re-explained to her, she was agreeable and stated again that she forgot .
[2020-10-30] MEDS: Omeprazole 20 MG CAPSULE.DR PO (04:46)
[2020-10-30] MEDS: Heparin Sodium,Porcine 5,000 UNIT/ML VIAL 5000 UNIT SUBCUT ×2 (04:46→17:02)
[2020-10-30 06:47] LABS: Anion Gap 13 (12-20); Blood Urea Nitrogen 21 mg/dL (9-16); Calcium 8.6 mg/dL (8.4-10.2); Carbon Dioxide 31 mmol/L (22-29); Chloride 103 mmol/L (96-108); Creatinine Clr Calc Pharmacy 27.8; Estimated Glomerular Filt Rate 36; Glucose Random 86 mg/dL (60-115); Potassium 3.6 mmol/L (3.3-5.1); Sodium 143 mmol/L (135-145)
[2020-10-30] MEDS: 0.9 % Sodium Chloride Flush 3 ML SYRINGE IVFLUSH (08:23)
[2020-10-30] MEDS: Spironolactone 25 MG TABLET 12.5 MG PO (08:24)
[2020-10-30] MEDS: rOPINIRole HCL 0.5 MG TABLET PO (08:25)
[2020-10-30] MEDS: Atorvastatin Calcium 10 MG TABLET PO (08:25)
[2020-10-30] MEDS: Escitalopram Oxalate 20 MG TABLET PO (08:26)
[2020-10-30] MEDS: Acetaminophen 325 MG TABLET 650 MG PO (08:26)
[2020-10-30] MEDS: Furosemide 20 MG/2 ML VIAL IVPUSH (08:26)
--- NOTE | 2020-10-30 10:20 | P.PNCA_ITS ---
Subjective Subjective Date of Service: 10/30/20 Principal diagnosis: CHF Interval history: Patient says she is not feeling well today. Continues to have leg edema but she says this is better. Has had tepid response to diuresis. BNP is further increased. She complains of shortness of breath and nausea. Creatinine also slightly increased Review of Systems Constitutional: Reports no additional constitutional complaints Cardiovascular: Reports chest pain, Reports leg edema, Denies palpitations and Reports dyspnea on exertion Respiratory: Reports no additional respiratory complaints and Reports dyspnea on exertion Gastrointestinal: Reports nausea Reports system reviewed and no additional complaints, except as documented Psychiatric: Reports no additional psychiatric complaints Endocrine: Denies palpitations Hematologic/Lymphatic: Reports no additional hematologic/lymphatic complaints Physical Exam Vital Signs: Last Vital Signs Temp 97.6 F 10/30/20 08:00 Pulse 60 10/30/20 08:24 Resp 20 10/30/20 08:00 BP 133/85 10/30/20 08:24 Pulse Ox 98 10/30/20 08:00 Body Mass Index 29.8 Const General: cooperative, comfortable, no acute distress, alert and awake Nutritional Appearance: overweight Orientation/consciousness: patient oriented x3 Neck Neck: Yes trachea midline, Yes supple and Yes JVD Resp Effort & Inspection: normal respiratory effort Auscultation: clear to auscultation bilaterally Cardio Rate: regular rate Rhythm: regular rhythm Heart sounds: S1 normal heart sound present and S2 normal heart sound present GI Auscultation: normal bowel sounds Skin General skin exam: no rashes or lesions noted Neuro General: patient oriented x3 Extrem General: Yes edema Psych Appearance: grossly normal Results Labs and Meds Result diagrams: 10/29/20 05:15 10/30/20 05:20 Lab results: Laboratory Results - last 24 hr 10/29/20 10/30/20 12:35 05:20 Sodium 143 Potassium 3.6 Chloride 103 Carbon Dioxide 31 H Anion Gap 13 BUN 21 H Creatinine 1.39 Estim Creat Clear Calc 27.8 Estimated GFR 36 Random Glucose 86 Calcium 8.6 B-Natriuretic Peptide 1375 H Progress Note: A&P Assessment and plan (1) CHF exacerbation: Status: Acute Assessment and Plan: Patient with CHF exacerbation most likely right-sided with moderate to severe tricuspid regurgitation. Continues to be fluid overloaded clinically. BNP is further rising. Creatinine is also slightly higher most likely from venous congestion. Will continue IV diuresis intensify and start on Lasix drip 5 mg an hour. Strict intake and output chart needs to be pursued. Continue to trend BM P and BNP. CHF education needs to be provided. Unfortunately tricuspid regurgitation RV systolic dysfunction do not have any direct therapy. Will continue to monitor clinically. Will continue to follow with you. Fall Risk Details Current Medications: Current Medications Generic Name Dose Route Start Last Admin Trade Name Freq PRN Reason Stop Dose Admin Acetaminophen 650 mg 10/28/20 16:53 10/30/20 08:26 Acetaminophen 325 Mg Tablet PO 650 mg Q6H PRN Administration Pain, Mild (Pain Scale 1-3) Atorvastatin Calcium 10 mg 10/29/20 09:00 10/30/20 08:25 Atorvastatin Calcium 10 Mg Tablet PO 10 mg DAILY DENISE Administration Escitalopram Oxalate 20 mg 10/29/20 09:00 10/30/20 08:26 Escitalopram Oxalate 20 Mg Tablet PO 20 mg DAILY DENISE Administration Furosemide 20 mg 10/28/20 18:00 10/30/20 08:26 Furosemide 20 Mg/2 Ml Vial IVPUSH 20 mg BID@0900,1800 DENISE Administration Protocol Heparin Sodium (Porcine) 5,000 unit 10/28/20 17:30 10/30/20 04:46 Heparin Sodium,Porcine 5,000 Unit/Ml Vial SUBCUT 5,000 unit Q12H DENISE Administration Non-Formulary Medication 6 mg 10/29/20 09:00 Budesonide PO DAILY [facility] Omeprazole 20 mg 10/29/20 06:30 10/30/20 04:46 Omeprazole 20 Mg Capsule.Dr PO 20 mg DAILY@0630 DENISE Administration Ondansetron HCl 4 mg 10/28/20 16:53 Ondansetron Hcl 4 Mg/2 Ml Vial IVPUSH Q8H PRN Nausea and Vomiting Pharmacy Consult 1 each 10/28/20 16:17 Consult Rx Perform Med Rec MISCELLANE ONCE PRN Consult order Ropinirole HCl 0.5 mg 10/28/20 17:13 10/30/20 08:25 Ropinirole Hcl 0.5 Mg Tablet PO 0.5 mg BID PRN Administration restless leg Sodium Chloride 3 ml 10/29/20 00:00 10/30/20 08:23 0.9 % Sodium Chloride Flush 3 Ml Syringe IVFLUSH 3 ml QSHIFT DENISE Administration Spironolactone 12.5 mg 10/30/20 09:00 10/30/20 08:24 Spironolactone 25 Mg Tablet PO 12.5 mg DAILY DENISE Administration Protocol Time Spent With Patient Time: Total time spent is greater than 50% in coordination of care (as documented) at patient's floor/unit and/or counseling patient: Time with patient: 25 - 35 minutes
--- NOTE | 2020-10-30 10:24 | P.PNIM_ITS ---
Subjective Subjective Date of Service: 10/30/20 Interval History: Patient not feeling well this morning, complaining of queasy stomach, shortness of breath, headache, denies chest pain no palpitations, oxygenation is stable noted to have positive balance. ROS General headache, no dizziness, no fever chills. CVS no chest pain, no palpitation. Respiratory sob ,no pnd. no urinary symptoms of urgency, frequency Physical Exam Vital Signs: Vital Signs: Last Vital Signs Temp 97.6 F 10/30/20 08:00 Pulse 60 10/30/20 08:24 Resp 20 10/30/20 08:00 BP 133/85 10/30/20 08:24 Pulse Ox 98 10/30/20 08:00 Body Mass Index 29.8 General patient resting comfortably in no acute distress. Neck + JVD. CVS regular rate rhythm, systolic murmur. Respiratory lungs clear to auscultation, no respiratory distress, no rales Gastrointestinal abdomen soft, nontender, bowel sounds audible, no no guarding , no rigidity. Extremities b/l pitting edema. Neuro nonfocal , speech clear. Skin no rash Objective Data Current Medications Generic Name Dose Route Start Last Admin Trade Name Freq PRN Reason Stop Dose Admin Acetaminophen 650 mg 10/28/20 16:53 10/30/20 08:26 Acetaminophen 325 Mg Tablet PO 650 mg Q6H PRN Administration Pain, Mild (Pain Scale 1-3) Atorvastatin Calcium 10 mg 10/29/20 09:00 10/30/20 08:25 Atorvastatin Calcium 10 Mg Tablet PO 10 mg DAILY DENISE Administration Escitalopram Oxalate 20 mg 10/29/20 09:00 10/30/20 08:26 Escitalopram Oxalate 20 Mg Tablet PO 20 mg DAILY DENISE Administration Furosemide 20 mg 10/28/20 18:00 10/30/20 08:26 Furosemide 20 Mg/2 Ml Vial IVPUSH 20 mg BID@0900,1800 DENISE Administration Protocol Heparin Sodium (Porcine) 5,000 unit 10/28/20 17:30 10/30/20 04:46 Heparin Sodium,Porcine 5,000 Unit/Ml Vial SUBCUT 5,000 unit Q12H DENISE Administration Non-Formulary Medication 6 mg 10/29/20 09:00 Budesonide PO DAILY ON LICENSE OF [facility] Omeprazole 20 mg 10/29/20 06:30 10/30/20 04:46 Omeprazole 20 Mg Capsule. PO 20 mg DAILY@0630 DENISE Administration Ondansetron HCl 4 mg 10/28/20 16:53 Ondansetron Hcl 4 Mg/2 Ml Vial IVPUSH Q8H PRN Nausea and Vomiting Pharmacy Consult 1 each 10/28/20 16:17 Consult Rx Perform Med Rec MISCELLANE ONCE PRN Consult order Ropinirole HCl 0.5 mg 10/28/20 17:13 10/30/20 08:25 Ropinirole Hcl 0.5 Mg Tablet PO 0.5 mg BID PRN Administration restless leg Sodium Chloride 3 ml 10/29/20 00:00 10/30/20 08:23 0.9 % Sodium Chloride Flush 3 Ml Syringe IVFLUSH 3 ml QSHIFT DENISE Administration Spironolactone 12.5 mg 10/30/20 09:00 10/30/20 08:24 Spironolactone 25 Mg Tablet PO 12.5 mg DAILY DENISE Administration Protocol Labs CBC & Chem 7: 10/29/20 05:15 10/30/20 05:20 Assessment and Plan (1) CHF exacerbation: Status: Acute (2) Dyspnea: Status: Acute (3) Swelling of both lower extremities: Status: Acute (4) Breast edema: Status: Acute (5) Tricuspid regurgitation: Status: Acute (6) Ulcerative colitis: Status: Acute Assessment and Plan: 84-year-old woman admitted with acute on chronic congestive heart failure with increased shortness of breath and lower extremity swelling over the last several weeks. She recently had interrogation of her pacemaker done. Acute on chronic Diastolic heart failure Patient not feeling well this morning with persistent shortness of breath and leg edema, worsening BNP, echo shows moderate to severe tricuspid regurg normal left ventricular systolic function Will place patient on IV Lasix drip 5 milligram/hour, continue Aldactone DC IV Lasix 20 b.i.d., case discussed with Dr. nichole Slight bump in creatinine likely due to renal congestion, follow BMP closely Monitor daily weights, intake and output status post pacemaker placement for complete heart block, since pacemaker working normally no further intervention required Normocytic anemia. No signs of bleeding. Hematocrit stable Hyperlipidemia. Continue lipitor GERD. Continue omeprazole Left breast bigger than right likely due to generalized edema, no redness or tenderness suggestive of infection, follow closely while being diuresed, recommend outpatient follow-up with PCP and mammogram if no change. DVT prophylaxis with heparin
[2020-10-30] MEDS: Furosemide 200 MG in 0.9 % Sodium Chloride 80 ML IVCONT (11:29)
--- NOTE | 2020-10-30 11:47 | MHC.CM.PN ---
Patient continues on IV Lasix for CHF, BNP today is 1375. Patient is alert and oriented but very forgetful, accusing nurse of not getting her meds. became angry with this insurance writer stating MD is not talking with her. CM spoke with dtr Kellee who reports this is not her baseline, covering MD made aware. Discharge plan is home no services, dtr will provide transport. CM will continue to follow patient for discharge needs.
[2020-10-30 13:53] LABS: Appearance Urine CLEAR; Color Urine YELLOW; Glucose Urine UA NEG (NEG); Leukocyte Esterase Urine NEG (NEG); Nitrite Urine NEG (NEG); Specific Gravity - Urine 1.015 (1.005-1.025); Urine Blood NEG (NEG); Urine Ketones NEG (NEG); Urine Protein NEG (NEG-TRACE)
[2020-10-31] VITALS (7 sets, daily range): BP systolic 98–138; BP diastolic 55–75; PULSE 57–70; RESP 15–18; TEMP 36–37.1; O2SAT 94–100
[2020-10-31] MEDS: Heparin Sodium,Porcine 5,000 UNIT/ML VIAL 5000 UNIT SUBCUT ×2 (05:41→17:00)
[2020-10-31] MEDS: Omeprazole 20 MG CAPSULE.DR PO (05:41)
[2020-10-31 07:04] LABS: Anion Gap 12 (12-20); Blood Urea Nitrogen 20 mg/dL (9-16); Calcium 8.5 mg/dL (8.4-10.2); Carbon Dioxide 33 mmol/L (22-29); Chloride 102 mmol/L (96-108); Creatinine Clr Calc Pharmacy 29.8; Estimated Glomerular Filt Rate 39; Glucose Random 89 mg/dL (60-115); Potassium 3.4 mmol/L (3.3-5.1); Sodium 144 mmol/L (135-145)
[2020-10-31 07:16] LABS: B Type Natriuretic Peptide 953 pg/mL (<100)
[2020-10-31] MEDS: Spironolactone 25 MG TABLET 12.5 MG PO (08:42)
[2020-10-31] MEDS: Atorvastatin Calcium 10 MG TABLET PO (08:43)
[2020-10-31] MEDS: Escitalopram Oxalate 20 MG TABLET PO (08:43)
--- NOTE | 2020-10-31 11:57 | P.PNCA_ITS ---
Subjective Subjective Date of Service: 10/31/20 Principal diagnosis: CHF Interval history: Patient is feeling better. Nausea has improved. Her shortness of breath is improved. Leg edema is improved. Diuresing well on IV Lasix therapy. Review of Systems Constitutional: Reports no additional constitutional complaints Cardiovascular: Denies chest pain, Denies palpitations and Reports dyspnea (Improved) Respiratory: Reports no additional respiratory complaints and Reports dyspnea (Improved) Genitourinary: Reports no additional female genitourinary complaints Reports system reviewed and no additional complaints, except as documented Psychiatric: Reports no additional psychiatric complaints Endocrine: Denies palpitations Physical Exam Vital Signs: Last Vital Signs Temp 98.7 F 10/31/20 08:00 Pulse 60 10/31/20 08:42 Resp 18 10/31/20 08:00 BP 110/67 10/31/20 08:42 Pulse Ox 96 10/31/20 02:47 Body Mass Index 29.8 Const General: cooperative, comfortable and no acute distress Neck Neck: Yes trachea midline, Yes supple and Yes JVD Resp Effort & Inspection: normal respiratory effort Auscultation: clear to auscultation bilaterally Cardio Rate: regular rate Rhythm: regular rhythm Heart sounds: S1 normal heart sound present and S2 normal heart sound present GI Auscultation: normal bowel sounds Neuro General: no focal motor deficits Extrem General: Yes edema Psych Appearance: grossly normal Results Labs and Meds Result diagrams: 10/29/20 05:15 10/31/20 05:20 Lab results: Laboratory Results - last 24 hr 10/30/20 10/31/20 10/31/20 13:38 05:20 05:20 Sodium 144 Potassium 3.4 Chloride 102 Carbon Dioxide 33 H Anion Gap 12 BUN 20 H Creatinine 1.30 Estim Creat Clear Calc 29.8 Estimated GFR 39 Random Glucose 89 Calcium 8.5 B-Natriuretic Peptide 953 H Urine Color YELLOW Urine Appearance CLEAR Urine pH 7.0 Ur Specific [place] 1.015 Urine Protein NEG Urine Glucose (UA) NEG Urine Ketones NEG Urine Blood NEG Urine Nitrite NEG Ur Leukocyte Esterase NEG Progress Note: A&P Assessment and plan (1) CHF exacerbation: Status: Acute Assessment and Plan: Congestive heart failure, predominantly right-sided. Improving with Lasix drip. Continue Lasix drip and continue to monitor strict intake and output chart as well as daily BMP and BNP. Heart failure management was discussed in details. She showed understanding. Continue to maintain ambulation with walker as tolerated. Will continue to monitor clinically and follow with you. Fall Risk Details Current Medications: Current Medications Generic Name Dose Route Start Last Admin Trade Name Asaf PRN Reason Stop Dose Admin Acetaminophen 650 mg 10/28/20 16:53 10/30/20 08:26 Acetaminophen 325 Mg Tablet PO 650 mg Q6H PRN Administration Pain, Mild (Pain Scale 1-3) Atorvastatin Calcium 10 mg 10/29/20 09:00 10/31/20 08:43 Atorvastatin Calcium 10 Mg Tablet PO 10 mg DAILY DENISE Administration Escitalopram Oxalate 20 mg 10/29/20 09:00 10/31/20 08:43 Escitalopram Oxalate 20 Mg Tablet PO 20 mg DAILY DENISE Administration Heparin Sodium (Porcine) 5,000 unit 10/28/20 17:30 10/31/20 05:41 Heparin Sodium,Porcine 5,000 Unit/Ml Vial SUBCUT 5,000 unit Q12H DENISE Administration Furosemide 200 mg/ Sodium 100 mls @ 2.5 mls/hr 10/30/20 10:45 10/30/20 11:29 Chloride IVCONT 5 mg/hr .Q24H DENISE 2.5 mls/hr Administration 5 MG/HR Non-Formulary Medication 6 mg 10/29/20 09:00 Budesonide PO DAILY DENISE Omeprazole 20 mg 10/29/20 06:30 10/31/20 05:41 Omeprazole 20 Mg Capsule.Dr PO 20 mg DAILY@0630 DENISE Administration Ondansetron HCl 4 mg 10/28/20 16:53 Ondansetron Hcl 4 Mg/2 Ml Vial IVPUSH Q8H PRN Nausea and Vomiting Pharmacy Consult 1 each 10/28/20 16:17 Consult Rx Perform Med Rec MISCELLANE ONCE PRN Consult order Ropinirole HCl 0.5 mg 10/28/20 17:13 10/30/20 08:25 Ropinirole Hcl 0.5 Mg Tablet PO 0.5 mg BID PRN Administration restless leg Sodium Chloride 3 ml 10/29/20 00:00 10/31/20 08:43 0.9 % Sodium Chloride Flush 3 Ml Syringe IVFLUSH Not Given QSHIFT DENISE Spironolactone 12.5 mg 10/30/20 09:00 10/31/20 08:42 Spironolactone 25 Mg Tablet PO 12.5 mg DAILY DENISE Administration Protocol Time Spent With Patient Time: Total time spent is greater than 50% in coordination of care (as documented) at patient's floor/unit and/or counseling patient: Time with patient: 15 - 24 minutes
--- NOTE | 2020-10-31 12:14 | HO.PM.IMPN ---
Subjective Subjective Date of Service: 10/31/20 Interval History: Patient feels better this a.m. had an episode of bowel incontinence therefore feel embarrassed otherwise denies shortness of breath, no chest pain, no acute issues overnight. ROS General headache, no dizziness, no fever chills. CVS no chest pain, no palpitation. Respiratory sob improving ,no pnd. no urinary symptoms of urgency, frequency Physical Exam Vital Signs: Vital Signs: Last Vital Signs Temp 97.0 F 10/31/20 12:00 Pulse 60 10/31/20 12:00 Resp 18 10/31/20 12:00 BP 122/61 10/31/20 12:00 Pulse Ox 99 10/31/20 12:00 Body Mass Index 29.8 General patient resting comfortably in no acute distress. Neck no JVD. CVS regular rate rhythm, systolic murmur. Respiratory lungs clear to auscultation, no respiratory distress, no rales Gastrointestinal abdomen soft, nontender, bowel sounds audible, no no guarding , no rigidity. Extremities significant improvement in b/l pitting edema. Neuro nonfocal , speech clear. Skin no rash Objective Data Current Medications Generic Name Dose Route Start Last Admin Trade Name Freq PRN Reason Stop Dose Admin Acetaminophen 650 mg 10/28/20 16:53 10/30/20 08:26 Acetaminophen 325 Mg Tablet PO 650 mg Q6H PRN Administration Pain, Mild (Pain Scale 1-3) Atorvastatin Calcium 10 mg 10/29/20 09:00 10/31/20 08:43 Atorvastatin Calcium 10 Mg Tablet PO 10 mg DAILY DENISE Administration Escitalopram Oxalate 20 mg 10/29/20 09:00 10/31/20 08:43 Escitalopram Oxalate 20 Mg Tablet PO 20 mg DAILY DENISE Administration Heparin Sodium (Porcine) 5,000 unit 10/28/20 17:30 10/31/20 05:41 Heparin Sodium,Porcine 5,000 Unit/Ml Vial SUBCUT 5,000 unit Q12H DENISE Administration Furosemide 200 mg/ Sodium 100 mls @ 2.5 mls/hr 10/30/20 10:45 10/30/20 11:29 Chloride IVCONT 5 mg/hr .Q24H DENISE 2.5 mls/hr Administration 5 MG/HR Non-Formulary Medication 6 mg 10/29/20 09:00 Budesonide PO DAILY DENISE Omeprazole 20 mg 10/29/20 06:30 10/31/20 05:41 Omeprazole 20 Mg Capsule. PO 20 mg DAILY@0630 DENISE Administration Ondansetron HCl 4 mg 10/28/20 16:53 Ondansetron Hcl 4 Mg/2 Ml Vial IVPUSH Q8H PRN Nausea and Vomiting Pharmacy Consult 1 each 10/28/20 16:17 Consult Rx Perform Med Rec MISCELLANE ONCE PRN Consult order Ropinirole HCl 0.5 mg 10/28/20 17:13 10/30/20 08:25 Ropinirole Hcl 0.5 Mg Tablet PO 0.5 mg BID PRN Administration restless leg Sodium Chloride 3 ml 10/29/20 00:00 10/31/20 08:43 0.9 % Sodium Chloride Flush 3 Ml Syringe IVFLUSH Not Given QSHIFT DENISE Spironolactone 12.5 mg 10/30/20 09:00 10/31/20 08:42 Spironolactone 25 Mg Tablet PO 12.5 mg DAILY DENISE Administration Protocol Labs CBC & Chem 7: 10/29/20 05:15 10/31/20 05:20 Assessment and Plan (1) CHF exacerbation: Status: Acute (2) Swelling of both lower extremities: Status: Acute (3) S/P placement of cardiac pacemaker: Problem details: [employer] dual chamber 07/22/20, revised 07/23/20 Status: Acute (4) Breast edema: Status: Acute (5) Anemia: Status: Acute Assessment and Plan: 84-year-old woman admitted with acute on chronic congestive heart failure with increased shortness of breath and lower extremity swelling over the last several weeks. She recently had interrogation of her pacemaker done. Acute on chronic Diastolic heart failure Patient feeling better this morning, less shortness of breath and leg edema, BNP trending down, echo shows moderate to severe tricuspid regurg normal left ventricular systolic function Will continue IV Lasix drip 5 milligram/hour, 1.7 L negative, continue Aldactone and follow clinical course creatinine remains stable,follow BMP closely Monitor daily weights, intake and output, case discussed with Cardiology. status post pacemaker placement for complete heart block, since pacemaker working normally no further intervention required Normocytic anemia. No signs of bleeding. Hematocrit stable Hyperlipidemia. Continue lipitor GERD. Continue omeprazole Left breast bigger than right likely due to generalized edema, no redness or tenderness suggestive of infection, follow closely while being diuresed, recommend outpatient follow-up with PCP and mammogram if no change. DVT prophylaxis with heparin
[2020-10-31] MEDS: Furosemide 200 MG in 0.9 % Sodium Chloride 80 ML IVCONT (12:36)
[2020-10-31] MEDS: Acetaminophen 325 MG TABLET 650 MG PO (21:06)
[2020-10-31] MEDS: rOPINIRole HCL 0.5 MG TABLET PO (21:06)
[2020-11-01 03:31] VITALS: BP 154/70; PULSE 61; RESP 18; TEMP 37.1; O2SAT 100
[2020-11-01] MEDS: Heparin Sodium,Porcine 5,000 UNIT/ML VIAL 5000 UNIT SUBCUT ×2 (05:37→16:45)
[2020-11-01] MEDS: Omeprazole 20 MG CAPSULE.DR PO (05:37)
[2020-11-01 06:03] LABS: MANUAL DIFF FLAG NO
[2020-11-01 06:15] LABS: Basophils Percent Auto 0.3 % (0-2); Eosinophils Absolute Auto 0.2 X10*3/uL (0.0-0.4); Hematocrit 32.5 % (37-47); Hemoglobin 9.5 g/dl (12.0-16.0); Imm Gran Abs Auto 0.01 X10*3/uL (0.00-0.03); Imm Gran Pct Auto 0.3 % (0.0-0.4); Lymphocytes Absolute Auto 1.2 X10*3/uL (1.2-4.9); Lymphocytes Percent Auto 31.4 % (20-40); Mean Corpuscular HGB Conc 29.2 g/dl (31.0-35.0); Mean Corpuscular Hemoglobin 24.4 pg (27.0-33.0); Mean Corpuscular Volume 83.3 fL (80-98); Mean Platelet Volume 10.8 fL (9.4-12.3); Monocytes Absolute Auto 0.4 X10*3/uL (0.1-1.2); Monocytes Percent Auto 9.7 % (2-11); Neutrophils Percent Auto 54.3 % (45-73); Platelet Count 143 X10*3/uL (160-400); Red Cell Distribution Width 17.6 % (11.0-16.0); White Blood Count 3.7 X10*3/uL (4.8-10.8)
[2020-11-01 06:27] LABS: Anion Gap 11 (12-20); Blood Urea Nitrogen 20 mg/dL (9-16); Calcium 8.5 mg/dL (8.4-10.2); Carbon Dioxide 36 mmol/L (22-29); Chloride 99 mmol/L (96-108); Creatinine Clr Calc Pharmacy 27.2; Estimated Glomerular Filt Rate 35; Glucose Random 92 mg/dL (60-115); Potassium 3.4 mmol/L (3.3-5.1); Sodium 143 mmol/L (135-145)
[2020-11-01 06:44] LABS: B Type Natriuretic Peptide 792 pg/mL (<100)
[2020-11-01 07:31] VITALS: BP 122/62; PULSE 64; RESP 22; TEMP 36.5; O2SAT 96
[2020-11-01 08:41] VITALS: BP 122/62; PULSE 64
[2020-11-01] MEDS: Spironolactone 25 MG TABLET 12.5 MG PO (08:41)
[2020-11-01] MEDS: 0.9 % Sodium Chloride Flush 3 ML SYRINGE IVFLUSH ×2 (08:41→15:37)
[2020-11-01] MEDS: Atorvastatin Calcium 10 MG TABLET PO (08:42)
[2020-11-01] MEDS: Escitalopram Oxalate 20 MG TABLET PO (08:42)
--- NOTE | 2020-11-01 10:43 | P.PNCA_ITS ---
Subjective Subjective Date of Service: 11/01/20 Principal diagnosis: CHF Interval history: Patient is doing better. Breathing is improved. Leg edema is improved significantly. Creatinine is risen a little bit her Lasix drip was stopped appropriately. No arrhythmias noted Review of Systems Constitutional: Reports no additional constitutional complaints Cardiovascular: Reports no additional cardiovascular complaints Respiratory: Reports no additional respiratory complaints Musculoskeletal: Reports no additional musculoskeletal complaints Reports system reviewed and no additional complaints, except as documented Physical Exam Vital Signs: Last Vital Signs Temp 97.7 F 11/01/20 07:31 Pulse 64 11/01/20 08:41 Resp 22 H 11/01/20 07:31 BP 122/62 11/01/20 08:41 Pulse Ox 96 11/01/20 07:31 Body Mass Index 29.8 Const General: cooperative, comfortable, no acute distress, alert and awake Nutritional Appearance: overweight Orientation/consciousness: patient oriented x3 Limitations: ambulation with walker Neck Neck: Yes trachea midline, Yes supple and Yes no JVD (Prominent V-wave) Resp Effort & Inspection: normal respiratory effort Auscultation: clear to auscultation bilaterally Cardio Jugular venous distension: no JVD Palpation: normal PMI Rate: regular rate Rhythm: regular rhythm Heart sounds: S1 normal heart sound present, S2 normal heart sound present and Murmur heart sound present systolic Skin General skin exam: no rashes or lesions noted and ecchymosis Neuro General: patient oriented x3 Extrem General: Yes no clubbing, cyanosis or edema Psych Appearance: grossly normal Results Labs and Meds Result diagrams: 11/01/20 05:27 11/01/20 05:27 Lab results: Laboratory Results - last 24 hr 11/01/20 11/01/20 11/01/20 05:27 05:27 05:27 WBC 3.7 L RBC 3.90 L Hgb 9.5 L Hct 32.5 L MCV 83.3 MCH 24.4 L MCHC 29.2 L RDW 17.6 H Plt Count 143 L MPV 10.8 Immature Gran % (Auto) 0.3 Neut % (Auto) 54.3 Lymph % (Auto) 31.4 [place] % (Auto) 9.7 Eos % (Auto) 4.0 Baso % (Auto) 0.3 Lymph # (Auto) 1.2 [place] # (Auto) 0.4 Eos # (Auto) 0.2 Baso # (Auto) 0.0 Abs Immat Gran (auto) 0.01 Absolute Neuts (auto) 2.0 Absolute Nucleated RBC 0.000 Nucleated RBC % (auto) 0.0 Sodium 143 Potassium 3.4 Chloride 99 Carbon Dioxide 36 H Anion Gap 11 L BUN 20 H Creatinine 1.42 H Estim Creat Clear Calc 27.2 Estimated GFR 35 Random Glucose 92 Calcium 8.5 B-Natriuretic Peptide 792 H Progress Note: A&P Assessment and plan (1) CHF exacerbation: Status: Acute Assessment and Plan: CHF, fluid status appears to have improved with slight rise in creatinine. Hold off on diuretics today. Start Bumex 2 mg starting tomorrow. Patient wants to go home and not to a jail facility for rehab. Consider PT consultation. Continue Aldactone 12.5 mg daily. CHF education to be provided. Will follow up in the clinic on discharge in 7-10 days. Thank you for allowing us to partake in her care Fall Risk Details Current Medications: Current Medications Generic Name Dose Route Start Last Admin Trade Name Freq PRN Reason Stop Dose Admin Acetaminophen 650 mg 10/28/20 16:53 10/31/20 21:06 Acetaminophen 325 Mg Tablet PO 650 mg Q6H PRN Administration Pain, Mild (Pain Scale 1-3) Atorvastatin Calcium 10 mg 10/29/20 09:00 11/01/20 08:42 Atorvastatin Calcium 10 Mg Tablet PO 10 mg DAILY DENISE Administration Escitalopram Oxalate 20 mg 10/29/20 09:00 11/01/20 08:42 Escitalopram Oxalate 20 Mg Tablet PO 20 mg DAILY DENISE Administration Heparin Sodium (Porcine) 5,000 unit 10/28/20 17:30 11/01/20 05:37 Heparin Sodium,Porcine 5,000 Unit/Ml Vial SUBCUT 5,000 unit Q12H DENISE Administration Non-Formulary Medication 6 mg 10/29/20 09:00 Budesonide PO DAILY [facility] Omeprazole 20 mg 10/29/20 06:30 11/01/20 05:37 Omeprazole 20 Mg Capsule. PO 20 mg DAILY@0630 DENISE Administration Ondansetron HCl 4 mg 10/28/20 16:53 Ondansetron Hcl 4 Mg/2 Ml Vial IVPUSH Q8H PRN Nausea and Vomiting Pharmacy Consult 1 each 10/28/20 16:17 Consult Rx Perform Med Rec MISCELLANE ONCE PRN Consult order Tanarole HCl 0.5 mg 10/28/20 17:13 10/31/20 21:06 Ropinirole Hcl 0.5 Mg Tablet PO 0.5 mg BID PRN Administration restless leg Sodium Chloride 3 ml 10/29/20 00:00 11/01/20 08:41 0.9 % Sodium Chloride Flush 3 Ml Syringe IVFLUSH 3 ml QSHIFT DENISE Administration Spironolactone 12.5 mg 10/30/20 09:00 11/01/20 08:41 Spironolactone 25 Mg Tablet PO 12.5 mg DAILY DENISE Administration Protocol Time Spent With Patient Time: Total time spent is greater than 50% in coordination of care (as documented) at patient's floor/unit and/or counseling patient: Time with patient: 25 - 35 minutes
[2020-11-01 11:43] VITALS: BP 109/57; PULSE 59; RESP 22; TEMP 36.6; O2SAT 99
--- NOTE | 2020-11-01 13:56 | HO.PM.IMPN ---
Subjective Subjective Date of Service: 11/01/20 Interval History: Patient feeling better this morning denies shortness of breath significant improvement in leg edema, slept well no other acute issues. ROS General no headache, no dizziness, no fever chills. CVS no chest pain, no palpitation. Respiratory sob improved ,no pnd. no urinary symptoms of urgency, frequency Physical Exam Vital Signs: Vital Signs: Last Vital Signs Temp 97.8 F 11/01/20 11:43 Pulse 59 11/01/20 11:43 Resp 22 H 11/01/20 11:43 BP 109/57 L 11/01/20 11:43 Pulse Ox 99 11/01/20 11:43 Body Mass Index 29.8 General patient resting comfortably in no acute distress. Neck no JVD. CVS regular rate rhythm, systolic murmur. Respiratory lungs clear to auscultation, no respiratory distress, no rales Gastrointestinal abdomen soft, nontender, bowel sounds audible. Extremities significant improvement in b/l pitting edema. Neuro nonfocal , speech clear. Skin no rash Objective Data Current Medications Generic Name Dose Route Start Last Admin Trade Name Freq PRN Reason Stop Dose Admin Acetaminophen 650 mg 10/28/20 16:53 10/31/20 21:06 Acetaminophen 325 Mg Tablet PO 650 mg Q6H PRN Administration Pain, Mild (Pain Scale 1-3) Atorvastatin Calcium 10 mg 10/29/20 09:00 11/01/20 08:42 Atorvastatin Calcium 10 Mg Tablet PO 10 mg DAILY DENISE Administration Escitalopram Oxalate 20 mg 10/29/20 09:00 11/01/20 08:42 Escitalopram Oxalate 20 Mg Tablet PO 20 mg DAILY DENISE Administration Heparin Sodium (Porcine) 5,000 unit 10/28/20 17:30 11/01/20 05:37 Heparin Sodium,Porcine 5,000 Unit/Ml Vial SUBCUT 5,000 unit Q12H DENISE Administration Non-Formulary Medication 6 mg 10/29/20 09:00 Budesonide PO DAILY [facility] Omeprazole 20 mg 10/29/20 06:30 11/01/20 05:37 Omeprazole 20 Mg Capsule.Dr PO 20 mg DAILY@0630 DENISE Administration Ondansetron HCl 4 mg 10/28/20 16:53 Ondansetron Hcl 4 Mg/2 Ml Vial IVPUSH Q8H PRN Nausea and Vomiting Pharmacy Consult 1 each 10/28/20 16:17 Consult Rx Perform Med Rec MISCELLANE ONCE PRN Consult order Ropinirole HCl 0.5 mg 10/28/20 17:13 10/31/20 21:06 Ropinirole Hcl 0.5 Mg Tablet PO 0.5 mg BID PRN Administration restless leg Sodium Chloride 3 ml 10/29/20 00:00 11/01/20 08:41 0.9 % Sodium Chloride Flush 3 Ml Syringe IVFLUSH 3 ml QSHIFT DENISE Administration Spironolactone 12.5 mg 10/30/20 09:00 11/01/20 08:41 Spironolactone 25 Mg Tablet PO 12.5 mg DAILY DENISE Administration Protocol Labs CBC & Chem 7: 11/01/20 05:27 11/01/20 05:27 Assessment and Plan (1) CHF exacerbation: Status: Acute (2) Swelling of both lower extremities: Status: Acute (3) Breast edema: Status: Acute (4) Anemia: Status: Acute (5) S/P placement of cardiac pacemaker: Problem details: [employer] dual chamber 07/22/20, revised 07/23/20 Status: Acute Assessment and Plan: 84-year-old woman admitted with acute on chronic congestive heart failure with increased shortness of breath and lower extremity swelling over the last several weeks. She recently had interrogation of her pacemaker done. Acute on chronic Diastolic heart failure Patient feeling better this morning, less shortness of breath and leg edema, BNP trended down 792,close to baseline 733, echo shows moderate to severe tricuspid regurg normal left ventricular systolic function, due to rising creatinine will DC IV Lasix drip, follow BMP Case discussed with Dr. Fuller, he recommend Bumex 2 mg by mouth daily and Aldactone 12.5 mg daily upon discharge Will obtain PT evaluation for home safety eval, patient lives alone in an apartment Monitor daily weights, intake and output. Status post pacemaker placement for complete heart block, since pacemaker working normally no further intervention required Normocytic anemia. No signs of bleeding. Hematocrit stable Hyperlipidemia. Continue lipitor GERD. Continue omeprazole Left breast bigger than right likely due to generalized edema, no redness or tenderness suggestive of infection, recommend outpatient follow-up with PCP and mammogram . DVT prophylaxis with heparin
[2020-11-01 15:42] VITALS: BP 99/57; PULSE 60; RESP 18; TEMP 36.7; O2SAT 98
[2020-11-01 19:03] VITALS: BP 122/56; PULSE 60; RESP 18; TEMP 36.3; O2SAT 96
[2020-11-02] VITALS: BP 118/61; PULSE 67; RESP 18; TEMP 36.5; O2SAT 96
[2020-11-02] MEDS: rOPINIRole HCL 0.5 MG TABLET PO (00:43)
[2020-11-02] MEDS: 0.9 % Sodium Chloride Flush 3 ML SYRINGE IVFLUSH ×2 (01:18→08:45)
[2020-11-02 04:00] VITALS: BP 126/58; PULSE 62; RESP 18; TEMP 36.9; O2SAT 96
[2020-11-02 05:32] LABS: Anion Gap 12 (12-20); Blood Urea Nitrogen 16 mg/dL (9-16); Calcium 8.4 mg/dL (8.4-10.2); Carbon Dioxide 34 mmol/L (22-29); Chloride 101 mmol/L (96-108); Creatinine Clr Calc Pharmacy 33.7; Estimated Glomerular Filt Rate 45; Glucose Random 85 mg/dL (60-115); Potassium 3.8 mmol/L (3.3-5.1); Sodium 143 mmol/L (135-145)
[2020-11-02] MEDS: Omeprazole 20 MG CAPSULE.DR PO (06:16)
[2020-11-02] MEDS: Heparin Sodium,Porcine 5,000 UNIT/ML VIAL 5000 UNIT SUBCUT (06:16)
[2020-11-02 07:46] VITALS: BP 129/73; PULSE 62; RESP 18; TEMP 36.8; O2SAT 96
[2020-11-02] MEDS: Atorvastatin Calcium 10 MG TABLET PO (08:44)
[2020-11-02] MEDS: Spironolactone 25 MG TABLET 12.5 MG PO (08:45)
[2020-11-02] MEDS: Escitalopram Oxalate 20 MG TABLET PO (08:45)
[2020-11-02 09:53] VITALS: BP 129/73; PULSE 62; O2SAT 96
--- NOTE | 2020-11-02 10:39 | P.DS_ITS ---
DS: Providers Provider Date of Service: 11/02/20 Date of admission: 10/28/20 16:53 Primary care physician: Fidelina Whitney MD Consults: 10/28/20 16:53 Consult to Cardiology Routine Consulting Provider: Morgan Bragg Reason for consultation: chf Has provider been notified: No DS: Diagnosis Discharge Diagnosis (1) Acute right heart failure: Status: Acute (2) Anemia: Status: Acute (3) Breast edema: Status: Acute DS: Medications Discharge Medications Home Medications: Home Medications Medication Instructions Recorded Confirmed budesonide 3 mg 6 mg PO DAILY ea 10/28/20 10/28/20 capsule,delayed,extended release escitalopram oxalate 20 mg PO DAILY 10/28/20 10/28/20 Previous Rx's Medication Instructions Recorded ropinirole 0.5 mg tablet 0.5 mg PO BID PRN 90 Days #180 tab 08/03/20 lansoprazole 30 mg capsule,delayed 30 mg PO DAILY 90 Days #90 cap 08/26/20 release atorvastatin 10 mg tablet 10 mg PO DAILY #90 tab 10/16/20 bumetanide 2 mg PO DAILY #30 tab 11/02/20 spironolactone 12.5 mg PO DAILY #30 tab 11/02/20 DS: Summary Hospital Course Hospital Course: Patient presented with acute on chronic congestive heart failure. She was diure sed IV Lasix and did well. She will be transitioned oral bumex + aldactone as the time of discharge under cardiology guidence. We will arrange VNA to help with CHF management. She was offered inpatient PT evaluation and subsequent STR transition (if needed), but she instead opted for home with services. She can have home PT evaluation as needed. Of note, greg had L breast swelling with improved with diuresis. Recommend f/u with PCP in a week or two to ensure resoluation. Time Spent with Patient Time attestation: Total time spent providing and/or coordinating discharge services: Discharge coordination time: Greater than 30 minutes Physical Exam Vital Signs: Vital Signs: Last Vital Signs Temp 98.3 F 11/02/20 07:46 Pulse 62 11/02/20 09:53 Resp 18 11/02/20 07:46 BP 129/73 11/02/20 09:53 Pulse Ox 96 11/02/20 09:53 Body Mass Index 29.8 Const: Other: General - no acute distress, appears comfortable Cardiovascular - regular rate and rhythm, S1-S2 Lungs - normal respiratory effort, clear to auscultation bilaterally, no wheezing Abdomen - soft, nontender, no rebound or guarding Extremities - minimal LE edema Neuro - awake and alert, no focal deficits DS: Data Data Completed and Pending Completed studies during hospitalization [Text1]: Procedures Insertion of Pacemaker Lead into Right Atrium, Percutaneous Approach (07/21/20) Insertion of Pacemaker Lead into Right Ventricle, Percutaneous Approach (07/21/20) Insertion of Pacemaker, Dual Chamber into Chest Subcutaneous Tissue and Fascia, Open Approach (07/21/20) Revision of Cardiac Lead in Heart, Percutaneous Approach (07/21/20) Transfusion of Nonautologous Red Blood Cells into Peripheral Vein, Percutaneous Approach (07/21/20) Labs on day of discharge: Laboratory Results - last 24 hr 11/02/20 04:21 Sodium 143 Potassium 3.8 Chloride 101 Carbon Dioxide 34 H Anion Gap 12 BUN 16 Creatinine 1.15 Estim Creat Clear Calc 33.7 Estimated GFR 45 Random Glucose 85 Calcium 8.4 Discharge Plan Discharge Patient Disposition: Home Health Service Discharge Diagnosis: CHF Referrals: Fidelina Whitney MD [Primary Care Provider] - 1 Week Discharge Medications: New spironolactone 25 mg Tablet 12.5 mg PO DAILY Qty: 30 RF: 0 bumetanide 2 mg tablet 2 mg PO DAILY Qty: 30 RF: 0 Continued ropinirole 0.5 mg tablet 0.5 mg PO BID PRN (Reason: restless leg) 90 Days Qty: 180 RF: 0 lansoprazole 30 mg capsule,delayed release(DR/EC) 30 mg PO DAILY 90 Days Qty: 90 RF: 0 atorvastatin 10 mg tablet 10 mg PO DAILY Qty: 90 RF: 0 escitalopram oxalate 20 mg tablet 20 mg PO DAILY RF: 0 budesonide 3 mg capsule,delayed,extend.release 6 mg PO DAILY RF: 0 Discontinued furosemide 20 mg tablet 20 mg PO DAILY Qty: 30 RF: 2 Discharge Orders: Discharge Order (Routine); Ordered 11/02/20 Ordered By: Amaury Drake Diet: advance to usual diet and low salt diet Activity on Discharge: As tolerated Stand Alone Forms: Patient Portal Discharge page Care Plan Goals: To stay healthy and out of the hospital. Health Concerns: CHF Plan of Treatment: Take Bumex 2mg and Aldactone 12.5 mg daily. Stop taking Lasix. Assessment: 84 yo F admitted for acute on chronic CHF. Diuresed well and will be d/c on Bumex (changed from lasix) and Aldactone. Will have VNA services for CHF teaching.
--- NOTE | 2020-11-02 11:00 | W.MHC.F2F ---
Service Date Service Date: 11/02/20 Encounter Date of encounter: 11/02/20 Reasons for Services Signs and symptoms assessed: CHF education home PT eval Reason for senior care: teach disease management and other (CHF education) Reason for physical therapy: home safety and mobility Overseeing Care: Fidelina Whitney Homebound: Leaving the home is medically contraindicated at this time without the asist of a device and/or another person due th the listed conditions above and below. Certification: Based on the above findings, I certify that this patient is confined to the home and needs intermittent senior care care, physical therapy and/or speech therapy, or continues to need occupational therapy. The patient is under my care, and I have initiated the establishment of the plan of care. The patient will be followed by a physician who will periodically review the plan of care.
--- NOTE | 2020-11-02 11:29 | MHC.CM.PN ---
Patient will be discharged home today with services from [facility]. Marilou Goodson will provide transportation. Nurse and patient are aware.
[2020-11-02 11:53] VITALS: BP 121/58; PULSE 61; RESP 18; TEMP 36.6; O2SAT 98
== END 2020-11-02 15:14 | disposition home health service (06) | DRG 292 ==
LOC: HO.ED 13:13 → HO.IMC 19:26
PROVIDERS: Hospitalist; Nurse Practitioner Acute Care; Physician Assistant; Admitting Provider Student in an Organized Health Care Education/Training Program; Emergency Provider Emergency Medicine Emergency Medical Services; PCP Internal Medicine; Visit Provider Family Medicine
DX: I50.33 Acute on chronic diastolic (congestive) heart failure (principal); K51.90 Ulcerative colitis, unspecified, without complications; K21.9 Gastro-esophageal reflux disease without esophagitis; G25.81 Restless legs syndrome; D64.9 Anemia, unspecified; N64.89 Other specified disorders of breast; I07.1 Rheumatic tricuspid insufficiency; E78.5 Hyperlipidemia, unspecified; Z85.830 Personal history of malignant neoplasm of bone; Z95.0 Presence of cardiac pacemaker; Z20.822 Contact with and (suspected) exposure to COVID-19; Z88.5 Allergy status to narcotic agent; Z79.899 Other long term (current) drug therapy
CPT/HCPCS: 36415; 71046; 80048; 81003; 83880; 84484; 85025; 87635; 93005; 93308; 96365; 96374; 96375; 97162; 99285; J1940; J2916

== ENCOUNTER 2020-11-05 11:15 | Outpatient (REF) | payer MEDICARE, SELFPAY | END 2020-11-05 11:16 | disposition home or self-care (01) | LOC: HO.MDS 11:15 | PROVIDERS: Visit Provider Internal Medicine Gastroenterology | DX: D50.9 Iron deficiency anemia, unspecified (principal) | CPT/HCPCS: 96365; J2916 ==

== ENCOUNTER 2020-11-06 22:55 | Observation (INO) | payer MEDICARE, SELFPAY ==
--- NOTE | ~2020-11-06 | CT_ITS ---
EXAMINATION: CT ABDOMEN AND PELVIS WITH CONTRAST CLINICAL INFORMATION: Abdominal discomfort, watery diarrhea COMPARISON: None TECHNIQUE: Multidetector volumetric images were obtained from the superior aspect of the liver through the pubic symphysis following administration 85 mL of Omnipaque 350 intravenous contrast. Sagittal and coronal reformatted images were obtained on the technologist's workstation. Oral contrast: No This CT examination was performed using dose optimization techniques as appropriate, variously including the following: *Automated exposure control *Adjustment of mA and/or kV according to patient size (this includes techniques or standardized protocols for targeted exams where dose is matched to indication/reason for exam; i.e. extremities or head) *Use of iterative reconstruction technique DLP: 571 mGy-cm FINDINGS: LUNG BASES: The visualized lung bases are unremarkable. LIVER, GALLBLADDER, AND BILIARY TREE: The liver demonstrates heterogeneous attenuation. No focal hepatic lesion or biliary ductal dilatation is present. The gallbladder is unremarkable with no evidence of radiopaque gallstones, gallbladder wall thickening, or obvious pericholecystic inflammatory changes. PANCREAS: Unremarkable. SPLEEN: Unremarkable. ADRENAL GLANDS: Unremarkable. KIDNEYS AND URETERS: The kidneys are normal in size, shape, and attenuation. No hydronephrosis, hydroureter, or obstructing calculi seen. No perinephric stranding. BLADDER: Unremarkable. GASTROINTESTINAL TRACT: Moderate-sized hiatal hernia is present. No evidence of bowel obstruction. There is a thick-walled appearance of the rectum raising suspicion for proctitis. There is colonic diverticulosis without focal diverticulitis. No free fluid or free air is seen. ABDOMINAL WALL: No significant hernia is appreciated. LYMPH NODES: Normal. VASCULAR: There is atherosclerotic calcification along the aorta. PELVIC VISCERA: Patient is status post hysterectomy. OSSEOUS STRUCTURES: Degenerative changes are noted in the spine. There are bilateral L5 pars defects with grade 2 anterolisthesis of L5 on S1. CT/CT abdomen pelvis w con IMPRESSION: 1. Thick-walled appearance of the rectum raising suspicion for proctitis. 2. Moderate-sized hiatal hernia. 3. Heterogeneous attenuation of the liver which could be secondary to congestion.
[2020-11-06 23:01] VITALS: BP 148/47; PULSE 59; RESP 20; TEMP 36.4; O2SAT 97; BMI 25.7
--- NOTE | 2020-11-06 23:13 | PC.NURSE ---
IV established, labs obtained. Awaiting primary MD hobbs.
[2020-11-06 23:19] LABS: MANUAL DIFF FLAG NO
[2020-11-06 23:28] LABS: Basophils Percent Auto 0.8 % (0-2); Eosinophils Absolute Auto 0.1 X10*3/uL (0.0-0.4); Eosinophils Percent Auto 1.4 % (0-4); Hematocrit 34.6 % (37-47); Hemoglobin 10.1 g/dl (12.0-16.0); Imm Gran Abs Auto 0.02 X10*3/uL (0.00-0.03); Imm Gran Pct Auto 0.4 % (0.0-0.4); Lymphocytes Absolute Auto 1.2 X10*3/uL (1.2-4.9); Lymphocytes Percent Auto 24.2 % (20-40); Mean Corpuscular HGB Conc 29.2 g/dl (31.0-35.0); Mean Corpuscular Hemoglobin 25.1 pg (27.0-33.0); Mean Corpuscular Volume 86.1 fL (80-98); Mean Platelet Volume 12.1 fL (9.4-12.3); Monocytes Absolute Auto 0.6 X10*3/uL (0.1-1.2); Monocytes Percent Auto 11.1 % (2-11); Neutrophils Absolute Auto 3.2 X10*3/uL (2.0-8.3); Neutrophils Percent Auto 62.1 % (45-73); Platelet Count 184 X10*3/uL (160-400); Red Blood Count 4.02 X10*6/uL (4.20-5.50); Red Cell Distribution Width 18.5 % (11.0-16.0); White Blood Count 5.1 X10*3/uL (4.8-10.8)
--- NOTE | 2020-11-06 23:29 | PC.NURSE ---
PA at bedside for primary eval.
--- NOTE | 2020-11-06 23:31 | ED.NAVMDI ---
HPI - Nausea/Vomiting/Diarrhea General Chief complaint: Nausea/Vomiting/Diarrhea <JAIMIE Lundberg Last Filed: 11/07/20 01:59> Stated complaint: multiple conp <JAIMIE Lundberg Last Filed: 11/07/20 01:59> Time Seen by Provider: 11/06/20 23:03 <JAIMIE Lundberg Last Filed: 11/07/20 01:59> Source: patient and EMS <JAIMIE Lundberg Last Filed: 11/07/20 01:59> Mode of arrival: EMS <JAIMIE Lundberg Last Filed: 11/07/20 01:59> History of Present Illness HPI Narrative: 84-year-old female a past medical history left tibial cancer, constipation, depression/anxiety, GERD, hyperlipidemia, mitral valve insufficiency, CHF, recently discharged from our facility on 11/02 for CHF exacerbation, BIBA c/o persistent loose/watery diarrhea throughout the day. Denies fever, chills, nausea/vomiting, abdominal pain, bloody BM/melena, suspicious food intake, recent antibiotics, sick contacts, decreased p.o. intake <JAIMIE Lundberg Last Filed: 11/07/20 01:59> Related Data Home medications: Home Medications Medication Instructions Recorded Confirmed budesonide 3 mg 6 mg PO DAILY ea 10/28/20 10/28/20 capsule,delayed,extended release escitalopram oxalate 20 mg PO DAILY 10/28/20 10/28/20 Previous Rx's Medication Instructions Recorded ropinirole 0.5 mg tablet 0.5 mg PO BID PRN 90 Days #180 tab 08/03/20 lansoprazole 30 mg capsule,delayed 30 mg PO DAILY 90 Days #90 cap 08/26/20 release atorvastatin 10 mg tablet 10 mg PO DAILY #90 tab 10/16/20 bumetanide 2 mg PO DAILY #30 tab 11/02/20 spironolactone 12.5 mg PO DAILY #30 tab 11/02/20 dicyclomine 20 mg PO QID 7 Days #20 tab 11/07/20 <JAIMIE Lundberg Last Filed: 11/07/20 01:59> Allergies/Adverse reactions: Allergies Allergy/AdvReac Type Severity Reaction Status Date / Time cat dander Allergy stuffy Verified 11/06/20 23:05 nose, red eye codeine AdvReac Unknown GI upset Verified 11/06/20 23:05 <JAIMIE Lundberg Last Filed: 11/07/20 01:59> Review of Systems Review of Systems: Constitutional: + Weight loss (since recent hospitalization), No Fever, No Chills, No Fatigue, No Malaise Cardiovascular: No Chest Pain, No SOB, +chronic Edema Respiratory: No Cough, No Sputum, No Dyspnea Gastrointestinal: No Nausea, No Vomiting, +Diarrhea, No Constipation, No Abdominal pain, No Hematochezia, No Melena Genitourinary: No irregular bleeding, No Dysuria, No Hematuria, No Flank Pain Musculoskeletal: No joint pain, No Myalgias, No Joint Swelling Skin: No Skin Lesions, No rash Neuro: No Weakness, No Numbness, No Dizziness, No Headache <JAIMIE Lundberg Last Filed: 11/07/20 01:59> Yes all other systems are reviewed and are negative <JAIMIE Lundberg Last Filed: 11/07/20 01:59> [facility] Past Medical History Attestation statement: The following information was validated with the patient. <JAIMIE Lundberg - Last Filed: 11/07/20 01:59> Medical History: Medical History Atrial enlargement, left Cancer of left tibia Constipation Depression with anxiety GERD (gastroesophageal reflux disease) High cholesterol History of small bowel obstruction Lipid disorder Lipoma Low hematocrit Mitral valve insufficiency Morbid obesity Osteoarthritis of both hips Osteosarcoma of bone RLS (restless legs syndrome) Tricuspid regurgitation Tubular adenoma of colon Urinary, incontinence, stress female <JAIMIE Lundberg Last Filed: 11/07/20 01:59> Surgical History: Surgical History H/O hysterectomy with oophorectomy History of appendectomy History of intestinal surgery Hx of colonoscopy S/P cataract surgery S/P placement of cardiac pacemaker (~07/2020) <JAIMIE Lundberg Last Filed: 11/07/20 01:59> Family History Family History: Family History Mother Alzheimers disease Brother Lung cancer Epilepsy <JAIMIE Lundberg - Last Filed: 11/07/20 01:59> Social History Social History: Social History Household Members: None Housing: Assisted Living Facility Alcohol intake: current Alcohol intake frequency: does not drink Smoking Status: Never smoker Advance Directives: No Advance Directives Information Provided: No service: No Current occupational status: retired <JAIMIE Lundberg - Last Filed: 11/07/20 01:59> Physical Exam Vital Signs: Vital Signs: Last Vital Signs Temp 97.5 F 11/06/20 23:01 Pulse 63 11/07/20 06:10 Resp 16 11/07/20 06:10 BP 142/67 H 11/07/20 06:10 Pulse Ox 96 11/07/20 06:10 Body Mass Index 25.7 <JAIMIE Lundberg - Last Filed: 11/07/20 01:59> Vital Signs: Last Vital Signs Temp 97.5 F 11/06/20 23:01 Pulse 63 11/07/20 06:10 Resp 16 11/07/20 06:10 BP 142/67 H 11/07/20 06:10 Pulse Ox 96 11/07/20 06:10 Body Mass Index 25.7 <Cheyanne Donnelly MD - Last Filed: 11/07/20 06:29> Const: General: cooperative, healthy appearing, comfortable, no acute distress, alert and awake <JAIMIE Lundberg - Last Filed: 11/07/20 01:59> Orientation/consciousness: patient oriented x3 <JAIMIE Lundberg - Last Filed: 11/07/20 01:59> Limitations: no limitations <JAIMIE Lundberg - Last Filed: 11/07/20 01:59> HENMT: Head: Yes normal to inspection <JAIMIE Lundberg - Last Filed: 11/07/20 01:59> Ears: hearing grossly normal bilaterally <JAIMIE Lundberg - Last Filed: 11/07/20 01:59> General nose exam: Normal external nose present <JAIMIE Lundberg - Last Filed: 11/07/20 01:59> Face and sinus: Yes normal facial exam <JAIMIE Lundberg - Last Filed: 11/07/20 01:59> Eyes: General: appearance normal, both eyes and all related structures <Kristina Amaya [facility] Last Filed: 11/07/20 01:59> EOM: EOMs intact bilaterally <Kristina Amaya [facility] Last Filed: 11/07/20 01:59> Neck: Neck: Yes normal visual inspection <Kristina Amaya [facility] Last Filed: 11/07/20 01:59> Resp: Effort & Inspection: normal respiratory effort <Kristina Amaya [facility] Last Filed: 11/07/20 01:59> Auscultation: clear to auscultation bilaterally, no rales, no rhonchi and no wheezes <Kristina Amaya [facility] Last Filed: 11/07/20 01:59> Cardio: Rate: regular rate <Kristina Amaya [facility] Last Filed: 11/07/20 01:59> Heart sounds: S1 normal heart sound present and S2 normal heart sound present <Kristina Amaya [facility] Last Filed: 11/07/20 01:59> GI: Inspection: Yes normal to inspection <Kristina Amaya [facility] Last Filed: 11/07/20 01:59> Palpation (GI): Soft to palpation, nontender, no guarding and not rigid <Kristina Amaya [facility] Last Filed: 11/07/20 01:59> Skin: Rashes: no rashes <Kristina Amaya [facility] Last Filed: 11/07/20 01:59> Wounds: no wounds <Kristina Amaya [facility] Last Filed: 11/07/20 01:59> Neuro: General: patient oriented x3 <Kristina Amaya [facility] Last Filed: 11/07/20 01:59> Extrem: General: Yes normal to inspection and Yes edema (bilateral) <Kristina Amaya [facility] Last Filed: 11/07/20 01:59> Course Course Course Narrative: -no leukocytosis. H&H stable, mild NICK with creatinine 1.44 >> likely from dehydration, will give IVF and repeat -1335--stool leukocytes and C diff negative -Orthostatic vital signs negative -0200-- ED care transferred to Dr. Donnelly pending repeat BMP and anticipated d/c <JAIMIE Lundberg - Last Filed: 11/07/20 01:59> Patient re-evaluated and all investigations reviewed. She continues to have copious amounts of watery diarrhea and lives at home by herself. Although stool studies were negative a CT scan of abdomen pelvis was obtained to further evaluate for possible evidence of colitis. However, the CT scan was positive for proctitis. I discussed this case with the inpatient hospitalist who is agreeable for admission for dehydration, uncontrolled diarrhea, and proctitis. Patient feeling fatigued and shaky due to the amount of diarrhea. She maintains good oral intake. <Cheyanne Donnelly MD - Last Filed: 11/07/20 06:29> MDM - Nausea/Vomiting/Diarrhea MDM Narrative Medical decision making narrative: 84-year-old female a past medical history left tibial cancer, constipation, depression/anxiety, GERD, hyperlipidemia, mitral valve insufficiency, CHF, recently discharged from our facility on 11/02 for CHF exacerbation, BIBA c/o persistent loose/watery diarrhea throughout the day. On exam VSS, NAD/well-appearing, abdomen soft/nontender. Concern for infectious vs noninfectious diarrhea vs C diff. R/o infectious and metabolic abnls Plan: Labs, UA, stool studies, IVF, reassess <JAIMIE Lundberg - Last Filed: 11/07/20 01:59> Medical Records Attestation: I reviewed the patient's medical records. <JAIMIE Lundberg - Last Filed: 11/07/20 01:59> Lab Data Result diagrams: : 11/06/20 23:13 11/07/20 02:00 <JAIMIE Lundberg - Last Filed: 11/07/20 01:59> Labs: Lab Results 11/06/20 11/06/20 11/06/20 Range/Units 23:13 23:13 23:13 WBC 5.1 (4.8-10.8) X10*3/uL RBC 4.02 L (4.20-5.50) X10*6/uL Hgb 10.1 L (12.0-16.0) g/dl Hct 34.6 L (37-47) % MCV 86.1 (80-98) fL MCH 25.1 L (27.0-33.0) pg MCHC 29.2 L (31.0-35.0) g/dl RDW 18.5 H (11.0-16.0) % Plt Count 184 D (160-400) X10*3/uL MPV 12.1 (9.4-12.3) fL Immature Gran % (Auto) 0.4 (0.0-0.4) % Neut % (Auto) 62.1 (45-73) % Lymph % (Auto) 24.2 (20-40) % [place] % (Auto) 11.1 H (2-11) % Eos % (Auto) 1.4 (0-4) % Baso % (Auto) 0.8 (0-2) % Lymph # (Auto) 1.2 (1.2-4.9) X10*3/uL [place] # (Auto) 0.6 (0.1-1.2) X10*3/uL Eos # (Auto) 0.1 (0.0-0.4) X10*3/uL Baso # (Auto) 0.0 (0.0-0.2) X10*3/uL Abs Immat Gran (auto) 0.02 (0.00-0.03) X10*3/uL Absolute Neuts (auto) 3.2 (2.0-8.3) X10*3/uL Absolute Nucleated RBC 0.000 (0.0-0.012) X10*3/uL Nucleated RBC % (auto) 0.0 (0.0-0.2) /100WBC Hold Blue Top SEE NOTE Sodium 143 (135-145) mmol/L Potassium 3.5 (3.3-5.1) mmol/L Chloride 99 (96-108) mmol/L Carbon Dioxide 32 H (22-29) mmol/L Anion Gap 16 (12-20) BUN 23 H (9-16) mg/dL Creatinine 1.44 H (0.5-1.4) mg/dL Estim Creat Clear Calc 26.0 Estimated GFR 35 Random Glucose 110 (60-115) mg/dL Calcium 9.1 D (8.4-10.2) mg/dL Magnesium 2.4 (1.6-2.6) mg/dL Total Bilirubin 1.0 (0.0-1.0) mg/dL Direct Bilirubin 0.4 (0.0-0.5) mg/dL AST 25 (5-31) U/L ALT 17 (0-31) U/L Alkaline Phosphatase 95 (39-117) U/L Total Protein 6.7 (6.5-8.0) g/dL Albumin 4.1 (3.5-5.0) g/dL Lipase 39 (8-78) U/L Stool Leukocytes, Qual (NEGATIVE) C. difficile Toxin A&B (Negative) C. difficile Antigen (Negative) C. difficile Interpret COVID-19 (GURU) (Negative) COVID-19 Clin Com 11/06/20 11/06/20 11/07/20 Range/Units 23:45 23:45 02:00 WBC (4.8-10.8) X10*3/uL RBC (4.20-5.50) X10*6/uL Hgb (12.0-16.0) g/dl Hct (37-47) % MCV (80-98) fL MCH (27.0-33.0) pg MCHC (31.0-35.0) g/dl RDW (11.0-16.0) % Plt Count (160-400) X10*3/uL MPV (9.4-12.3) fL Immature Gran % (Auto) (0.0-0.4) % Neut % (Auto) (45-73) % Lymph % (Auto) (20-40) % [place] % (Auto) (2-11) % Eos % (Auto) (0-4) % Baso % (Auto) (0-2) % Lymph # (Auto) (1.2-4.9) X10*3/uL [place] # (Auto) (0.1-1.2) X10*3/uL Eos # (Auto) (0.0-0.4) X10*3/uL Baso # (Auto) (0.0-0.2) X10*3/uL Abs Immat Gran (auto) (0.00-0.03) X10*3/uL Absolute Neuts (auto) (2.0-8.3) X10*3/uL Absolute Nucleated RBC (0.0-0.012) X10*3/uL Nucleated RBC % (auto) (0.0-0.2) /100WBC Hold Blue Top Sodium 143 (135-145) mmol/L Potassium 3.6 (3.3-5.1) mmol/L Chloride 105 (96-108) mmol/L Carbon Dioxide 27 (22-29) mmol/L Anion Gap 15 (12-20) BUN 22 H (9-16) mg/dL Creatinine 1.25 (0.5-1.4) mg/dL Estim Creat Clear Calc 29.4 Estimated GFR 41 Random Glucose 100 (60-115) mg/dL Calcium 8.4 D (8.4-10.2) mg/dL Magnesium (1.6-2.6) mg/dL Total Bilirubin (0.0-1.0) mg/dL Direct Bilirubin (0.0-0.5) mg/dL AST (5-31) U/L ALT (0-31) U/L Alkaline Phosphatase (39-117) U/L Total Protein (6.5-8.0) g/dL Albumin (3.5-5.0) g/dL Lipase (8-78) U/L Stool Leukocytes, Qual NEGATIVE (NEGATIVE) C. difficile Toxin A&B Negative (Negative) C. difficile Antigen Negative (Negative) C. difficile Interpret SEE NOTE COVID-19 (GURU) (Negative) COVID-19 Clin Com 11/07/20 Range/Units 04:52 WBC (4.8-10.8) X10*3/uL RBC (4.20-5.50) X10*6/uL Hgb (12.0-16.0) g/dl Hct (37-47) % MCV (80-98) fL MCH (27.0-33.0) pg MCHC (31.0-35.0) g/dl RDW (11.0-16.0) % Plt Count (160-400) X10*3/uL MPV (9.4-12.3) fL Immature Gran % (Auto) (0.0-0.4) % Neut % (Auto) (45-73) % Lymph % (Auto) (20-40) % [place] % (Auto) (2-11) % Eos % (Auto) (0-4) % Baso % (Auto) (0-2) % Lymph # (Auto) (1.2-4.9) X10*3/uL [place] # (Auto) (0.1-1.2) X10*3/uL Eos # (Auto) (0.0-0.4) X10*3/uL Baso # (Auto) (0.0-0.2) X10*3/uL Abs Immat Gran (auto) (0.00-0.03) X10*3/uL Absolute Neuts (auto) (2.0-8.3) X10*3/uL Absolute Nucleated RBC (0.0-0.012) X10*3/uL Nucleated RBC % (auto) (0.0-0.2) /100WBC Hold Blue Top Sodium (135-145) mmol/L Potassium (3.3-5.1) mmol/L Chloride (96-108) mmol/L Carbon Dioxide (22-29) mmol/L Anion Gap (12-20) BUN (9-16) mg/dL Creatinine (0.5-1.4) mg/dL Estim Creat Clear Calc Estimated GFR Random Glucose (60-115) mg/dL Calcium (8.4-10.2) mg/dL Magnesium (1.6-2.6) mg/dL Total Bilirubin (0.0-1.0) mg/dL Direct Bilirubin (0.0-0.5) mg/dL AST (5-31) U/L ALT (0-31) U/L Alkaline Phosphatase (39-117) U/L Total Protein (6.5-8.0) g/dL Albumin (3.5-5.0) g/dL Lipase (8-78) U/L Stool Leukocytes, Qual (NEGATIVE) C. difficile Toxin A&B (Negative) C. difficile Antigen (Negative) C. difficile Interpret COVID-19 (GURU) Negative (Negative) COVID-19 Clin Com See Note <JAIMIE Lundberg - Last Filed: 11/07/20 01:59> Lab Results 11/06/20 11/06/20 11/06/20 Range/Units 23:13 23:13 23:13 WBC 5.1 (4.8-10.8) X10*3/uL RBC 4.02 L (4.20-5.50) X10*6/uL Hgb 10.1 L (12.0-16.0) g/dl Hct 34.6 L (37-47) % MCV 86.1 (80-98) fL MCH 25.1 L (27.0-33.0) pg MCHC 29.2 L (31.0-35.0) g/dl RDW 18.5 H (11.0-16.0) % Plt Count 184 D (160-400) X10*3/uL MPV 12.1 (9.4-12.3) fL Immature Gran % (Auto) 0.4 (0.0-0.4) % Neut % (Auto) 62.1 (45-73) % Lymph % (Auto) 24.2 (20-40) % [place] % (Auto) 11.1 H (2-11) % Eos % (Auto) 1.4 (0-4) % Baso % (Auto) 0.8 (0-2) % Lymph # (Auto) 1.2 (1.2-4.9) X10*3/uL [place] # (Auto) 0.6 (0.1-1.2) X10*3/uL Eos # (Auto) 0.1 (0.0-0.4) X10*3/uL Baso # (Auto) 0.0 (0.0-0.2) X10*3/uL Abs Immat Gran (auto) 0.02 (0.00-0.03) X10*3/uL Absolute Neuts (auto) 3.2 (2.0-8.3) X10*3/uL Absolute Nucleated RBC 0.000 (0.0-0.012) X10*3/uL Nucleated RBC % (auto) 0.0 (0.0-0.2) /100WBC Hold Blue Top SEE NOTE Sodium 143 (135-145) mmol/L Potassium 3.5 (3.3-5.1) mmol/L Chloride 99 (96-108) mmol/L Carbon Dioxide 32 H (22-29) mmol/L Anion Gap 16 (12-20) BUN 23 H (9-16) mg/dL Creatinine 1.44 H (0.5-1.4) mg/dL Estim Creat Clear Calc 26.0 Estimated GFR 35 Random Glucose 110 (60-115) mg/dL Calcium 9.1 D (8.4-10.2) mg/dL Magnesium 2.4 (1.6-2.6) mg/dL Total Bilirubin 1.0 (0.0-1.0) mg/dL Direct Bilirubin 0.4 (0.0-0.5) mg/dL AST 25 (5-31) U/L ALT 17 (0-31) U/L Alkaline Phosphatase 95 (39-117) U/L Total Protein 6.7 (6.5-8.0) g/dL Albumin 4.1 (3.5-5.0) g/dL Lipase 39 (8-78) U/L Stool Leukocytes, Qual (NEGATIVE) C. difficile Toxin A&B (Negative) C. difficile Antigen (Negative) C. difficile Interpret COVID-19 (GURU) (Negative) COVID-19 Clin Com 11/06/20 11/06/20 11/07/20 Range/Units 23:45 23:45 02:00 WBC (4.8-10.8) X10*3/uL RBC (4.20-5.50) X10*6/uL Hgb (12.0-16.0) g/dl Hct (37-47) % MCV (80-98) fL MCH (27.0-33.0) pg MCHC (31.0-35.0) g/dl RDW (11.0-16.0) % Plt Count (160-400) X10*3/uL MPV (9.4-12.3) fL Immature Gran % (Auto) (0.0-0.4) % Neut % (Auto) (45-73) % Lymph % (Auto) (20-40) % [place] % (Auto) (2-11) % Eos % (Auto) (0-4) % Baso % (Auto) (0-2) % Lymph # (Auto) (1.2-4.9) X10*3/uL [place] # (Auto) (0.1-1.2) X10*3/uL Eos # (Auto) (0.0-0.4) X10*3/uL Baso # (Auto) (0.0-0.2) X10*3/uL Abs Immat Gran (auto) (0.00-0.03) X10*3/uL Absolute Neuts (auto) (2.0-8.3) X10*3/uL Absolute Nucleated RBC (0.0-0.012) X10*3/uL Nucleated RBC % (auto) (0.0-0.2) /100WBC Hold Blue Top Sodium 143 (135-145) mmol/L Potassium 3.6 (3.3-5.1) mmol/L Chloride 105 (96-108) mmol/L Carbon Dioxide 27 (22-29) mmol/L Anion Gap 15 (12-20) BUN 22 H (9-16) mg/dL Creatinine 1.25 (0.5-1.4) mg/dL Estim Creat Clear Calc 29.4 Estimated GFR 41 Random Glucose 100 (60-115) mg/dL Calcium 8.4 D (8.4-10.2) mg/dL Magnesium (1.6-2.6) mg/dL Total Bilirubin (0.0-1.0) mg/dL Direct Bilirubin (0.0-0.5) mg/dL AST (5-31) U/L ALT (0-31) U/L Alkaline Phosphatase (39-117) U/L Total Protein (6.5-8.0) g/dL Albumin (3.5-5.0) g/dL Lipase (8-78) U/L Stool Leukocytes, Qual NEGATIVE (NEGATIVE) C. difficile Toxin A&B Negative (Negative) C. difficile Antigen Negative (Negative) C. difficile Interpret SEE NOTE COVID-19 (GURU) (Negative) COVID-19 Clin Com 11/07/20 Range/Units 04:52 WBC (4.8-10.8) X10*3/uL RBC (4.20-5.50) X10*6/uL Hgb (12.0-16.0) g/dl Hct (37-47) % MCV (80-98) fL MCH (27.0-33.0) pg MCHC (31.0-35.0) g/dl RDW (11.0-16.0) % Plt Count (160-400) X10*3/uL MPV (9.4-12.3) fL Immature Gran % (Auto) (0.0-0.4) % Neut % (Auto) (45-73) % Lymph % (Auto) (20-40) % [place] % (Auto) (2-11) % Eos % (Auto) (0-4) % Baso % (Auto) (0-2) % Lymph # (Auto) (1.2-4.9) X10*3/uL [place] # (Auto) (0.1-1.2) X10*3/uL Eos # (Auto) (0.0-0.4) X10*3/uL Baso # (Auto) (0.0-0.2) X10*3/uL Abs Immat Gran (auto) (0.00-0.03) X10*3/uL Absolute Neuts (auto) (2.0-8.3) X10*3/uL Absolute Nucleated RBC (0.0-0.012) X10*3/uL Nucleated RBC % (auto) (0.0-0.2) /100WBC Hold Blue Top Sodium (135-145) mmol/L Potassium (3.3-5.1) mmol/L Chloride (96-108) mmol/L Carbon Dioxide (22-29) mmol/L Anion Gap (12-20) BUN (9-16) mg/dL Creatinine (0.5-1.4) mg/dL Estim Creat Clear Calc Estimated GFR Random Glucose (60-115) mg/dL Calcium (8.4-10.2) mg/dL Magnesium (1.6-2.6) mg/dL Total Bilirubin (0.0-1.0) mg/dL Direct Bilirubin (0.0-0.5) mg/dL AST (5-31) U/L ALT (0-31) U/L Alkaline Phosphatase (39-117) U/L Total Protein (6.5-8.0) g/dL Albumin (3.5-5.0) g/dL Lipase (8-78) U/L Stool Leukocytes, Qual (NEGATIVE) C. difficile Toxin A&B (Negative) C. difficile Antigen (Negative) C. difficile Interpret COVID-19 (GURU) Negative (Negative) COVID-19 Clin Com See Note <Cheyanne Donnelly MD - Last Filed: 11/07/20 06:29> Discharge Plan Discharge Clinical Impression: Diarrhea, Dehydration, Acute proctitis <JAIMIE Lundberg - Last Filed: 11/07/20 01:59> Patient Disposition: Admitted As Inpatient <JAIMIE Lundberg - Last Filed: 11/07/20 01:59> Instructions: Acute Diarrhea (ED) <JAIMIE Lundberg - Last Filed: 11/07/20 01:59> Prescriptions: New dicyclomine 20 mg tablet 20 mg PO QID 7 Days Qty: 20 RF: 0 No Action ropinirole 0.5 mg tablet 0.5 mg PO BID PRN (Reason: restless leg) 90 Days Qty: 180 RF: 0 lansoprazole 30 mg capsule,delayed release(DR/EC) 30 mg PO DAILY 90 Days Qty: 90 RF: 0 atorvastatin 10 mg tablet 10 mg PO DAILY Qty: 90 RF: 0 escitalopram oxalate 20 mg tablet 20 mg PO DAILY RF: 0 spironolactone 25 mg Tablet 12.5 mg PO DAILY Qty: 30 RF: 0 bumetanide 2 mg tablet 2 mg PO DAILY Qty: 30 RF: 0 budesonide 3 mg capsule,delayed,extend.release 6 mg PO DAILY RF: 0 <JAIMIE Lundberg - Last Filed: 11/07/20 01:59> Referrals: Physician,Unknown [Primary Care Provider] - 2 days <JAIMIE Lundberg - Last Filed: 11/07/20 01:59>
[2020-11-06 23:46] VITALS: BP 143/78; PULSE 59
[2020-11-06 23:47] VITALS: BP 145/65; PULSE 60
[2020-11-06 23:49] VITALS: BP 137/54; PULSE 59
[2020-11-06 23:49] LABS: Alanine Aminotransferase 17 U/L (0-31); Albumin Level 4.1 g/dL (3.5-5.0); Alkaline Phosphatase 95 U/L (39-117); Anion Gap 16 (12-20); Aspartate Amino Transferase 25 U/L (5-31); Bilirubin Direct 0.4 mg/dL (0.0-0.5); Blood Urea Nitrogen 23 mg/dL (9-16); Calcium 9.1 mg/dL (8.4-10.2); Carbon Dioxide 32 mmol/L (22-29); Chloride 99 mmol/L (96-108); Estimated Glomerular Filt Rate 35; Glucose Random 110 mg/dL (60-115); Lipase 39 U/L (8-78); Magnesium 2.4 mg/dL (1.6-2.6); Potassium 3.5 mmol/L (3.3-5.1); Sodium 143 mmol/L (135-145); Total Protein 6.7 g/dL (6.5-8.0)
[2020-11-06] MEDS: 0.9 % Sodium Chloride 1,000 ML 999 ML IVCONT (23:52)
--- NOTE | 2020-11-06 23:53 | PC.NURSE ---
Stool sample obtained, stool noted to be liquid brown. Orthos obtained. IVF infusing per MAR, awaiting lab results. Call milan within reach, continue to monitor.
[2020-11-07] VITALS (10 sets, daily range): BP systolic 117–161; BP diastolic 58–95; PULSE 57–70; RESP 14–20; TEMP 36.1–36.9; O2SAT 94–99
[2020-11-07] MEDS: 0.9 % Sodium Chloride 1,000 ML 999 ML IVCONT (00:24)
[2020-11-07 00:41] LABS: Leukocytes Stool Qualitative NEGATIVE (NEGATIVE)
[2020-11-07 00:55] LABS: CDIFF Ag Negative (Negative); CDIFF Internal ctrl Dots and bkg OK (V); CDiff Toxin Negative (Negative)
--- NOTE | 2020-11-07 01:05 | PC.NURSE ---
UTO UA that is not contaminated in stool. VSS. IVF infusing. Pt sleeping in bed at this time.
[2020-11-07] MEDS: Dicyclomine HCl 10 MG CAPSULE 20 MG PO (02:10)
--- NOTE | 2020-11-07 02:13 | PC.NURSE ---
PA at bedside discussing results and plan of care. Pt medicated per AUG. Repeat labs obtained. VSS. Continue to monitor.
[2020-11-07 04:03] LABS: Anion Gap 15 (12-20); Blood Urea Nitrogen 22 mg/dL (9-16); Calcium 8.4 mg/dL (8.4-10.2); Carbon Dioxide 27 mmol/L (22-29); Chloride 105 mmol/L (96-108); Creatinine Clr Calc Pharmacy 29.4; Estimated Glomerular Filt Rate 41; Glucose Random 100 mg/dL (60-115); Potassium 3.6 mmol/L (3.3-5.1); Sodium 143 mmol/L (135-145)
--- NOTE | 2020-11-07 04:14 | PC.NURSE ---
This RN discussing plan of care with MD as pt lives alone and continues to have multiple episodes of loose, liquid stool. Pt is unable to make it to bedside commode, as the diarrhea comes on so suddenly. Per MD, possibly plan to admit to Obs.
--- NOTE | 2020-11-07 04:31 | PC.NURSE ---
Off to CT on hospital bed.
[2020-11-07] MEDS: iohexoL 350 MG/ML 100 ML INFUS..BTL 85 ML IV (04:46)
--- NOTE | 2020-11-07 04:47 | PC.NURSE ---
Pt returns from CT at this time on hospital bed without incident.
--- NOTE | 2020-11-07 04:53 | PC.NURSE ---
Covid swab obtained and sent.
[2020-11-07 05:15] LABS: COVID-19 Test Negative (Negative)
--- NOTE | 2020-11-07 06:26 | PC.NURSE ---
Hospitalist at bedside for eval.
--- NOTE | 2020-11-07 06:34 | PM.IMHP ---
History of Present Illness Date of Service: 11/07/20 Chief Complaint: Diarrhea This is an 85-year-old female with past medical history of hypertension, restless leg syndrome, CHF, IBS who presents to the hospital with intractable watery diarrhea. Patient reports that her symptoms started at nighttime, nonstop diarrhea, no abdominal pain, no nausea or vomiting. She was recently discharged on 11/02 for management of CHF. Patient reports no chest pain, shortness of breath, no urinary symptoms and no lower extremity edema. Patient denies having any blood in the diarrhea. On arrival to the edema dynamic least stable with no significant abnormal vitals Labs are significant for 5.1, hemoglobin of 10.1, CMP unremarkable except for creatinine of 1.44 which improved to 1.25 after fluids which is her baseline, lipase negative, stool leukocytes negative, C diff toxin a Ambien antigen negative, COVID-19 negative, abdominal CT shows proctitis Review of system negative otherwise, patient will be admitted Past medical history as below and confirmed with patient Review of Systems Review of Systems: Yes all other systems are reviewed and are negative [facility] Medical History (Updated 11/07/20 @ 06:40 by Gurjit Olson MD) Atrial enlargement, left Cancer of left tibia Congestive heart failure Constipation Depression with anxiety GERD (gastroesophageal reflux disease) High cholesterol History of small bowel obstruction Lipid disorder Lipoma Low hematocrit Mitral valve insufficiency Morbid obesity Osteoarthritis of both hips Osteosarcoma of bone RLS (restless legs syndrome) Tricuspid regurgitation Tubular adenoma of colon Urinary, incontinence, stress female Family History Mother Alzheimers disease Brother Lung cancer Epilepsy Surgical History (Updated 11/04/20 @ 00:01 by Samanta Ayers) H/O hysterectomy with oophorectomy History of appendectomy History of intestinal surgery Hx of colonoscopy S/P cataract surgery S/P placement of cardiac pacemaker (~07/2020) Social History Household Members: None Housing: Assisted Living Facility Alcohol intake: current Alcohol intake frequency: does not drink Smoking Status: Never smoker Advance Directives: No Advance Directives Information Provided: No service: No Current occupational status: retired Meds Allergies Allergy/AdvReac Type Severity Reaction Status Date / Time cat dander Allergy stuffy Verified 11/06/20 23:05 nose, red eye codeine AdvReac Unknown GI upset Verified 11/06/20 23:05 Physical Exam Vital Signs and Narrative: Vital Signs: Last Vital Signs Temp 97.5 F 11/06/20 23:01 Pulse 63 11/07/20 06:10 Resp 16 11/07/20 06:10 BP 142/67 H 11/07/20 06:10 Pulse Ox 96 11/07/20 06:10 Body Mass Index 25.7 Const: General: cooperative and no acute distress Orientation/consciousness: patient oriented x3 Eyes: General: appearance normal, both eyes and all related structures Resp: Effort & Inspection: normal respiratory effort and able to speak in complete sentences Cardio: Rate: regular rate Rhythm: regular rhythm GI: Other: No tenderness rebound or guarding Palpation (GI): Soft to palpation Auscultation: normal bowel sounds Skin: General skin exam: no rashes or lesions noted Neuro: General: patient oriented x3 Cognition (Neuro): normal cognition Extrem: General: Yes normal to inspection and Yes no pedal edema Results Labs CBC and Chem 7: 11/06/20 23:13 11/07/20 02:00 Labs: Laboratory Results - last 24 hr 11/06/20 11/06/20 11/06/20 23:13 23:13 23:13 MCV 86.1 MCH 25.1 L MCHC 29.2 L RDW 18.5 H Plt Count 184 D MPV 12.1 Immature Gran % (Auto) 0.4 Neut % (Auto) 62.1 Lymph % (Auto) 24.2 Haines % (Auto) 11.1 H Eos % (Auto) 1.4 Baso % (Auto) 0.8 Lymph # (Auto) 1.2 Haines # (Auto) 0.6 Eos # (Auto) 0.1 Baso # (Auto) 0.0 Abs Immat Gran (auto) 0.02 Absolute Neuts (auto) 3.2 Absolute Nucleated RBC 0.000 Nucleated RBC % (auto) 0.0 Hold Blue Top SEE NOTE Anion Gap 16 Estim Creat Clear Calc 26.0 Estimated GFR 35 Random Glucose 110 Calcium 9.1 D Magnesium 2.4 Total Bilirubin 1.0 Direct Bilirubin 0.4 AST 25 ALT 17 Alkaline Phosphatase 95 Total Protein 6.7 Albumin 4.1 Lipase 39 Stool Leukocytes, Qual C. difficile Toxin A&B C. difficile Antigen C. difficile Interpret COVID-19 (GURU) COVID-19 [employer] 11/06/20 11/06/20 11/07/20 23:45 23:45 02:00 MCV MCH MCHC RDW Plt Count MPV Immature Gran % (Auto) Neut % (Auto) Lymph % (Auto) Haines % (Auto) Eos % (Auto) Baso % (Auto) Lymph # (Auto) Haines # (Auto) Eos # (Auto) Baso # (Auto) Abs Immat Gran (auto) Absolute Neuts (auto) Absolute Nucleated RBC Nucleated RBC % (auto) Hold Blue Top Anion Gap 15 Estim Creat Clear Calc 29.4 Estimated GFR 41 Random Glucose 100 Calcium 8.4 D Magnesium Total Bilirubin Direct Bilirubin AST ALT Alkaline Phosphatase Total Protein Albumin Lipase Stool Leukocytes, Qual NEGATIVE C. difficile Toxin A&B Negative C. difficile Antigen Negative C. difficile Interpret SEE NOTE COVID-19 (GURU) COVID-19 [employer] 11/07/20 04:52 MCV MCH MCHC RDW Plt Count MPV Immature Gran % (Auto) Neut % (Auto) Lymph % (Auto) Haines % (Auto) Eos % (Auto) Baso % (Auto) Lymph # (Auto) Haines # (Auto) Eos # (Auto) Baso # (Auto) Abs Immat Gran (auto) Absolute Neuts (auto) Absolute Nucleated RBC Nucleated RBC % (auto) Hold Blue Top Anion Gap Estim Creat Clear Calc Estimated GFR Random Glucose Calcium Magnesium Total Bilirubin Direct Bilirubin AST ALT Alkaline Phosphatase Total Protein Albumin Lipase Stool Leukocytes, Qual C. difficile Toxin A&B C. difficile Antigen C. difficile Interpret COVID-19 (GURU) Negative COVID-19 [place] See Note Imaging Radiologist's Impressions: Impressions Abdomen/Pelvis CT 11/07/20 04:18 IMPRESSION: 1. Thick-walled appearance of the rectum raising suspicion for proctitis. 2. Moderate-sized hiatal hernia. 3. Heterogeneous attenuation of the liver which could be secondary to congestion. Assessment and Plan (1) Diarrhea: Status: Acute (2) Dehydration: Status: Acute (3) Acute proctitis: Status: Acute (4) NICK (acute kidney injury): Status: Acute This is an 85-year-old female with past medical history of CHF, hypertension who presents to the hospital with intractable diarrhea # diarrhea - most likely secondary to proctitis versus IBS - was recently hospitalized and C diff was on differential although C diff antigen and PCR negative - will send for stool cultures - received IV fluids, given her history of CHF will hold further fluids # dehydration and NICK - initially presented with a creatinine of 1.44 with a baseline around 1.2 - improved with IV fluids - follow BMP # acute proctitis - does not appear to be secondary to C diff, will send stool cultures - patient on dicyclomine, assuming for history of IBS although patient does not know - will continue dicyclomine - S patient afebrile, no leukocytosis, no guarding, rebound or abdominal pain will keep of antibiotics # hypertension - continue losartan # CHF - not in exacerbation - continue to monitor DVT prophylaxis: Heparin subQ
--- NOTE | 2020-11-07 06:41 | PC.NURSE ---
Pt requesting this RN notify daughter of current condition and plan to admit.
--- NOTE | 2020-11-07 06:45 | PC.NURSE ---
Med Rec completed by this RN. This RN calling pharmacy to verify accuracy of Med Rec.
--- NOTE | 2020-11-07 07:47 | PC.NURSE ---
CALL TO FLOOR FOR REPORT. THEY WILL CALL BACK
--- NOTE | 2020-11-07 07:51 | PC.NURSE ---
REPORT TO CARI MELCHOR
[2020-11-07] MEDS: 0.9 % Sodium Chloride Flush 3 ML SYRINGE IVFLUSH ×3 (09:54→20:55)
[2020-11-07] MEDS: Bumetanide 1 MG TABLET 2 MG PO (09:54)
[2020-11-07] MEDS: Heparin Sodium,Porcine 5,000 UNIT/ML VIAL 5000 UNIT SUBCUT ×2 (09:54→20:54)
[2020-11-07] MEDS: Atorvastatin Calcium 10 MG TABLET PO (09:54)
--- NOTE | 2020-11-07 12:06 | MHC.CM.PN ---
CM MET WITH PT AND HER DAUGHTER, AUGIE, WHO WAS AT BEDSIDE. PER THEIR REPORT, THE PT LIVES IN AN INDEPENDENT LIVING FACILITY AND [facility]/SN/IMMIGRATION INVESTIGATOR AND A FOOT NURSE FROM [facility]. PT REPORTEDLY USES BOTH A CANE AND A WALKER DEPENDING ON ENVIRONMENT AND HAS A TRANSPORT W/C THAT AUGIE KEEPS IN HER CAR. PTS PCP IS KRISTEN BELL PT IS ON OBSERVATION STATUS WHICH WAS REVIEWED VERBALLY. PT HAS BOTH [facility] AND [employer]. CURRENT DC PLAN IS HOME WITH RESUMPTION OF [facility] AND [facility] PTS DAUGHTER WILL TRANSPORT AT DC
[2020-11-07 13:32] LABS: Glucose Urine UA NEG (NEG); Leukocyte Esterase Urine 1+ (NEG); Nitrite Urine NEG (NEG); UACC Culture Trigger YES; Urine Blood TRACE (NEG); Urine Ketones NEG (NEG); Urine Protein NEG (NEG-TRACE)
[2020-11-07 13:34] LABS: Appearance Urine HAZY; Color Urine YELLOW
[2020-11-07] MEDS: Omeprazole 40 MG CAPSULE.DR PO (13:50)
[2020-11-07 13:52] LABS: Bacteria Urine 3+ /LPF; RBC Urine 0-2 /HPF (0); Squamous Epithelial Cell Urine TRACE /LPF
[2020-11-08 03:59] VITALS: BP 147/71; PULSE 66; RESP 18; TEMP 36.8; O2SAT 94
[2020-11-08] MEDS: Acetaminophen 325 MG TABLET 650 MG PO (04:43)
[2020-11-08] MEDS: Omeprazole 40 MG CAPSULE.DR PO (04:43)
[2020-11-08 05:48] LABS: Anion Gap 11 (12-20); Blood Urea Nitrogen 18 mg/dL (9-16); Calcium 8.6 mg/dL (8.4-10.2); Carbon Dioxide 32 mmol/L (22-29); Chloride 104 mmol/L (96-108); Creatinine Clr Calc Pharmacy 33.2; Estimated Glomerular Filt Rate 47; Glucose Random 91 mg/dL (60-115); Potassium 3.5 mmol/L (3.3-5.1); Sodium 143 mmol/L (135-145)
[2020-11-08 07:55] VITALS: BP 128/73; PULSE 61; RESP 18; TEMP 36.7; O2SAT 96
[2020-11-08] MEDS: Bumetanide 1 MG TABLET 2 MG PO (08:27)
[2020-11-08] MEDS: Atorvastatin Calcium 10 MG TABLET PO (08:27)
[2020-11-08] MEDS: Heparin Sodium,Porcine 5,000 UNIT/ML VIAL 5000 UNIT SUBCUT (08:29)
[2020-11-08] MEDS: 0.9 % Sodium Chloride Flush 3 ML SYRINGE IVFLUSH (08:31)
[2020-11-08 11:24] VITALS: BP 108/65; PULSE 60; RESP 18; TEMP 36.4; O2SAT 98
--- NOTE | 2020-11-08 11:47 | PM.DS ---
DS: Providers Provider Date of Service: 11/08/20 Date of admission: 11/07/20 06:32 Primary care physician: Unknown Physician DS: Diagnosis Discharge Diagnosis (1) Diarrhea: Status: Acute (2) Dehydration: Status: Acute (3) Acute proctitis: Status: Acute (4) NICK (acute kidney injury): Status: Acute DS: Medications Discharge Medications Home Medications: Previous Rx's Medication Instructions Recorded ropinirole 0.5 mg tablet 0.5 mg PO BID PRN 90 Days #180 tab 08/03/20 atorvastatin 10 mg tablet 10 mg PO DAILY #90 tab 10/16/20 bumetanide 2 mg PO DAILY #30 tab 11/02/20 spironolactone 12.5 mg PO DAILY #30 tab 11/02/20 omeprazole 20 mg PO DAILY #30 cap 11/08/20 DS: Summary Hospital Course Hospital Course: Admission note HPI This is an 85-year-old female with past medical history of hypertension, restless leg syndrome, CHF, IBS who presents to the hospital with intractable watery diarrhea. Patient reports that her symptoms started at nighttime, nonstop diarrhea, no abdominal pain, no nausea or vomiting. She was recently discharged on 11/02 for management of CHF. Patient reports no chest pain, shortness of breath, no urinary symptoms and no lower extremity edema. Patient denies having any blood in the diarrhea. On arrival to the edema dynamic least stable with no significant abnormal vitals Labs are significant for 5.1, hemoglobin of 10.1, CMP unremarkable except for creatinine of 1.44 which improved to 1.25 after fluids which is her baseline, lipase negative, stool leukocytes negative, C diff toxin a Ambien antigen negative, COVID-19 negative, abdominal CT shows proctitis Hospital course The patient was monitored in the hospital. CT scan showed evidence of proctitis. Diarrhea seems to be secretory in nature. No further episodes of diarrhea happens over the last 24 hours. She was able to tolerate diet well with no intervention or active treatment. Negative C diff testing. kidney function improved back to baseline. Time Spent with Patient Time attestation: Total time spent providing and/or coordinating discharge services: Discharge coordination time: Greater than 30 minutes Physical Exam Vital Signs: Vital Signs: Last Vital Signs Temp 97.6 F 11/08/20 11:24 Pulse 60 11/08/20 11:24 Resp 18 11/08/20 11:24 BP 108/65 11/08/20 11:24 Pulse Ox 98 11/08/20 11:24 Body Mass Index 25.7 Const: Other: Constitutional : Alert, oriented, not in distress Neck : Normal inspection, Supple Cardiovascular : RRR, S1 S2, no lower extremity edema Respiratory : Good bilateral air entry, no crackles, wheezes or rhonchi Gastrointestinal: soft, lax, Normal bowel sounds, Non tender Skin : Warm/Dry, No rash Neurological : Alert & oriented x3, No focal deficit DS: Data Data Completed and Pending Completed studies during hospitalization [Text1]: Procedures Insertion of Pacemaker Lead into Right Atrium, Percutaneous Approach (07/21/20) Insertion of Pacemaker Lead into Right Ventricle, Percutaneous Approach (07/21/20) Insertion of Pacemaker, Dual Chamber into Chest Subcutaneous Tissue and Fascia, Open Approach (07/21/20) Revision of Cardiac Lead in Heart, Percutaneous Approach (07/21/20) Transfusion of Nonautologous Red Blood Cells into Peripheral Vein, Percutaneous Approach (07/21/20) Labs on day of discharge: Laboratory Results - last 24 hr 11/07/20 11/08/20 13:03 04:43 Sodium 143 Potassium 3.5 Chloride 104 Carbon Dioxide 32 H Anion Gap 11 L BUN 18 H Creatinine 1.11 Estim Creat Clear Calc 33.2 Estimated GFR 47 Random Glucose 91 Calcium 8.6 Urine Color YELLOW Urine Appearance HAZY Urine pH 7.0 Ur Specific Osgood 1.010 Urine Protein NEG Urine Glucose (UA) NEG Urine Ketones NEG Urine Blood TRACE Urine Nitrite NEG Ur Leukocyte Esterase 1+ H Urine RBC 0-2 Urine WBC 1-4 Ur Squamous Epith Cells TRACE Urine Bacteria 3+ Preliminary micro results at discharge 11/06/20 23:45 Stool Culture - Preliminary Stool Normal so far. 11/07/20 00:00 Urine Culture - Preliminary Urine clean catch - Clean Catch Midstream Gram negative jessica Discharge Plan Discharge Patient Disposition: [facility] Discharge Diagnosis: diarrhea, kidney injury Referrals: Physician,Unknown [Primary Care Provider] - 2 days Discharge Medications: New omeprazole 20 mg capsule,delayed release(DR/EC) 20 mg PO DAILY Qty: 30 RF: 0 Continued ropinirole 0.5 mg tablet 0.5 mg PO BID PRN (Reason: restless leg) 90 Days Qty: 180 RF: 0 atorvastatin 10 mg tablet 10 mg PO DAILY Qty: 90 RF: 0 spironolactone 25 mg Tablet 12.5 mg PO DAILY Qty: 30 RF: 0 bumetanide 2 mg tablet 2 mg PO DAILY Qty: 30 RF: 0 Discharge Orders: Discharge Order (Routine); Ordered 11/08/20 Ordered By: Margret Theodore Diet: advance to usual diet Activity on Discharge: As tolerated Stand Alone Forms: Patient Portal Discharge page Care Plan Goals: Read below Health Concerns: Read below Plan of Treatment: You were admitted to the hospital for evaluation of diarrhea. A CT scan of your abdomen showed inflammation of your lower colon. Your blood work was within normal. Your symptoms resolved with no intervention. Assessment: Advance your diet slowly over the next few days Start omeprazole daily Patient Instructions: Acute Diarrhea (ED)
--- NOTE | 2020-11-08 12:40 | MHC.CM.PN ---
Addendum entered by Susi Jeter 11/08/20 14:27: CM met with pt and daughter to discuss DC. They are aware the [facility] was notified of pts DC and are currently reviewing DC orders with pts nurse. Original Note: PT CLEARED FOR DC HOME TODAY WITH RESUMPTION OF HER [facility]. [facility] NOTIFIED OF DC VIA [employer]. PTS DAUGHTER WILL PICK HER UP AT 1400 HOURS TO TRANSPORT HER BACK TO [place] [facility]. CM WILL MEET WITH DAUGHTER WHEN SHE ARRIVES PER HER REQUEST.
== END 2020-11-08 14:35 | disposition skilled nursing facility (03) ==
LOC: HO.ED 11-07 06:29 → HO.EDOVER 11-07 06:40 → HO.IMC 11-07 07:17
PROVIDERS: Physician Assistant; Admitting Provider Internal Medicine; Emergency Provider Student in an Organized Health Care Education/Training Program; Visit Provider Student in an Organized Health Care Education/Training Program
DX: R19.7 Diarrhea, unspecified (principal); E86.0 Dehydration; K62.89 Other specified diseases of anus and rectum; N17.9 Acute kidney failure, unspecified; I10 Essential (primary) hypertension; G25.81 Restless legs syndrome; I50.9 Heart failure, unspecified; K58.9 Irritable bowel syndrome, unspecified; K21.9 Gastro-esophageal reflux disease without esophagitis; E78.00 Pure hypercholesterolemia, unspecified; E66.01 Morbid (severe) obesity due to excess calories; J30.81 Allergic rhinitis due to animal (cat) (dog) hair and dander; Z20.822 Contact with and (suspected) exposure to COVID-19; Z88.5 Allergy status to narcotic agent; Z90.710 Acquired absence of both cervix and uterus; Z90.721 Acquired absence of ovaries, unilateral; Z95.0 Presence of cardiac pacemaker; Z79.899 Other long term (current) drug therapy
CPT/HCPCS: 36415; 74177; 80048; 80076; 81001; 81003; 83690; 83735; 85025; 87045; 87046; 87086; 87088; 87186; 87324; 87449; 87635; 89055; 96360; 96372; 96374; 96375; 99219; 99285; Q9967

== ENCOUNTER → 2020-11-10 11:16 | Outpatient (BNVA) | payer MEDICARE, SELFPAY | PROVIDERS: PCP Internal Medicine; Visit Provider Nurse Practitioner Family | DX: I50.811 Acute right heart failure (principal); R06.02 Shortness of breath; I44.2 Atrioventricular block, complete; I07.1 Rheumatic tricuspid insufficiency; Z95.0 Presence of cardiac pacemaker | CPT/HCPCS: 99212 ==

== ENCOUNTER 2020-11-13 09:34 | Emergency (ER) | payer MEDICARE, SELFPAY ==
[2020-11-13] VITALS (7 sets, daily range): BP systolic 105–129; BP diastolic 49–70; PULSE 58–69; RESP 12–20; TEMP 36.7–36.8; O2SAT 94–99; BMI 25.7
--- NOTE | ~2020-11-13 | CT_ITS ---
EXAMINATION: CT HEAD WITHOUT CONTRAST CLINICAL INFORMATION: Fall. Dizziness. COMPARISON: None TECHNIQUE: Contiguous axial imaging was performed from the skull base to vertex without intravenous administration of contrast. This CT examination was performed using dose optimization techniques as appropriate, variously including the following: *Automated exposure control *Adjustment of mA and/or kV according to patient size (this includes techniques or standardized protocols for targeted exams where dose is matched to indication/reason for exam; i.e. extremities or head) *Use of iterative reconstruction technique DLP: 972 mGy-cm FINDINGS: There is no evidence of an extra-axial collection. There is no evidence of intra-axial or extra-axial hemorrhage. The ventricles and extra-axial CSF spaces are prominent suggestive of generalized atrophy. There is nonspecific periventricular white matter disease. No mass, mass effect or infarct is seen. Review of bone windows is normal. No skull fracture is seen. Visualized paranasal sinuses, mastoid air cells and middle ears are clear. CT/CT head/brain wo con IMPRESSION: Generalized atrophy and nonspecific periventricular white matter disease.
--- NOTE | ~2020-11-13 | XR_ITS ---
EXAMINATION: XR CHEST CLINICAL INFORMATION: Fall. COMPARISON: None TECHNIQUE: Frontal view of the chest was obtained. FINDINGS: The lungs are well-expanded and clear of acute process. The heart size and pulmonary vascularity is normal. There are dual pacer electrodes in right atrium and right ventricle. No gross bony abnormality seen. XR/XR chest 1V IMPRESSION: Unremarkable chest exam.
--- NOTE | ~2020-11-13 | CT_ITS ---
EXAMINATION: CT CERVICAL SPINE WITHOUT CONTRAST CLINICAL INFORMATION: Fall. Dizziness. COMPARISON: None TECHNIQUE: Axial images through the cervical spine without contrast. Sagittal and coronal reconstructions on the technologist workstation were performed. This CT examination was performed using dose optimization techniques as appropriate, variously including the following: *Automated exposure control *Adjustment of mA and/or kV according to patient size (this includes techniques or standardized protocols for targeted exams where dose is matched to indication/reason for exam; i.e. extremities or head) *Use of iterative reconstruction technique DLP: 972 mGy-cm FINDINGS: Bone alignment is normal. No fracture or dislocation is seen. There is degenerative spondylosis and degenerative disc disease from C3-C4 to C7-T1. There are degenerative changes at the C1 dens articulation. Prevertebral soft tissues are normal. There is right carotid calcification. Visualized lung apices are clear. There is are left subclavian pacemaker leads. CT/CT cervical spine wo con IMPRESSION: Degenerative changes of the cervical spine. No fracture or dislocation seen.
--- NOTE | 2020-11-13 09:38 | ED_ITS ---
HPI - Altered Mental Status General Chief Complaint: Fall Stated Complaint: altered mental Time Seen by Provider: 11/13/20 09:38 Source: patient, EMS and old records reviewed Mode of arrival: EMS Limitations: altered mental status History of Present Illness HPI narrative: 85 yo female with PPM, anemia, NICK, depresion, CHF here with worsening confusion - reportedly at 11pm went to go the bathroom last nigh developed dizziness then fell to the ground denies injury but slept on the floor all night after grabbing a pillow and blanket complaint: confusion and weakness Onset (ago): day(s) (last night 11pm) Severity: moderate Consistency of symptoms: constant Context: other (recent admission for NICK and dehydration) Associated symptoms: malaise Treatments prior to arrival: IV fluid (EMS notes initial BP 80 given fluids and responded) Related Data Home Medications Medication Instructions Recorded Confirmed budesonide 2 cap PO DAILY 11/13/20 11/13/20 Previous Rx's Medication Instructions Recorded ropinirole 0.5 mg tablet 0.5 mg PO BID PRN 90 Days #180 tab 08/03/20 atorvastatin 10 mg tablet 10 mg PO DAILY #90 tab 10/16/20 bumetanide 2 mg PO DAILY #30 tab 11/02/20 spironolactone 12.5 mg PO DAILY #30 tab 11/02/20 omeprazole 20 mg PO DAILY #30 cap 11/08/20 Allergies Allergy/AdvReac Type Severity Reaction Status Date / Time cat dander Allergy stuffy Verified 11/10/20 11:40 nose, red eye codeine AdvReac Unknown GI upset Verified 11/10/20 11:40 Review of Systems Review of Systems: Constitutional : No Weight loss, No Fever, No Chills, posFatigue, No Malaise ENT/Mouth : No sore throat, No Rhinorrhea Eyes: No Eye Pain, No Swelling, No Redness Cardiovascular : No Chest Pain, No SOB, No Dyspnea on Exertion, No Orthopnea, No Edema, No Palpitations Respiratory : No Cough, No Sputum, No Wheezing Gastrointestinal : No Nausea, No Vomiting, No Diarrhea, No Constipation, No abdominal Pain, No Hematochezia, No Melena Genitourinary : No Dysuria, No Urinary Frequency, No Hematuria, Musculoskeletal : No joint pain, No Myalgias, No Joint Swelling Skin : No Skin Lesions, No rash Neuro : pos Weakness, No Numbness, pos Dizziness, No Headache Psych : No Anxiety/Panic, No Depression Heme/Lymph: No Bruising, No Bleeding,No Lymphadenopathy Endocrine : No Polyuria, No Polydipsia All other systems reviewed and are negative [facility] Past Medical History Attestation statement: The following information was validated with the patient. Medical History Atrial enlargement, left Cancer of left tibia Congestive heart failure Constipation Depression with anxiety GERD (gastroesophageal reflux disease) High cholesterol History of small bowel obstruction Lipid disorder Lipoma Low hematocrit Mitral valve insufficiency Morbid obesity Osteoarthritis of both hips Osteosarcoma of bone RLS (restless legs syndrome) Tricuspid regurgitation Tubular adenoma of colon Urinary, incontinence, stress female Surgical History H/O hysterectomy with oophorectomy History of appendectomy History of intestinal surgery Hx of colonoscopy S/P cataract surgery S/P placement of cardiac pacemaker (~07/2020) Family History Family History Mother Alzheimers disease Brother Lung cancer Epilepsy Social History Social History Household Members: None Housing: Assisted Living Facility Alcohol intake: current Alcohol intake frequency: does not drink Smoking Status: Never smoker service: No Current occupational status: retired Physical Exam Vital Signs: Vital Signs: Last Vital Signs Temp 98.0 F 11/13/20 09:47 Pulse 60 11/13/20 11:37 Resp 20 11/13/20 11:37 BP 105/56 L 11/13/20 11:37 Pulse Ox 97 11/13/20 11:37 Body Mass Index 25.7 Appearance: Alert. Oriented X3 slow to respond to year. No acute distress. Eyes: Pupils equal, round and reactive to light. ENT: Pharynx normal. Neck: Normal inspection. Neck supple. CVS: Normal heart rate and rhythm. Pulses normal. Respiratory: No respiratory distress. Breath sounds normal. Abdomen: Soft and nontender. Skin: Skin warm and dry. Normal skin color. Normal skin turgor. Extremities: No lower extremity edema. No calf ttp Neuro: Oriented X 3 slow to respond to year. No motor deficit. No sensory deficit. Course Course Course Narrative: troponin flat denies CP/SOB, UA no infection Patient placed in physician observation at 256pm . The indication for observation is that the patient needs more time to see ifher weakness improves or they will need PT/CM placement for STR At this time the patient is well developed well nourished, lungs clear, CV RRR, abd nontender, neuro is intact. signed out pending PT/CM MDM - Altered Mental Status MDM Narrative Medical decision making narrative: 85 yo female with PPM, anemia, NICK, depresion, CHF here with worsening confusion - reportedly at 11pm went to go the bathroom last nigh developed dizziness then fell to the ground denies injury but slept on the floor all night after grabbing a pillow and blanket at this time w ill need labs, CT head/neck, CXR, UA, ortho VS, dispo per results and findings, no CP/SOB Lab Data Result diagrams: 11/13/20 11:27 11/13/20 11:27 Labs: Lab Results 11/13/20 11/13/20 11/13/20 Range/Units 11:26 11:26 11:26 WBC (4.8-10.8) X10*3/uL RBC (4.20-5.50) X10*6/uL Hgb (12.0-16.0) g/dl Hct (37-47) % MCV (80-98) fL MCH (27.0-33.0) pg MCHC (31.0-35.0) g/dl RDW (11.0-16.0) % Plt Count (160-400) X10*3/uL MPV (9.4-12.3) fL Immature Gran % (Auto) (0.0-0.4) % Neut % (Auto) (45-73) % Lymph % (Auto) (20-40) % [place] % (Auto) (2-11) % Eos % (Auto) (0-4) % Baso % (Auto) (0-2) % Lymph # (Auto) (1.2-4.9) X10*3/uL [place] # (Auto) (0.1-1.2) X10*3/uL Eos # (Auto) (0.0-0.4) X10*3/uL Baso # (Auto) (0.0-0.2) X10*3/uL Abs Immat Gran (auto) (0.00-0.03) X10*3/uL Absolute Neuts (auto) (2.0-8.3) X10*3/uL Absolute Nucleated RBC (0.0-0.012) X10*3/uL Nucleated RBC % (auto) (0.0-0.2) /100WBC PT (10.8-13.0) SEC INR (0.9-1.1) APTT (24.1-38.0) SEC Sodium (135-145) mmol/L Potassium (3.3-5.1) mmol/L Chloride (96-108) mmol/L Carbon Dioxide (22-29) mmol/L Anion Gap (12-20) BUN (9-16) mg/dL Creatinine (0.5-1.4) mg/dL Estim Creat Clear Calc Estimated GFR Random Glucose (60-115) mg/dL Lactic Acid 0.9 (0.5-2.0) mmol/L Calcium (8.4-10.2) mg/dL Magnesium 1.8 (1.6-2.6) mg/dL Total Bilirubin 1.3 H (0.0-1.0) mg/dL Direct Bilirubin 0.6 H (0.0-0.5) mg/dL AST 20 (5-31) U/L ALT 16 (0-31) U/L Alkaline Phosphatase 83 (39-117) U/L Total Creatine Kinase (26-140) U/L Troponin I High Sens 30.5 H D (<3.5-17.0) ng/L Total Protein 5.8 L (6.5-8.0) g/dL Albumin 3.8 (3.5-5.0) g/dL Lipase 21 (8-78) U/L Urine Color Urine Appearance Urine pH (5.0-8.0) Ur Specific [place] (1.005-1.025) Urine Protein (NEG-TRACE) MG/DL Urine Glucose (UA) (NEG) MG/DL Urine Ketones (NEG) MG/DL Urine Blood (NEG) Urine Nitrite (NEG) Ur Leukocyte Esterase (NEG) COVID-19 (GURU) (Negative) COVID-19 Clin Com 11/13/20 11/13/20 11/13/20 Range/Units 11:27 11:27 11:27 WBC 6.8 (4.8-10.8) X10*3/uL RBC 4.04 L (4.20-5.50) X10*6/uL Hgb 10.4 L (12.0-16.0) g/dl Hct 34.9 L (37-47) % MCV 86.4 (80-98) fL MCH 25.7 L (27.0-33.0) pg MCHC 29.8 L (31.0-35.0) g/dl RDW 19.3 H (11.0-16.0) % Plt Count 180 (160-400) X10*3/uL MPV 11.0 (9.4-12.3) fL Immature Gran % (Auto) 0.3 (0.0-0.4) % Neut % (Auto) 72.9 (45-73) % Lymph % (Auto) 16.0 L (20-40) % [place] % (Auto) 9.4 (2-11) % Eos % (Auto) 1.0 (0-4) % Baso % (Auto) 0.4 (0-2) % Lymph # (Auto) 1.1 L (1.2-4.9) X10*3/uL [place] # (Auto) 0.6 (0.1-1.2) X10*3/uL Eos # (Auto) 0.1 (0.0-0.4) X10*3/uL Baso # (Auto) 0.0 (0.0-0.2) X10*3/uL Abs Immat Gran (auto) 0.02 (0.00-0.03) X10*3/uL Absolute Neuts (auto) 5.0 (2.0-8.3) X10*3/uL Absolute Nucleated RBC 0.000 (0.0-0.012) X10*3/uL Nucleated RBC % (auto) 0.0 (0.0-0.2) /100WBC PT 13.0 (10.8-13.0) SEC INR 1.1 (0.9-1.1) APTT 31.6 (24.1-38.0) SEC Sodium 142 (135-145) mmol/L Potassium 3.2 L (3.3-5.1) mmol/L Chloride 101 (96-108) mmol/L Carbon Dioxide 33 H (22-29) mmol/L Anion Gap 11 L (12-20) BUN 19 H (9-16) mg/dL Creatinine 1.30 (0.5-1.4) mg/dL Estim Creat Clear Calc 28.3 Estimated GFR 39 Random Glucose 99 (60-115) mg/dL Lactic Acid (0.5-2.0) mmol/L Calcium 8.8 (8.4-10.2) mg/dL Magnesium (1.6-2.6) mg/dL Total Bilirubin (0.0-1.0) mg/dL Direct Bilirubin (0.0-0.5) mg/dL AST (5-31) U/L ALT (0-31) U/L Alkaline Phosphatase (39-117) U/L Total Creatine Kinase 93 (26-140) U/L Troponin I High Sens (<3.5-17.0) ng/L Total Protein (6.5-8.0) g/dL Albumin (3.5-5.0) g/dL Lipase (8-78) U/L Urine Color Urine Appearance Urine pH (5.0-8.0) Ur Specific [place] (1.005-1.025) Urine Protein (NEG-TRACE) MG/DL Urine Glucose (UA) (NEG) MG/DL Urine Ketones (NEG) MG/DL Urine Blood (NEG) Urine Nitrite (NEG) Ur Leukocyte Esterase (NEG) COVID-19 (GURU) (Negative) COVID-19 Clin Com 11/13/20 11/13/20 11/13/20 Range/Units 11:28 13:52 14:38 WBC (4.8-10.8) X10*3/uL RBC (4.20-5.50) X10*6/uL Hgb (12.0-16.0) g/dl Hct (37-47) % MCV (80-98) fL MCH (27.0-33.0) pg MCHC (31.0-35.0) g/dl RDW (11.0-16.0) % Plt Count (160-400) X10*3/uL MPV (9.4-12.3) fL Immature Gran % (Auto) (0.0-0.4) % Neut % (Auto) (45-73) % Lymph % (Auto) (20-40) % [place] % (Auto) (2-11) % Eos % (Auto) (0-4) % Baso % (Auto) (0-2) % Lymph # (Auto) (1.2-4.9) X10*3/uL [place] # (Auto) (0.1-1.2) X10*3/uL Eos # (Auto) (0.0-0.4) X10*3/uL Baso # (Auto) (0.0-0.2) X10*3/uL Abs Immat Gran (auto) (0.00-0.03) X10*3/uL Absolute Neuts (auto) (2.0-8.3) X10*3/uL Absolute Nucleated RBC (0.0-0.012) X10*3/uL Nucleated RBC % (auto) (0.0-0.2) /100WBC PT (10.8-13.0) SEC INR (0.9-1.1) APTT (24.1-38.0) SEC Sodium (135-145) mmol/L Potassium (3.3-5.1) mmol/L Chloride (96-108) mmol/L Carbon Dioxide (22-29) mmol/L Anion Gap (12-20) BUN (9-16) mg/dL Creatinine (0.5-1.4) mg/dL Estim Creat Clear Calc Estimated GFR Random Glucose (60-115) mg/dL Lactic Acid (0.5-2.0) mmol/L Calcium (8.4-10.2) mg/dL Magnesium (1.6-2.6) mg/dL Total Bilirubin (0.0-1.0) mg/dL Direct Bilirubin (0.0-0.5) mg/dL AST (5-31) U/L ALT (0-31) U/L Alkaline Phosphatase (39-117) U/L Total Creatine Kinase (26-140) U/L Troponin I High Sens 28.5 H (<3.5-17.0) ng/L Total Protein (6.5-8.0) g/dL Albumin (3.5-5.0) g/dL Lipase (8-78) U/L Urine Color YELLOW Urine Appearance HAZY Urine pH 6.5 (5.0-8.0) Ur Specific [place] 1.020 (1.005-1.025) Urine Protein NEG (NEG-TRACE) MG/DL Urine Glucose (UA) NEG (NEG) MG/DL Urine Ketones NEG (NEG) MG/DL Urine Blood NEG (NEG) Urine Nitrite NEG (NEG) Ur Leukocyte Esterase NEG (NEG) COVID-19 (GURU) Negative (Negative) COVID-19 Clin Com See Note ECG Data ECG #1: Attestation: I personally reviewed and interpreted this ECG as follows: ECG interpretation date: 11/13/20 ECG interpretation time: 09:58 Interpretation: Rate: 63 Rhythm: continuous atrial paced rhythm Altheimer: left wide QRS complex. ST T wave : nonspecific, no SEMAJ qTC: normal prior studies: no acute ischemia The study has been interpreted contemporaneously by me. . Discharge Plan Discharge Clinical Impression: Dizziness, Fall Prescriptions: No Action ropinirole 0.5 mg tablet 0.5 mg PO BID PRN (Reason: restless leg) 90 Days Qty: 180 RF: 0 atorvastatin 10 mg tablet 10 mg PO DAILY Qty: 90 RF: 0 omeprazole 20 mg capsule,delayed release(DR/EC) 20 mg PO DAILY Qty: 30 RF: 0 budesonide 3 mg capsule,delayed,extend.release 2 cap PO DAILY RF: 0 spironolactone 25 mg Tablet 12.5 mg PO DAILY Qty: 30 RF: 0 bumetanide 2 mg tablet 2 mg PO DAILY Qty: 30 RF: 0
--- NOTE | 2020-11-13 09:39 | ECG_ITS ---
Test Reason : FALL Blood Pressure : / mmHG Vent. Rate : 063 BPM Atrial Rate : 138 BPM P-R Int : 190 ms QRS Dur : 144 ms QT Int : 510 ms P-R-T Axes : 000 -79 075 degrees QTc Int : 521 ms AV dual-paced rhythm Abnormal ECG When compared with ECG of 28-OCT-2020 13:31, Electronic atrial pacemaker has replaced Electronic ventricular pacemaker Referred By: Delaney Lowe Electronically Signed By:ALDEN DEL CID MD
[2020-11-13] MEDS: 0.9 % Sodium Chloride 500 ML IV (10:41)
[2020-11-13 11:37] LABS: MANUAL DIFF FLAG NO
[2020-11-13 11:39] LABS: Basophils Percent Auto 0.4 % (0-2); Eosinophils Absolute Auto 0.1 X10*3/uL (0.0-0.4); Hematocrit 34.9 % (37-47); Hemoglobin 10.4 g/dl (12.0-16.0); Imm Gran Abs Auto 0.02 X10*3/uL (0.00-0.03); Imm Gran Pct Auto 0.3 % (0.0-0.4); Lymphocytes Absolute Auto 1.1 X10*3/uL (1.2-4.9); Mean Corpuscular HGB Conc 29.8 g/dl (31.0-35.0); Mean Corpuscular Hemoglobin 25.7 pg (27.0-33.0); Mean Corpuscular Volume 86.4 fL (80-98); Monocytes Absolute Auto 0.6 X10*3/uL (0.1-1.2); Monocytes Percent Auto 9.4 % (2-11); Neutrophils Percent Auto 72.9 % (45-73); Platelet Count 180 X10*3/uL (160-400); Red Blood Count 4.04 X10*6/uL (4.20-5.50); Red Cell Distribution Width 19.3 % (11.0-16.0); White Blood Count 6.8 X10*3/uL (4.8-10.8)
[2020-11-13 11:46] LABS: INTERNATIONAL NORM RATIO 1.1 (0.9-1.1)
[2020-11-13 11:49] LABS: Partial Thromboplastin Time 31.6 SEC (24.1-38.0)
[2020-11-13 11:59] LABS: COVID-19 Test Negative (Negative)
[2020-11-13 12:00] LABS: Lactic Acid 0.9 mmol/L (0.5-2.0)
[2020-11-13 12:05] LABS: Anion Gap 11 (12-20); Blood Urea Nitrogen 19 mg/dL (9-16); Calcium 8.8 mg/dL (8.4-10.2); Carbon Dioxide 33 mmol/L (22-29); Chloride 101 mmol/L (96-108); Creatinine Clr Calc Pharmacy 28.3; Estimated Glomerular Filt Rate 39; Glucose Random 99 mg/dL (60-115); Potassium 3.2 mmol/L (3.3-5.1); Sodium 142 mmol/L (135-145)
[2020-11-13 12:07] LABS: Alanine Aminotransferase 16 U/L (0-31); Albumin Level 3.8 g/dL (3.5-5.0); Alkaline Phosphatase 83 U/L (39-117); Aspartate Amino Transferase 20 U/L (5-31); Bilirubin Direct 0.6 mg/dL (0.0-0.5); Bilirubin Total 1.3 mg/dL (0.0-1.0); Lipase 21 U/L (8-78); Magnesium 1.8 mg/dL (1.6-2.6); Total Protein 5.8 g/dL (6.5-8.0)
[2020-11-13 12:12] LABS: Troponin-I High Sensitivity 30.5 ng/L (<3.5-17.0)
[2020-11-13 14:39] LABS: Troponin-I High Sensitivity 28.5 ng/L (<3.5-17.0)
[2020-11-13 14:49] LABS: Appearance Urine HAZY; Color Urine YELLOW; Glucose Urine UA NEG (NEG); Leukocyte Esterase Urine NEG (NEG); Nitrite Urine NEG (NEG); PH 6.5 (5.0-8.0); Urine Blood NEG (NEG); Urine Ketones NEG (NEG); Urine Protein NEG (NEG-TRACE)
--- NOTE | 2020-11-13 14:58 | PC.NURSE ---
PT AT BEDSIDE
--- NOTE | 2020-11-13 15:56 | MHC.CM.ED ---
Received notification from CARI Matthew that patient's daughter feels patient will need STR. Work up essentially negative. Physical therapy eval completed. Short term rehab is recommended. Attempted to speak with patient's daughter/HCP Kellee via telephone at [phone]. Left message requesting return telephone call. Continue to monitor for d/c needs.
--- NOTE | 2020-11-13 16:21 | MHC.CM.ED ---
Addendum entered by Tamar Rogers 11/13/20 16:24: Patient has received both Pfizer vaccines. Her 2nd one was on 10/02. Original Note: Met with patient in regards to discharge planning. Patient lives alone, ambulates with a walker/cane and is active with [facility]. PCP verified as Dr Whitney. HCP verified to be on file. Explained physical therapy is recommending STR. Patient originally declining need for short term rehab. However, has decided it would be appropriate so that she can safely return home. List of facilities provided to patient from [facility]. Patient will go over list and provide Case Management with 2 facility choices. Patient's daughter, Kellee returned t/w's telephone call. Kellee is happy to hear patient is agreeable to rehab and is requesting referrals be made to all 4 [facility]. Referral made via [employer]. Due to the time of the day, it is anticipated patient will be here overnight. Continue to monitor for d/c needs.
--- NOTE | 2020-11-13 17:49 | MHC.CM.ED ---
[facility] offered bed and pt and daughter accepted. Denise Burroughs called. Will put in for insurance auth. [employer] open tomorrow. Hoping for auth tomorrow. CM spoke with daughter via telephone. Discussed plan of care. CM to follow for d/c needs.
[2020-11-13] MEDS: Spironolactone 25 MG TABLET 12.5 MG PO (21:23)
[2020-11-13] MEDS: Omeprazole 20 MG CAPSULE.DR PO (21:23)
[2020-11-13] MEDS: Bumetanide 1 MG TABLET 2 MG PO (21:23)
[2020-11-13] MEDS: Atorvastatin Calcium 10 MG TABLET PO (21:23)
--- NOTE | 2020-11-13 22:59 | PC.NURSE ---
REPORT FROM RAFAEL ALCALA. PLAN OF CARE FOR PATIENT IS AWAITING INSURANCE AUTH FOR PATIENT TO BE ACCEPTED AT [facility]. PATIENT IS RESTING WITH EYES CLOSED, NO DISTRESS NOTED AT THIS TIME.
[2020-11-14] VITALS: PULSE 84; RESP 16
--- NOTE | 2020-11-14 00:48 | PC.NURSE ---
patient having bed changed after having an episode of incontinence while sleeping. complete bed change. patient is resting comfortably no distress noted.
[2020-11-14 06:00] VITALS: PULSE 61; RESP 16; O2SAT 97
[2020-11-14] MEDS: Bumetanide 1 MG TABLET 2 MG PO (08:52)
[2020-11-14] MEDS: Omeprazole 20 MG CAPSULE.DR PO (08:52)
[2020-11-14 08:53] VITALS: BP 110/60
[2020-11-14] MEDS: Spironolactone 25 MG TABLET 12.5 MG PO (08:53)
--- NOTE | 2020-11-14 10:59 | PC.NURSE ---
patient sheets changed. nydia replaced.
[2020-11-14 12:42] VITALS: BP 104/67; PULSE 61; RESP 16; TEMP 36.8; O2SAT 98
--- NOTE | 2020-11-14 13:23 | MHC.CM.ED ---
Pt has been accepted to [facility] and has obtained [employer] insurance auth for transfer: [facility] to transport pt today at 4pm. Dtr Kellee called with update: pt aware and in agreement with d/c plan.
--- NOTE | 2020-11-14 14:41 | PC.NURSE ---
pt ate 100% of lunch.
[2020-11-14 14:51] VITALS: BP 116/56; PULSE 64; RESP 18; TEMP 37.1; O2SAT 97
--- NOTE | 2020-11-14 15:13 | PC.NURSE ---
[phone][facility]
== END 2020-11-14 16:26 | disposition skilled nursing facility (03) ==
LOC: HO.ED 09:45
PROVIDERS: Emergency Provider Emergency Medicine
DX: S09.90XA Unspecified injury of head, initial encounter (principal); R42 Dizziness and giddiness; R53.81 Other malaise; M54.2 Cervicalgia; W01.0XXA Fall on same level from slipping, tripping and stumbling without subsequent striking against object, initial encounter; Y93.9 Activity, unspecified; Y92.002 Bathroom of unspecified non-institutional (private) residence as the place of occurrence of the external cause; Y99.9 Unspecified external cause status; Z20.822 Contact with and (suspected) exposure to COVID-19; Z79.899 Other long term (current) drug therapy
CPT/HCPCS: 36415; 70450; 71045; 72125; 80048; 80076; 81003; 82550; 83605; 83690; 83735; 84484; 85025; 85610; 85730; 87635; 93005; 97161; 99285

== ENCOUNTER → 2020-12-07 13:23 | Outpatient (BNVA) | payer MEDICARE, SELFPAY | PROVIDERS: PCP Internal Medicine; Referring Provider Internal Medicine; Visit Provider Internal Medicine Cardiovascular Disease | DX: Z45.018 Encounter for adjustment and management of other part of cardiac pacemaker (principal); I48.0 Paroxysmal atrial fibrillation; I50.9 Heart failure, unspecified; I44.2 Atrioventricular block, complete | CPT/HCPCS: 99212 ==

== ENCOUNTER → 2020-12-21 14:16 | Outpatient (REF) | payer MEDICARE, SELFPAY ==
--- NOTE | 2020-12-21 14:20 | HM_ITS ---
REQUESTING PROVIDER: Inder Martini MD. INDICATION FOR THE TEST: Paroxysmal atrial fibrillation. INTERPRETATION: The patient was hooked up to cardiac event monitor from 12/21/2020 to 01/23/2021 for a total period of 33 days. FINDINGS: The patient's baseline rhythm is a dual-chamber paced rhythm with atrial and ventricular paced rhythm with intermittent sinus rhythm with heart rate varying from 51 beats per minute to 85 beats per minute. There were rare isolated PACs and atrial couplets noted. Rare isolated PVCs noted. There was no atrial fibrillation noted. The patient reported multiple symptoms including dizziness and palpitations and shortness of breath with fluttering, which all correlated with dual chamber paced rhythm. During episodes of PACs and PVCs, the patient did not have any symptoms. CONCLUSION: 1. Baseline rhythm was dual AV-paced rhythm with intermittent sinus rhythm. 2. Rare PACs and PVCs. 3. The patient reported events correlated with baseline dual paced rhythm. Morgan Bragg MD NRS/MODL / [id number]
== END ==
LOC: HO.CARD 14:16
PROVIDERS: Visit Provider Internal Medicine Cardiovascular Disease
DX: I48.0 Paroxysmal atrial fibrillation (principal)
CPT/HCPCS: 93270

== ENCOUNTER 2021-03-03 14:58 | Outpatient (REF) | payer MEDICARE, SELFPAY ==
[2021-03-03 17:04] LABS: Hematocrit 38.4 % (37-47); Hemoglobin 12.1 g/dl (12.0-16.0); Mean Corpuscular HGB Conc 31.5 g/dl (31.0-35.0); Mean Corpuscular Hemoglobin 29.1 pg (27.0-33.0); Mean Corpuscular Volume 92.3 fL (80-98); Mean Platelet Volume 10.8 fL (9.4-12.3); Platelet Count 184 X10*3/uL (160-400); Red Blood Count 4.16 X10*6/uL (4.20-5.50); Red Cell Distribution Width 13.4 % (11.0-16.0); White Blood Count 6.6 X10*3/uL (4.8-10.8)
== END 2021-03-03 14:59 | disposition home or self-care (01) ==
LOC: HO.LAB 14:58
PROVIDERS: PCP Internal Medicine; Referring Provider Internal Medicine; Visit Provider Internal Medicine Cardiovascular Disease
DX: I45.9 Conduction disorder, unspecified (principal); R06.02 Shortness of breath
CPT/HCPCS: 36415; 85027; 99212

== ENCOUNTER 2021-03-15 13:49 | Outpatient (REF) | payer MEDICARE, SELFPAY ==
[2021-03-15 15:05] LABS: MANUAL DIFF FLAG NO
[2021-03-15 15:07] LABS: Basophils Percent Auto 0.7 % (0-2); Eosinophils Absolute Auto 0.2 X10*3/uL (0.0-0.4); Eosinophils Percent Auto 3.5 % (0-4); Hematocrit 36.2 % (37-47); Hemoglobin 11.5 g/dl (12.0-16.0); Imm Gran Abs Auto 0.02 X10*3/uL (0.00-0.03); Imm Gran Pct Auto 0.3 % (0.0-0.4); Lymphocytes Absolute Auto 1.5 X10*3/uL (1.2-4.9); Lymphocytes Percent Auto 25.4 % (20-40); Mean Corpuscular HGB Conc 31.8 g/dl (31.0-35.0); Mean Corpuscular Hemoglobin 29.4 pg (27.0-33.0); Mean Corpuscular Volume 92.6 fL (80-98); Mean Platelet Volume 10.6 fL (9.4-12.3); Monocytes Absolute Auto 0.5 X10*3/uL (0.1-1.2); Neutrophils Absolute Auto 3.7 X10*3/uL (2.0-8.3); Neutrophils Percent Auto 61.1 % (45-73); Platelet Count 151 X10*3/uL (160-400); Red Blood Count 3.91 X10*6/uL (4.20-5.50); Red Cell Distribution Width 13.2 % (11.0-16.0)
[2021-03-15 15:26] LABS: Alanine Aminotransferase 8 U/L (0-31); Albumin Level 4.1 g/dL (3.5-5.0); Alkaline Phosphatase 88 U/L (39-117); Anion Gap 15 (12-20); Aspartate Amino Transferase 18 U/L (5-31); Bilirubin Total 0.9 mg/dL (0.0-1.0); Blood Urea Nitrogen 30 mg/dL (9-16); Calcium 9.2 mg/dL (8.4-10.2); Carbon Dioxide 28 mmol/L (22-29); Chloride 103 mmol/L (96-108); Estimated Glomerular Filt Rate 32; Glucose Random 99 mg/dL (60-115); Iron 63 mcg/dL (30-160); Percent Iron Saturation 19 % (15-50); Potassium 3.6 mmol/L (3.3-5.1); Sodium 142 mmol/L (135-145); Total Iron Binding Capacity 328 mcg/dL (228-428); Total Protein 6.6 g/dL (6.5-8.0); Unsaturated Iron Binding 265 ug/dL
[2021-03-15 15:49] LABS: Ferritin 31 ng/mL (10-250); Vitamin D 25-OH Total 32.3 ng/mL (>30)
[2021-03-15 16:09] LABS: Folate > 20.0 ng/mL (> or = 4.0); Vitamin B12 482 pg/mL (200-900)
[2021-03-16 09:07] LABS: HBS Num1 34.03 mIU/mL (0-7.99); HBc Num1 0.27 S/CO (0.00-0.79); HBsAGNum1 0.21 S/CO (0.00-0.99); Hepatitis B Core Antibody Nonreactive (Nonreactive); Hepatitis B Surface Antigen Negative (Negative); ~HepC Num1 0.08 S/CO (0.00-0.79); ~Hepatitis B Surface Antibody REACTIVE (Nonreactive); ~Hepatitis C Antibody Nonreactive (Nonreactive)
[2021-03-19 08:10] LABS: Hepatitis A Antibody IgM 0.53 Index (0-0.79); ~Hepatitis A Antibody IgM Nonreactive (Nonreactive)
[2021-03-22 14:05] LABS: TS Negative Control Passed; TS Panel A 0; TS Panel B 0; TS Positive Control Passed; TSpotTB Negative (SeeBelow)
== END 2021-03-15 13:50 | disposition home or self-care (01) ==
LOC: HO.LAB 13:49
PROVIDERS: PCP Internal Medicine; Referring Provider Internal Medicine; Visit Provider Internal Medicine Gastroenterology
DX: K51.90 Ulcerative colitis, unspecified, without complications (principal); K75.81 Nonalcoholic steatohepatitis (NASH); Z87.891 Personal history of nicotine dependence
CPT/HCPCS: 36415; 80053; 82306; 82607; 82728; 82746; 83540; 85025; 86481; 86704; 86706; 86709; 86803; 87340; 99212

== ENCOUNTER 2021-03-16 10:30 | Outpatient (REF) | payer MEDICARE, SELFPAY ==
[2021-03-21 17:57] LABS: Calprotectin, Fecal 755 mcg/g
== END 2021-03-16 10:31 | disposition home or self-care (01) ==
LOC: HO.LNP 10:30
PROVIDERS: Visit Provider Internal Medicine Gastroenterology
DX: K51.90 Ulcerative colitis, unspecified, without complications (principal)
CPT/HCPCS: 83993

== ENCOUNTER 2021-03-23 13:11 | Outpatient (REF) | payer MEDICARE, SELFPAY ==
[2021-03-23 14:17] LABS: Anion Gap 14 (12-20); Blood Urea Nitrogen 22 mg/dL (9-16); Carbon Dioxide 30 mmol/L (22-29); Chloride 101 mmol/L (96-108); Estimated Glomerular Filt Rate 31; Potassium 3.8 mmol/L (3.3-5.1); Sodium 141 mmol/L (135-145)
== END 2021-03-23 13:12 | disposition home or self-care (01) ==
LOC: HO.HMGCLDS 13:11
PROVIDERS: PCP Internal Medicine; Visit Provider Internal Medicine
DX: R74.8 Abnormal levels of other serum enzymes (principal)
CPT/HCPCS: 36415; 80051; 82565; 84520

== ENCOUNTER 2021-05-03 15:18 | Outpatient (REF) | payer MEDICARE, SELFPAY ==
--- NOTE | 2021-05-03 16:45 | MHC.AU.ANR ---
Adult Audiological Evaluation Date of Visit: 05/03/21 Reason for Appointment: Audiological evaluation due to concern for decreased hearing. Her daughter notes that she often doesn't hear what is said, and instead of asking for repetition she pretends she heard and understood. Ms. Cortes notes that she doesn't always hear and understand, but feels it is embarrassing to ask for repetition. She notes that she has trouble when people are wearing masking or when people are soft spoken. Does patient feel they have a hearing loss?: Yes If Yes, Which Ear?: Both Ears Has hearing been tested previously?: No Hearing Handicap Inventory: HHIE SCORE: 22 Based on HHIE score, patient has: Mild to moderate perceived hearing handicap Ear History: Family History of Hearing Loss?: Yes: Father History of occupational noise exposure?: Yes: Worked at [employer] for 5-6 years Medical History: Medical History: Cancer, Heart Problems Medical History (Other): Had a malignant tumor in her left leg. Has a pacemaker Allergies: Cat dander, codeine Medication List: Omeprazole 20 mg, Atorvastatin 10 mg, Ropinirole 5 mg, Bumetanide 2 mg, Spironolactone 25 mg, refresh dry eye drops 2x daily Otoscopy: Right Ear: Completely occluding cerumen. Patient refused cerumen removal today. Left Ear: Completely occluding cerumen. Patient refused cerumen removal today. Tympanometry: Tympanometry performed due to: To determine if cerumen blockage is fully occluding canal(s) Right Ear: Non-compliant Middle Ear System (Type B), Small ear canal volume and non-compliant, consistent with occlusion Left Ear: Normal Middle Ear System (Type A) Hearing Evaluation: Transducer(s) Used: Insert Earphones, Bone Conduction Method: Conventional Audiometry Stimuli Used: Pure Tones Right Ear: Description of Hearing: Mild sloping to profound mixed hearing loss from 250-8000 Hz. Air bone gaps of 20-30 dBHL at 500-4000 Hz. Left Ear: Description of Hearing: Normal hearing at 250 Hz, sloping to a mild to moderately-severe sensorineural hearing loss from 500-8000 Hz. Speech Recognition Threshold (SRT): Method Used: Monitored Live Voice Stimuli Used: Spondee Words Right Ear: 65 dBHL Left Ear: 30 dBHL Word Discrimination: Method: Recorded Lists Word Lists Used: NU-6 Right Ear: 52% at 90 dBHL Left Ear: 100% at 70 dBHL Interpretation of Results: Mixed hearing loss in the right ear is likely due to the presence of completely occluding cerumen in the right canal. Right masked bone conduction scores are symmetrical with left ear thresholds. Recommendations: Audiological re-evaluation in one year. Trial with amplification is recommended. Follow-up with physician for cerumen removal. Given bone conduction thresholds in both ears in the hearing loss range, Ms. Cortes is considered a candidate for amplification. Discussed hearing aids briefly. Advised that if she would like to pursue hearing aids, it is recommended she have her hearing re-tested following cerumen removal. Recommend she use earwax softening/removal drops to aid in wax removal. Recommended that she contact her insurance in regards to hearing aid benefits. She was welcomed to return if she decides she would like to pursue hearing aids through our clinic. Diagnosis: Primary Diagnosis: H90.3 Bilateral Sensorineural Hearing Loss Secondary Diagnosis: H61.23 Impacted Cerumen, Bilateral Services Performed: Services Performed: Comprehensive Audiological Evaluation (CPT 22008) Tympanometry (CPT 87455) Signature: Provider: David Hernández, CCC-A
== END 2021-05-03 15:19 | disposition home or self-care (01) ==
LOC: HO.SH 15:18
PROVIDERS: Visit Provider Internal Medicine
DX: H90.3 Sensorineural hearing loss, bilateral (principal); H61.23 Impacted cerumen, bilateral
CPT/HCPCS: 92557; 92567

== ENCOUNTER 2021-05-13 12:24 | Outpatient (REF) | payer MEDICARE, SELFPAY ==
--- NOTE | ~2021-05-13 | XR_ITS ---
EXAMINATION: LEFT FEMUR AND LEFT KNEE CLINICAL INFORMATION: Pain COMPARISON: Hip of November 15, 2011 and knee of October 18, 2010 TECHNIQUE: AP and lateral views of the left femur. 4 views of the left knee. FINDINGS: There is no evidence of acute fracture or dislocation of the left femur. Left hip joint space maintained. No destructive lytic or sclerotic lesions are seen. 4 views of the left knee demonstrate chondrocalcinosis. There is significant degenerative change of the medial joint space compartment with sclerosis and spurring and some articular irregularity. No acute fractures identified. No dislocation is seen. There is mild spurring at the patellofemoral joint. There is a small left knee effusion. Vascular calcifications present. XR/XR knee LT 4V IMPRESSION: No evidence of acute fracture, dislocation, or suspicious bony lesion involving the left femur. Degenerative change of the left knee joint most significant at the medial joint space compartment. Chondrocalcinosis. A small left knee effusion.
--- NOTE | ~2021-05-13 | XR_ITS ---
EXAMINATION: LEFT FEMUR AND LEFT KNEE CLINICAL INFORMATION: Pain COMPARISON: Hip of November 15, 2011 and knee of October 18, 2010 TECHNIQUE: AP and lateral views of the left femur. 4 views of the left knee. FINDINGS: There is no evidence of acute fracture or dislocation of the left femur. Left hip joint space maintained. No destructive lytic or sclerotic lesions are seen. 4 views of the left knee demonstrate chondrocalcinosis. There is significant degenerative change of the medial joint space compartment with sclerosis and spurring and some articular irregularity. No acute fractures identified. No dislocation is seen. There is mild spurring at the patellofemoral joint. There is a small left knee effusion. Vascular calcifications present. XR/XR femur LT 2V IMPRESSION: No evidence of acute fracture, dislocation, or suspicious bony lesion involving the left femur. Degenerative change of the left knee joint most significant at the medial joint space compartment. Chondrocalcinosis. A small left knee effusion.
== END 2021-05-13 12:25 | disposition home or self-care (01) ==
LOC: HO.HMGCX 12:24
PROVIDERS: PCP Internal Medicine; Visit Provider Nurse Practitioner Family
DX: M25.562 Pain in left knee (principal); M89.8X5 Other specified disorders of bone, thigh
CPT/HCPCS: 73552; 73564

== ENCOUNTER 2021-06-22 13:54 | Outpatient (REF) | payer MEDICARE, SELFPAY ==
[2021-06-22 16:58] LABS: Alanine Aminotransferase 14 U/L (0-31); Albumin Level 4.4 g/dL (3.5-5.0); Alkaline Phosphatase 104 U/L (39-117); Anion Gap 15 (12-20); Aspartate Amino Transferase 20 U/L (5-31); Bilirubin Total 0.8 mg/dL (0.0-1.0); Blood Urea Nitrogen 20 mg/dL (9-16); Calcium 9.7 mg/dL (8.4-10.2); Carbon Dioxide 31 mmol/L (22-29); Chloride 98 mmol/L (96-108); Estimated Glomerular Filt Rate 38; Glucose Random 120 mg/dL (60-115); Potassium 3.8 mmol/L (3.3-5.1); Sodium 140 mmol/L (135-145); Total Protein 7.4 g/dL (6.5-8.0)
== END 2021-06-22 13:55 | disposition home or self-care (01) ==
LOC: HO.HMGCLDS 13:54
PROVIDERS: PCP Internal Medicine; Visit Provider Internal Medicine
DX: R79.89 Other specified abnormal findings of blood chemistry (principal); E78.9 Disorder of lipoprotein metabolism, unspecified; G25.81 Restless legs syndrome; K21.9 Gastro-esophageal reflux disease without esophagitis; N28.9 Disorder of kidney and ureter, unspecified
CPT/HCPCS: 36415; 80053

== ENCOUNTER → 2021-07-16 10:44 | Outpatient (BNVA) | payer MEDICARE, SELFPAY | PROVIDERS: PCP Internal Medicine; Visit Provider Internal Medicine Gastroenterology | DX: K51.90 Ulcerative colitis, unspecified, without complications (principal); Z87.19 Personal history of other diseases of the digestive system | CPT/HCPCS: Q3014 ==

== ENCOUNTER → 2021-10-08 08:51 | Outpatient (BNVA) | payer MEDICARE, SELFPAY | PROVIDERS: PCP Internal Medicine; Referring Provider Internal Medicine; Visit Provider Internal Medicine Gastroenterology | CPT/HCPCS: Q3014 ==

== ENCOUNTER → 2022-02-28 14:39 | Outpatient (BNVA) | payer MEDICARE, SELFPAY | PROVIDERS: PCP Internal Medicine; Visit Provider Internal Medicine Cardiovascular Disease | DX: Z86.79 Personal history of other diseases of the circulatory system (principal); Z95.0 Presence of cardiac pacemaker | CPT/HCPCS: 93005 ==

== ENCOUNTER → 2022-05-04 14:36 | Outpatient (BNVA) | payer MEDICARE, SELFPAY | PROVIDERS: PCP Internal Medicine; Referring Provider Internal Medicine; Visit Provider Internal Medicine Cardiovascular Disease | DX: I50.9 Heart failure, unspecified (principal); I44.1 Atrioventricular block, second degree; R06.02 Shortness of breath | CPT/HCPCS: 93005; 99212 ==

== ENCOUNTER 2022-05-09 15:18 | Outpatient (REF) | payer MEDICARE, SELFPAY ==
[2022-05-09 16:23] LABS: Iron 25 mcg/dL (30-160); Percent Iron Saturation 7 % (15-50); Total Iron Binding Capacity 351 mcg/dL (228-428); Unsaturated Iron Binding 326 ug/dL
[2022-05-09 16:44] LABS: Ferritin 119 ng/mL (10-250)
== END 2022-05-09 15:19 | disposition home or self-care (01) ==
LOC: HO.LAB 15:18
PROVIDERS: PCP Internal Medicine; Visit Provider Internal Medicine Cardiovascular Disease
DX: D64.9 Anemia, unspecified (principal)
CPT/HCPCS: 36415; 82728; 83540

== ENCOUNTER 2022-06-01 13:09 | Outpatient (REF) | payer MEDICARE, SELFPAY ==
[2022-06-01 16:52] LABS: Basophils Absolute Auto 0.1 X10*3/uL (0.0-0.2); Basophils Percent Auto 1.7 % (0-2); Eosinophils Absolute Auto 0.1 X10*3/uL (0.0-0.4); Eosinophils Percent Auto 3.9 % (0-4); Hematocrit 40.2 % (37.0-47.0); Hemoglobin 12.6 g/dl (12.0-16.0); Imm Gran Abs Auto 0.07 X10*3/uL (0.00-0.03); Imm Gran Pct Auto 1.9 % (0.0-0.4); Lymphocytes Absolute Auto 1.1 X10*3/uL (1.2-4.9); Lymphocytes Percent Auto 29.4 % (20-40); MANUAL DIFF FLAG SCAN; Mean Corpuscular HGB Conc 31.3 g/dl (31.0-35.0); Mean Corpuscular Hemoglobin 31.1 pg (27.0-33.0); Mean Corpuscular Volume 99.3 fL (80.0-98.0); Mean Platelet Volume 12.5 fL (9.4-12.3); Monocytes Absolute Auto 0.4 X10*3/uL (0.1-1.2); Monocytes Percent Auto 10.8 % (2-11); Neutrophils Absolute Auto 1.9 x10*3/uL (2.0-8.3); Neutrophils Percent Auto 52.3 % (45-73); PLT CLUMP 1; Red Blood Count 4.05 X10*6/uL (4.20-5.50); Red Cell Distribution Width 13.2 % (11.0-16.0); SCAN SMEAR FLAG 1
[2022-06-01 17:02] LABS: White Blood Count 3.6 X10*3/uL (4.8-10.8)
[2022-06-01 17:08] LABS: SLIDE REVIEW VERIFIED
[2022-06-01 17:12] LABS: Vitamin B12 475 pg/mL (200-900)
[2022-06-01 17:15] LABS: Alanine Aminotransferase 9 U/L (0-31); Alkaline Phosphatase 99 U/L (39-117); Anion Gap 16 (12-20); Aspartate Amino Transferase 21 U/L (5-31); Bilirubin Total 0.7 mg/dL (0.0-1.0); Blood Urea Nitrogen 20 mg/dL (9-16); Calcium 9.1 mg/dL (8.4-10.2); Carbon Dioxide 25 mmol/L (22-29); Chloride 102 mmol/L (96-108); Estimated Glomerular Filt Rate 24; Glucose Random 90 mg/dL (60-115); Potassium 4.8 mmol/L (3.3-5.1); Sodium 138 mmol/L (135-145); TSH reflex Free T4 9.86 uIU/mL (0.32-4.0); Total Protein 6.7 g/dL (6.5-8.0)
[2022-06-01 18:20] LABS: Free T4 (Free Thyroxine) 0.86 ng/dL (0.71-1.85)
[2022-06-03 02:29] LABS: LDL Cholesterol Direct 84 mg/dL (<100)
[2022-06-06 14:42] LABS: Vitamin D 25-OH, D2 <4 ng/mL; Vitamin D 25-OH, D3 24 ng/mL; Vitamin D 25-OH, Total 24 ng/mL (30-100)
== END 2022-06-01 13:10 | disposition home or self-care (01) ==
LOC: HO.HMGCLDS 13:09
PROVIDERS: PCP Internal Medicine; Visit Provider Internal Medicine
DX: D64.9 Anemia, unspecified (principal); E78.9 Disorder of lipoprotein metabolism, unspecified; E61.1 Iron deficiency; K21.9 Gastro-esophageal reflux disease without esophagitis; G25.81 Restless legs syndrome; F33.9 Major depressive disorder, recurrent, unspecified; N28.9 Disorder of kidney and ureter, unspecified; I50.9 Heart failure, unspecified; G47.9 Sleep disorder, unspecified; Z99.89 Dependence on other enabling machines and devices
CPT/HCPCS: 36415; 80053; 82306; 82607; 83721; 84439; 84443; 85025

== ENCOUNTER 2022-06-22 15:03 | Outpatient (REF) | payer MEDICARE, SELFPAY ==
[2022-06-22 17:19] LABS: Alanine Aminotransferase 14 U/L (0-31); Albumin Level 4.3 g/dL (3.5-5.0); Alkaline Phosphatase 88 U/L (39-117); Anion Gap 13 (12-20); Aspartate Amino Transferase 22 U/L (5-31); Bilirubin Direct 0.3 mg/dL (0.0-0.5); Bilirubin Total 0.8 mg/dL (0.0-1.0); Blood Urea Nitrogen 16 mg/dL (9-16); Calcium 9.2 mg/dL (8.4-10.2); Carbon Dioxide 25 mmol/L (22-29); Chloride 107 mmol/L (96-108); Estimated Glomerular Filt Rate 35; Phosphorus 3.6 mg/dL (2.7-4.5); Potassium 4.9 mmol/L (3.3-5.1); Sodium 140 mmol/L (135-145); Thyroid Stimulating Hormone 4.65 uIU/mL (0.32-4.0); Total Protein 6.8 g/dL (6.5-8.0); Uric Acid 5.7 mg/dL (2.4-5.7); Vitamin D 25-OH Total 23.7 ng/mL (>30)
[2022-06-23 17:47] LABS: Calcium (PTHI) 9.3 mg/dL (8.6-10.4); PTHI 163 pg/mL (16-77)
[2022-06-23 22:57] LABS: Complement C3 125 mg/dL
[2022-06-29 12:58] LABS: Prot Elec - Albumin 4.1 g/dL (3.8-4.8); Prot Elec - Alpha1 0.3 g/dL (0.2-0.3); Prot Elec - Alpha2 0.8 g/dL (0.5-0.9); Prot Elec - Beta 1 0.5 g/dL (0.4-0.6); Prot Elec - Beta 2 0.3 g/dL (0.2-0.5); Prot Elec - Gamma 0.8 g/dL (0.8-1.7); Prot Elec - Total Protein 6.8 g/dL (6.1-8.1)
[2022-07-05 12:59] LABS: Neutrophil Cyto Ab Screen P-ANCA POS (NEGATIVE)
== END 2022-06-22 15:04 | disposition home or self-care (01) ==
LOC: HO.HMGCLDS 15:03
PROVIDERS: PCP Internal Medicine; Visit Provider Internal Medicine Nephrology
DX: N28.9 Disorder of kidney and ureter, unspecified (principal); N18.31 Chronic kidney disease, stage 3a
CPT/HCPCS: 36415; 80051; 80076; 82306; 82310; 82550; 82565; 83970; 84100; 84165; 84443; 84520; 84550; 86036; 86037; 86160

== ENCOUNTER 2022-08-16 14:52 | Outpatient (REF) | payer MEDICARE, SELFPAY ==
[2022-08-16 16:55] LABS: Hematocrit 41.5 % (37.0-47.0); Hemoglobin 13.7 g/dl (12.0-16.0); Mean Corpuscular Hemoglobin 29.7 pg (27.0-33.0); Mean Platelet Volume 10.6 fL (9.4-12.3); Platelet Count 178 X10*3/uL (160-400); Red Blood Count 4.61 X10*6/uL (4.20-5.50); Red Cell Distribution Width 12.8 % (11.0-16.0); White Blood Count 6.6 X10*3/uL (4.8-10.8)
[2022-08-16 17:11] LABS: INTERNATIONAL NORM RATIO 1.1 (0.9-1.1); Prothrombin Time 12.4 SEC (10.0-13.1)
[2022-08-16 17:23] LABS: Anion Gap 17 (12-20); Blood Urea Nitrogen 26 mg/dL (9-16); Calcium 9.4 mg/dL (8.4-10.2); Carbon Dioxide 28 mmol/L (22-29); Chloride 97 mmol/L (96-108); Estimated Glomerular Filt Rate 25; Potassium 3.8 mmol/L (3.3-5.1); Sodium 138 mmol/L (135-145); Uric Acid 9.9 mg/dL (2.4-5.7)
[2022-08-16 17:38] LABS: Vitamin D 25-OH Total 23.5 ng/mL (>30)
[2022-08-24 15:45] LABS: Neutrophil Cyto Ab Screen P-ANCA POS (NEGATIVE); P-ANCA Titer 1:40 titer (<1:20)
== END 2022-08-16 14:53 | disposition home or self-care (01) ==
LOC: HO.HMGCLDS 14:52
PROVIDERS: PCP Internal Medicine; Visit Provider Internal Medicine Nephrology
DX: N28.9 Disorder of kidney and ureter, unspecified (principal); N18.31 Chronic kidney disease, stage 3a; R79.9 Abnormal finding of blood chemistry, unspecified
CPT/HCPCS: 36415; 80051; 82306; 82310; 82565; 84520; 84550; 85027; 85610; 86036; 86037

== ENCOUNTER 2022-10-24 13:50 | Outpatient (REF) | payer MEDICARE, SELFPAY ==
[2022-10-24 16:45] LABS: MANUAL DIFF FLAG NO
[2022-10-24 16:50] LABS: Basophils Percent Auto 0.7 % (0-2); Eosinophils Absolute Auto 0.1 X10*3/uL (0.0-0.4); Hematocrit 36.7 % (37.0-47.0); Imm Gran Abs Auto 0.02 X10*3/uL (0.00-0.03); Imm Gran Pct Auto 0.7 % (0.0-0.4); Lymphocytes Absolute Auto 0.5 X10*3/uL (1.2-4.9); Lymphocytes Percent Auto 16.9 % (20-40); Mean Corpuscular HGB Conc 32.7 g/dl (31.0-35.0); Mean Corpuscular Hemoglobin 30.6 pg (27.0-33.0); Mean Corpuscular Volume 93.6 fL (80.0-98.0); Mean Platelet Volume 10.9 fL (9.4-12.3); Monocytes Absolute Auto 0.3 X10*3/uL (0.1-1.2); Monocytes Percent Auto 10.6 % (2-11); Neutrophils Absolute Auto 2.1 x10*3/uL (2.0-8.3); Neutrophils Percent Auto 68.1 % (45-73); Platelet Count 170 X10*3/uL (160-400); Red Blood Count 3.92 X10*6/uL (4.20-5.50); Red Cell Distribution Width 14.6 % (11.0-16.0)
[2022-10-24 16:58] LABS: Anion Gap 12 (12-20); Blood Urea Nitrogen 15 mg/dL (9-16); Calcium 8.4 mg/dL (8.4-10.2); Carbon Dioxide 29 mmol/L (22-29); Chloride 101 mmol/L (96-108); Estimated Glomerular Filt Rate 41; Potassium 3.6 mmol/L (3.3-5.1); Sodium 138 mmol/L (135-145)
[2022-10-24 17:07] LABS: Alanine Aminotransferase 15 U/L (0-31); Albumin Level 3.5 g/dL (3.5-5.0); Alkaline Phosphatase 65 U/L (39-117); Anion Gap 12 (12-20); Aspartate Amino Transferase 22 U/L (5-31); Bilirubin Total 1.5 mg/dL (0.0-1.0); Blood Urea Nitrogen 15 mg/dL (9-16); Calcium 8.3 mg/dL (8.4-10.2); Carbon Dioxide 28 mmol/L (22-29); Chloride 102 mmol/L (96-108); Estimated Glomerular Filt Rate 39; Glucose Random 103 mg/dL (60-115); Potassium 3.6 mmol/L (3.3-5.1); Sodium 138 mmol/L (135-145); Total Protein 5.6 g/dL (6.5-8.0)
[2022-10-24 17:24] LABS: TSH reflex Free T4 1.29 uIU/mL (0.32-4.0)
[2022-10-26 14:22] LABS: Neutrophil Cyto Ab Screen NEGATIVE (NEGATIVE)
== END 2022-10-24 13:51 | disposition home or self-care (01) ==
LOC: HO.HMGCLDS 13:50
PROVIDERS: PCP Internal Medicine; Visit Provider Internal Medicine Nephrology
DX: E78.9 Disorder of lipoprotein metabolism, unspecified (principal); F41.8 Other specified anxiety disorders; E61.1 Iron deficiency; K21.9 Gastro-esophageal reflux disease without esophagitis; F33.9 Major depressive disorder, recurrent, unspecified; N28.9 Disorder of kidney and ureter, unspecified; E03.8 Other specified hypothyroidism; R79.89 Other specified abnormal findings of blood chemistry; N18.31 Chronic kidney disease, stage 3a; I77.82 Antineutrophilic cytoplasmic antibody [ANCA] vasculitis; Z95.0 Presence of cardiac pacemaker
CPT/HCPCS: 36415; 80051; 80053; 82310; 82565; 84443; 84520; 85025; 86036; 86037

== ENCOUNTER → 2022-12-05 12:53 | Outpatient (BNVA) | payer MEDICARE, SELFPAY | PROVIDERS: PCP Internal Medicine; Referring Provider Internal Medicine; Visit Provider Nurse Practitioner Family | DX: Z45.018 Encounter for adjustment and management of other part of cardiac pacemaker (principal); I50.9 Heart failure, unspecified; I48.0 Paroxysmal atrial fibrillation; I44.2 Atrioventricular block, complete; I07.1 Rheumatic tricuspid insufficiency; R60.0 Localized edema | CPT/HCPCS: 99212 ==

== ENCOUNTER → 2023-01-17 15:05 | Outpatient (REF) | payer MEDICARE, SELFPAY ==
--- NOTE | 2023-01-17 15:08 | CA_ITS ---
Transthoracic Echocardiogram Amended Patient (Last, First, Middle): Yahaira Cortes A Gender: Female Date of : 1935 Age: 87 Procedure Date: 01/17/2023 Procedure Type: Transthoracic Echocardiogram Location: OP Height: 162.56 cm Weight: 54.43 kg BSA: 1.57 m2 Heart Rate: 60 bpm BP: 90 / 55 mmHg House Father: ADRIANO Castillo MD: Prabha Guillen AUTO TRANSMISSION SPECIALIST-C [facility] House Supervisor: Morgan Bragg MD Symptoms: R60.0 - Localized edema Study Quality: Fair ECG Rhythm: Ventriculary paced rhythm Conclusions: - 1. Normal LV systolic function with LVEF of 55-60% 2. Mildly enlarged right ventricle with normal systolic function by TAPSE 3. Moderate biatrial enlargement 4. [id number] mitral regurgitation moderate tricuspid regurgitation 5. Normal RV systolic pressure 6. No gross pericardial effusion Findings Left Ventricle Normal left ventricular size, thickness, and systolic function. The visually estimated ejection fraction is between 55-60%. There is paradoxical septal motion consistent with a right ventricular pacemaker. Diastolic function is indeterminate on the basis of available data. Peak GLS is -18.2%, within normal limits. Right Ventricle Mildly increased right ventricular cavity size. There is normal right ventricular systolic function. There is a pacemaker wire seen in the right ventricle. Atria Moderate biatrial enlargement. The left atrium is moderately dilated. There is no evidence of interatrial shunt. A pacemaker wire is identified in the right atrium. Aortic Valve There is mild calcification of the aortic valve. There is no aortic valve stenosis. There is mild aortic valve regurgitation. Mitral Valve There is mild anterior and posterior mitral leaflet thickening. There is mild to moderate mitral valve regurgitation. There is no mitral valve stenosis. Pulmonic Valve The pulmonic valve is likely normal. There is trace pulmonic valve regurgitation. Tricuspid Valve Normal tricuspid valve structure. There is moderate tricuspid valve regurgitation. The right ventricular systolic pressure is normal. The right ventricular systolic pressure is 23 mmHg. Normal right atrial pressure. There is no evidence of pulmonary hypertension. Great Vessels The pulmonary artery was not well visualized. There is no dilatation of the ascending aorta. Venous The inferior vena cava is normal in size and collapses greater than 50% with inspiration. Pericardium/Pleural There is no evidence of pericardial effusion. Prior Study Comparison Changes noted compared to prior study dated: 10/29/2020. Measurements 2D Linear Measurements IVSd: 1.02 0.6-0.9/0.6-1.0 cm LVIDd: 4.29 3.9-5.3/4.2-5.9 cm LVIDd Index: 2.73 2.4-3.2/2.2-3.1 cm/m2 LVIDs: 2.64 2.0-3.6 cm LVPWd: 0.74 0.7-1.1 cm LA Diam: 3.80 2.7-3.8/3.0-4.0 cm LAIDs Index: 2.42 1.5-2.3 cm/m2 LV Mass: 147.85 67-162/88-224 g LV Mass Index: 94.17 43-95/49-115 g/m2 LVOT Diam: 1.80 3.0+(-)1.3 cm 2D Volumes LA Vol: 40.00 2D Systolic Function EF 4C: 55.90 >55% EF 2C: 57.60 >55% EF BiP: 56.40 >55% Mitral Valve MV Pk E: 0.73 MV PK A: 0.58 MV Decel Time: 191.00 E/A: 1.30 E'Lateral: 12.70 E'Medial: 10.30 E/E' Med: 7.00 E/E' Lat: 5.70 PHT: 56.00 MVA PHT: 3.93 Decel [place]: 3.82 Aortic Valve AoV Pk Shamir: 1.24 AoV Mn Shamir: 0.88 AoV VTI: 0.26 AoV Pk Grad: 6.00 Aov Mn Grad: 4.00 RAJI Cont.VTI: 1.65 LVOT LVOT Pk Shamir: 0.86 LVOT Mn Shamir: 0.62 LVOT VTI: 0.17 LVOT Pk Grad: 3.00 LVOT Mn Grad: 2.00 LVOT Diam: 1.80 LVOT Area: 2.54 Diastolic Function MV Pk E: 0.73 MV Pk A: 0.58 E/A: 1.30 E'Medial: 10.30 E/E' Med: 7.00 E' Laterial: 12.70 E/E' Lat: 5.70 Right Ventricle TAPSE (mm): 18.40 TVS' Shamir: 10.60 Tricuspid Valve TR Pk Shamir: 2.24 TR Pk Grad: 20.00 RA Press: 3.00 RVSP: 23.00 Great Vessels Aorta Sinus of Valsalva: 3.10 2.0-3.5 cm Ao Asc: 3.10 2.1-3.4 cm Pulmonary Valve PV Pk Shamir: 1.19 Peak PV Grad: 6.00 Updated in Other Vendor System with Status of Final Morgan Bragg MD electronically signed on 01/18/2023 8:41:35 AM with status of Final
== END ==
LOC: HO.CARD 15:05
PROVIDERS: PCP Internal Medicine; Visit Provider Nurse Practitioner Family
DX: I50.9 Heart failure, unspecified (principal); I07.1 Rheumatic tricuspid insufficiency; R60.0 Localized edema
CPT/HCPCS: 93306; 93356

== ENCOUNTER → 2023-01-17 15:08 | Outpatient (BNV) | payer MEDICARE, SELFPAY | PROVIDERS: PCP Internal Medicine; Visit Provider Internal Medicine Cardiovascular Disease | DX: R60.0 Localized edema (principal) | CPT/HCPCS: 93306 ==

== ENCOUNTER 2023-03-07 16:01 | Outpatient (AMB) | payer MEDICARE, SELFPAY ==
[2023-03-07 16:05] VITALS: BP 114/62; PULSE 61; BMI 23.8
--- NOTE | 2023-03-07 16:05 | A.OFFVIS_ITS ---
Intake Vital Signs 03/07/23 16:05 Height 5 ft 2 in Weight 130 lb BMI 23.8 BP 114/62 Blood Pressure Location Rt brachial Position Sitting Pulse 61 Pulse Source Pulse Oximeter Intake Visit Reasons: 3 month f/u after echo Intake Note: 3 month f/u after echo Allergies cat dander Allergy (Verified 03/07/23 16:11) stuffy nose, red eye codeine Adverse Reaction (Unknown, Verified 03/07/23 16:11) GI upset Medication List - Last Reconciled 03/07/23 by Prabha Guillen, WALL COVERING INSTALLER-C apixaban (Eliquis) 2.5 mg PO BID 90 days atorvastatin 10 mg PO DAILY bumetanide 2 mg PO DAILY cetirizine (Zyrtec) 10 mg PO DAILY PRN levothyroxine 75 mcg PO DAILY 90 days mirtazapine 7.5 mg PO BEDTIME 90 days mirtazapine 7.5 mg PO DAILY omeprazole 20 mg PO DAILY 90 days ropinirole 0.5 mg PO BID PRN 90 days spironolactone 12.5 mg See Protocol PO DAILY 90 days HPI 3 month f/u after echo HPI Details Yahaira is an 87-year-old female with past medical history hyperlipidem ia, paroxysmal AFib, chronic diastolic heart failure, heart block status post pacemaker placement who presents for follow-up. Today she reports that she has been doing generally well since her last visit. She does report that at time she feels her stomach jumping. She says it can do this for up to a half an hour before stopping. She seems forgetful in conversation and is unclear exactly how long this been occurring. She does seem to recall having it in the past and not just recently. No chest discomfort at rest or with activity. No concern shortness of breath, dizziness, presyncope, syncope, falls. No PND, orthopnea. Her prior leg edema has fully resolved after the restart of Aldactone. She tells me she is mostly sedentary and is currently sitting in a wheelchair. Takes all her meds as directed. Not sleeping well as she has restless leg syndrome. Daughter is present. [facility] Medical History Atrial enlargement, left Cancer of left tibia Congestive heart failure Constipation Depression with anxiety GERD (gastroesophageal reflux disease) High cholesterol History of small bowel obstruction Lipid disorder Lipoma Low hematocrit Mitral valve insufficiency Morbid obesity Osteoarthritis of both hips Osteosarcoma of bone RLS (restless legs syndrome) Tricuspid regurgitation Tubular adenoma of colon Urinary, incontinence, stress female Surgical History H/O hysterectomy with oophorectomy History of appendectomy History of intestinal surgery Hx of colonoscopy S/P cataract surgery S/P placement of cardiac pacemaker (~07/2020) Family History Mother Alzheimers disease Brother Lung cancer Epilepsy Social History Household Members: None Housing: Assisted Living Facility Do you presently have visiting nurse or other home services: No ([facility]) Alcohol intake: current Alcohol intake frequency: does not drink Patient Tobacco Use Status: Former Tobacco user Quit Date: 50 years ago Years Smoked: 5 e-Cigarette/Vaping Use: Never Used service: No Current occupational status: retired Cognitive needs: No Hearing needs: No Vision needs: Yes Review of Systems Const All systems reviewed & are unremarkable except as noted in HPI and below Card Denies chest pain and Reports dyspnea on exertion Resp Reports dyspnea on exertion GI Details: Jumping sensation in abdomen Psych Details: Restless legs at night Reports abnormal sleep pattern Physical Exam Const General: cooperative, healthy appearing, comfortable and no acute distress Orientation/consciousness: patient oriented x3 Neck Neck: Yes normal visual inspection Chest Other: pacer sight benign Resp Effort & Inspection: normal respiratory effort Auscultation: clear to auscultation bilaterally, no crackles, no rales, no rhonchi and no wheezes Cardio Jugular venous distension: no JVD Rate: regular rate Rhythm: regular rhythm Heart sounds: S1 normal heart sound present, S2 normal heart sound present, no murmurs and no rubs Neuro General: patient oriented x3 Extrem Other: no edema General: Yes normal to inspection Psych Appearance: grossly normal Mental Status: mental status grossly normal Speech and movement: Normal speech and movement present Office Procedures Cardiac Device Check Cardiac Device Check Details: Device check today by me showing battery 10.5-11.5 years, V threshold stable at 1.0 volts at 0.5 milliseconds, no alerts, V paced 32% of time, low rate 60 [id number] Cardiac Device Check, pacemaker dual lead Procedure code (CPT) selection complete Assessment & Plan Assessment & Plan (1) Chronic heart failure: Code(s): I50.9 - Heart failure, unspecified Plan: History of chronic heart failure, diastolic. On last visit she reported new lower leg edema. No weight gain, PND, orthopnea. BNP was planned however not drawn with labs. Echocardiogram was done 01/17/2023 showing EF 55-60%, moderate biatrial enlargement, [id number] MR, moderate TR, no significant change from 10/2020 echo. After her last visit it was identified that Aldactone was still on her Nephrology med list however patient was not taking it. It was then restarted. She was continued on her usual Bumex. She tells me since then her leg edema has fully resolved. She is currently doing well without any clinical signs indicating decompensated heart failure. She continues to follow with Dr. Greenberg for Nephrology. Signs and symptoms of heart failure reviewed with her. Cardiology office visit in 3 months, sooner if needed. (2) Cardiac pacemaker in situ: Code(s): Z95.0 - Presence of cardiac pacemaker Plan: [employer] single-chamber pacemaker in place. Office interrogation not due until next visit however patient does report jumping in her abdomen. She could be having pacemaker stimulation of her diaphragm. Interrogation done to assess stability of the lead. V threshold, impedance are stable. Battery has 10-11 years left. Remote monitoring in use. - Reviewed with [facility] Rep who states Pt may be feeling the Autocaputre tests. Next office interrogation in 3 months. (3) PAF (paroxysmal atrial fibrillation): Code(s): I48.0 - Paroxysmal atrial fibrillation Plan: History of paroxysmal AFib. Not on rate slowing medications. She has pacemaker in place which is in VVIR mode. V pacing has gone down from 99% down to 32%. No alerts on interrogation and V lead seems stable. Reviewed with [employer] rep: Drop in V pace could be PAF. Heart rate controlled. On Eliquis for anticoagulation. No bleeding issues reported. Labs done 10/24/2022 shows hematocrit 36.7, creatinine 1.25 (4) Complete heart block: Code(s): I44.2 - Atrioventricular block, complete Plan: Status post pacemaker placement (5) Edema leg: Code(s): R60.0 - Localized edema Plan: Resolved (6) Tricuspid regurgitation: Code(s): I07.1 - Rheumatic tricuspid insufficiency Plan: Moderate TR on last echo Coding Level of Care Code Est Pt Level 4 (68549) Diagnoses Chronic heart failure I50.9 Cardiac pacemaker in situ Z95.0 PAF (paroxysmal atrial fibrillation) I48.0 Complete heart block I44.2 Edema leg R60.0 Tricuspid regurgitation I07.1 CPT Codes Cardiac Device Check - Cardiac Device 2: [id number] Cardiac Device Check, pacemaker dual lead ([id number]) Time Spent (min) 28 Comment Chart review, documentation, interview, assess, Communicating with pacer Rep
== END 2023-03-07 16:46 | disposition home or self-care (01) ==
PROVIDERS: PCP Internal Medicine; Referring Provider Internal Medicine; Visit Provider Nurse Practitioner Family
DX: I50.9 Heart failure, unspecified (principal); I48.0 Paroxysmal atrial fibrillation; Z95.0 Presence of cardiac pacemaker; I44.2 Atrioventricular block, complete; R60.0 Localized edema; I07.1 Rheumatic tricuspid insufficiency
CPT/HCPCS: 93280; 99214

== ENCOUNTER → 2023-03-07 16:01 | Outpatient (BNVA) | payer MEDICARE, SELFPAY | PROVIDERS: PCP Internal Medicine; Referring Provider Internal Medicine; Visit Provider Nurse Practitioner Family | DX: Z45.018 Encounter for adjustment and management of other part of cardiac pacemaker (principal); I50.9 Heart failure, unspecified; I48.0 Paroxysmal atrial fibrillation; I44.2 Atrioventricular block, complete; I07.1 Rheumatic tricuspid insufficiency; R60.0 Localized edema | CPT/HCPCS: 93280; 99212 ==

== ENCOUNTER → 2023-03-29 23:59 | Outpatient (BNV) | payer MEDICARE, SELFPAY ==
--- NOTE | 2023-04-04 19:06 | A.OFFVIS_ITS ---
Intake Intake Visit Reasons: Remote Device Check- [facility] Allergies cat dander Allergy (Verified 03/07/23 16:11) stuffy nose, red eye codeine Adverse Reaction (Unknown, Verified 03/07/23 16:11) GI upset PFSH Medical History Atrial enlargement, left Cancer of left tibia Congestive heart failure Constipation Depression with anxiety GERD (gastroesophageal reflux disease) High cholesterol History of small bowel obstruction Lipid disorder Lipoma Low hematocrit Mitral valve insufficiency Morbid obesity Osteoarthritis of both hips Osteosarcoma of bone RLS (restless legs syndrome) Tricuspid regurgitation Tubular adenoma of colon Urinary, incontinence, stress female Surgical History H/O hysterectomy with oophorectomy History of appendectomy History of intestinal surgery Hx of colonoscopy S/P cataract surgery S/P placement of cardiac pacemaker (~07/2020) Family History Mother Alzheimers disease Brother Lung cancer Epilepsy Social History Household Members: None Housing: Assisted Living Facility Do you presently have visiting nurse or other home services: No ([facility]) Alcohol intake: current Alcohol intake frequency: does not drink Patient Tobacco Use Status: Former Tobacco user Quit Date: 50 years ago Years Smoked: 5 e-Cigarette/Vaping Use: Never Used service: No Current occupational status: retired Cognitive needs: No Hearing needs: No Vision needs: Yes Office Procedures Cardiac Device Check Cardiac Device Check Details: PPM Good battery life No new alerts. [id number] Cardiac Device Interrogation, pacemaker Procedure code (CPT) selection complete Assessment & Plan Assessment & Plan (1) Cardiac pacemaker in situ: Code(s): Z95.0 - Presence of cardiac pacemaker Orders: Orders AMB Cardiac Device Follow-up 03/29/23 Z95.0 - Presence of cardiac pacemaker Coding Level of Care Code Procedure Only Diagnoses Cardiac pacemaker in situ Z95.0 CPT Codes Cardiac Device Check - Cardiac Device 12: [id number] Cardiac Device Interro gation, pacemaker ([id number])
== END ==
PROVIDERS: PCP Internal Medicine; Visit Provider Internal Medicine Cardiovascular Disease
DX: I48.0 Paroxysmal atrial fibrillation (principal); Z95.0 Presence of cardiac pacemaker
CPT/HCPCS: 93294

== ENCOUNTER 2023-06-05 12:12 | Outpatient (AMB) | payer MEDICARE, SELFPAY ==
--- NOTE | 2023-06-05 12:34 | A.OFFVIS_ITS ---
Intake Vital Signs 06/05/23 12:35 Height 5 ft 2 in BP 100/60 Blood Pressure Location Lt brachial Position Sitting Pulse 59 Pulse Source Pulse Oximeter Intake Visit Reasons: [facility] Intake Note: patient feels fine Field Naturalist Required: No Accompanied by: Daughter Allergies cat dander Allergy (Verified 06/05/23 12:38) stuffy nose, red eye codeine Adverse Reaction (Unknown, Verified 06/05/23 12:38) GI upset Medication List - Last Reconciled 06/05/23 by Inder Martini MD apixaban (Eliquis) 2.5 mg PO BID 90 days atorvastatin 10 mg PO DAILY bumetanide 2 mg PO DAILY cetirizine (Zyrtec) 10 mg PO DAILY PRN levothyroxine 75 mcg PO DAILY 90 days mirtazapine 7.5 mg PO BEDTIME 90 days mirtazapine 7.5 mg PO DAILY omeprazole 20 mg PO DAILY 90 days ropinirole 0.5 mg PO BID PRN 90 days spironolactone 12.5 mg See Protocol PO DAILY 90 days HPI HPI Comments History of Present Illness Details 87-year-old female here for follow-up. He has background of heart block, PAF and atrial flutter. She is on Eliquis and was on amiodarone but unclear if she has been taking it or not. ECG is showing paced rhythm with background flutter. She has NAVA but has bad right knee arthritis and back pain. I think she is very frail and deconditioned. She is getting SOB with minimal activities. 06/05/2023: She returns for follow-up. S he is saying that she has been depressed. She is saying she is spending a lot of time alone because her grand children are away and other family members also visit her not very frequently. Her friends in the apartment complex also are busy in their lives. She also has not been sleeping. She definitely looks more frail than last time. She is denying any other issues currently. REPLACED BY [facility] Medical History Atrial enlargement, left Cancer of left tibia Congestive heart failure Constipation Depression with anxiety GERD (gastroesophageal reflux disease) High cholesterol History of small bowel obstruction Lipid disorder Lipoma Low hematocrit Mitral valve insufficiency Morbid obesity Osteoarthritis of both hips Osteosarcoma of bone RLS (restless legs syndrome) Tricuspid regurgitation Tubular adenoma of colon Urinary, incontinence, stress female Surgical History S/P placement of cardiac pacemaker (~07/2020) Hx of colonoscopy History of intestinal surgery History of appendectomy H/O hysterectomy with oophorectomy S/P cataract surgery Family History Mother Alzheimers disease Brother Lung cancer Epilepsy Social History Household Members: None Housing: Assisted Living Facility Do you presently have visiting nurse or other home services: No ([facility]) Alcohol intake: current Alcohol intake frequency: does not drink Patient Tobacco Use Status: Former Tobacco user Quit Date: 50 years ago Years Smoked: 5 e-Cigarette/Vaping Use: Never Used service: No Current occupational status: retired Cognitive needs: No Hearing needs: No Vision needs: Yes Physical Exam Vital Signs: Last Vital Signs Pulse 59 06/05/23 12:35 BP 100/60 06/05/23 12:35 GENERAL APPEARANCE: in no acute distress, depressed. NECK: no carotid bruit, no jugular venous distention. HEART: no murmurs, regular rate and rhythm. LUNGS: clear to auscultation bilaterally. ABDOMEN: soft, nontender. EXTREMITIES: no edema. PERIPHERAL PULSES: equal. NEUROLOGIC: No gross deficits, AAO X 3 Office Procedures Cardiac Device Check Cardiac Device Check Details: [employer] permanent pacemaker. VVIR mode. Battery life 10-11 years. V paced 35%. No new alerts. [id number] Device Interrogation, pacemaker Procedure code (CPT) selection complete Assessment & Plan Assessment & Plan (1) Chronic heart failure: Code(s): I50.9 - Heart failure, unspecified Plan Pleasant 87-year-old female with chronic heart failure. Clinically euvolemic. On apixaban for atrial fibrillation. She looks quite depressed on follow-up this time. She is saying she has no interest in doing anything. Overall quite frail. I have advised her to do tele visits with us in 4 months. I have advised her daughter to see if she can be involved in some activities. Thank you for allowing me to participate in the care of your patient. Please feel free to contact me if you have any questions. Orders: Orders AMB Cardiac Device Follow-up Today I44.2 - Atrioventricular block, complete Coding Level of Care Code Est Pt Level 3 (70348) Diagnoses Chronic heart failure I50.9 CPT Codes Cardiac Device Check - Cardiac Device 8: [id number] Device Interrogation, pacemaker ([id number])
[2023-06-05 12:35] VITALS: BP 100/60; PULSE 59
== END 2023-06-05 13:02 | disposition home or self-care (01) ==
PROVIDERS: PCP Internal Medicine; Visit Provider Internal Medicine Cardiovascular Disease
DX: I50.9 Heart failure, unspecified (principal)
CPT/HCPCS: 93288; 99213

== ENCOUNTER → 2023-06-05 12:12 | Outpatient (BNVA) | payer MEDICARE, SELFPAY | PROVIDERS: PCP Internal Medicine; Visit Provider Internal Medicine Cardiovascular Disease | DX: I44.2 Atrioventricular block, complete (principal); I48.92 Unspecified atrial flutter; F32.A Depression, unspecified; Z79.01 Long term (current) use of anticoagulants; Z45.018 Encounter for adjustment and management of other part of cardiac pacemaker | CPT/HCPCS: 99212 ==

== ENCOUNTER 2023-06-06 12:44 | Outpatient (AMB) | payer MEDICARE, SELFPAY ==
[2023-06-06 12:52] VITALS: BP 110/70; PULSE 60; O2SAT 98; BMI 25.2
--- NOTE | 2023-06-06 12:52 | MHC.PC.OV ---
Vital Signs 06/06/23 12:52 Height 5 ft Weight 129 lb BMI 25.2 BP 110/70 Blood Pressure Location Rt brachial Position Sitting Pulse 60 Pulse Source Pulse Oximeter Pulse Oximetry (%) 98 Oxygen Delivery Method Room Air Intake Visit Reasons: Overdue Follow Up ~ Allergies cat dander Allergy (Verified 06/06/23 12:56) stuffy nose, red eye codeine Adverse Reaction (Unknown, Verified 06/06/23 12:56) GI upset Medication List - Last Reconciled 06/06/23 by Fidelina Whitney MD apixaban (Eliquis) 2.5 mg PO BID 90 days atorvastatin 10 mg PO DAILY bumetanide 2 mg PO DAILY cetirizine (Zyrtec) 10 mg PO DAILY PRN levothyroxine 75 mcg PO DAILY 90 days mirtazapine 7.5 mg PO BEDTIME 90 days mirtazapine 7.5 mg PO DAILY omeprazole 20 mg PO DAILY 90 days ropinirole 0.5 mg PO BID PRN 90 days spironolactone 12.5 mg See Protocol PO DAILY 90 days Tobacco use date assessed: 06/06/23 Fall risk assessment: No Falls in past year Last assessed Fall Risk: 06/06/23 Dental Screening Dental Screen Date: 06/06/23 Did you have a dental visit in the last 12 months?: No Was dental information given to patient?: Patient declined HPI Overdue Follow Up ~ HPI Details Patient is 87-year-old female who came in today for her follow-up appointment with her daughter She was last seen July of this year and did not come in for follow-up after that Nephropathy: patient have a stage 3 kidney disease, Patient is also seeing Dr. Martini cardiology have a pacemaker Patient is on atorvastatin for lipid control Mirtazapine 7.5 mg mg at night as a sleep aid, she is requesting to increase the dose as she is not able to sleep. Ropinirole 0.5 mg for restless leg syndrome Omeprazole 20 mg for chronic GERD Patient also have iron deficiency anemia and is due for labs I see the diagnosis of ulcerative colitis in her medication list, patient does not have any diarrhea or constipation at this time Levothyroxine dose is 75 mcg due for TSH Atorvastatin is through Cardiology Complaining of pain right lower back and hip area I have ordered x-ray for both I have offered her appointment with pain management which she declined Follow-up 4 months [facility] Medical History Congestive heart failure Tricuspid regurgitation Lipid disorder History of small bowel obstruction Osteosarcoma of bone Lipoma Osteoarthritis of both hips High cholesterol Atrial enlargement, left RLS (restless legs syndrome) Morbid obesity Urinary, incontinence, stress female Depression with anxiety Cancer of left tibia Constipation GERD (gastroesophageal reflux disease) Mitral valve insufficiency Tubular adenoma of colon Low hematocrit Surgical History S/P placement of cardiac pacemaker (~07/2020) Hx of colonoscopy History of intestinal surgery History of appendectomy H/O hysterectomy with oophorectomy S/P cataract surgery Family History Mother Alzheimers disease Brother Lung cancer Epilepsy Social History Household Members: None Housing: Assisted Living Facility Do you presently have visiting nurse or other home services: No ([facility]) Alcohol intake: current Alcohol intake frequency: does not drink Patient Tobacco Use Status: Former Tobacco user Quit Date: 50 years ago Years Smoked: 5 e-Cigarette/Vaping Use: Never Used service: No Current occupational status: retired Cognitive needs: No Hearing needs: No Vision needs: Yes Questionnaire PHQ-9 Over the last 2 weeks, how often have you been bothered by any of the following problems? 1. Little interest or pleasure in doing things: more than half the days 2. Feeling down, depressed, or hopeless: not at all 3. Trouble falling or staying asleep, or sleeping too much: not at all 4. Feeling tired or having little energy: more than half the days 5. Poor appetite or overeating: more than half the days 6. Feeling bad about yourself - or that you are a failure or have let yourself or your family down: more than half the days 7. Trouble concentrating on things, such as reading the newspaper or watching television: not at all 8. Moving or speaking so slowly that other people could have noticed. Or the opposite - being so fidgety or restless that you have been moving around a lot more than usual: several days 9. Thoughts that you would be better off or of hurting yourself in some way: not at all Total score: 9 Depression Screening Interpretation: Positive Depression Screening Follow-up: Existing condition and Declines treatment Depression Screening Done: Yes 20389 - PHQ-9 Billing: Yes Source: Developed by Drs. Frantz Meng, Calista Martinez, Evan Rodriguez and colleagues, with an educational monty from [employer]. Thrive Questionnaire Date Thrive assessed: 06/06/23 I am a: Patient What is your living situation today?: I have a steady place to live Within the past 12 months, did the food you bought not last and you didn't have the money to get more?: Never true Within the past 12 months, did you worry whether your food would run out before you got money to buy more?: Never true Do you have trouble paying for medicines?: No Do you have trouble getting transportation to medical appointments?: No Do you have trouble paying your heating and electricity bill?: No Do you have trouble taking care of your child, family member or friend?: No Do you have trouble with day-to-day activities such as bathing, preparing meals, shopping, managing finances, etc.?: No Are you currently unemployed and looking for a job?: No Are you interested in more education?: No Please select the resources that you would like help with: None Currently or been in a relationship where the following occur: no concerns reported AUDIT C Alcohol Use Questionnaire (AUDIT-C) 1. How often do you have a drink containing alcohol?: Monthly or less 2. How many drinks containing alcohol do you have on a typical day when you are drinking?: 1 or 2 3. How often do you have six or more drinks on one occasion?: Never Total Score: 1 Score Reviewed/Action Taken: No KAYLA-7 AMB Questionnaire KAYLA-7 Date KAYLA - 7 assessed: 06/06/23 Feeling nervous, anxious, or on edge: 0 = Not at all Not being able to stop or control worryin = Several days Worrying too much about different things: 1 = Several days Trouble relaxin = Several days Being so restless that it is hard to sit still: 0 = Not at all Becoming easily annoyed or irritable: 0 = Not at all Feeling afraid as if something awful might happen: 1 = Several days Total KAYLA-7 score (0-4 normal; 5-9 mild; 10-14 moderate; 15-21 severe): 4 Source: Developed by Drs. Frantz Meng, Calista Martinez, Evan Rodriguez and colleagues, with an educational monty from [employer]. KAYLA-7 Assessment Billing KAYLA-7 Assessment Tool: KAYLA-7 Assessment 49999 Review of Systems Const Denies chills and Denies fever(s) ENT Denies epistaxis and Denies nasal discharge Card Denies chest pain Resp Denies chest congestion, Denies cough and Denies hemoptysis GI Denies diarrhea and Denies nausea Skin/Breast Denies rash Neuro Reports no additional complaints Psych Reports no additional complaints Endo Reports no additional complaints Physical exam (Primary Care) Vital Signs: Last Vital Signs Pulse 60 06/06/23 12:52 BP 110/70 06/06/23 12:52 Pulse Ox 98 06/06/23 12:52 Oxygen Delivery Method Room Air 06/06/23 12:52 BMI result Body Mass Index 25.2 Tobacco/Smoking Status: Tobacco use Status Tobacco use date assessed 06/06/23 06/06/23 12:57 Patient Tobacco Use Status Former Tobacco user 06/06/23 12:53 e-Cigarette/Vaping Use Never Used 06/06/23 12:53 PHQ-9: PHQ-9 Score PHQ-9: Total score 9 06/06/23 13:23 Depression Screening Interpretation: Positive Depression Screening Follow-up: Existing condition and Declines treatment Thrive Assessment: Date of Thrive Assessment Date Thrive assessed 06/06/23 06/06/23 13:02 Currently or been in a relationship where the following occur: no concerns reported Const General: cooperative, comfortable and no acute distress Orientation/consciousness: patient oriented x3 HENMT Head: Yes normocephalic Eyes General: appearance normal, both eyes and all related structures Neck Neck: Yes supple Resp Effort & Inspection: normal respiratory effort, no cough and no stridor Cardio Rhythm: regular rhythm Heart sounds: S1 normal heart sound present and S2 normal heart sound present Skin General skin exam: turgor normal Neuro General: patient oriented x3, tone normal and moves all extremities Extrem Right lower extremity: no edema Left lower extremity: no edema Assessment and Plan Assessment & Plan (1) PAF (paroxysmal atrial fibrillation): Code(s): I48.0 - Paroxysmal atrial fibrillation (2) Neutropenia: Comment: Last set of lab shows low white count Code(s): D70.9 - Neutropenia, unspecified Qualifiers: Neutropenia type: unspecified Qualified Code(s): D70.9 - Neutropenia, unspecified (3) Major depression, recurrent: Code(s): F33.9 - Major depressive disorder, recurrent, unspecified Qualifiers: Active/Remission status: in full remission Qualified Code(s): F33.42 - Major depressive disorder, recurrent, in full remission (4) Chronic heart failure: Code(s): I50.9 - Heart failure, unspecified Qualifiers: Heart failure type: unspecified Qualified Code(s): I50.9 - Heart failure, unspecified (5) Lipid disorder: Code(s): E78.9 - Disorder of lipoprotein metabolism, unspecified (6) Anemia: Code(s): D64.9 - Anemia, unspecified Qualifiers: Anemia type: iron deficiency Iron deficiency anemia type: chronic blood loss Qualified Code(s): D50.0 - Iron deficiency anemia secondary to blood loss (chronic) (7) Restless leg syndrome: Code(s): G25.81 - Restless legs syndrome (8) Chronic GERD: Code(s): K21.9 - Gastro-esophageal reflux disease without esophagitis (9) Ulcerative colitis: Code(s): K51.90 - Ulcerative colitis, unspecified, without complications Qualifiers: Digestive disease complication type: with rectal bleeding Ulcerative colitis location: other ulcerative colitis Qualified Code(s): K51.811 - Other ulcerative colitis with rectal bleeding (10) Nephropathy: Code(s): N28.9 - Disorder of kidney and ureter, unspecified (11) Other specified hypothyroidism: Code(s): E03.8 - Other specified hypothyroidism (12) Difficulty sleeping: Code(s): G47.9 - Sleep disorder, unspecified (13) Iron deficiency: Code(s): E61.1 - Iron deficiency (14) Cardiac pacemaker in situ: Code(s): Z95.0 - Presence of cardiac pacemaker (15) Lumbar radiculopathy: Code(s): M54.16 - Radiculopathy, lumbar region (16) Hip pain, right: Code(s): M25.551 - Pain in right hip Plan Patient is 87-year-old female who came in today for her follow-up appointment with her daughter She was last seen July of this year and did not come in for follow-up after that Nephropathy: patient have a stage 3 kidney disease, Patient is also seeing Dr. Martini cardiology have a pacemaker Patient is on atorvastatin for lipid control Mirtazapine 7.5 mg mg at night as a sleep aid, she is requesting to increase the dose as she is not able to sleep. Ropinirole 0.5 mg for restless leg syndrome Omeprazole 20 mg for chronic GERD Patient also have iron deficiency anemia and is due for labs I see the diagnosis of ulcerative colitis in her medication list, patient does not have any diarrhea or constipation at this time Levothyroxine dose is 75 mcg due for TSH Atorvastatin is through Cardiology Complaining of pain right lower back and hip area I have ordered x-ray for both I have offered her appointment with pain management which she declined Follow-up 4 months Orders: Orders Complete Blood Count Auto Diff Today D64.9 - Anemia, unspecified, E03.8 - Other specified hypothyroidism, E78.9 - Disorder of lipoprotein metabolism, unspecified, F33.9 - Major depressive disorder, recurrent, unspecified, G25.81 - Restless legs syndrome, G47.9 - Sleep disorder, unspecified, I48.0 - Paroxysmal atrial fibrillation, I50.9 - Heart failure, unspecified, K21.9 - Gastro-esophageal reflux disease without esophagitis, K51.90 - Ulcerative colitis, unspecified, without complications, N28.9 - Disorder of kidney and ureter, unspecified Comprehensive Met. Panel Today D64.9 - Anemia, unspecified, E03.8 - Other specified hypothyroidism, E78.9 - Disorder of lipoprotein metabolism, unspecified, F33.9 - Major depressive disorder, recurrent, unspecified, G25.81 - Restless legs syndrome, G47.9 - Sleep disorder, unspecified, I48.0 - Paroxysmal atrial fibrillation, I50.9 - Heart failure, unspecified, K21.9 - Gastro-esophageal reflux disease without esophagitis, K51.90 - Ulcerative colitis, unspecified, without complications, N28.9 - Disorder of kidney and ureter, unspecified XR lumbar spine 2-3V Today M25.551 - Pain in right hip, M54.16 - Radiculopathy, lumbar region XR hip RT min 2V Today M25.551 - Pain in right hip, M54.16 - Radiculopathy, lumbar region TSH reflex Free T4 Today D64.9 - Anemia, unspecified, E03.8 - Other specified hypothyroidism, E78.9 - Disorder of lipoprotein metabolism, unspecified, F33.9 - Major depressive disorder, recurrent, unspecified, G25.81 - Restless legs syndrome, G47.9 - Sleep disorder, unspecified, I48.0 - Paroxysmal atrial fibrillation, I50.9 - Heart failure, unspecified, K21.9 - Gastro-esophageal reflux disease without esophagitis, K51.90 - Ulcerative colitis, unspecified, without complications, N28.9 - Disorder of kidney and ureter, unspecified LDL Cholesterol Direct Today D64.9 - Anemia, unspecified, E03.8 - Other specified hypothyroidism, E78.9 - Disorder of lipoprotein metabolism, unspecified, F33.9 - Major depressive disorder, recurrent, unspecified, G25.81 - Restless legs syndrome, G47.9 - Sleep disorder, unspecified, I48.0 - Paroxysmal atrial fibrillation, I50.9 - Heart failure, unspecified, K21.9 - Gastro-esophageal reflux disease without esophagitis, K51.90 - Ulcerative colitis, unspecified, without complications, N28.9 - Disorder of kidney and ureter, unspecified Medications: Changed From mirtazapine 7.5 mg PO BEDTIME 90 days 90 tabs 0RF To mirtazapine 15 mg PO BEDTIME 90 days 90 tabs 0RF Discontinued mirtazapine Discontinued Reason: Duplicate 7.5 mg PO DAILY Coding Level of Care Code Est Pt Level 5 (78556) Diagnoses PAF (paroxysmal atrial fibrillation) I48.0 Neutropenia, unspecified type D70.9 Neutropenia type: unspecified Recurrent major depressive disorder, in full remission F33.42 Active/Remission status: in full remission Chronic heart failure, unspecified heart failure type I50.9 Heart failure type: unspecified Lipid disorder E78.9 Iron deficiency anemia due to chronic blood loss D50.0 Anemia type: iron deficiency Iron deficiency anemia type: chronic blood loss Restless leg syndrome G25.81 Chronic GERD K21.9 Other ulcerative colitis with rectal bleeding K51.811 Digestive disease complication type: with rectal bleeding Ulcerative colitis location: other ulcerative colitis Nephropathy N28.9 Other specified hypothyroidism E03.8 Difficulty sleeping G47.9 Iron deficiency E61.1 Cardiac pacemaker in situ Z95.0 Lumbar radiculopathy M54.16 Hip pain, right M25.551 Additional Codes KAYLA-7 Assessment Billing - KAYLA-7 Assessment Tool: KAYLA-7 Assessment 09642 ([id number]) Time Spent (min) 45 Comment 10 prep, 25 with patient, 10 charting and coordination of care
== END 2023-06-06 13:45 | disposition home or self-care (01) ==
PROVIDERS: PCP Internal Medicine; Visit Provider Internal Medicine
DX: I48.0 Paroxysmal atrial fibrillation (principal); I50.9 Heart failure, unspecified; F33.42 Major depressive disorder, recurrent, in full remission; D70.9 Neutropenia, unspecified; K51.811 Other ulcerative colitis with rectal bleeding; E78.9 Disorder of lipoprotein metabolism, unspecified; G25.81 Restless legs syndrome; D50.0 Iron deficiency anemia secondary to blood loss (chronic); K21.9 Gastro-esophageal reflux disease without esophagitis; N28.9 Disorder of kidney and ureter, unspecified; E03.8 Other specified hypothyroidism
CPT/HCPCS: 99215

== ENCOUNTER 2023-06-06 13:24 | Outpatient (REF) | payer MEDICARE, SELFPAY ==
--- NOTE | ~2023-06-06 | XR_ITS ---
EXAMINATION: XR HIP, RIGHT CLINICAL INFORMATION: Radiculopathy COMPARISON: Hip radiograph from 11/15/2011 TECHNIQUE: Two views of the right hip. FINDINGS: No acute visible fracture or dislocation. Mild to moderate degenerative changes of the right femoral acetabular joint space narrowing and articular osteophyte formation. Joint spaces and alignment are otherwise maintained. Soft tissues are unremarkable. Pelvic phleboliths are noted. XR/XR hip RT min 2V IMPRESSION: 1. No acute visible fracture or dislocation. 2. Mild to moderate degenerative changes of the right femoral acetabular joint.
--- NOTE | ~2023-06-06 | XR_ITS ---
EXAMINATION: XR LUMBOSACRAL SPINE CLINICAL INFORMATION: Radiculopathy COMPARISON: Lumbar spine radiograph from 10/18/2010 TECHNIQUE: Three views of the lumbosacral spine. FINDINGS: No acute visible fracture dislocation. Levocurvature of the mid lumbar spine. Grade 1-2 anterolisthesis of L5 and S1 with bilateral L5 pars defects. Multilevel degenerative changes with disc space narrowing, endplate sclerosis, vacuum disc phenomenon, osteophyte from it, and lower lumbar spine facet arthropathy. Vertebral body heights and disc spaces are otherwise maintained. Posterior elements are intact. Paraspinal soft tissues are unremarkable. Visualized bowel gas is unremarkable. XR/XR lumbar spine 2-3V IMPRESSION: 1. No acute visible fracture dislocation. 2. Levocurvature of the mid lumbar spine. 3. Grade 1-2 anterolisthesis of L5 and S1 with bilateral L5 pars defects. 4. Multilevel degenerative changes.
[2023-06-06 16:14] LABS: MANUAL DIFF FLAG NO
[2023-06-06 16:17] LABS: Basophils Absolute Auto 0.1 X10*3/uL (0.0-0.2); Eosinophils Absolute Auto 0.2 X10*3/uL (0.0-0.4); Eosinophils Percent Auto 3.4 % (0-4); Hematocrit 40.5 % (37.0-47.0); Hemoglobin 12.8 g/dl (12.0-16.0); Imm Gran Abs Auto 0.01 X10*3/uL (0.00-0.03); Imm Gran Pct Auto 0.2 % (0.0-0.4); Lymphocytes Absolute Auto 1.4 X10*3/uL (1.2-4.9); Lymphocytes Percent Auto 26.1 % (20-40); Mean Corpuscular HGB Conc 31.6 g/dl (31.0-35.0); Mean Corpuscular Hemoglobin 29.6 pg (27.0-33.0); Mean Corpuscular Volume 93.5 fL (80.0-98.0); Monocytes Absolute Auto 0.5 X10*3/uL (0.1-1.2); Monocytes Percent Auto 10.1 % (2-11); Neutrophils Absolute Auto 3.1 x10*3/uL (2.0-8.3); Neutrophils Percent Auto 59.2 % (45-73); Platelet Count 179 X10*3/uL (160-400); Red Blood Count 4.33 X10*6/uL (4.20-5.50); Red Cell Distribution Width 13.5 % (11.0-16.0); White Blood Count 5.3 X10*3/uL (4.8-10.8)
[2023-06-06 16:36] LABS: Alanine Aminotransferase 10 U/L (0-31); Albumin Level 3.8 g/dL (3.5-5.0); Alkaline Phosphatase 92 U/L (39-117); Anion Gap 12 (12-20); Aspartate Amino Transferase 19 U/L (5-31); Bilirubin Total 0.8 mg/dL (0.0-1.0); Blood Urea Nitrogen 20 mg/dL (9-16); Calcium 9.2 mg/dL (8.4-10.2); Carbon Dioxide 30 mmol/L (22-29); Chloride 102 mmol/L (96-108); Estimated Glomerular Filt Rate 34; Glucose Random 89 mg/dL (60-115); Potassium 3.7 mmol/L (3.3-5.1); Sodium 140 mmol/L (135-145); Total Protein 6.6 g/dL (6.5-8.0)
[2023-06-06 16:51] LABS: TSH reflex Free T4 0.17 uIU/mL (0.32-4.0)
[2023-06-06 17:32] LABS: Free T4 (Free Thyroxine) 1.05 ng/dL (0.71-1.85)
[2023-06-12 05:59] LABS: LDL Cholesterol Direct 84 mg/dL (<100)
== END 2023-06-06 13:25 | disposition home or self-care (01) ==
LOC: HO.HMGCX 13:24
PROVIDERS: PCP Internal Medicine; Visit Provider Internal Medicine
DX: M54.16 Radiculopathy, lumbar region (principal); M25.551 Pain in right hip; I48.0 Paroxysmal atrial fibrillation; E78.9 Disorder of lipoprotein metabolism, unspecified; D64.9 Anemia, unspecified; G25.81 Restless legs syndrome; K21.9 Gastro-esophageal reflux disease without esophagitis; K51.90 Ulcerative colitis, unspecified, without complications; F33.9 Major depressive disorder, recurrent, unspecified; N28.9 Disorder of kidney and ureter, unspecified; I50.9 Heart failure, unspecified; E03.8 Other specified hypothyroidism; G47.9 Sleep disorder, unspecified
CPT/HCPCS: 36415; 72100; 73502; 80053; 83721; 84439; 84443; 85025

== ENCOUNTER 2023-06-27 14:16 | Emergency (ER) | payer MEDICARE, SELFPAY ==
--- NOTE | ~2023-06-27 | XR_ITS ---
EXAMINATION: XR HIP, RIGHT CLINICAL INFORMATION: Pain. COMPARISON: 06/06/2023. TECHNIQUE: Two views of the right hip. FINDINGS: The bony structures are osteopenic. The right hip joint space is fairly well maintained for patient age. There is no fracture. There is lower lumbar disc degenerative change. The soft tissues are unremarkable. XR/XR hip RT w PEL1V IMPRESSION: Osteopenia. No acute fracture or dislocation.
[2023-06-27 14:31] VITALS: BP 125/55; PULSE 85; RESP 22; TEMP 36.3; O2SAT 99; BMI 23.8
--- NOTE | 2023-06-27 14:35 | ED_ITS ---
HPI - General Adult General Chief complaint: General Medical Stated complaint: Bruising L Side of Body No Injury Time Seen by Provider: 06/27/23 22:43 Source: patient and family Mode of arrival: ambulatory History of Present Illness HPI narrative: 87-year-old female who comes in with her daughter after discovering bruising on her right lower extremity and hip area on 06/25, patient observed to have some memory in consistencies but does live at home by herself under daughter visits her frequently. Although patient denied any use of chronic anticoagulation the daughter informs that she is actually on Eliquis. Patient denies any falls or traumatic injuries. Related Data Previous Rx's Medication Instructions Recorded ropinirole 0.5 mg tablet 0.5 mg PO BID PRN restless leg 90 06/02/22 days #180 tabs atorvastatin 10 mg tablet 10 mg PO DAILY #90 tabs 07/26/22 omeprazole 20 mg capsule,delayed 20 mg PO DAILY 90 days #90 caps 07/26/22 release cetirizine 10 mg tablet (Zyrtec) 10 mg PO DAILY PRN allergy 10/22/22 symptoms #30 tabs spironolactone 25 mg tablet 12.5 mg PO DAILY 90 days #45 tabs 12/05/22 bumetanide 2 mg tablet 2 mg PO DAILY #90 tabs 03/20/23 apixaban 2.5 mg tablet (Eliquis) 2.5 mg PO BID 90 days #180 tabs 05/12/23 mirtazapine 15 mg tablet 15 mg PO BEDTIME 90 days #90 tabs 06/06/23 levothyroxine 50 mcg tablet 50 mcg PO DAILY 90 days #90 tabs 06/07/23 Allergies Allergy/AdvReac Type Severity Reaction Status Date / Time cat dander Allergy stuffy Verified 06/27/23 14:37 nose, red eye codeine AdvReac Unknown GI upset Verified 06/27/23 14:37 Review of Systems 2 Review of Systems: Pertinent positives and negatives as stated in HPI [facility] Past Medical History Source: nursing notes reviewed Medical History Congestive heart failure Tricuspid regurgitation Lipid disorder History of small bowel obstruction Osteosarcoma of bone Lipoma Osteoarthritis of both hips High cholesterol Atrial enlargement, left RLS (restless legs syndrome) Morbid obesity Urinary, incontinence, stress female Depression with anxiety Cancer of left tibia Constipation GERD (gastroesophageal reflux disease) Mitral valve insufficiency Tubular adenoma of colon Low hematocrit Surgical History S/P placement of cardiac pacemaker (~07/2020) Hx of colonoscopy History of intestinal surgery History of appendectomy H/O hysterectomy with oophorectomy S/P cataract surgery Family History Family History Mother Alzheimers disease Brother Lung cancer Epilepsy Social History Social History Household Members: None Housing: Assisted Living Facility Do you presently have visiting nurse or other home services: No ([facility]) Alcohol intake: current Alcohol intake frequency: does not drink Patient Tobacco Use Status: Former Tobacco user Quit Date: 50 years ago Years Smoked: 5 Smoked in Last 30 Days: No e-Cigarette/Vaping Use: Never Used Use of substances other than those prescribed or required for medical reasons: No Advance Directives: No Advance Directives Information Provided: No service: No Current occupational status: retired Cognitive needs: No Hearing needs: No Vision needs: Yes Physical Exam ED Vital Signs: Vital Signs - 24 hr 06/27/23 14:31 06/27/23 22:43 06/28/23 00:07 Temperature 97.4 F 97.6 F 97.7 F Pulse Rate 85 75 80 Respiratory Rate 22 H 18 16 Blood Pressure 125/55 L 126/69 139/71 Pulse Oximetry 99 98 98 Oxygen Delivery Method Room Air Room Air Room Air BMI result Body Mass Index 23.8 VITAL SIGNS: Reviewed. GENERAL: Well developed, well nourished, in no acute distress. HEAD: Normocephalic/atraumatic EYES: PERRLA, EOMI EARS: Ext canals without abnormality LUNGS: Normal breath sounds. No adventitious sounds or accessory muscle use. SpO2<99> CARDIOVASCULAR: Regular rate and rhythm without noted murmurs, no JVD or lower extremity edema. ABDOMEN: Soft, non-tender, non-distended with bowel sounds. MUSCULOSKELETAL: No tenderness, deformities, or effusions noted on gross inspection. EXTREMITIES: No cyanosis, clubbing or edema. RLE: SKIN: Inspection of the skin reveals no rashes, ulcerations, jaundice, pallor, or petechiae. NEUROLOGIC: Alert and oriented x 4. Strength and sensation to light touch were grossly intact x 4. Course Course Course Narrative: RME:?87 yo female w/ hx of Bernard depression, CHF here with daughter for eval of bruising to entire right side of body x1 day. She lives alone. Denies fall/trauma. States she woke up with bruising to entire right side of body. Daughter states it was not there 6 days ago. Patient informed daughter of bruising last night. no hx of bleeding disorders. Not on AC. Labs ordered. Full HPI, ROS and PE to be performed by the primary ED provider. Medical Decision Making Medical Decision Making [facility] Narrative: 87-year-old female who is on chronic anticoagulation, although patient reports no traumatic injury I do suspect that she may have undergone some form of injury but has since for got as she has an anemia that may correspond to the degree of ecchymosis I have observed. Although imaging studies on 06/06 of the hip were negative for acute findings I will repeat the hip/pelvis x-rays here in the emergency room. I do not suspect any chronic anticoagulation issues is it is isolated to the right lower extremity. I reviewed all investigations and hematologic indices are negative for leukocytosis or left shift, there is a normocytic anemia and no thrombocytopenia. Patient is neither hypotensive nor she tachycardic. PT-14.4 and INR-1.2 consistent with chronic anticoagulation use. Chemistry indices grossly within normal limits, there is no demonstrated NICK or electrolyte derangements. X-ray negative for fracture dislocation. My interpretation is that this is likely secondary to a traumatic event that the patient does not recall, if it was something related with chronic anticoagulation I would expect to see these findings on other areas of the patient's body. I have provided all findings to both the patient and her daughter and given them strong recommendations to follow-up with primary care doctor. Differential Diagnosis Differential Diagnoses: The differential diagnosis associated with the presentation includes Please see the discussion above Admission/Observation Consideration of admission/observation: Escalation of care including admission/observation considered Please see the discussion above Lab Data [facility] Lab Attestation statement: I reviewed the patient's lab results. Please see the discussion above 06/27/23 15:31 06/27/23 15:31 Labs: Lab Results 06/27/23 Range/Units 15:31 WBC 5.6 (4.8-10.8) X10*3/uL RBC 3.46 L D (4.20-5.50) X10*6/uL Hgb 10.6 L (12.0-16.0) g/dl Hct 33.2 L (37.0-47.0) % MCV 96.0 (80.0-98.0) fL MCH 30.6 (27.0-33.0) pg MCHC 31.9 (31.0-35.0) g/dl RDW 14.7 (11.0-16.0) % Plt Count 199 (160-400) X10*3/uL MPV 10.2 (9.4-12.3) fL Immature Gran % (Auto) 0.4 (0.0-0.4) % Neut % (Auto) 69.2 (45-73) % Lymph % (Auto) 18.2 L (20-40) % [place] % (Auto) 9.5 (2-11) % Eos % (Auto) 2.2 (0-4) % Baso % (Auto) 0.5 (0-2) % Lymph # (Auto) 1.0 L (1.2-4.9) X10*3/uL [place] # (Auto) 0.5 (0.1-1.2) X10*3/uL Eos # (Auto) 0.1 (0.0-0.4) X10*3/uL Baso # (Auto) 0.0 (0.0-0.2) X10*3/uL Abs Immat Gran (auto) 0.02 (0.00-0.03) X10*3/uL Absolute Neuts (auto) 3.9 (2.0-8.3) x10*3/uL Absolute Nucleated RBC 0.000 (0.0-0.012) X10*3/uL Nucleated RBC % (auto) 0.0 (0.0-0.2) /100WBC PT 14.4 H (11.1-13.3) SEC INR 1.2 H (0.9-1.1) APTT 33.1 (26.0-36.4) SEC Sodium 142 (135-145) mmol/L Potassium 3.9 (3.3-5.1) mmol/L Chloride 106 (96-108) mmol/L Carbon Dioxide 26 (22-29) mmol/L Anion Gap 14 (12-20) BUN 24 H (9-16) mg/dL Creatinine 1.24 (0.5-1.4) mg/dL Estim Creat Clear Calc 24.7 Estimated GFR 41 Random Glucose 100 (60-115) mg/dL Calcium 9.5 (8.4-10.2) mg/dL Magnesium 2.3 (1.6-2.6) mg/dL Radiology Impression Discussion of test interpretation with radiology: I have reviewed the radiologist's reading. Radiologist Impression: Please see the discussion above External Record Review External record reviewed: Outpatient record, Prior outpatient labs and Prior outpatient radiology Chronic Conditions Patient?s care impacted by: Other Chronic anticoagulation Critical Care Time Critical Care Time Critical Care Time: Yes Total Critical Care Time: 30 Attestation: I personally attest to this time spent taking care of the patient. Discharge Plan Discharge Clinical Impression: Traumatic ecchymosis of right lower leg Patient Disposition: Home, Self-Care Instructions: Ecchymosis (ED) Additional Instructions: 1. Resume all home medications as prescribed. 2. Please follow-up with primary care doctor 1st thing in the morning. Return to the ER for any worsening symptoms. Prescriptions: No Action ropinirole 0.5 mg tablet 0.5 mg PO BID PRN (Reason: restless leg) 90 Days Qty: 180 3RF bumetanide 2 mg tablet 2 mg PO DAILY Qty: 90 3RF Eliquis 2.5 mg tablet 2.5 mg PO BID 90 Days Qty: 180 2RF levothyroxine 50 mcg tablet 50 mcg PO DAILY 90 Days Qty: 90 1RF atorvastatin 10 mg tablet 10 mg PO DAILY Qty: 90 3RF omeprazole 20 mg capsule,delayed release(DR/EC) 20 mg PO DAILY 90 Days Qty: 90 3RF cetirizine [Zyrtec] 10 mg tablet 10 mg PO DAILY PRN (Reason: allergy symptoms) Qty: 30 0RF mirtazapine 15 mg tablet 15 mg PO BEDTIME 90 Days Qty: 90 0RF spironolactone 25 mg tablet 12.5 mg PO DAILY 90 Days Qty: 45 3RF Protocol: Hold for SBP< HOLD for SBP < : 90 Referrals: Fidelina Whitney MD [Primary Care Provider] -
[2023-06-27 15:36] LABS: MANUAL DIFF FLAG NO
[2023-06-27 15:42] LABS: Basophils Percent Auto 0.5 % (0-2); Eosinophils Absolute Auto 0.1 X10*3/uL (0.0-0.4); Eosinophils Percent Auto 2.2 % (0-4); Hematocrit 33.2 % (37.0-47.0); Hemoglobin 10.6 g/dl (12.0-16.0); Imm Gran Abs Auto 0.02 X10*3/uL (0.00-0.03); Imm Gran Pct Auto 0.4 % (0.0-0.4); Lymphocytes Percent Auto 18.2 % (20-40); Mean Corpuscular HGB Conc 31.9 g/dl (31.0-35.0); Mean Corpuscular Hemoglobin 30.6 pg (27.0-33.0); Mean Platelet Volume 10.2 fL (9.4-12.3); Monocytes Absolute Auto 0.5 X10*3/uL (0.1-1.2); Monocytes Percent Auto 9.5 % (2-11); Neutrophils Absolute Auto 3.9 x10*3/uL (2.0-8.3); Neutrophils Percent Auto 69.2 % (45-73); Platelet Count 199 X10*3/uL (160-400); Red Blood Count 3.46 X10*6/uL (4.20-5.50); Red Cell Distribution Width 14.7 % (11.0-16.0); White Blood Count 5.6 X10*3/uL (4.8-10.8)
[2023-06-27 15:49] LABS: INTERNATIONAL NORM RATIO 1.2 (0.9-1.1); Prothrombin Time 14.4 SEC (11.1-13.3)
[2023-06-27 16:06] LABS: Anion Gap 14 (12-20); Blood Urea Nitrogen 24 mg/dL (9-16); Calcium 9.5 mg/dL (8.4-10.2); Carbon Dioxide 26 mmol/L (22-29); Chloride 106 mmol/L (96-108); Creatinine Clr Calc Pharmacy 24.7; Estimated Glomerular Filt Rate 41; Glucose Random 100 mg/dL (60-115); Magnesium 2.3 mg/dL (1.6-2.6); Potassium 3.9 mmol/L (3.3-5.1); Sodium 142 mmol/L (135-145)
[2023-06-27 22:43] VITALS: BP 126/69; PULSE 75; RESP 18; TEMP 36.4; O2SAT 98
[2023-06-28 00:03] LABS: Partial Thromboplastin Time 33.1 SEC (26.0-36.4)
[2023-06-28 00:07] VITALS: BP 139/71; PULSE 80; RESP 16; TEMP 36.5; O2SAT 98
[2023-06-28 02:05] VITALS: BP 142/75; PULSE 94; RESP 16; TEMP 36.6; O2SAT 95
--- NOTE | 2023-06-28 02:08 | PC.NURSE ---
reviewed discharge instruction with pt. pt verbalized understanding, no sign of distress, pt wheeled out to care and discharge home with daughter.
== END 2023-06-28 02:27 | disposition home or self-care (01) ==
PROVIDERS: Physician Assistant Medical; Emergency Provider Student in an Organized Health Care Education/Training Program; PCP Internal Medicine
DX: S80.11XA Contusion of right lower leg, initial encounter (principal); M25.551 Pain in right hip; W01.0XXA Fall on same level from slipping, tripping and stumbling without subsequent striking against object, initial encounter; Y93.9 Activity, unspecified; Y92.9 Unspecified place or not applicable; Y99.9 Unspecified external cause status; Z79.899 Other long term (current) drug therapy; Z79.01 Long term (current) use of anticoagulants; Z87.891 Personal history of nicotine dependence
CPT/HCPCS: 36415; 73502; 80048; 83735; 85025; 85610; 85730; 99283; 99284

== ENCOUNTER → 2023-06-28 23:59 | Outpatient (BNV) | payer MEDICARE, SELFPAY ==
--- NOTE | 2023-07-04 21:13 | A.OFFVIS_ITS ---
Intake Intake Visit Reasons: Remote Device Check- [facility] Allergies cat dander Allergy (Verified 06/27/23 14:37) stuffy nose, red eye codeine Adverse Reaction (Unknown, Verified 06/27/23 14:37) GI upset PFSH Medical History Congestive heart failure Tricuspid regurgitation Lipid disorder History of small bowel obstruction Osteosarcoma of bone Lipoma Osteoarthritis of both hips High cholesterol Atrial enlargement, left RLS (restless legs syndrome) Morbid obesity Urinary, incontinence, stress female Depression with anxiety Cancer of left tibia Constipation GERD (gastroesophageal reflux disease) Mitral valve insufficiency Tubular adenoma of colon Low hematocrit Surgical History S/P placement of cardiac pacemaker (~07/2020) Hx of colonoscopy History of intestinal surgery History of appendectomy H/O hysterectomy with oophorectomy S/P cataract surgery Family History Mother Alzheimers disease Brother Lung cancer Epilepsy Social History Household Members: None Housing: Assisted Living Facility Do you presently have visiting nurse or other home services: No ([facility]) Alcohol intake: current Alcohol intake frequency: does not drink Patient Tobacco Use Status: Former Tobacco user Quit Date: 50 years ago Years Smoked: 5 Smoked in Last 30 Days: No e-Cigarette/Vaping Use: Never Used Use of substances other than those prescribed or required for medical reasons: No Advance Directives: No Advance Directives Information Provided: No service: No Current occupational status: retired Cognitive needs: No Hearing needs: No Vision needs: Yes Office Procedures Cardiac Device Check Cardiac Device Check Details: PPM Battery >5 years No new alerts [employer]WR[employer] 67%. [id number] Cardiac Device Interrogation, pacemaker Procedure code (CPT) selection complete Assessment & Plan Assessment & Plan (1) Heart block: Code(s): I45.9 - Conduction disorder, unspecified Plan: Orders: Orders AMB Cardiac Device Follow-up 06/28/23 I45.9 - Conduction disorder, unspecified Coding Level of Care Code Procedure Only Diagnoses Heart block I45.9 CPT Codes Cardiac Device Check - Cardiac Device 12: [id number] Cardiac Device Interrogation, pacemaker ([id number])
== END ==
PROVIDERS: PCP Internal Medicine; Visit Provider Internal Medicine Cardiovascular Disease
DX: I45.9 Conduction disorder, unspecified (principal); Z95.0 Presence of cardiac pacemaker
CPT/HCPCS: 93294

== ENCOUNTER 2023-09-02 11:37 | Outpatient (AMB) | payer MEDICARE, SELFPAY ==
[2023-09-02 12:24] VITALS: BP 124/60; PULSE 73; O2SAT 99; BMI 23.4
--- NOTE | 2023-09-02 12:24 | MHC.OFFWIV ---
Intake Vital Signs 09/02/23 12:24 Height 5 ft 2 in Weight 128 lb BMI 23.4 BP 124/60 Blood Pressure Location Rt brachial Position Sitting Pulse 73 Pulse Source Pulse Oximeter Pulse Oximetry (%) 99 Oxygen Delivery Method Room Air Intake Visit Reasons: EP Dry, Itchy eyes Intake Note: Pt is here today for dry an itchy eyes, pt states started couple weeks ago. Patient Tobacco Use Status: Former Tobacco user Quit Date: 50 years ago Allergies cat dander Allergy (Verified 09/02/23 12:24) stuffy nose, red eye codeine Adverse Reaction (Unknown, Verified 09/02/23 12:24) GI upset Do you need a note to return to daycare/school/sports/work: No HPI HPI Comments History of Present Illness Details This is an 87-year-old female with a past medical history of CHF, atrial fibrillation currently maintained on Eliquis with pacemaker placement, hyperlipidemia and hypothyroidism presenting for evaluation dry eyes bilaterally. Patient states that she has had dry eyes for at least 5 years after having cataract surgery. The patient states over the past 3 weeks she has noticed a burning sensation in her eyes in the morning and finds bright lights bothersome. Patient states that she saw her chiropractic neurologist at the [facility] in [place] two weeks ago who told her she had a normal visual acuity and ophthalmological examination and prescribed moisturizing ointment for her to use daily. The patient was told however that she does not completely close her eyes when she sleeps and may be waking with dry eyes. Patient states that she was unable to tolerate putting the ointment in her eyes and would prefer drops. Patient denies having any overt visual changes and denies any eye pain. Patient wears reading glasses only. [facility] Medical History Congestive heart failure Tricuspid regurgitation Lipid disorder History of small bowel obstruction Osteosarcoma of bone Lipoma Osteoarthritis of both hips High cholesterol Atrial enlargement, left RLS (restless legs syndrome) Morbid obesity Urinary, incontinence, stress female Depression with anxiety Cancer of left tibia Constipation GERD (gastroesophageal reflux disease) Mitral valve insufficiency Tubular adenoma of colon Low hematocrit Surgical History S/P placement of cardiac pacemaker (~07/2020) Hx of colonoscopy History of intestinal surgery History of appendectomy H/O hysterectomy with oophorectomy S/P cataract surgery Family History Mother Alzheimers disease Brother Lung cancer Epilepsy Social History Household Members: None Housing: Assisted Living Facility Do you presently have visiting nurse or other home services: No ([facility]) Alcohol intake: current Alcohol intake frequency: does not drink Patient Tobacco Use Status: Former Tobacco user Quit Date: 50 years ago Years Smoked: 5 e-Cigarette/Vaping Use: Never Used service: No Current occupational status: retired Cognitive needs: No Hearing needs: No Vision needs: Yes Review of Systems Const All systems reviewed & are unremarkable except as noted in HPI and below Eyes Reports dry eyes (bilaterally) and Reports requires corrective lenses (for reading only) ENT Reports no additional complaints Physical Exam Vital Signs: Last Vital Signs Pulse 73 09/02/23 12:24 BP 124/60 09/02/23 12:24 Pulse Ox 99 09/02/23 12:24 Oxygen Delivery Method Room Air 09/02/23 12:24 BMI result Body Mass Index 23.4 Const General: cooperative, comfortable, no acute distress, alert, awake and Physically active Nutritional Appearance: average body habitus Orientation/consciousness: patient oriented x3 Limitations: no limitations Eyes General: appearance normal, both eyes and all related structures Visual Moore: normal visual moore by confrontation Alignment and Position: alignment normal Eyelids: Yes eyelids normal Conjunctivae: conjunctivae normal Sclerae: sclerae normal Corneas: corneas normal Pupils: Equal, round and reactive pupils present EOM: EOMs intact bilaterally and No Nystagmus present Direct Ophthalmoscopy: normal light reflex and no photophobia Neuro General: patient oriented x3 Cranial nerves: Yes Equal, round and reactive pupils present and No Nystagmus present Assessment & Plan Assessment & Plan (1) Dry eyes: Comment: Patient is encouraged to return to her chiropractic neurologist within 2 weeks for a re-evaluation of her symptoms. Code(s): H04.123 - Dry eye syndrome of bilateral lacrimal glands Plan: Ocular lubrication drops are ordered; patient to follow-up with her chiropractic neurologist for further evaluation and care. Medications: New peg 400-propylene glycol 0.4-0.3 % (Systane Ultra) 1 drp ophthalmic (eye) TID PRN 10 mL 1RF dry eye(s) Coding Level of Care Code Est Pt Level 3 (99976) Diagnoses Dry eyes H04.123 Time Spent (min) 20
== END 2023-09-02 14:07 | disposition home or self-care (01) ==
PROVIDERS: PCP Internal Medicine; Visit Provider Physician Assistant
DX: H04.123 Dry eye syndrome of bilateral lacrimal glands (principal)
CPT/HCPCS: 99051; 99213

== ENCOUNTER → 2023-09-27 23:59 | Outpatient (BNV) | payer MEDICARE, SELFPAY ==
--- NOTE | 2023-10-08 20:07 | MHC.OFFVIS ---
Intake Intake Visit Reasons: Remote Device Check- [facility] Allergies cat dander Allergy (Verified 09/02/23 12:24) stuffy nose, red eye codeine Adverse Reaction (Unknown, Verified 09/02/23 12:24) GI upset PFSH Medical History Congestive heart failure Tricuspid regurgitation Lipid disorder History of small bowel obstruction Osteosarcoma of bone Lipoma Osteoarthritis of both hips High cholesterol Atrial enlargement, left RLS (restless legs syndrome) Morbid obesity Urinary, incontinence, stress female Depression with anxiety Cancer of left tibia Constipation GERD (gastroesophageal reflux disease) Mitral valve insufficiency Tubular adenoma of colon Low hematocrit Surgical History S/P placement of cardiac pacemaker (~07/2020) Hx of colonoscopy History of intestinal surgery History of appendectomy H/O hysterectomy with oophorectomy S/P cataract surgery Family History Mother Alzheimers disease Brother Lung cancer Epilepsy Social History Household Members: None Housing: Assisted Living Facility Do you presently have visiting nurse or other home services: No ([facility]) Alcohol intake: current Alcohol intake frequency: does not drink Patient Tobacco Use Status: Former Tobacco user Quit Date: 50 years ago Years Smoked: 5 e-Cigarette/Vaping Use: Never Used service: No Current occupational status: retired Cognitive needs: No Hearing needs: No Vision needs: Yes Office Procedures Cardiac Device Check Cardiac Device Check Details: PPM good battery. No new alerts. [id number] Cardiac Device Interrogation, pacemaker Procedure code (CPT) selection complete Assessment & Plan Assessment & Plan (1) Cardiac pacemaker in situ: Code(s): Z95.0 - Presence of cardiac pacemaker Plan: Patient Instructions: Coding Level of Care Code Procedure Only Diagnoses Cardiac pacemaker in situ Z95.0 CPT Codes Cardiac Device Check - Cardiac Device 12: [id number] Cardiac Device Interrogation, pacemaker ([id number])
== END ==
PROVIDERS: PCP Internal Medicine; Visit Provider Internal Medicine Cardiovascular Disease
DX: Z45.018 Encounter for adjustment and management of other part of cardiac pacemaker (principal)
CPT/HCPCS: 93294

== ENCOUNTER 2023-10-10 11:49 | Outpatient (AMB) | payer MEDICARE, SELFPAY ==
[2023-10-10 11:52] VITALS: BP 132/70; PULSE 63; O2SAT 96; BMI 23.8
--- NOTE | 2023-10-10 11:52 | MHC.PC.OV ---
Vital Signs 10/10/23 11:52 Height 5 ft 2 in Weight 130 lb BMI 23.8 BP 132/70 Blood Pressure Location Rt brachial Position Sitting Pulse 63 Pulse Source Pulse Oximeter Pulse Oximetry (%) 96 Oxygen Delivery Method Room Air Intake Visit Reasons: Annual PE - see comments Allergies cat dander Allergy (Verified 10/10/23 11:52) stuffy nose, red eye codeine Adverse Reaction (Unknown, Verified 10/10/23 11:52) GI upset Medication List - Last Reconciled 10/10/23 by Fidelina Whitney MD apixaban (Eliquis) 2.5 mg PO BID 90 days atorvastatin 10 mg PO DAILY bumetanide 2 mg PO DAILY cetirizine (Zyrtec) 10 mg PO DAILY PRN ferrous sulfate ER 140 mg (0.979 x 143 mg (45 mg iron)) PO DAILY ferrous sulfate ER 140 mg (0.979 x 143 mg (45 mg iron)) PO DAILY gabapentin 100 mg PO BEDTIME 90 days gabapentin 100 mg PO BEDTIME 90 days levothyroxine 50 mcg PO DAILY 90 days mirtazapine 15 mg PO BEDTIME 90 days omeprazole 20 mg PO DAILY 90 days peg 400-propylene glycol 0.4-0.3 % (Systane Ultra) 1 drp ophthalmic (eye) TID PRN ropinirole 0.5 mg PO BID PRN 90 days spironolactone 12.5 mg See Protocol PO DAILY 90 days Tobacco use date assessed: 10/10/23 Fall risk assessment: No Falls in past year Last assessed Fall Risk: 10/10/23 Dental Screening Dental Screen Date: 10/10/23 Did you have a dental visit in the last 12 months?: No Did you have a dental problem in the last 6 months where you did not have access to dental care?: No Was dental information given to patient?: No HPI Annual PE - see comments HPI Details Patient is 87-year-old female came in today for physical exam Blood pressure is controlled Patient is taking all her medications Need a referral for hearing test Patient also need a referral for skin cancer screening She has no longer having mammograms or colonoscopies Breast exam today was benign Patient easily get bruised because of Eliquis Follow-up 4 months [facility] Medical History Congestive heart failure Tricuspid regurgitation Lipid disorder History of small bowel obstruction Osteosarcoma of bone Lipoma Osteoarthritis of both hips High cholesterol Atrial enlargement, left RLS (restless legs syndrome) Morbid obesity Urinary, incontinence, stress female Depression with anxiety Cancer of left tibia Constipation GERD (gastroesophageal reflux disease) Mitral valve insufficiency Tubular adenoma of colon Low hematocrit Surgical History S/P placement of cardiac pacemaker (~07/2020) Hx of colonoscopy History of intestinal surgery History of appendectomy H/O hysterectomy with oophorectomy S/P cataract surgery Family History Mother Alzheimers disease Brother Lung cancer Epilepsy Social History Household Members: None Housing: Assisted Living Facility Do you presently have visiting nurse or other home services: No ([facility]) Alcohol intake: current Alcohol intake frequency: does not drink Patient Tobacco Use Status: Former Tobacco user Quit Date: 50 years ago Years Smoked: 5 e-Cigarette/Vaping Use: Never Used service: No Current occupational status: retired Cognitive needs: No Hearing needs: No Vision needs: Yes Questionnaire PHQ-9 Over the last 2 weeks, how often have you been bothered by any of the following problems? 1. Little interest or pleasure in doing things: several days 2. Feeling down, depressed, or hopeless: several days 3. Trouble falling or staying asleep, or sleeping too much: nearly every day 4. Feeling tired or having little energy: not at all 5. Poor appetite or overeating: not at all 6. Feeling bad about yourself - or that you are a failure or have let yourself or your family down: not at all 7. Trouble concentrating on things, such as reading the newspaper or watching television: more than half the days 8. Moving or speaking so slowly that other people could have noticed. Or the opposite - being so fidgety or restless that you have been moving around a lot more than usual: not at all 9. Thoughts that you would be better off or of hurting yourself in some way: not at all Total score: 7 Depression Screening Interpretation: Negative Depression Screening Done: Yes 27706 - PHQ-9 Billing: Yes Source: Developed by Drs. Frantz Meng, Evan Mcqueen and colleagues, with an educational monty from [employer]. Thrive Questionnaire Date Thrive assessed: 10/10/23 I am a: Patient What is your living situation today?: I have a steady place to live Within the past 12 months, did the food you bought not last and you didn't have the money to get more?: Never true Within the past 12 months, did you worry whether your food would run out before you got money to buy more?: Never true Do you have trouble paying for medicines?: No Do you have trouble getting transportation to medical appointments?: No Do you have trouble paying your heating and electricity bill?: No Do you have trouble taking care of your child, family member or friend?: No Do you have trouble with day-to-day activities such as bathing, preparing meals, shopping, managing finances, etc.?: Yes Are you currently unemployed and looking for a job?: No Are you interested in more education?: No Please select the resources that you would like help with: None Currently or been in a relationship where the following occur: no concerns reported THRIVE Score: 0 AUDIT C Alcohol Use Questionnaire (AUDIT-C) 1. How often do you have a drink containing alcohol?: Never 3. How often do you have six or more drinks on one occasion?: Never Total Score: 0 Score Reviewed/Action Taken: Yes KAYLA-7 AMB Questionnaire KAYLA-7 Date KAYLA - 7 assessed: 10/10/23 Feeling nervous, anxious, or on edge: 0 = Not at all Not being able to stop or control worryin = Several days Worrying too much about different things: 0 = Not at all Trouble relaxin = Several days Being so restless that it is hard to sit still: 2 = More than half the days Becoming easily annoyed or irritable: 2 = More than half the days Feeling afraid as if something awful might happen: 1 = Several days Total KAYLA-7 score (0-4 normal; 5-9 mild; 10-14 moderate; 15-21 severe): 7 Source: Developed by Drs. Frantz Meng, Evan Mcqueen and colleagues, with an educational monty from [employer]. AKYLA-7 Assessment Billing KAYLA-7 Assessment Tool: KAYLA-7 Assessment 60275 Review of Systems Const Denies chills, Denies fever(s) and Denies headache(s) ENT Denies headache(s), Denies nasal discharge, Denies nasal obstruction, Denies odynophagia and Denies sinus pain Card Denies chest pain at rest and Denies chest pain with activity Resp Denies cough and Denies hemoptysis GI Denies diarrhea, Denies odynophagia, Denies vomiting and Denies hematemesis Reports as per HPI Skin/Breast Reports as per HPI Neuro Denies Neuro-related abnormal movements, Denies Abnormal speech present and Denies headache(s) Psych Denies mood swings and Denies paranoia Endo Reports as per HPI Jacoby/Lymph Reports as per HPI Aller/Immun Reports as per HPI Physical exam (Primary Care) Vital Signs: Last Vital Signs Pulse 63 10/10/23 11:52 BP 132/70 10/10/23 11:52 Pulse Ox 96 10/10/23 11:52 Oxygen Delivery Method Room Air 10/10/23 11:52 BMI result Body Mass Index 23.8 Tobacco/Smoking Status: Tobacco use Status Tobacco use date assessed 10/10/23 10/10/23 11:54 Patient Tobacco Use Status Former Tobacco user 10/10/23 11:54 e-Cigarette/Vaping Use Never Used 10/10/23 11:54 PHQ-9: PHQ-9 Score PHQ-9: Total score 7 10/10/23 12:26 Depression Screening Interpretation: Negative Thrive Assessment: Date of Thrive Assessment Date Thrive assessed 10/10/23 10/10/23 12:26 Currently or been in a relationship where the following occur: no concerns reported Const General: cooperative, comfortable and no acute distress Orientation/consciousness: patient oriented x3 HENMT Head: Yes normocephalic and Yes atraumatic Eyes General: appearance normal, both eyes and all related structures Pupils: Equal, round and reactive pupils present EOM: EOMs intact bilaterally Neck Neck: Yes supple and No lymphadenopathy Thyroid: Thyroid normal Lymphatic: no lymphadenopathy noted Chest Breast/axilla palpation: normal palpation of the breasts Resp Effort & Inspection: normal respiratory effort and able to speak in complete sentences Auscultation: clear to auscultation bilaterally GI Palpation (GI): Soft to palpation and nontender Auscultation: normal bowel sounds General: Yes no CVA tenderness Back/Spine/Pelvis Back: no CVA tenderness Skin General skin exam: elasticity normal and turgor normal Neuro Other: Patient is unsteady at her feet and is at risk for fall, walk with support General: patient oriented x3 Cranial nerves: Yes Equal, round and reactive pupils present Speech: No Abnormal speech present Extrem General: Yes normal exam except as noted and No edema Assessment and Plan Assessment & Plan (1) Other specified hypothyroidism: Code(s): E03.8 - Other specified hypothyroidism (2) Elevated serum creatinine: Code(s): R79.89 - Other specified abnormal findings of blood chemistry (3) Nephropathy: Code(s): N28.9 - Disorder of kidney and ureter, unspecified (4) Major depression, recurrent: Code(s): F33.9 - Major depressive disorder, recurrent, unspecified Qualifiers: Active/Remission status: in full remission Qualified Code(s): F33.42 - Major depressive disorder, recurrent, in full remission (5) Chronic GERD: Code(s): K21.9 - Gastro-esophageal reflux disease without esophagitis (6) Restless leg syndrome: Code(s): G25.81 - Restless legs syndrome (7) PAF (paroxysmal atrial fibrillation): Code(s): I48.0 - Paroxysmal atrial fibrillation (8) Lipid disorder: Code(s): E78.9 - Disorder of lipoprotein metabolism, unspecified (9) Difficulty hearing: Code(s): H91.90 - Unspecified hearing loss, unspecified ear Qualifiers: Laterality: bilateral (10) Risk for falls: Code(s): Z91.81 - History of falling (11) Encounter for general adult medical examination with abnormal findings: Code(s): Z00.01 - Encounter for general adult medical examination with abnormal findings Plan Patient is 87-year-old female came in today for physical exam Blood pressure is controlled Patient is taking all her medications Need a referral for hearing test Patient also need a referral for skin cancer screening She has no longer having mammograms or colonoscopies Breast exam today was benign Patient easily get bruised because of Eliquis Follow-up 4 months Orders: Orders Complete Blood Count Auto Diff Today E03.8 - Other specified hypothyroidism, E78.9 - Disorder of lipoprotein metabolism, unspecified, F33.42 - Major depressive disorder, recurrent, in full remission, G25.81 - Restless legs syndrome, H91.90 - Unspecified hearing loss, unspecified ear, I48.0 - Paroxysmal atrial fibrillation, K21.9 - Gastro-esophageal reflux disease without esophagitis, N28.9 - Disorder of kidney and ureter, unspecified, R79.89 - Other specified abnormal findings of blood chemistry Comprehensive Met. Panel Today E03.8 - Other specified hypothyroidism, E78.9 - Disorder of lipoprotein metabolism, unspecified, F33.42 - Major depressive disorder, recurrent, in full remission, G25.81 - Restless legs syndrome, H91.90 - Unspecified hearing loss, unspecified ear, I48.0 - Paroxysmal atrial fibrillation, K21.9 - Gastro-esophageal reflux disease without esophagitis, N28.9 - Disorder of kidney and ureter, unspecified, R79.89 - Other specified abnormal findings of blood chemistry TSH reflex Free T4 Today E03.8 - Other specified hypothyroidism, E78.9 - Disorder of lipoprotein metabolism, unspecified, F33.42 - Major depressive disorder, recurrent, in full remission, G25.81 - Restless legs syndrome, H91.90 - Unspecified hearing loss, unspecified ear, I48.0 - Paroxysmal atrial fibrillation, K21.9 - Gastro-esophageal reflux disease without esophagitis, N28.9 - Disorder of kidney and ureter, unspecified, R79.89 - Other specified abnormal findings of blood chemistry Referrals Audiology Referral H91.90 - Unspecified hearing loss, unspecified ear Dermatology Referral Z12.83 - Encounter for screening for malignant neoplasm of skin Coding Level of Care Code Est Pt Prev Care >65y(54521) Diagnoses Other specified hypothyroidism E03.8 Elevated serum creatinine R79.89 Nephropathy N28.9 Recurrent major depressive disorder, in full remission F33.42 Active/Remission status: in full remission Chronic GERD K21.9 Restless leg syndrome G25.81 PAF (paroxysmal atrial fibrillation) I48.0 Lipid disorder E78.9 Difficulty hearing H91.90 Laterality: bilateral Risk for falls Z91.81 Encounter for general adult medical examination with abnormal findings Z00.01 Additional Codes KAYLA-7 Assessment Billing - KAYLA-7 Assessment Tool: KAYLA-7 Assessment 01310 ([id number])
== END 2023-10-10 12:30 | disposition home or self-care (01) ==
PROVIDERS: PCP Internal Medicine; Visit Provider Internal Medicine
DX: Z00.00 Encounter for general adult medical examination without abnormal findings (principal); F33.42 Major depressive disorder, recurrent, in full remission; I48.0 Paroxysmal atrial fibrillation; E03.8 Other specified hypothyroidism; R79.89 Other specified abnormal findings of blood chemistry; N28.9 Disorder of kidney and ureter, unspecified; K21.9 Gastro-esophageal reflux disease without esophagitis; G25.81 Restless legs syndrome; E78.9 Disorder of lipoprotein metabolism, unspecified; Z91.81 History of falling
CPT/HCPCS: 99397

== ENCOUNTER 2023-10-10 12:34 | Outpatient (REF) | payer MEDICARE, SELFPAY ==
[2023-10-10 16:08] LABS: MANUAL DIFF FLAG NO
[2023-10-10 16:11] LABS: Basophils Absolute Auto 0.1 X10*3/uL (0.0-0.2); Basophils Percent Auto 1.2 % (0-2); Eosinophils Absolute Auto 0.2 X10*3/uL (0.0-0.4); Eosinophils Percent Auto 3.6 % (0-4); Hematocrit 42.7 % (37.0-47.0); Hemoglobin 13.4 g/dl (12.0-16.0); Imm Gran Abs Auto 0.02 X10*3/uL (0.00-0.03); Imm Gran Pct Auto 0.4 % (0.0-0.4); Lymphocytes Absolute Auto 1.9 X10*3/uL (1.2-4.9); Lymphocytes Percent Auto 32.9 % (20-40); Mean Corpuscular HGB Conc 31.4 g/dl (31.0-35.0); Mean Corpuscular Hemoglobin 30.4 pg (27.0-33.0); Mean Corpuscular Volume 96.8 fL (80.0-98.0); Monocytes Absolute Auto 0.6 X10*3/uL (0.1-1.2); Monocytes Percent Auto 9.9 % (2-11); Neutrophils Absolute Auto 2.9 x10*3/uL (2.0-8.3); Platelet Count 161 X10*3/uL (160-400); Red Blood Count 4.41 X10*6/uL (4.20-5.50); Red Cell Distribution Width 12.9 % (11.0-16.0); White Blood Count 5.6 X10*3/uL (4.8-10.8)
[2023-10-10 16:34] LABS: Alanine Aminotransferase 12 U/L (0-31); Albumin Level 4.3 g/dL (3.5-5.0); Alkaline Phosphatase 108 U/L (39-117); Anion Gap 17 (12-20); Aspartate Amino Transferase 22 U/L (5-31); Bilirubin Total 0.5 mg/dL (0.0-1.0); Blood Urea Nitrogen 22 mg/dL (9-16); Calcium 9.5 mg/dL (8.4-10.2); Carbon Dioxide 29 mmol/L (22-29); Chloride 100 mmol/L (96-108); Estimated Glomerular Filt Rate 29; Glucose Random 89 mg/dL (60-115); Potassium 4.1 mmol/L (3.3-5.1); Sodium 142 mmol/L (135-145); Total Protein 7.4 g/dL (6.5-8.0)
[2023-10-10 16:43] LABS: TSH reflex Free T4 1.33 uIU/mL (0.32-4.0)
== END 2023-10-10 12:35 | disposition home or self-care (01) ==
LOC: HO.HMGCLDS 12:34
PROVIDERS: PCP Internal Medicine; Visit Provider Internal Medicine
DX: E03.8 Other specified hypothyroidism (principal); R79.89 Other specified abnormal findings of blood chemistry; N28.9 Disorder of kidney and ureter, unspecified; F33.42 Major depressive disorder, recurrent, in full remission; K21.9 Gastro-esophageal reflux disease without esophagitis; G25.81 Restless legs syndrome; I48.0 Paroxysmal atrial fibrillation; E78.9 Disorder of lipoprotein metabolism, unspecified; H91.90 Unspecified hearing loss, unspecified ear
CPT/HCPCS: 36415; 80053; 84443; 85025

== ENCOUNTER 2023-10-12 08:33 | Outpatient (AMB) | payer MEDICARE, SELFPAY ==
--- NOTE | 2023-10-12 09:25 | A.OFFPC_ITS ---
Intake Visit Reasons: Discuss Labs~ [phone] Allergies cat dander Allergy (Verified 10/12/23 09:26) stuffy nose, red eye codeine Adverse Reaction (Unknown, Verified 10/12/23 09:26) GI upset Medication List - Last Reconciled 10/12/23 by Fidelina Whitney MD apixaban (Eliquis) 2.5 mg PO BID 90 days atorvastatin 10 mg PO DAILY bumetanide 2 mg PO DAILY cetirizine (Zyrtec) 10 mg PO DAILY PRN ferrous sulfate ER 140 mg (0.979 x 143 mg (45 mg iron)) PO DAILY ferrous sulfate ER 140 mg (0.979 x 143 mg (45 mg iron)) PO DAILY gabapentin 100 mg PO BEDTIME 90 days gabapentin 100 mg PO BEDTIME 90 days levothyroxine 50 mcg PO DAILY 90 days mirtazapine 15 mg PO BEDTIME 90 days omeprazole 20 mg PO DAILY 90 days peg 400-propylene glycol 0.4-0.3 % (Systane Ultra) 1 drp ophthalmic (eye) TID P RN ropinirole 0.5 mg PO BID PRN 90 days spironolactone 12.5 mg See Protocol PO DAILY 90 days Tobacco use date assessed: 10/12/23 Fall risk assessment: No Falls in past year Last assessed Fall Risk: 10/12/23 Dental Screening Dental Screen Date: 10/12/23 Did you have a dental visit in the last 12 months?: No Did you have a dental problem in the last 6 months where you did not have access to dental care?: No Was dental information given to patient?: No HPI Discuss Labs~ [phone] HPI Details Patient is 87-year-old female this is a tele medicine visit to go over labs Patient have a chronic kidney disease recently she had labs her GFR has worsened to 29 with creatinine of 1.65 She was seeing care administrative tech but has not been seeing them for months. Lab values discussed with the daughter who is a primary auto damage estimator for the patient Patient's anemia has resolved, liver enzymes are within normal limit and thyroid test is normal I have placed a referral for to be evaluated for Nephrology at [facility] Medical History Congestive heart failure Tricuspid regurgitation Lipid disorder History of small bowel obstruction Osteosarcoma of bone Lipoma Osteoarthritis of both hips High cholesterol Atrial enlargement, left RLS (restless legs syndrome) Morbid obesity Urinary, incontinence, stress female Depression with anxiety Cancer of left tibia Constipation GERD (gastroesophageal reflux disease) Mitral valve insufficiency Tubular adenoma of colon Low hematocrit Surgical History S/P placement of cardiac pacemaker (~07/2020) Hx of colonoscopy History of intestinal surgery History of appendectomy H/O hysterectomy with oophorectomy S/P cataract surgery Family History Mother Alzheimers disease Brother Lung cancer Epilepsy Social History Household Members: None Housing: Assisted Living Facility Do you presently have visiting nurse or other home services: No ([facility]) Alcohol intake: current Alcohol intake frequency: does not drink Patient Tobacco Use Status: Former Tobacco user Quit Date: 50 years ago Years Smoked: 5 e-Cigarette/Vaping Use: Never Used service: No Current occupational status: retired Cognitive needs: No Hearing needs: No Vision needs: Yes Questionnaire Thrive Questionnaire Date Thrive assessed: 10/10/23 AUDIT C Alcohol Use Questionnaire (AUDIT-C) 1. How often do you have a drink containing alcohol?: Never 3. How often do you have six or more drinks on one occasion?: Never Total Score: 0 Score Reviewed/Action Taken: Yes KAYLA-7 AMB Questionnaire KAYLA-7 Date KAYLA - 7 assessed: 10/10/23 Source: Developed by Drs. Frantz Meng, Calista Martinez, Evan Rodriguez and colleagues, with an educational monty from [employer]. Review of Systems Const Denies chills and Denies fever(s) ENT Denies epistaxis and Denies nasal discharge Card Denies chest pain Resp Denies chest congestion, Denies cough and Denies hemoptysis GI Denies diarrhea and Denies nausea Skin/Breast Denies rash Neuro Reports no additional complaints Psych Reports no additional complaints Endo Reports no additional complaints Physical exam (Primary Care) Tobacco/Smoking Status: Tobacco use Status Tobacco use date assessed 10/12/23 10/12/23 09:27 Patient Tobacco Use Status Former Tobacco user 10/12/23 09:27 e-Cigarette/Vaping Use Never Used 10/12/23 09:27 Thrive Assessment: Date of Thrive Assessment Date Thrive assessed 10/10/23 10/12/23 09:27 Const General: cooperative, comfortable and no acute distress Orientation/consciousness: patient oriented x3 HENMT Head: Yes normocephalic Eyes General: appearance normal, both eyes and all related structures Neck Neck: Yes supple Resp Effort & Inspection: normal respiratory effort, no cough and no stridor Cardio Rhythm: regular rhythm Heart sounds: S1 normal heart sound present and S2 normal heart sound present Skin General skin exam: turgor normal Neuro General: patient oriented x3, tone normal and moves all extremities Extrem Right lower extremity: no edema Left lower extremity: no edema Telehealth Telehealth Location of provider rendering services: practice address Location of patient: address on file Patient Identification confirmed using: Name, : Yes Telehealth method: video (attempted) Patient verbally consented to treatment: Yes Patient verbally consented to billing insurance company: Yes Patient informed of any privacy concerns related to visit: Yes Assessment and Plan Assessment & Plan (1) CKD (chronic kidney disease) stage 4, GFR 15-29 ml/min: Code(s): N18.4 - Chronic kidney disease, stage 4 (severe) Plan Patient is 87-year-old female this is a tele medicine visit to go over labs Patient have a chronic kidney disease recently she had labs her GFR has worsened to 29 with creatinine of 1.65 She was seeing care administrative tech but has not been seeing them for months. Lab values discussed with the daughter who is a primary auto damage estimator for the patient Patient's anemia has resolved, liver enzymes are within normal limit and thyroid test is normal I have placed a referral for to be evaluated for Nephrology at [facility] Orders: Referrals Nephrology Referral N18.4 - Chronic kidney disease, stage 4 (severe) Coding Level of Care Code Tele Est Pt Level 3 (40132) Diagnoses CKD (chronic kidney disease) stage 4, GFR 15-29 ml/min N18.4
== END 2023-10-12 11:56 | disposition home or self-care (01) ==
PROVIDERS: PCP Internal Medicine; Visit Provider Internal Medicine
DX: N18.4 Chronic kidney disease, stage 4 (severe) (principal)
CPT/HCPCS: 99213

== ENCOUNTER 2023-10-26 15:13 | Outpatient (AMB) | payer MEDICARE, SELFPAY ==
[2023-10-26 15:16] VITALS: BP 104/64; PULSE 61; O2SAT 99; BMI 23.8
--- NOTE | 2023-10-26 15:16 | HO.NEPHOV ---
Vital Signs 10/26/23 15:16 Height 5 ft 2 in Weight 130 lb BMI 23.8 BP 104/64 Blood Pressure Location Rt brachial Position Sitting Pulse 61 Pulse Source Pulse Oximeter Pulse Oximetry (%) 99 Oxygen Delivery Method Room Air Intake Visit Reasons: CKD stage 4/ Confirmed Clinical Documentation Developer Required: No Accompanied by: Daughter Allergies cat dander Allergy (Verified 10/26/23 15:19) stuffy nose, red eye codeine Adverse Reaction (Unknown, Verified 10/26/23 15:19) GI upset HPI Comments Details: 87-year-old woman with CKD. Baseline creatinine is around 1.2 mg/dL. She has a history of positive p-ANCA in the past. However the recent p-ANCA was negative back in 2022. Recently serum creatinine bumped up to 1.6 and hence this referral again. She has been on Bumex 2 mg a day. She had significant edema in the past however she has no further edema at this time. No shortness of breath. This morning she saw some blood in the toilet and she believes this is from her stools. She is on Eliquis She is accompanied by her daughter today [facility] Medical History Congestive heart failure Tricuspid regurgitation Lipid disorder History of small bowel obstruction Osteosarcoma of bone Lipoma Osteoarthritis of both hips High cholesterol Atrial enlargement, left RLS (restless legs syndrome) Morbid obesity Urinary, incontinence, stress female Depression with anxiety Cancer of left tibia Constipation GERD (gastroesophageal reflux disease) Mitral valve insufficiency Tubular adenoma of colon Low hematocrit Surgical History S/P placement of cardiac pacemaker (~07/2020) Hx of colonoscopy History of intestinal surgery History of appendectomy H/O hysterectomy with oophorectomy S/P cataract surgery Family History Mother Alzheimers disease Brother Lung cancer Epilepsy Social History Household Members: None Housing: Assisted Living Facility Do you presently have visiting nurse or other home services: No ([facility]) Alcohol intake: current Alcohol intake frequency: does not drink Patient Tobacco Use Status: Former Tobacco user Quit Date: 50 years ago Years Smoked: 5 e-Cigarette/Vaping Use: Never Used service: No Current occupational status: retired Cognitive needs: No Hearing needs: No Vision needs: Yes Physical Exam Vital Signs: Last Vital Signs Pulse 61 10/26/23 15:16 BP 104/64 10/26/23 15:16 Pulse Ox 99 10/26/23 15:16 Oxygen Delivery Method Room Air 10/26/23 15:16 BMI result Body Mass Index 23.8 Const Other: In a wheelchair General: comfortable Nutritional Appearance: well nourished Orientation/consciousness: patient oriented x3 HEENT Head: No normal to inspection Mouth: moist mucous membranes Neck Neck: Yes supple and Yes no JVD Resp Auscultation: clear to auscultation bilaterally, no rales and rub present Cardio Jugular venous distension: no JVD Palpation: no palpable S3 and no palpable S4 Heart sounds: no rubs GI Palpation (GI): Soft to palpation and nontender Percussion: No Fluid wave present General: Yes no CVA tenderness Back/Spine/Pelvis Back: no CVA tenderness Skin General skin exam: no rashes or lesions noted Neuro General: patient oriented x3 Extrem General: Yes no pedal edema and No clubbing Results Reviewed Nephrology Results: Hgb 13.4 g/dl (12.0-16.0) 10/10/23 WBC 5.6 X10*3/uL (4.8-10.8) 10/10/23 Plt Count 161 X10*3/uL (160-400) 10/10/23 Sodium 142 mmol/L (135-145) 10/10/23 Potassium 4.1 mmol/L (3.3-5.1) 10/10/23 Chloride 100 mmol/L (96-108) 10/10/23 Carbon Dioxide 29 mmol/L (22-29) 10/10/23 BUN 22 mg/dL (9-16) H 10/10/23 Creatinine 1.65 mg/dL (0.5-1.4) H 10/10/23 Calcium 9.5 mg/dL (8.4-10.2) 10/10/23 Assessment & Plan Assessment & Plan (1) CKD (chronic kidney disease) stage 4, GFR 15-29 ml/min: Code(s): N18.4 - Chronic kidney disease, stage 4 (severe) Category: Medical Plan Elderly woman with NICK superimposed on CKD. She has a history of positive p-ANCA in the past. NICK is most likely due to hypoperfusion from diuretics. However with a history of p-ANCA in the positive underlying glomerulonephritis should be ruled out. Recommendation Repeat urinalysis with urine protein creatinine ratio Check C ANCA p-ANCA MPO PR3 Check CBC and renal panel again Decrease Bumex to 1 mg daily. Encouraged to increase oral fluid intake Stay on low-sodium diet Orders: Orders Myeloperoxidase Antibody Today N18.4 - Chronic kidney disease, stage 4 (severe) Proteinase 3 PR3 Antibodies Today N18.4 - Chronic kidney disease, stage 4 (severe) Anti Glomerular Basement Memb Today N18.4 - Chronic kidney disease, stage 4 (severe) Complement C4 Today N18.4 - Chronic kidney disease, stage 4 (severe) Complement C3 Today N18.4 - Chronic kidney disease, stage 4 (severe) Protein Electrophoresis, Serum Today N18.4 - Chronic kidney disease, stage 4 (severe) Creatinine Urine Today N05.9 - Unspecified nephritic syndrome with unspecified morphologic changes, N18.4 - Chronic kidney disease, stage 4 (severe) Neutrophil Cytoplasma Ab Today N18.4 - Chronic kidney disease, stage 4 (severe) Complete Blood Count Auto Diff Today N18.30 - Chronic kidney disease, stage 3 unspecified, N18.4 - Chronic kidney disease, stage 4 (severe) Comprehensive Met. Panel Today N18.4 - Chronic kidney disease, stage 4 (severe), N18.9 - Chronic kidney disease, unspecified UA and rflx microscopic Today N18.4 - Chronic kidney disease, stage 4 (severe) Total Protein Urine Random Today N18.4 - Chronic kidney disease, stage 4 (severe) Coding Level of Care Code Est Pt Level 4 (59627) Diagnoses CKD (chronic kidney disease) stage 4, GFR 15-29 ml/min N18.4
== END 2023-10-26 16:32 | disposition home or self-care (01) ==
PROVIDERS: PCP Internal Medicine; Referring Provider Internal Medicine; Visit Provider Internal Medicine Hypertension Specialist
DX: N18.4 Chronic kidney disease, stage 4 (severe) (principal)
CPT/HCPCS: 99214

== ENCOUNTER → 2023-10-26 15:13 | Outpatient (BNVA) | payer MEDICARE, SELFPAY | PROVIDERS: PCP Internal Medicine; Referring Provider Internal Medicine; Visit Provider Internal Medicine Hypertension Specialist | DX: N18.4 Chronic kidney disease, stage 4 (severe) (principal) | CPT/HCPCS: 99212 ==

== ENCOUNTER 2023-11-10 13:51 | Outpatient (REF) | payer MEDICARE, SELFPAY ==
[2023-11-10 16:30] LABS: Alanine Aminotransferase 11 U/L (0-31); Albumin Level 4.4 g/dL (3.5-5.0); Alkaline Phosphatase 128 U/L (39-117); Anion Gap 16 (12-20); Aspartate Amino Transferase 21 U/L (5-31); Blood Urea Nitrogen 22 mg/dL (9-16); Calcium 9.7 mg/dL (8.4-10.2); Carbon Dioxide 29 mmol/L (22-29); Chloride 98 mmol/L (96-108); Estimated Glomerular Filt Rate 28; Glucose Random 96 mg/dL (60-115); Potassium 4.2 mmol/L (3.3-5.1); Sodium 139 mmol/L (135-145); Total Protein 7.4 g/dL (6.5-8.0)
[2023-11-10 16:36] LABS: TSH reflex Free T4 0.81 uIU/mL (0.32-4.0)
== END 2023-11-10 13:52 | disposition home or self-care (01) ==
LOC: HO.HMGCLDS 13:51
PROVIDERS: PCP Internal Medicine; Visit Provider Internal Medicine Hypertension Specialist
DX: N28.9 Disorder of kidney and ureter, unspecified (principal); R94.6 Abnormal results of thyroid function studies
CPT/HCPCS: 36415; 80053; 84443

== ENCOUNTER → 2023-12-27 23:59 | Outpatient (BNV) | payer MEDICARE, SELFPAY ==
--- NOTE | 2024-01-10 11:25 | A.OFFVIS_ITS ---
Intake Visit Reasons: Remote Device Check- [facility] Allergies cat dander Allergy (Verified 11/16/23 14:05) stuffy nose, red eye codeine Adverse Reaction (Unknown, Verified 11/16/23 14:05) GI upset PFSH Medical History Congestive heart failure Tricuspid regurgitation Lipid disorder History of small bowel obstruction Osteosarcoma of bone Lipoma Osteoarthritis of both hips High cholesterol Atrial enlargement, left RLS (restless legs syndrome) Morbid obesity Urinary, incontinence, stress female Depression with anxiety Cancer of left tibia Constipation GERD (gastroesophageal reflux disease) Mitral valve insufficiency Tubular adenoma of colon Low hematocrit Surgical History S/P placement of cardiac pacemaker (~07/2020) Hx of colonoscopy History of intestinal surgery History of appendectomy H/O hysterectomy with oophorectomy S/P cataract surgery Family History Mother Alzheimers disease Brother Lung cancer Epilepsy Social History (Reviewed 11/16/23 @ 14:05 by Zahra Lew, [facility]) Household Members: None Housing: Assisted Living Facility Do you presently have visiting nurse or other home services: No ([facility]) Alcohol intake: current Alcohol intake frequency: does not drink Patient Tobacco Use Status: Former Tobacco user Years Smoked: 5 e-Cigarette/Vaping Use: Never Used service: No Current occupational status: retired Cognitive needs: No Hearing needs: No Vision needs: Yes Office Procedures Cardiac Device Check Cardiac Device Check Details: PPM good battery life No new alerts. [id number] Cardiac Device Check, leadless/single lead pacemaker Procedure code (CPT) selection complete Assessment & Plan Assessment & Plan (1) Cardiac pacemaker in situ: Code(s): Z95.0 - Presence of cardiac pacemaker Category: Medical Plan Coding Level of Care Code Procedure Only Diagnoses Cardiac pacemaker in situ Z95.0 CPT Codes Cardiac Device Check - Cardiac Device 1: 40821-[id number] Cardiac Device Check, leadless/single lead pacemaker ([id number])
== END ==
PROVIDERS: PCP Internal Medicine; Visit Provider Internal Medicine Cardiovascular Disease
DX: Z45.018 Encounter for adjustment and management of other part of cardiac pacemaker (principal)
CPT/HCPCS: 93294

== ENCOUNTER 2024-03-19 10:18 | Emergency (ER) | payer MEDICARE, SELFPAY ==
[2024-03-19 10:21] VITALS: BP 114/87; BP 118/68; PULSE 60; PULSE 80; RESP 16; TEMP 36.3; O2SAT 94; O2SAT 98; BMI 21.7
--- NOTE | 2024-03-19 10:32 | ED_ITS ---
HPI - Eye Problem General Chief complaint: Eye Problems Stated complaint: ITCHING BURNING EYES PER EMS Time Seen by Provider: 03/19/24 10:22 Source: patient, EMS, RN notes reviewed and old records reviewed Mode of arrival: EMS Limitations: no limitations History of Present Illness ED Provider: CLIFF MELGOZA PA-C HPI Narrative: 88 year old female with pmhx significant for stage 4 CKD not on dialysis, chronic dry eye, lumbar radiculopathy, hypothyroidism, CHF, PAF, complete heart block s/p pacemaker, depression, anxiety, anemia, GERD, and UC presents to the ED via EMS for evaluation of bilateral eye irritation x months. Reports her eyes feel dry and irritated. She has not followed up with her office machine technician in some time. Admits to associated photophobia. Patient wears glasses. Does not wear contact lenses. Denies vision changes, discharge from the eye, eye pain, or crusting. Denies trauma/ injury to the eye. Denies FB sensation. Denies fever, chills, headache, dizziness, N/V. When asked if she has any other concerns today, she tells me that she currently lives along and cannot find her life alert necklace. States she misplaced it and is concerned due to not having it. She is requesting help in obtaining a new life alert button. denies recent falls. states she feels safe at home. her daughter often helps her around the house. Related Data Previous Rx's ?Medication ?Instructions ?Recorded ropinirole 0.5 mg tablet 0.5 mg PO BID PRN restless leg 90 06/02/22 days #180 tabs atorvastatin 10 mg tablet 10 mg PO DAILY #90 tabs 08/22/23 omeprazole 20 mg capsule,delayed 20 mg PO DAILY 90 days #90 caps 08/22/23 release peg 400-propylene glycol 0.4 %-0.3 1 drp ophthalmic (eye) TID PRN dry 09/02/23 % eye drops (Systane Ultra) eye(s) #10 mL levothyroxine 50 mcg tablet 50 mcg PO DAILY 90 days #90 tabs 10/24/23 apixaban 2.5 mg tablet (Eliquis) 2.5 mg PO BID 90 days #180 tabs 01/16/24 gabapentin 100 mg capsule 100 mg PO BEDTIME 90 days #90 caps 01/17/24 mirtazapine 15 mg tablet 15 mg PO BEDTIME 90 days #90 tabs 01/17/24 ferrous sulfate 143 mg (45 mg 140 mg (0.979 x 143 mg (45 mg 03/12/24 iron) tablet,extended release iron)) PO DAILY #60 tabs spironolactone 25 mg tablet 12.5 mg PO DAILY 90 days #45 tabs 03/15/24 bumetanide 2 mg tablet 1 mg (1/2 x 2 mg) PO DAILY #90 tabs 03/18/24 peg 400-propylene glycol 0.4 %-0.3 1 drp ophthalmic (eye) DAILY PRN 03/19/24 % eye drops (Systane Ultra) dry eye #30 mL Allergies Allergy/AdvReac Type Severity Reaction Status Date / Time cat dander Allergy stuffy Verified 03/19/24 10:26 nose, red eye codeine AdvReac Unknown GI upset Verified 03/19/24 10:26 Review of Systems Review of Systems: Constitutional: No fever, chills, fatigue, night sweats, weight changes ENT/Mouth: No ear pain, hearing loss, nasal congestion, sinus pain, rhinorrhea, sore throat Eyes: No swelling, redness, vision changes, discharge, +eye irritation/ dryness Cardio: No chest pain, palpitations, NAVA, orthopnea, peripheral edema Pulm: No SOB, cough, sputum, wheezing, dyspnea, hemoptysis GI: No nausea, vomiting, hematemesis, abdominal pain, diarrhea, constipation, hematochezia, melena : No irregular bleeding, dysuria, frequency, urgency, hesitancy, hematuria, flank pain, urinary flow changes, urinary incontinence or retention MSK: No back pain, neck pain, joint pain, myalgias Skin: No lesions, rashes Neuro: No weakness, numbness, paresthesias, LOC, dizziness, headache Psych: No anxiety/panic, depression, SI/HI, AH/VH All other systems reviewed and are negative. [facility] Past Medical History Attestation statement: The following information was validated with the patient. Source: old records reviewed and nursing notes reviewed Medical History Congestive heart failure Tricuspid regurgitation Lipid disorder History of small bowel obstruction Osteosarcoma of bone Lipoma Osteoarthritis of both hips High cholesterol Atrial enlargement, left RLS (restless legs syndrome) Morbid obesity Urinary, incontinence, stress female Depression with anxiety Cancer of left tibia Constipation GERD (gastroesophageal reflux disease) Mitral valve insufficiency Tubular adenoma of colon Low hematocrit Surgical History S/P placement of cardiac pacemaker (~07/2020) Hx of colonoscopy History of intestinal surgery History of appendectomy H/O hysterectomy with oophorectomy S/P cataract surgery Family History Family History Mother Alzheimers disease Brother Lung cancer Epilepsy Social History Social History Household Members: None Housing: Assisted Living Facility Do you presently have visiting nurse or other home services: No ([facility]) Alcohol intake: current Alcohol intake frequency: does not drink Patient Tobacco Use Status: Former Tobacco user Years Smoked: 5 e-Cigarette/Vaping Use: Never Used Advance Directives: No Advance Directives Information Provided: Yes Do you have a plan to hurt others: No Plan service: No Current occupational status: retired Cognitive needs: No Hearing needs: No Vision needs: Yes Physical Exam Vital Signs: Vital Signs: Last Vital Signs Temp 98.3 F 03/19/24 12:42 Pulse 73 03/19/24 12:42 Resp 16 03/19/24 12:42 BP 108/68 03/19/24 12:42 Pulse Ox 95 03/19/24 12:42 O2 Del Method Room Air 03/19/24 12:42 BMI result Body Mass Index 21.7 vital signs stable, afebrile General: Well appearing, in no acute distress. pleasant. Skin: Warm, dry, intact. No rashes or lesions. Head: Normocephalic, atraumatic. EENT: Hearing is intact b/l. Moist mucous membranes.?No periorbital swelling. No enophthalmous or exopthalmous. EOMs intact without pain or entrapment. PERRLA. Positive photophobia. No obvious foreign body or abrasion. Noted conjunctival injection b/l with decreased tears. No hazy cornea. Visual acuity corrected OD 20/50, OS 20/30. IOP OD 14, IOP OS 16. On tetracaine exam, no reuptake to suggest abrasion or fb. no ulceration. no dendritic lesions. Neck: Supple without LAD Cardiac: Chest wall symmetric. RRR. No MRG. No JVD. Lungs: Normal respiratory effort without accessory muscle use. CTA bilaterally. Ext: Upper and lower extremities atraumatic, without tenderness, deformity, swelling or erythema. Neuro: AOx3. Normal speech. Ambulating with steady gait using cane. Psych: Appropriate mood and affect. Responds appropriately to questions. Course Course Course Narrative: 1200 -- Physical exam consistent with chronic dry eyes. Sysane eye drops sent to pharmacy for treatment. I also discussed case with jordin from case management who will be setting up a new life alert button for patient. Patient has remained stable throughout ED visit today. Discussed worrisome signs and symptoms and when to return to the ED. All questions answered at this time. Patient is agreeable with disposition and stable for discharge. Medications Administered Discontinued Medications Generic Name Dose Route Start Last Admin Trade Name Freq PRN Reason Stop Dose Admin Fluorescein Sodium 1 strip 03/19/24 10:32 03/19/24 10:44 Fluorescein Sodium Strip EYE-BOTH 03/19/24 10:33 1 strip ONCE ONE Administration Tetracaine HCl 1 drop 03/19/24 10:32 03/19/24 10:44 Tetracaine Hcl/Pf 0.5% Oph Anita 4 Ml Drops EYE-BOTH 03/19/24 10:33 1 drop ONCE ONE Administration Medical Decision Making Medical Decision Making [facility] Narrative: 88 year old female with pmhx significant for stage 4 CKD not on dialysis, chronic dry eye, lumbar radiculopathy, hypothyroidism, CHF, PAF, complete heart block s/p pacemaker, depression, anxiety, anemia, GERD, and UC presents to the ED via EMS for evaluation of bilateral eye irritation x months. Vital signs stable. She is nontoxic apperring and in NAD. AOX3. Pleasant. On exam, there is no periorbital swelling. No enophthalmous or exopthalmous. EOMs intact without pain or entrapment. PERRLA. Positive photophobia. No obvious foreign body or abrasion. Noted conjunctival injection b/l with decreased tears. No hazy cornea. Visual acuity corrected OD 20/50, OS 20/30. IOP OD 14, IOP OS 16. On tetracaine exam, no reuptake to suggest abrasion or fb. no ulceration. no dendritic lesions. Differential diagnosis includes corneal abrasion, corneal FB, conjunctivitis, chronic dry eye. Lower suspicion for iritis, keratitis. Unlikely pre-septal cellulitis, orbital cellulitis, acute angle closure glaucoma. Plan for tetracaine/fluorescein examination, IOP, VA, and disposition. Differential Diagnosis Differential Diagnoses: The differential diagnosis associated with the presentation includes as above. Admission/Observation Not indicated. External Record Review External record reviewed: Inpatient record Prescription Management I considered prescription management with: Other (systane eye drops) Social Determinants Patient?s care significantly limited by Social Determinants of Health including: Other Social Determinant of Health Critical Care Time Critical Care Time Critical Care Time: No Discharge Plan Discharge Clinical Impression: Chronic dryness of both eyes Patient Disposition: Home, Self-Care Instructions: How to Use Eye Drops (ED), Dry Eye Syndrome (ED) Additional Instructions: You were evaluated in the ED today for eye irritation/ redness. Systane eye drops have been sent to your pharmacy for you to take as needed for eye irritation. You have been provided with a referral to an eye doctor. Call them to make an appointment. They will not call you. Return with new or worsening symptoms. In the case of an emergency call 911. I also spoke with our case checker regarding your life-alert necklace. She is reaching out to the medical supplier and they will be calling you to set up replacement life-alert button. Follow up with PCP as needed. Prescriptions: New Systane Ultra 0.4-0.3 % drops 1 drp ophthalmic (eye) DAILY PRN (Reason: dry eye) Qty: 30 0RF No Action ropinirole 0.5 mg tablet 0.5 mg PO BID PRN (Reason: restless leg) 90 Days Qty: 180 3RF omeprazole 20 mg capsule,delayed release(DR/EC) 20 mg PO DAILY 90 Days Qty: 90 3RF atorvastatin 10 mg tablet 10 mg PO DAILY Qty: 90 3RF levothyroxine 50 mcg tablet 50 mcg PO DAILY 90 Days Qty: 90 0RF Eliquis 2.5 mg tablet 2.5 mg PO BID 90 Days Qty: 180 3RF gabapentin 100 mg capsule 100 mg PO BEDTIME 90 Days Qty: 90 0RF mirtazapine 15 mg tablet 15 mg PO BEDTIME 90 Days Qty: 90 0RF ferrous sulfate 143 mg (45 mg iron) tablet extended release 140 mg PO DAILY Qty: 60 0RF spironolactone 25 mg tablet 12.5 mg PO DAILY 90 Days Qty: 45 0RF Protocol: Hold for SBP< HOLD for SBP < : 90 bumetanide 2 mg tablet 1 mg PO DAILY Qty: 90 0RF Systane Ultra 0.4-0.3 % drops 1 drp ophthalmic (eye) TID PRN (Reason: dry eye(s)) Qty: 10 1RF Referrals: Samir Whitmore [Physician] - Fidelina Whitney MD [Primary Care Provider] - Interventions: ED Discharge Assessment Last Done: 03/19/24 12:42 Discharge Date/Time: 03/19/24 12:42 Print Language: Azeri
[2024-03-19] MEDS: Fluorescein Sodium STRIP 1 STRIP EYE-BOTH (10:44)
[2024-03-19] MEDS: Tetracaine HCl/PF 0.5% Oph Sol 4 ML DROPS 1 DROP EYE-BOTH (10:44)
[2024-03-19 12:17] VITALS: BP 108/68; PULSE 73; RESP 16; TEMP 36.8; O2SAT 95
[2024-03-19 12:42] VITALS: BP 108/68; PULSE 73; RESP 16; TEMP 36.8; O2SAT 95
== END 2024-03-19 12:42 | disposition home or self-care (01) ==
PROVIDERS: Emergency Provider Emergency Medicine; PCP Internal Medicine
DX: H53.143 Visual discomfort, bilateral (principal)
CPT/HCPCS: 99283

== ENCOUNTER → 2024-03-27 23:59 | Outpatient (BNV) | payer MEDICARE, SELFPAY ==
--- NOTE | 2024-03-29 17:34 | A.OFFVIS_ITS ---
Intake Visit Reasons: Remote Device Check- [facility] Allergies cat dander Allergy (Verified 03/19/24 10:26) stuffy nose, red eye codeine Adverse Reaction (Unknown, Verified 03/19/24 10:26) GI upset PFSH Medical History Congestive heart failure Tricuspid regurgitation Lipid disorder History of small bowel obstruction Osteosarcoma of bone Lipoma Osteoarthritis of both hips High cholesterol Atrial enlargement, left RLS (restless legs syndrome) Morbid obesity Urinary, incontinence, stress female Depression with anxiety Cancer of left tibia Constipation GERD (gastroesophageal reflux disease) Mitral valve insufficiency Tubular adenoma of colon Low hematocrit Surgical History S/P placement of cardiac pacemaker (~07/2020) Hx of colonoscopy History of intestinal surgery History of appendectomy H/O hysterectomy with oophorectomy S/P cataract surgery Family History Mother Alzheimers disease Brother Lung cancer Epilepsy Social History Household Members: None Housing: Assisted Living Facility Do you presently have visiting nurse or other home services: No ([facility]) Alcohol intake: current Alcohol intake frequency: does not drink Patient Tobacco Use Status: Former Tobacco user Years Smoked: 5 e-Cigarette/Vaping Use: Never Used service: No Current occupational status: retired Cognitive needs: No Hearing needs: No Vision needs: Yes Office Procedures Cardiac Device Check Cardiac Device Check Details: PPM Good battery IMITATION MARBLE [employer]CH[employer]IC>99%. No new alerts [id number] Cardiac Device Check, leadless/single lead pacemaker Procedure code (CPT) selection complete Assessment & Plan Assessment & Plan (1) Heart block: Code(s): I45.9 - Conduction disorder, unspecified Category: Medical Plan: Orders: Orders AMB Cardiac Device Follow-up 03/27/24 I48.0 - Paroxysmal atrial fibrillation Coding Level of Care Code Procedure Only Diagnoses Heart block I45.9 CPT Codes Cardiac Device Check - Cardiac Device 1: [id number] Cardiac Device Check, leadless/single lead pacemaker ([id number])
== END ==
PROVIDERS: PCP Internal Medicine; Visit Provider Internal Medicine Cardiovascular Disease
DX: I45.9 Conduction disorder, unspecified (principal); Z95.0 Presence of cardiac pacemaker
CPT/HCPCS: 93294

== ENCOUNTER 2024-04-08 14:11 | Outpatient (AMB) | payer MEDICARE, SELFPAY ==
--- NOTE | 2024-04-08 16:16 | MHC.OFFVIS ---
Intake Visit Reasons: f/u device ck Allergies cat dander Allergy (Verified 03/19/24 10:26) stuffy nose, red eye codeine Adverse Reaction (Unknown, Verified 03/19/24 10:26) GI upset PFSH Medical History Congestive heart failure Tricuspid regurgitation Lipid disorder History of small bowel obstruction Osteosarcoma of bone Lipoma Osteoarthritis of both hips High cholesterol Atrial enlargement, left RLS (restless legs syndrome) Morbid obesity Urinary, incontinence, stress female Depression with anxiety Cancer of left tibia Constipation GERD (gastroesophageal reflux disease) Mitral valve insufficiency Tubular adenoma of colon Low hematocrit Surgical History S/P placement of cardiac pacemaker (~07/2020) Hx of colonoscopy History of intestinal surgery History of appendectomy H/O hysterectomy with oophorectomy S/P cataract surgery Family History Mother Alzheimers disease Brother Lung cancer Epilepsy Social History Household Members: None Housing: Assisted Living Facility Do you presently have visiting nurse or other home services: No ([facility]) Alcohol intake: current Alcohol intake frequency: does not drink Patient Tobacco Use Status: Former Tobacco user Years Smoked: 5 e-Cigarette/Vaping Use: Never Used service: No Current occupational status: retired Cognitive needs: No Hearing needs: No Vision needs: Yes Office Procedures Cardiac Device Check Cardiac Device Check Details: [place] single lead pacemaker interrogation today, battery 6.7-7.2 years, VVIR mode, low rate 60, ventricular threshold 1 volt at 0.5 milliseconds, V paced greater than 99%, no alerts [id number] Cardiac Device Check, leadless/single lead pacemaker Procedure code (CPT) selection complete Assessment & Plan Assessment & Plan (1) Cardiac pacemaker in situ: Code(s): Z95.0 - Presence of cardiac pacemaker Category: Medical Plan: Office device check Coding Level of Care Code Procedure Only Diagnoses Cardiac pacemaker in situ Z95.0 CPT Codes Cardiac Device Check - Cardiac Device 1: [id number] Cardiac Device Check, leadless/single lead pacemaker ([id number])
== END 2024-04-08 16:22 | disposition home or self-care (01) ==
PROVIDERS: PCP Internal Medicine; Visit Provider Nurse Practitioner Family
DX: Z45.018 Encounter for adjustment and management of other part of cardiac pacemaker (principal)
CPT/HCPCS: 93279

== ENCOUNTER 2024-09-11 10:56 | Outpatient (REF) | payer MEDICARE, SELFPAY ==
--- OUTSIDE RECORDS SUMMARY | 2024-09-11 13:27 | XMS_ITS | Data Portability ---
Author Organization [place] [facility] Jennifer Oscar [facility] [place] Address [address] [facility] [address] [place] [address] Care Team Providers Care Dobby Loom Fixer Name Role Phone KRISTEN BELL Primary Care Provider KRISTEN BELL Primary Care Provider Assessment Encounter Date Assessment Date Assessment LastModified by Organization Details LastModified Time 04/20/2023 04/20/2023 87-year-old female accompanied by her daughter left knee arthritis with arthralgia she opted for cortisone injection today's visit. After verbal consent was granted by the patient. The procedure was then carried out the left knee the patient tolerated the procedure well. Aftercare instructions were discussed in detail. Follow-up visit 3 months time for repeat clinical exam. Indirect care and treatment in conjunction with Dr. Henning Additional treatment plan discussed with the patient (only initiated if in boldface font) otherwise not applicable. Treatment may include the following; - Provider focused nonsteroidal anti-inflammator y regimen (discussed were the pros, cons, benefits and risks as well as any black box warnings) in patients over 60 years old they should be very cautious in taking these medications due to potential decreased kidney function and or elevated blood pressure. - Analgesic pain medication for pain suppression (discussed were the pros, cons, benefits and risks as well as any black box warnings) - The use of topical pain relieving medication were discussed - The use of ice to decrease inflammation and pain - The use of assistive ambulatory devices for ambulation and fall prevention - Formal specific guided physical therapy program I reviewed my findings at length with the patient today. ??We discussed the nature and etiology of this problem along with current treatment options. We discussed the expected course and outcomes and what to expect. We also discussed risks and benefits. ?? All of their questions were answered today, and there was exhibited understanding and comprehension of all that was discussed. Time Spent: 10 minutes were spent reviewing previous imaging and charting. ??10 minutes were spent obtaining patient history. ??5 minutes were spent on physical exam. ??5??minutes were spent explaining diagnosis and assessment. Today's documentation was made using voice recognition software. This note may contain grammatical errors secondary to the software. Not available 04/20/2023 11:09:31 Plan of Treatment Reminders Order Date Submit Date Provider Last Modified By Organization Details Last Modified Time Details Appointments None recorded. Lab None recorded. Referral None recorded. Procedures None recorded. Surgeries None recorded. Imaging XR, knee, 4 or more view 2022 [email or web address] [place] [facility], [address], [address], [place], [address], 12:06:13 Medication Orders Kenalog 40 mg/mL suspension for injection 2022 [facility] #[id number], [address], [place], [phone], 3 12:06:13 lidocaine (PF) 10 mg/mL (1 %) injection solution 2022 [facility] #[id number], [address], [place], [phone], 12:06:13 Patient TargetsNo targets recorded. 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 Normal bone mineralization no acute bony abnormality. The lateral view of the left knee does not reveal any acute findings. These were compared to prior studies from 01/27/2022. Not available 04/20/2023 11:10:05 Reason for Referral None Reported. Procedures Surgical History Date Name Laterality Status Provider Name and Address Organization Details Recorded Time 3 Knee Joint/Bursa Asp & Inj completed VARUN FAJARDO PA-C [address] [facility] [address], [place], [address], [facility] [place] 04/20/2023 11:07:37 tumor destruction completed Inés Noonan [facility] [place] 04/20/2023 11:24:52 Imaging Results None recorded. Procedure Notes None recorded. Medical Equipment None Reported. Allergies No known drug allergies Medications Name Sig Start Date Stop Date Status Note LastModified by Organization Details LastModified Time furosemide 40 mg tablet TAKE 1 TABLET BY MOUTH EVERY DAY 5 DAYS A WEEK 04/20 completed Not Available Not Available Not Available prednisone 10 mg tablet TAKE 1 TABLET BY MOUTH DAILY FOR 3 DAYS 04/20 completed Not Available Not Available Not Available bumetanide 2 mg tablet TAKE 1 TABLET BY MOUTH DAILY active Not Available Not Available No t Available cetirizine 10 mg tablet TAKE 1 TABLET ORALLY DAILY NEEDED FOR ALERGY SYMPTOMS active Not Available Not Available No t Available atorvastati n 10 mg tablet TAKE 1 TABLET BY MOUTH DAILY active Not Available Not Available No t Available amiodarone 200 mg tablet TAKE 2 TABLETS BY MOUTH TWICE DAILY FOR 10 DAYS THEN TAKE 1 TABLET BY MOUTH DAILY 04/20 completed Not Available Not Available Not Available spironolact one 25 mg tablet TAKE 1/2 TABLET BY MOUTH DAILY active Not Available Not Available No t Available levothyroxi ne 75 mcg tablet TAKE 1 TABLET BY MOUTH DAILY active Not Available Not Available No t Available Kenalog 40 mg/mL suspension for injection Take 1 mL by injection route. 04/20 completed Not Available Not Available Not Available famotidine 20 mg tablet TAKE 1 TABLET BY MOUTH TWICE DAILY BEFORE MEALS FOR 15 DAYS 04/20 completed Not Available Not Available Not Available levothyroxi ne 50 mcg tablet TAKE 1 TABLET BY MOUTH DAILY active Not Available Not Available No t Available ropinirole 0.5 mg tablet TAKE 1 TABLET BY MOUTH TWICE DAILY NEEDED FOR RESTLESS LEGS active Not Available Not Available No t Available clotrimazol e-betametha sone 1 %-0.05 % topical cream APPLY TOPICALLY TO THE AFFECTED AND SURROUNDI NG AREAS TWICE DAILY IN THE MORNING AND IN THE EVENING FOR 1 WEEK. APPLY SPARIINGL Y 04/20 completed Not Available Not Available Not Available polymyxin B sulfate 10,000 unit-trimet hoprim 1 mg/mL eye drops 04/20 completed Not Available Not Available Not Available docusate sodium 100 mg capsule TAKE 1 CAPSULE BY MOUTH DAILY NEEDED FOR CONSTIPAT ION 04/20 completed Not Available Not Available Not Available omeprazole 20 mg capsule,del ayed release TAKE 1 CAPSULE BY MOUTH DAILY active Not Available Not Available No t Available mirtazapine 15 mg tablet active Not Available Not Available Not Available gabapentin 100 mg capsule TAKE 1 CAPSULE BY MOUTH AT BEDTIME 04/20 completed Not Available Not Available Not Available mirtazapine 7.5 mg tablet TAKE 1 TABLET BY MOUTH AT BEDTIME active Not Available Not Available No t Available lidocaine (PF) 10 mg/mL (1 %) injection solution Take 2 mL by injection route. 04/20 completed Not Available Not Available Not Available Eliquis 2.5 mg tablet TAKE 1 TABLET BY MOUTH TWICE DAILY active Not Available Not Available No t Available Vitals Date Recorded Body height Body mass index (BMI) Body weight Provider Name and Address Organization Details Last Updated DateTime 04/20/2023 162.56 cm 22.3 kg/m2 20392.01 [facility] 11:22:15 Social History Question Answer Notes LastModified by Organizat ion Details LastModified Time Tobacco Smoking Status [facility] 04/20/2023 11:23:42 What Is Your Level Of Alcohol Consumption? None Information not available 04/20/2023 Do You Use Any Illicit Or Recreational Drugs? No Information not available 04/20/2023 Do You Or Have You Ever Used Any Other Forms Of Tobacco Or Nicotine? No Information not available 04/20/2023 Sex: Unknown Functional Status None recorded. Mental Status None recorded. Family History Relationship Description Onset Age of this Age Resolved Age Notes LastModified by Organization Details LastModified Time Mother Arthritis Not available 04/20/2023 11:22:27 Mother Hypercholest erolemia Not available 2022 11:22:37 Father Arthritis Not available 04/20/2023 11:22:27 Medical History Condition Response Heart Disease Y Bleeding Disorder Y Anemia Y Osteopenia Y Reflux/GERD Y Hypothyroidism Y Blood Transfusion Y Gynecological HistoryNo gynecological history recorded. Obstetrics History GPAL:G 0 P 0 0 0 0 Past Encounters Encounter ID Performer Location Encounter Start Date Encounter Closed Date Diagnosis/Indication Diagnosis SNOMED-CT Code Diagnosis ICD10 Code Diagnosis Note [id number] MD HUMBERTO Dougherty [facility] [address] [facility] [address] [place] [address] 04/20/2023 10:11:13 04/20/2023 11:01:43 Pain of left knee joint 3240224589 98188 M25.562 Osteoarthr itis of left knee joint 3594445405 44806 M17.12 Health Concerns Section Related Observation LastModified by Organization Detai ls LastModified Time None Recorded Concern Status LastModified by Organization Details LastModified Time None Recorded Advance Directives Directive None Recorded Payers Encounter Date Sequence Insurance Name Policy Number Policy Ly Covered Member ID Ly Member ID Guarantor Name 04/20/2023 1 [facility] (MEDICARE REPLACEMENT/A DVANTAGE - PPO) [id number] Yahaira Cortes [id number] Yahaira Cortes Notes Date Note Type Note Provider Name and Address Organization Details Recorded Time 04/20/2023 text/html 87-year-old fema le accompanied by her daughter at today's visit history of left knee osteoarthritis with arthralgia. She had a cortisone injection last in August and 2022 which gave her good relief however it wore off quite some time ago. Patient is here for evaluation treatment and possible cortisone injection. Denies any swelling fevers chills warmth overlying the left knee joint. History of right knee replacement many years ago by a different orthopedic surgeon other than our group. No issues no complaints at this time. 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 Normal bone mineralization no acute bony abnormality. The lateral view of the left knee does not reveal any acute findings. These were compared to prior studies from 01/27/2022. VARUN FAJARDO PA-C [address] [facility] [address], [place], [address], [place] [facility] [place] 04/20/2023 11:11:37 OBGyn Episode No OBEpisode recorded.
--- OUTSIDE RECORDS SUMMARY | 2024-09-11 13:27 | XMS_ITS | Clinical Summary ---
Author Organization [facility] Address [address] [place] [address] Care Team Providers Care Environmental Projects Advisor Name Role Phone Fidelina Whitney MD Primary Care Provider [phone] Allergies No known active allergies Medications Medication [...] age to complete this topic Care Teams Environmental Projects Advisor Relationship Specialty Start Date End Date Fidelina Whitney MD [address] [place] [address] PCP - General Internal Medicine 01/27/22
--- OUTSIDE RECORDS SUMMARY | 2024-09-11 13:27 | XMS_ITS | Clinical Summary ---
Author Organization [facility] Address [address] [place] [address] Phone Care Team Providers Care Tennis Director Name Role Phone Fidelina Whitney MD Primary Care Provider [phone] Allergies Active Allergy Reactions Criticality Noted Date [...] patient's age to complete this topic Insurance [facility] MEDICARE [facility] MEDICARE Care Teams Tennis Director Relationship Specialty Start Date End Date Fidelina Whitney MD [facility] [place] [address] PCP - General Internal Medicine 06/06/22
--- OUTSIDE RECORDS SUMMARY | 2024-09-11 13:27 | XMS_ITS | Encounter Summary ---
Author Organization [facility] Address [address] [place] [address] Phone Care Team Providers Care Abstract Clerk Name Role Phone Fidelina Whitney MD Primary Care Provider [phone] Encounter Details Date Type Department Care Team (Late st Contact Info) Description 11/09/2022 Telephone [facility] [address] [place] [address] Bee Newman Social History Tobacco [...] on her mother's recent labs. Please call [phone] documented in this encounter Plan of Treatment Not on file documented as of this encounter Visit Diagnoses Not on filedocumented in this encounter Care Teams Abstract Clerk Relationship Specialty Start Date End Date Fidelina Whitney MD [place] [address] PCP - General Internal Medicine 06/06/22 documented as of this encounter
[2024-09-11 13:50] LABS: MANUAL DIFF FLAG NO
[2024-09-11 13:55] LABS: Basophils Absolute Auto 0.1 X10*3/uL (0.0-0.2); Basophils Percent Auto 1.1 % (0-2); Eosinophils Absolute Auto 0.2 X10*3/uL (0.0-0.4); Hematocrit 43.6 % (37.0-47.0); Hemoglobin 13.9 g/dl (12.0-16.0); Imm Gran Abs Auto 0.02 X10*3/uL (0.00-0.03); Imm Gran Pct Auto 0.4 % (0.0-0.4); Lymphocytes Absolute Auto 1.1 X10*3/uL (1.2-4.9); Lymphocytes Percent Auto 21.4 % (20-40); Mean Corpuscular HGB Conc 31.9 g/dl (31.0-35.0); Mean Platelet Volume 11.4 fL (9.4-12.3); Monocytes Absolute Auto 0.6 X10*3/uL (0.1-1.2); Monocytes Percent Auto 11.9 % (2-11); Neutrophils Absolute Auto 3.3 x10*3/uL (2.0-8.3); Neutrophils Percent Auto 62.2 % (45-73); Platelet Count 160 X10*3/uL (160-400); Red Blood Count 4.64 X10*6/uL (4.20-5.50); White Blood Count 5.3 X10*3/uL (4.8-10.8)
[2024-09-11 14:22] LABS: Alanine Aminotransferase 10 U/L (0-31); Albumin Level 4.3 g/dL (3.5-5.0); Alkaline Phosphatase 123 U/L (39-117); Anion Gap 13 (12-20); Aspartate Amino Transferase 26 U/L (5-31); Bilirubin Total 0.7 mg/dL (0.0-1.0); Blood Urea Nitrogen 20 mg/dL (9-16); Calcium 9.8 mg/dL (8.4-10.2); Carbon Dioxide 25 mmol/L (22-29); Chloride 106 mmol/L (96-108); Estimated Glomerular Filt Rate 33; Ferritin 100 ng/mL (10-250); Glucose Random 97 mg/dL (60-115); Potassium 4.3 mmol/L (3.3-5.1); Sodium 140 mmol/L (135-145); TSH reflex Free T4 0.94 uIU/mL (0.32-4.0); Total Protein 7.6 g/dL (6.5-8.0)
[2024-09-11 14:27] LABS: Vitamin B12 540 pg/mL (200-900)
[2024-09-12 07:44] LABS: LDL Cholesterol Direct 80 mg/dL (<100)
[2024-09-15 17:23] LABS: Vitamin D 25-OH, D2 <4 ng/mL; Vitamin D 25-OH, D3 28 ng/mL; Vitamin D 25-OH, Total 28 ng/mL (30-100)
== END 2024-09-11 10:57 | disposition home or self-care (01) ==
LOC: HO.HMGCLDS 10:56
PROVIDERS: PCP Internal Medicine; Visit Provider Internal Medicine
DX: I12.9 Hypertensive chronic kidney disease with stage 1 through stage 4 chronic kidney disease, or unspecified chronic kidney disease (principal); N18.4 Chronic kidney disease, stage 4 (severe); E61.1 Iron deficiency; I48.0 Paroxysmal atrial fibrillation; K21.9 Gastro-esophageal reflux disease without esophagitis; G25.81 Restless legs syndrome; N28.9 Disorder of kidney and ureter, unspecified; G47.9 Sleep disorder, unspecified; E03.8 Other specified hypothyroidism; D70.9 Neutropenia, unspecified; E78.9 Disorder of lipoprotein metabolism, unspecified; I44.2 Atrioventricular block, complete; H91.93 Unspecified hearing loss, bilateral
CPT/HCPCS: 36415; 80053; 82306; 82607; 82728; 83721; 84443; 85025; 96127; 99212

== ENCOUNTER 2024-09-11 10:56 | Outpatient (AMB) | payer MEDICARE, SELFPAY ==
[2024-09-11 11:07] VITALS: BP 116/66; PULSE 71; O2SAT 96; BMI 21.8
--- NOTE | 2024-09-11 11:07 | MHC.PC.OV ---
Vital Signs 09/11/24 11:07 Height 5 ft 4 in Weight 127 lb 2 oz BMI 21.8 BP 116/66 Blood Pressure Location Rt brachial Position Sitting Pulse 71 Pulse Source Pulse Oximeter Pulse Oximetry (%) 96 Oxygen Delivery Method Room Air Intake Visit Reasons: Blood in belly button Allergies cat dander Allergy (Verified 09/11/24 11:10) stuffy nose, red eye codeine Adverse Reaction (Unknown, Verified 09/11/24 11:10) GI upset Medication List - Last Reconciled 09/11/24 by Fidelina Whitney MD apixaban (Eliquis) 2.5 mg PO BID 90 days atorvastatin 10 mg PO DAILY bumetanide 1 mg (1/2 x 2 mg) PO DAILY ferrous sulfate ER 140 mg (0.979 x 143 mg (45 mg iron)) PO DAILY gabapentin 100 mg PO BEDTIME 90 days levothyroxine 50 mcg PO DAILY 90 days mirtazapine 15 mg PO BEDTIME 90 days omeprazole 20 mg PO DAILY 90 days peg 400-propylene glycol 0.4-0.3 % (Systane Ultra) 1 drp ophthalmic (eye) DAILY PRN peg 400-propylene glycol 0.4-0.3 % (Systane Ultra) 1 drp ophthalmic (eye) TID PRN ropinirole 0.5 mg PO BID PRN 90 days spironolactone 12.5 mg See Protocol PO DAILY 90 days Tobacco use date assessed: 09/11/24 Fall risk assessment: No Falls in past year Last assessed Fall Risk: 09/11/24 Dental Screening Dental Screen Date: 09/11/24 Did you have a dental visit in the last 12 months?: Yes Did you have a dental problem in the last 6 months where you did not have access to dental care?: No Was dental information given to patient?: Patient has dentist HPI Blood in belly button HPI Details History - The patient is an 88-year-old female with H/o nephropathy, hypothyroidism, heart block, poor circulation in lower extremity, risk for fall, difficulty sleeping, chronic GERD, restless legs syndrome, Lipid disorder, iron-deficiency anemia, hypertension. Patient is also established with Nephrology and Cardiology presenting with an umbilical infection. - Initial symptoms of bleeding from the navel noted on a Monday and subsequent development of a raw, crusting area. - The area was evaluated, and antibiotic treatment was deemed necessary for resolution. - Reports of finger locking and difficulty gripping objects suggestive of trigger finger, and it appears to resolve with manipulation. The condition is potentially related to underlying arthritis. - She missed a follow-up appointments last time seen was 12 months ago, need regular consultations due to numerous prescribed medications managing chronic conditions. regular f/u apt are discussed with daughter - Persistent pallor and cold feet might reflect a circulatory issue or hypothyroid-related intolerance; anemia might contribute to these symptoms, necessitating further investigation. Problem List - Chronic Kidney Disease - Neutropenia - Hypothyroidism - Insomnia - Diabetic Nephropathy - Gastroesophageal Reflux Disease (GERD) - Restless Leg Syndrome - Paroxysmal Atrial Fibrillation - Major Depressive Disorder - Complete Heart Block - Hyperlipidemia - Umbilical Infection - Anemia - Trigger Finger/ arthritis hands and other joints Patient Instructions - Begin antibiotic treatment as prescribed for the umbilical infection. - Avoid touching or disturbing the infected area to prevent exacerbation. - Gently pat the area dry after showers; avoid cleaning with Q-tips or scrubbing. - Discuss the potential for a cortisone injection or hand surgery with an clinical rehab specialist if trigger finger symptoms persist. - Attend scheduled laboratory tests and follow-up appointments to monitor chronic conditions and medications. - Maintain warmth for feet to counteract cold feet symptoms. - Take the increased dose of levothyroxine as prescribed. Review of Systems - General: No fever no chills - Neurological: No headaches no dizziness - Ear nose throat: No sore throat no hearing difficulty no ear pain - Cardiovascular: No syncope, no chest pain, no palpitations - Gastrointestinal: No nausea vomiting or diarrhea Physical Exam General: No acute distress HEENT: No acute findings Neck: Supple Respiratory system: Able to talk in full sentences, no audible wheeze cardiovascular: S1-S2 Gastrointestinal: Skin around the umbilicus erythematous seemed infected no discharge noticed abdomen is soft to palpation Extremities: No edema HABITAT BIOLOGIST: Awake and alert, had difficulty climbing on examination table, risk for fall [facility] Medical History Congestive heart failure Tricuspid regurgitation Lipid disorder History of small bowel obstruction Osteosarcoma of bone Lipoma Osteoarthritis of both hips High cholesterol Atrial enlargement, left RLS (restless legs syndrome) Morbid obesity Urinary, incontinence, stress female Depression with anxiety Cancer of left tibia Constipation GERD (gastroesophageal reflux disease) Mitral valve insufficiency Tubular adenoma of colon Low hematocrit Surgical History S/P placement of cardiac pacemaker (~07/2020) Hx of colonoscopy History of intestinal surgery History of appendectomy H/O hysterectomy with oophorectomy S/P cataract surgery Family History Mother Alzheimers disease Brother Lung cancer Epilepsy Social History Household Members: None Housing: Assisted Living Facility Do you presently have visiting nurse or other home services: No ([facility]) Alcohol intake: current Alcohol intake frequency: does not drink Patient Tobacco Use Status: Former Tobacco user Years Smoked: 5 e-Cigarette/Vaping Use: Never Used service: No Current occupational status: retired Cognitive needs: No Hearing needs: No Vision needs: Yes Questionnaire PHQ-9 Over the last 2 weeks, how often have you been bothered by any of the following problems? 1. Little interest or pleasure in doing things: several days 2. Feeling down, depressed, or hopeless: not at all 3. Trouble falling or staying asleep, or sleeping too much: several days 4. Feeling tired or having little energy: more than half the days 5. Poor appetite or overeating: not at all 6. Feeling bad about yourself - or that you are a failure or have let yourself or your family down: not at all 7. Trouble concentrating on things, such as reading the newspaper or watching television: not at all 8. Moving or speaking so slowly that other people could have noticed. Or the opposite - being so fidgety or restless that you have been moving around a lot more than usual: not at all 9. Thoughts that you would be better off or of hurting yourself in some way: not at all Total score: 4 Depression Screening Interpretation: Negative Depression Screening Done: Yes 32807 - PHQ-9 Billing: Yes Source: Developed by Drs. Frantz Meng, Calista Martinez, Evan Rodriguez and colleagues, with an educational monty from [employer]. Thrive Questionnaire Date Thrive assessed: 09/11/24 I am a: Parent/Caregiver What is your living situation today?: I have a steady place to live Within the past 12 months, did the food you bought not last and you didn't have the money to get more?: I choose not to answer this question Within the past 12 months, did you worry whether your food would run out before you got money to buy more?: I choose not to answer this question Do you have trouble paying for medicines?: No Do you have trouble getting transportation to medical appointments?: No Do you have trouble paying your heating and electricity bill?: No Do you have trouble taking care of your child, family member or friend?: No Do you have trouble with day-to-day activities such as bathing, preparing meals, shopping, managing finances, etc.?: No Are you currently unemployed and looking for a job?: No Are you interested in more education?: No Please select the resources that you would like help with: None Currently or been in a relationship where the following occur: No concerns reported THRIVE Score: 0 AUDIT C Alcohol Use Questionnaire (AUDIT-C) 1. How often do you have a drink containing alcohol?: Never 3. How often do you have six or more drinks on one occasion?: Never Total Score: 0 Score Reviewed/Action Taken: Yes KAYLA-7 AMB Questionnaire KAYLA-7 Date KAYLA - 7 assessed: 09/11/24 Feeling nervous, anxious, or on edge: 0 = Not at all Not being able to stop or control worryin = Not at all Worrying too much about different things: 0 = Not at all Trouble relaxin = Not at all Being so restless that it is hard to sit still: 0 = Not at all Becoming easily annoyed or irritable: 0 = Not at all Feeling afraid as if something awful might happen: 0 = Not at all Total KAYLA-7 score (0-4 normal; 5-9 mild; 10-14 moderate; 15-21 severe): 0 Source: Developed by Drs. Frantz Meng, Calista Martinez, Evan Rodriguez and colleagues, with an educational monty from [employer]. KAYLA-7 Assessment Billing KAYLA-7 Assessment Tool: KAYLA-7 Assessment 08585 Physical exam (Primary Care) Vital Signs: Last Vital Signs Pulse 71 09/11/24 11:07 BP 116/66 09/11/24 11:07 Pulse Ox 96 09/11/24 11:07 Oxygen Delivery Method Room Air 09/11/24 11:07 BMI result Body Mass Index 21.8 Tobacco/Smoking Status: Tobacco use Status Tobacco use date assessed 09/11/24 09/11/24 11:12 Patient Tobacco Use Status Former Tobacco user 09/11/24 11:12 e-Cigarette/Vaping Use Never Used 09/11/24 11:12 PHQ-9: PHQ-9 Score PHQ-9: Total score 4 09/11/24 11:29 Depression Screening Interpretation: Negative Thrive Assessment: Date of Thrive Assessment Date Thrive assessed 09/11/24 09/11/24 11:12 Currently or been in a relationship where the following occur: No concerns reported Coding Level of Care Code Est Pt Level 5 (46457) Diagnoses Cellulitis of umbilicus L03.316 CKD (chronic kidney disease) stage 4, GFR 15-29 ml/min N18.4 Other specified hypothyroidism E03.8 Difficulty sleeping G47.9 Neutropenia, unspecified type D70.9 Neutropenia type: unspecified Iron deficiency E61.1 Iron deficiency anemia due to chronic blood loss D50.0 Anemia type: iron deficiency Iron deficiency anemia type: chronic blood loss Lipid disorder E78.9 Complete heart block I44.2 Restless leg syndrome G25.81 Chronic GERD K21.9 Hearing difficulty of both ears H91.93 Laterality: bilateral Additional Codes KAYLA-7 Assessment Billing - KAYLA-7 Assessment Tool: KAYLA-7 Assessment 25313 ([id number]) PHQ-9 - 62714 - PHQ-9 Billing: Yes ([id number]) Assessment & Plan Assessment & Plan (1) Cellulitis of umbilicus: Code(s): L03.316 - Cellulitis of umbilicus Category: Medical (2) CKD (chronic kidney disease) stage 4, GFR 15-29 ml/min: Code(s): N18.4 - Chronic kidney disease, stage 4 (severe) Category: Medical (3) Other specified hypothyroidism: Code(s): E03.8 - Other specified hypothyroidism Category: Medical (4) Difficulty sleeping: Code(s): G47.9 - Sleep disorder, unspecified Category: Medical (5) Neutropenia: Comment: Last set of lab shows low white count Code(s): D70.9 - Neutropenia, unspecified Category: Medical Qualifiers: Neutropenia type: unspecified Qualified Code(s): D70.9 - Neutropenia, unspecified (6) Iron deficiency: Code(s): E61.1 - Iron deficiency Category: Medical (7) Anemia: Code(s): D64.9 - Anemia, unspecified Category: Medical Qualifiers: Anemia type: iron deficiency Iron deficiency anemia type: chronic blood loss Qualified Code(s): D50.0 - Iron deficiency anemia secondary to blood loss (chronic) (8) Lipid disorder: Code(s): E78.9 - Disorder of lipoprotein metabolism, unspecified Category: Medical (9) Complete heart block: Code(s): I44.2 - Atrioventricular block, complete Category: Medical (10) Restless leg syndrome: Code(s): G25.81 - Restless legs syndrome Category: Medical (11) Chronic GERD: Code(s): K21.9 - Gastro-esophageal reflux disease without esophagitis Category: Medical (12) Difficulty hearing: Code(s): H91.90 - Unspecified hearing loss, unspecified ear Category: Medical Qualifiers: Laterality: bilateral Qualified Code(s): H91.93 - Unspecified hearing loss, bilateral Plan History - The patient is an 88-year-old female with H/o nephropathy, hypothyroidism, heart block, poor circulation in lower extremity, risk for fall, difficulty sleeping, chronic GERD, restless legs syndrome, Lipid disorder, iron-deficiency anemia, hypertension. Patient is also established with Nephrology and Cardiology presenting with an umbilical infection. - Initial symptoms of bleeding from the navel noted on a Monday and subsequent development of a raw, crusting area. - The area was evaluated, and antibiotic treatment was deemed necessary for resolution. - Reports of finger locking and difficulty gripping objects suggestive of trigger finger, and it appears to resolve with manipulation. The condition is potentially related to underlying arthritis. - She missed a follow-up appointments last time seen was 12 months ago, need regular consultations due to numerous prescribed medications managing chronic conditions. regular f/u apt are discussed with daughter - Persistent pallor and cold feet might reflect a circulatory issue or hypothyroid-related intolerance; anemia might contribute to these symptoms, necessitating further investigation. Problem List - Chronic Kidney Disease - Neutropenia - Hypothyroidism - Insomnia - Diabetic Nephropathy - Gastroesophageal Reflux Disease (GERD) - Restless Leg Syndrome - Paroxysmal Atrial Fibrillation - Major Depressive Disorder - Complete Heart Block - Hyperlipidemia - Umbilical Infection - Anemia - Trigger Finger/ arthritis hands and other joints Patient Instructions - Begin antibiotic treatment as prescribed for the umbilical infection. - Avoid touching or disturbing the infected area to prevent exacerbation. - Gently pat the area dry after showers; avoid cleaning with Q-tips or scrubbing. - Discuss the potential for a cortisone injection or hand surgery with an clinical rehab specialist if trigger finger symptoms persist. - Attend scheduled laboratory tests and follow-up appointments to monitor chronic conditions and medications. - Maintain warmth for feet to counteract cold feet symptoms. - Take the increased dose of levothyroxine as prescribed. 40 minutes spent in care of this patient Orders: Orders Complete Blood Count Auto Diff Today D50.0 - Iron deficiency anemia secondary to blood loss (chronic), D70.9 - Neutropenia, unspecified, E03.8 - Other specified hypothyroidism, E61.1 - Iron deficiency, G25.81 - Restless legs syndrome, G47.9 - Sleep disorder, unspecified, I48.0 - Paroxysmal atrial fibrillation, K21.9 - Gastro-esophageal reflux disease without esophagitis, N18.4 - Chronic kidney disease, stage 4 (severe), N28.9 - Disorder of kidney and ureter, unspecified Comprehensive Met. Panel Today D50.0 - Iron deficiency anemia secondary to blood loss (chronic), D70.9 - Neutropenia, unspecified, E03.8 - Other specified hypothyroidism, E61.1 - Iron deficiency, G25.81 - Restless legs syndrome, G47.9 - Sleep disorder, unspecified, I48.0 - Paroxysmal atrial fibrillation, K21.9 - Gastro-esophageal reflux disease without esophagitis, N18.4 - Chronic kidney disease, stage 4 (severe), N28.9 - Disorder of kidney and ureter, unspecified LDL Cholesterol Direct Today D50.0 - Iron deficiency anemia secondary to blood loss (chronic), D70.9 - Neutropenia, unspecified, E03.8 - Other specified hypothyroidism, E61.1 - Iron deficiency, G25.81 - Restless legs syndrome, G47.9 - Sleep disorder, unspecified, I48.0 - Paroxysmal atrial fibrillation, K21.9 - Gastro-esophageal reflux disease without esophagitis, N18.4 - Chronic kidney disease, stage 4 (severe), N28.9 - Disorder of kidney and ureter, unspecified Ferritin Today D50.0 - Iron deficiency anemia secondary to blood loss (chronic), D70.9 - Neutropenia, unspecified, E61.1 - Iron deficiency Vitamin B12 Today D50.0 - Iron deficiency anemia secondary to blood loss (chronic), D70.9 - Neutropenia, unspecified, E61.1 - Iron deficiency Vitamin D 25-OH (D2 and D3) Today D50.0 - Iron deficiency anemia secondary to blood loss (chronic), D70.9 - Neutropenia, unspecified, E61.1 - Iron deficiency TSH reflex Free T4 Today D50.0 - Iron deficiency anemia secondary to blood loss (chronic), D70.9 - Neutropenia, unspecified, E03.8 - Other specified hypothyroidism, E61.1 - Iron deficiency, G25.81 - Restless legs syndrome, G47.9 - Sleep disorder, unspecified, I48.0 - Paroxysmal atrial fibrillation, K21.9 - Gastro-esophageal reflux disease without esophagitis, N18.4 - Chronic kidney disease, stage 4 (severe), N28.9 - Disorder of kidney and ureter, unspecified Medications: New doxycycline hyclate 100 mg PO BID 10 days 20 caps 0RF doxycycline hyclate 100 mg PO BID 10 days 20 caps 0RF
--- OUTSIDE RECORDS SUMMARY | 2024-09-11 12:48 | XMS_ITS | Clinical Summary ---
Author Organization [facility] Address [address] [place] [address] Phone Care Team Providers Care Leasing Coordinator Name Role Phone Fidelina Whitney MD Primary Care Provider [phone] Allergies Active Allergy Reactions Criticality Noted Date Comments Carbamazepine Other (see comments) 04/17/2002 rash Codeine Other (see comments) 04/17/2002 Gabapentin Other (see comments) 04/17/2002 rash Allergy entered as NEURONTIN ; Table selected was GABAPENTIN Morphine Other (see comments) 04/17/2002 nausea Medications Eliquis 2.5 MG tablet Take 1 tablet by mouth 2 (two) times a day 06/20/2022 Active atorvastatin (LIPITOR) 10 MG tablet Take 10 mg by mouth 1 (one) time each day 04/26/2022 Active docusate sodium (COLACE) 100 MG capsule Take 1 capsule by mouth 1 (one) time each day 05/10/2022 Active levothyroxine (SYNTHROID, LEVOTHROID) 75 MCG tablet Take 75 mcg by mouth 1 (one) time each day 06/02/2022 Active mirtazapine (REMERON) 7.5 MG tablet Take 7.5 mg by mouth at bed time 04/07/2022 Active omeprazole (PriLOSEC) [address] capsule Take 20 mg by mouth 1 (one) time each day 04/08/2022 Active rOPINIRole (REQUIP) 0.5 MG tablet Take 1 tablet by mouth 2 (two) times a day if needed 06/01/2022 Active spironolactone (ALDACTONE) 25 MG tablet Take 12.5 mg by mouth 1 (one) time each day 04/27/2022 Active Ferrous Sulfate ER 143 (45 Fe) MG tablet controlled-rele ase Take 140 mg by mouth 1 (one) time each day Active Multiple Vitamin (multivitamin) tablet Take 1 tablet by mouth 1 (one) time each day Active gabapentin (NEURONTIN) 100 MG capsule Take 100 mg by mouth at bed time 08/31/2022 Active bumetanide (BUMEX) 2 MG tablet Take 2 mg by mouth 1 (one) time each day Active Active Problems Problem Noted Date Diagnosed Date 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 Abnormal finding of blood chemistry 06/22/2022 Acute renal impairment 06/22/2022 Stage 3a chronic kidney disease 06/22/2022 Resolved Problems Problem Noted Date Diagnosed Date Resolved Date 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 10/08/2012 06/22/2022 Overview (06/22/2022): 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 Family History Medical History Relation Comments Cancer Brother Lung cancer Relation Status Comments Brother Mother Social History Tobacco Use Types Packs/Day Years Used Date Smoking Tobacco: Former Cigarettes Smokeless Tobacco: Never Tobacco Cessation:Counseling Given: Not Answered Alcohol Use Standard Drinks/Week Comments Never 0 (1 standard drink = 0.6 oz pur e alcohol) Comments Unknown Sex and Gender Information Value Date Recorded Sex Assigned at Not on file Legal Sex Female 11:07 AM EST Gender Identity Not on file Sexual Orientation Not on file Last Filed Vital Signs Vital Sign Reading Time Taken Comments Blood Pressure 104/60 09/21/2022 3:32 PM EDT Pulse 60 09/21/2022 3:32 PM EDT Temperature - - Respiratory Rate - - Oxygen Saturation - - Inhaled Oxygen Concentration - - Weight 60.8 kg (134 lb) 09/21/2022 3:32 PM EDT Height - - Body Mass Index - - Plan of Treatment Health Maintenance Due Date Last Done Comments Pneumococcal Vaccine: 65+ Ye ars (1 of 2 - PCV) 1940 Influenza Vaccine (#1) 2024 Hepatitis B Vaccine Aged Out No longe r eligible based on patient's age to complete this topic Insurance [facility] MEDICARE [facility] MEDICARE Care Teams Leasing Coordinator Relationship Specialty Start Date End Date Fidelina Whitney MD [facility] [place] [address] PCP - General Internal Medicine 06/06/22
--- OUTSIDE RECORDS SUMMARY | 2024-09-11 12:48 | XMS_ITS ---
Author Name [facility] Organization Unknown History of Medication Use Medication Directions Dispensed Refills Start Date End Date [facility] levothyroxine 75 mcg tablet TAKE 1 TABLET BY MOUTH DAILY active famotidine 20 mg tablet TAKE 1 TABLET BY MOUTH TWICE DAILY BEFORE MEALS FOR 15 DAYS 04/20/2023 completed levothyroxine 50 mcg tablet TAKE 1 TABLET BY MOUTH DAILY active gabapentin 100 mg capsule TAKE 1 CAPSULE BY MOUTH AT BEDTIME 04/20/2023 completed polymyxin B sulfate 10,000 unit-trimethoprim 1 mg/mL eye drops 04/20/2023 completed clotrimazole-betame thasone 1 %-0.05 % topical cream APPLY TOPICALLY TO THE AFFECTED AND SURROUNDING AREAS TWICE DAILY IN THE MORNING AND IN THE EVENING FOR 1 WEEK. APPLY SPARIINGLY 04/20/2023 completed cetirizine 10 mg tablet TAKE 1 TABLET ORALLY DAILY NEEDED FOR ALERGY SYMPTOMS active atorvastatin 10 mg tablet TAKE 1 TABLET BY MOUTH DAILY active mirtazapine 15 mg tablet active prednisone 10 mg tablet TAKE 1 TABLET BY MOUTH DAILY FOR 3 DAYS 04/20/2023 completed mirtazapine 7.5 mg tablet TAKE 1 TABLET BY MOUTH AT BEDTIME active ropinirole 0.5 mg tablet TAKE 1 TABLET BY MOUTH TWICE DAILY NEEDED FOR RESTLESS LEGS active Encounters Encounter Type Encounter Reason Primary Diagnosis Location Date Ambulatory [facility] 07/07/2023 Ambulatory [facility] 06/02/2023 Ambulatory [facility] 04/20/2023 Ambulatory [facility] 04/20/2023 Ambulatory [facility] 04/13/2023 Ambulatory [facility] 12/05/2022
--- OUTSIDE RECORDS SUMMARY | 2024-09-11 12:48 | XMS_ITS | Encounter Summary ---
Author Organization [facility] Address [address] [place] [address] Phone Care Team Providers Care Rubber Production Machine Operator Name Role Phone Fidelina Whitney MD Primary Care Provider [phone] Encounter Details Date Type Department Care Team (Late st Contact Info) Description 11/09/2022 Telephone [facility] [address] [place] [address] Bee Newman Social History Tobacco Use Types Packs/Day Years Used Date Smoking Tobacco: Former Cigarettes Smokeless Tobacco: Never Alcohol Use Standard Drinks/Week Comments Never 0 (1 standard drink = 0.6 oz pur e alcohol) Comments Unknown Sex and Gender Information Value Date Recorded Sex Assigned at Not on file Legal Sex Female 11:07 AM EST Gender Identity Not on file Sexual Orientation Not on file documented as of this encounter Miscellaneous Notes * Telephone Encounter - Bee Newman - 11/09/2022 1:32 PM EDT PT's daughter Kellee called again to get results on her mother's recent labs. Please call [phone] documented in this encounter Plan of Treatment Not on file documented as of this encounter Visit Diagnoses Not on filedocumented in this encounter Care Teams Rubber Production Machine Operator Relationship Specialty Start Date End Date Fidelina Whitney MD [facility] [place] [address] PCP - General Internal Medicine 06/06/22 documented as of this encounter
--- OUTSIDE RECORDS SUMMARY | 2024-09-11 12:48 | XMS_ITS | Clinical Summary ---
Author Organization [facility] Address [address] [place] [address] Care Team Providers Care Motor Assembler Name Role Phone Fidelina Whitney MD Primary Care Provider [phone] Allergies No known active allergies Medications Medication Sig Dispensed Refills Start Date End Date Status Eliquis 2.5 MG TABS tablet Take 2.5 mg by mouth 2 (two) times a day. 0 12/25/2021 Active bumetanide (BUMEX) 2 MG tablet Take 2 mg by mouth daily. 0 12/26/2021 Active mirtazapine (REMERON) 7.5 MG tablet Take 7.5 mg by mouth every night at bedtime. 0 12/23/2021 Active rOPINIRole (REQUIP) 0.5 MG tablet TAKE 1 TABLET BY MOUTH TWICE DAILY NEEDED FOR RESTLESS LEGS 0 12/27/2021 Active gabapentin (NEURONTIN) 100 MG capsule Take 100 mg by mouth 3 (three) times a day. 0 Active atorvastatin (LIPITOR) tablet 10 mg Take 1 tablet (10 mg total) by mouth daily. 0 04/26/2022 Active levothyroxine (SYNTHROID) tablet 50 mcg 0 06/02/2022 Active omeprazole (PriLOSEC) 20 MG capsule Take 1 capsule (20 mg total) by mouth daily. 0 04/08/2022 Active docusate sodium (COLACE) 100 MG capsule TAKE 1 CAPSULE BY MOUTH DAILY NEEDED FOR CONSTIPATION 0 05/10/2022 Active spironolactone (ALDACTONE) tablet 25 mg TAKE 1/2 TABLET BY MOUTH DAILY 0 04/27/2022 Active furosemide (LASIX) 40 MG tablet TAKE 1 TABLET BY MOUTH EVERY DAY 5 DAYS A WEEK 0 06/22/2022 Active famotidine (PEPCID) 20 MG tablet TAKE 1 TABLET BY MOUTH TWICE DAILY BEFORE MEALS FOR 15 DAYS 0 07/28/2022 Active Family History Medical History Relation Name Comments Cancer Brother Relation Name Status Comments Brother Social History Tobacco Use Types Packs/Day Years Used Date Smoking Tobacco: Never Assessed Sex and Gender Information Value Date Recorded Sex Assigned at Not on file Gender Identity Not on file Sexual Orientation Not on file Job Start Date Occupation Industry Not on file Not on file Not on file Last Filed Vital Signs Vital Sign Reading Time Taken Comments Blood Pressure - - Pulse - - Temperature - - Respiratory Rate - - Oxygen Saturation - - Inhaled Oxygen Concentration - - Weight 62.6 kg (138 lb) 01/27/2022 1:51 PM EDT Height 160 cm (5' 3 ) 01/27/2022 1:51 PM EDT Body Mass Index 24.45 01/27/2022 1:51 PM EDT Plan of Treatment Health Maintenance Due Date Last Done Comments COVID-19 Vaccine (#1) 05/10/1936 Depression Screening 1946 Preventative Health Evaluation 1952 DTap / Tdap / Td (1 - Tdap) 1953 Shingrix-Zoster Vaccine (1 of 2) 1984 Fall Risk Assessment 11/08/1999 Osteoporosis Screening (DEXA Scan) 11/08/1999 Pneumococcal Vaccine (1 of 1 - PCV) 11/08/1999 RSV Adult > 60+ Yrs or Pregn ant (1 - 1-dose 75+ series) 2009 Influenza Vaccine (#1) 2024 Hepatitis B Vaccines Aged Out No long er eligible based on patient's age to complete this topic RSV Ped < 20 months Aged Out No longe r eligible based on patient's age to complete this topic Care Teams Motor Assembler Relationship Specialty Start Date End Date Fidelina Whitney MD [address] [place] [address] PCP - General Internal Medicine 01/27/22
--- OUTSIDE RECORDS SUMMARY | 2024-09-11 12:48 | XMS_ITS | Data Portability ---
Author Organization [facility] [address] Address [address] [place] [address] Care Team Providers Care Piece Hand Name Role Phone KRISTEN BELL Primary Care Provider Assessment No assessment recorded. Plan of Treatment Reminders Order Date Submit Date Provider Last Modified By Organization Details Last Modified Time Details Appointments None recorded. Lab None recorded. Referral None recorded. Procedures None recorded. Surgeries None recorded. Imaging None recorded. Medication Orders [facility] 20 mg tablet 2022 [id number] [address], [place], [id number], 3 14:32:51 clotrimazol e-betametha sone 1 %-0.05 % topical cream 2022 023 [id number], [address], [place], [id number], 3 14:32:57 Patient TargetsNo targets recorded. Patient Instructions Encounter Date Encounter Id Patient Instructions Last Modified By Organization Details Last Modified Time 07/24/2022 [id number] COOL COMPRESSES, COOL SHOWERS, MAY BE SOOTHING SINCE HEAT OF ANY SOURCE SEEMS TO MAKE RASH MORE IRRITATING AVOID SCRATCHING WHICH MAY SET UP A SECONDARY INFECTION REQUIRING ADDITIONAL TREATMENT ANTIHISTAMINES MAY HELP SOME OF THE REDNESS AND ITCH (ZYRTEC, AMISH, CLARITIN) BENADRYL IS 4 HOUR ANTIHISTAMINE AND CAN TAKE AT OPPOSITE END OF DAY THE OTHER OPTIONS BUT THIS CAN MAKE YOU TIRED AVOID USING ADDITIONAL CORTISONE CREAMS ON SKIN IF YOU ARE ALREADY TAKING PREDNISONE BY MOUTH Go to the Emergency Department immediately if your symptoms worsen or if you develop new symptoms that concern you. We recommend that you follow up with your primary care physician within 1 week. Failure to follow up as recommended may result in significant adverse health consequences. NO NSAIDS LIKE IBUPROFEN WHILE ON STEROIDS/PREDNISON E. TAKE WITH FOOD, PREFERRABLY BREAKFAST MAY TALK TYLENOL ONLY [email or web address] Not available 07/24/2022 14:32:40 What is acid reflux? Acid reflux is when the acid that is normally in your stomach backs up into the esophagus. The esophagus is the tube that carries food from your mouth to your stomach. When acid reflux causes bothersome symptoms or damage, doctors call it gastroesophageal reflux disease or GERD. What are the symptoms of acid reflux? The most common symptoms are: ? Heartburn, which is a burning feeling in the chest ? Regurgitation, which is when acid and undigested food flow back into your throat or mouth Other symptoms might include: ? Stomach or chest pain ? Trouble swallowing ? Having a raspy voice or a sore throat ? Unexplained cough ? Nausea or vomiting Is there anything I can do on my own to feel better? Yes. You might feel better if you: ? Lose weight (if you are overweight) ? Raise the head of your bed by 6 to 8 inches ? You can do this by putting blocks of wood or rubber under 2 legs of the bed or a foam wedge under the mattress. ? Avoid foods that make your symptoms worse ? For some people these include coffee, chocolate, alcohol, peppermint, and fatty foods. ? Stop smoking, if you smoke ? Avoid late meals ? Lying down with a full stomach can make reflux worse. Try to plan meals for at least 2 to 3 hours before bedtime. ? Avoid tight clothing ? Some people feel better if they wear comfortable clothing that does not squeeze the stomach area. How is acid reflux treated? There are a few main types of medicines that can help with the symptoms of acid reflux. The most common are antacids, histamine blockers, and proton pump inhibitors. All of these medicines work by reducing or blocking stomach acid. But they each do that in a different way. ? For mild symptoms, antacids can help, but they work only for a short time. Histamine blockers are stronger and last longer than antacids. You can buy antacids and most histamine blockers without a prescription. ? For frequent and more severe symptoms, proton pump inhibitors are the most effective medicines. Some of these medicines are sold without a prescription. But there are other versions that your doctor can prescribe. Sometimes, medicines cost less if you get them with a doctor's prescription. Other times, non-prescription medicines cost less. If you are worried about cost, ask your pharmacist about ways to pay less for your medicines. Should I see a doctor or nurse about my acid reflux? Some people can manage their acid reflux on their own by changing their habits or taking non-prescription medicines. But you should see a doctor or nurse if: ? Your symptoms are severe or last a long time ? You cannot seem to control your symptoms ? You have had symptoms for many years You should also see a doctor or nurse right away if you: ? Have trouble swallowing, or feel as though food gets stuck on the way down ? Lose weight when you are not trying to ? Have chest pain ? Choke when you eat ? Vomit blood or have bowel movements that are red, black, or look like tar What if my child or teenager has acid reflux? If your child or teenager has acid reflux, take them to see a doctor or nurse. Do not give your child medicines to treat acid reflux without talking to a doctor or nurse. In children, acid reflux can be caused by a number of problems. It's important to have a doctor or nurse check for these problems before trying any treatments. [email or web address] Not available 07/24/2022 14:31:39 Reason for Referral None Reported. 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 Procedures Surgical History Date Name Laterality Status Provider Name and Address Organization Details Recorded Time cardiac pacemaker procedure completed LUBNA PEREZ PA - [facility] 07/24/2022 13:59:16 total hysterectomy completed LUBNA PEREZ PA - [facility] 07/24/2022 13:59:31 partial excision of large intestine completed LUBNA PEREZ PA - [facility] 07/24/2022 14:00:08 total knee replacement completed LUBNA PEREZ PA - [facility] 07/24/2022 14:00:20 Imaging Results None recorded. Procedure Notes None recorded. Medical Equipment None Reported. Allergies Allergen ID Allergen Name Allergen Category Reaction Reaction Severity Criticality Documentation Date Start Date Code Code System Note Provider Name and Address Organization Details Recorded Time 583353 codeine medicatio n vomiting Not available Not available 07/24/2022 2670 RxNorm LUBNA garcia PA - [facility] 3 13:51:45 Medications Name Sig Start Date Stop Date Status Note LastModified by Organization Details LastModified Time Prescriptio n - Renewal active Not Available Not Available Not Available furosemide 40 mg tablet TAKE 1 TABLET BY MOUTH EVERY DAY 5 DAYS A WEEK 07/24 completed Not Available Not Available Not Available prednisone 10 mg tablet TAKE 1 TABLET BY MOUTH DAILY FOR 3 DAYS active Not Available Not Available No t Available bumetanide 2 mg tablet TAKE 1 TABLET BY MOUTH DAILY active Not Available Not Available No t Available atorvastati n 10 mg tablet TAKE 1 TABLET BY MOUTH DAILY active Not Available Not Available No t Available amiodarone 200 mg tablet TAKE 2 TABLETS BY MOUTH TWICE DAILY FOR 10 DAYS THEN TAKE 1 TABLET BY MOUTH DAILY active Not Available Not Available No t Available spironolact one 25 mg tablet TAKE 1/2 TABLET BY MOUTH DAILY active Not Available Not Available No t Available famotidine 20 mg tablet Take 1 tablet twice a day by oral route before meals for 15 days. 2022 active Not Available Not Available Not Avai lable levothyroxi ne 50 mcg tablet TAKE 1 TABLET BY MOUTH DAILY active Not Available Not Available No t Available ropinirole 0.5 mg tablet TAKE 1 TABLET BY MOUTH TWICE DAILY NEEDED FOR RESTLESS LEGS active Not Available Not Available No t Available clotrimazol e-betametha sone 1 %-0.05 % topical cream APPLY TO THE AFFECTED AND SURROUNDI NG AREAS OF SKIN BY TOPICAL ROUTE 2 TIMES PER DAY IN THE MORNING AND EVENING FOR 1 WEEK 2022 active Not Available Not Available Not Avai lable docusate sodium 100 mg capsule TAKE 1 CAPSULE BY MOUTH DAILY NEEDED FOR CONSTIPAT ION 07/24 completed Not Available Not Available Not Available omeprazole 20 mg capsule,del ayed release TAKE 1 CAPSULE BY MOUTH DAILY active Not Available Not Available No t Available gabapentin 100 mg capsule TAKE 1 CAPSULE BY MOUTH AT BEDTIME active Not Available Not Available No t Available mirtazapine 7.5 mg tablet TAKE 1 TABLET BY MOUTH AT BEDTIME active Not Available Not Available No t Available Eliquis 2.5 mg tablet TAKE 1 TABLET BY MOUTH TWICE DAILY active Not Available Not Available No t Available Vitals Date Recorded Body height Body mass index (BMI) Body weight Body temperature Oxygen saturation Oxygen saturation in Arterial blood by Pulse oximetry Heart rate Respiratory rate Systolic blood pressure Diastolic blood pressure Provider Name and Address Organization Details Last Updated DateTime 3 162.56 cm 24 kg/m2 42845.9 3 g 97 [degF] 100 % 100 % 61 /min 16 /min 132 mm[Hg] 82 mm[Hg] LUBNA ETIENNE - [facility] 3 14:02:42 Social History Question Answer Notes LastModified by Organizat ion Details LastModified Time Tobacco Smoking Status Former Smoker LUBNA garcia PA - [facility] 07/24/2022 13:58:59 What Is Your Level Of Alcohol Consumption? None [email or web address] Information not available 07/24/2022 Do You Use Any Illicit Or Recreational Drugs? No [email or web address] Information not available 07/24/2022 Have You Recently Traveled Abroad? No [email or web address] Information not available 07/24/2022 Do You Or Have You Ever Used Any Other Forms Of Tobacco Or Nicotine? No [email or web address] Information not available 07/24/2022 Sex: Unknown Functional Status None recorded. Mental Status None recorded. Family History Relationship Description Onset Age of this Age Resolved Age Notes LastModified by Organization Details LastModified Time Brother Malignant tumor of lung [email or web address] Not available 2022 13:57:09 Mother Dementia Not availabl e 07/24/2022 13:57:19 Maternal Grandfather Heart disease had quad bipass [email or web address] Not available 07/24/2022 13:57:39 Maternal Grandfather Chronic gastric ulcer [email or web address] Not available 2022 13:57:52 Medical History No medical history recorded. Gynecological HistoryNo gynecological history recorded. Obstetrics History GPAL:G 0 P 0 0 0 0 Past Encounters Encounter ID Performer Location Encounter Start Date Encounter Closed Date Diagnosis/Indication Diagnosis SNOMED-CT Code Diagnosis ICD10 Code Diagnosis Note [id number] [address] [place] [address] 0 12/03/2017 14:56:45 12/03/2017 15:27:25 [id number] [address] [place] [address] 09/12/2016 16:06:13 09/12/2016 18:42:06 [id number] [address] [place] [address] 06/10/2018 13:53:50 06/10/2018 14:56:03 [id number] Servando Zamorano NP [address] [place] [address] 07/24/2022 13:00:51 07/24/2022 14:36:52 Gastro-esophageal reflux disease with esophagitis 198922408 K21.00 Macular eruption 7706976 05 R21 Health Concerns Section Related Observation LastModified by Organization Detai ls LastModified Time None Recorded Concern Status LastModified by Organization Details LastModified Time None Recorded Advance Directives Directive None Recorded Payers Encounter Date Sequence Insurance Name Policy Number Policy Ly Covered Member ID Ly Member ID Guarantor Name 09/12/2016 1 [place] Mavis A Sebastian [id number] Mavis A [place] 09/12/2016 2 [place] [id number] Mavis A Sebastian [id number] Mavis A [place] 12/03/2017 1 [place] Mavis A [place] [id number] Mavis A [place] 12/03/2017 2 [place] [id number] Mavis A Sebastian [id number] Mavis A Sebastian 06/10/2018 1 [place] Mavis A [place] [id number] Mavis A Sebastian 06/10/2018 2 [place] [id number] Mavis A [place] [id number] Mavis A Manakin [place]ot 07/24/2022 2 [facility] [id number] Mavis A Sebastian [id number] Mavis A Sebastian 07/24/2022 1 [place] Mavis A Sebastian [id number] Mavis A Sebastian Notes Date Note Type Note Provider Name and Address Organization Details Recorded Time 07/24/2022 text/html burning sensatio n this morning after eating muffin. also complaint of rash on her belly x 5 days. pain in stomach settled down as patient is taking omeprazole and daughter given tums this morning. Servando Zamorano NP [address] [place], [address], PA - [facility] 07/30/2022 10:02:45 OBGyn Episode No OBEpisode recorded.
== END 2024-09-11 11:50 | disposition home or self-care (01) ==
LOC: HO.HMCC 10:57
PROVIDERS: PCP Internal Medicine; Visit Provider Internal Medicine
DX: L03.316 Cellulitis of umbilicus (principal); N18.4 Chronic kidney disease, stage 4 (severe); D70.9 Neutropenia, unspecified; I44.2 Atrioventricular block, complete; E03.8 Other specified hypothyroidism; G47.9 Sleep disorder, unspecified; E61.1 Iron deficiency; D50.0 Iron deficiency anemia secondary to blood loss (chronic); E78.9 Disorder of lipoprotein metabolism, unspecified; G25.81 Restless legs syndrome; K21.9 Gastro-esophageal reflux disease without esophagitis; H91.93 Unspecified hearing loss, bilateral

== ENCOUNTER 2024-09-23 12:52 | Emergency (ER) | payer MEDICARE, SELFPAY ==
[2024-09-23] VITALS (7 sets, daily range): BP systolic 97–140; BP diastolic 50–76; PULSE 60–74; RESP 16; TEMP 36.8–37.8; O2SAT 95–98; BMI 22.2
--- NOTE | ~2024-09-23 | XR_ITS ---
EXAMINATION: XR THORACIC SPINE CLINICAL INFORMATION: back pain COMPARISON: None available. TECHNIQUE: 3 views of the thoracic spine were obtained. FINDINGS: Diffuse osteopenia. No definite fracture or compression deformity. No suspicious bone lesion. Mild right convex scoliosis, apex at T8-T9. Normal kyphosis. No subluxations. Moderate disc degeneration throughout, most notable in the mid thoracic region. Dual lead pacer in place, leads terminating in right ventricle and right atrium. Imaged lungs clear. Imaged soft tissues demonstrate vascular calcifications. XR/XR thoracic spine 3V IMPRESSION: 1. No acute findings of the thoracic spine. 2. Osteopenia and degenerative changes. 3. Mild right convex scoliosis. Electronically signed by: Roscoe Willett MD 09/23/2024 02:14 PM EDT
--- NOTE | ~2024-09-23 | XR_ITS ---
EXAMINATION: XR LUMBOSACRAL SPINE CLINICAL INFORMATION: back pain COMPARISON: June 06, 2023. TECHNIQUE: Three views of the lumbosacral spine. FINDINGS: There is a 1.2 cm anterolisthesis at L5-S1 secondary to spondylolysis pars interarticularis. Multilevel marginal osteophyte formation and endplate sclerosis and decreased intervertebral disc height. There is vacuum phenomenon at L1-2 and L4-5 levels. Levoconvex curvature apex at L2-3. No acute cortical disruption. No lytic or blastic lesions. There is an electrode leads in the right ventricle. Calcified plaques abdominal aorta. XR/XR lumbar spine 2-3V IMPRESSION: Multilevel spondylosis. 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 No gross change. Electronically signed by: Jonathan Perez MD 09/23/2024 02:15 PM EDT
--- NOTE | ~2024-09-23 | XR_ITS ---
EXAMINATION: XR SHOULDER 2 OR MORE VIEWS LEFT HISTORY: shoulder pain COMPARISON: There are no prior studies available for comparison. FINDINGS: Three views of the left shoulder are submitted. The bones are osteopenic. There are erosions involving the AC joint. There is no fracture or dislocation. Glenohumeral joint is maintained. Humeral head is high riding, suggestive of rotator cuff disease. The soft tissues are unremarkable. XR/XR shoulder LT min 2V IMPRESSION: Osteopenia. Erosions involving the AC joint. High riding humeral head, suggestive of rotator cuff disease. Electronically signed by: Frantz Bauer MD 09/23/2024 02:05 PM EDT
--- NOTE | 2024-09-23 13:07 | ED_ITS ---
HPI - Back Pain/Injury General Chief Complaint: Back Pain/Injury Stated Complaint: BACK PAIN Time Seen by Provider: 09/23/24 13:06 Source: patient, EMS, RN notes reviewed and old records reviewed Mode of arrival: EMS History of Present Illness ED Provider: Kristina Centeno PA-C HPI Narrative: 88-year-old female with a past medical history of nephropathy, hypothyroid, heart block, PAD, GERD, restless leg syndrome, HLD, iron-deficiency anemia, HTN, proximal AFib, presenting to the ED via EMS complaining of atraumatic left shoulder and entire back pain since waking this morning. States pain woke up in the middle of the night. Denies known injury, trauma, fall. Denies radiation of pain down LE, numbness, tingling, weakness, incontinence, retention, CP/SOB. Related Data Previous Rx's ?Medication ?Instructions ?Recorded ropinirole 0.5 mg tablet 0.5 mg PO BID PRN restless leg 90 06/02/22 days #180 tabs peg 400-propylene glycol 0.4 %-0.3 1 drp ophthalmic (eye) TID PRN dry 09/02/23 % eye drops (Systane Ultra) eye(s) #10 mL apixaban 2.5 mg tablet (Eliquis) 2.5 mg PO BID 90 days #180 tabs 01/16/24 peg 400-propylene glycol 0.4 %-0.3 1 drp ophthalmic (eye) DAILY PRN 03/19/ % eye drops (Systane Ultra) dry eye #30 mL atorvastatin 10 mg tablet 10 mg PO DAILY #90 tabs 07/18/24 gabapentin 100 mg capsule 100 mg PO BEDTIME 90 days #90 caps 07/18/24 levothyroxine 50 mcg tablet 50 mcg PO DAILY 90 days #90 tabs 07/18/24 mirtazapine 15 mg tablet 15 mg PO BEDTIME 90 days #90 tabs 07/18/24 omeprazole 20 mg capsule,delayed 20 mg PO DAILY 90 days #90 caps 07/18/24 release bumetanide 2 mg tablet 1 mg (1/2 x 2 mg) PO DAILY #90 tabs 08/30/24 ferrous sulfate 143 mg (45 mg 140 mg (0.979 x 143 mg (45 mg 08/30/24 iron) tablet,extended release iron)) PO DAILY #60 tabs spironolactone 25 mg tablet 12.5 mg PO DAILY 90 days #45 tabs 08/30/24 doxycycline hyclate 100 mg capsule 100 mg PO BID 10 days #20 caps 09/11/24 Allergies Allergy/AdvReac Type Severity Reaction Status Date / Time cat dander Allergy stuffy Verified 09/23/24 13:17 nose, red eye codeine AdvReac Unknown GI upset Verified 09/23/24 13:17 Review of Systems 2 Review of Systems: Yes all other systems are reviewed and are negative Constitutional: Constitutional: Reports as per HPI Neurologic: Denies Abnormal speech present and Denies Sensory deficit (Neuro) [facility] Past Medical History Attestation statement: The following information was validated with the patient. Source: old records reviewed Medical History Congestive heart failure Tricuspid regurgitation Lipid disorder History of small bowel obstruction Osteosarcoma of bone Lipoma Osteoarthritis of both hips High cholesterol Atrial enlargement, left RLS (restless legs syndrome) Morbid obesity Urinary, incontinence, stress female Depression with anxiety Cancer of left tibia Constipation GERD (gastroesophageal reflux disease) Mitral valve insufficiency Tubular adenoma of colon Low hematocrit Surgical History S/P placement of cardiac pacemaker (~07/2020) Hx of colonoscopy History of intestinal surgery History of appendectomy H/O hysterectomy with oophorectomy S/P cataract surgery Family History Family History Mother Alzheimers disease Brother Lung cancer Epilepsy Social History Social History Household Members: None Housing: Assisted Living Facility Do you presently have visiting nurse or other home services: No ([facility]) Alcohol intake: current Alcohol intake frequency: does not drink Patient Tobacco Use Status: Former Tobacco user Years Smoked: 5 Smoked in Last 30 Days: No e-Cigarette/Vaping Use: Never Used Use of substances other than those prescribed or required for medical reasons: No Advance Directives: Yes Advance Directives Information Provided: Yes Advance Directives on File: No Do you have a plan to hurt others: No Plan service: No Current occupational status: retired Cognitive needs: No Hearing needs: No Vision needs: Yes Physical Exam 2 Vital Signs: Vital Signs: Last Vital Signs Temp 98.2 F 09/23/24 15:45 Pulse 65 09/23/24 16:09 Resp 16 09/23/24 15:45 BP 112/50 L 09/23/24 16:09 Pulse Ox 95 09/23/24 15:45 O2 Del Method Room Air 09/23/24 15:45 BMI result Body Mass Index 22.2 Const: General: cooperative, healthy appearing and no acute distress O rientation/consciousness: patient oriented x3 Limitations: no limitations HEENT: Head: Yes normal to inspection and Yes atraumatic Ears: hearing grossly normal bilaterally General nose exam: Normal external nose present Face and sinus: Yes normal facial exam Eyes: General: appearance normal, both eyes and all related structures EOM: EOMs intact bilaterally Neck: Neck: Yes normal visual inspection and Yes no meningeal signs Resp: Effort & Inspection: normal respiratory effort and no respiratory distress Auscultation: clear to auscultation bilaterally Cardio: Rate: regular rate Heart sounds: S1 normal heart sound present and S2 normal heart sound present GI: Other: + periumbilical erythema with crusting. Nontender. No fluctuance or induration. No drainage. Inspection: Yes normal to inspection Palpation (GI): Soft to palpation, nontender, no guarding and not rigid : General: Yes no CVA tenderness Back/Spine/Pelvis: Other: No midline cervical/thoracic/lumbar spinous tenderness/step-off or deformity. + reproducible left upper thoracic tenderness to palpation. No erythema/warmth or rash. No flail chest. Back: no CVA tenderness Skin: Rashes: no rashes Wounds: no wounds Neuro: Other: Strength intact throughout. No saddle anesthesia. Sensation intact to light touch. Neurovascular intact distally General: patient oriented x3, tone normal, moves all extremities and no meningeal signs Cranial nerves: Yes CN's II-XII intact bilaterally C ognition (Neuro): normal cognition Speech: No Abnormal speech present Gait exam (Neuro): Normal gait present Motor exam (neuro): 5/5 motor strength present throughout Sensory Exam: No Sensory deficit (Neuro) Extrem: General: Yes normal to inspection Course Course Course Narrative: -1529--labs reassuring. Chronic CKD at patient's baseline -initial troponin 9.7 > will obtain repeat XR shoulder LT min 2V IMPRESSION: Osteopenia. Erosions involving the AC joint. High riding humeral head, suggestive of rotator cuff disease. XR thoracic spine 3V IMPRESSION: 1. No acute findings of the thoracic spine. 2. Osteopenia and degenerative changes. 3. Mild right convex scoliosis. XR lumbar spine 2-3V IMPRESSION: Multilevel spondylosis. 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 No gross change. -PT attempted to evaluate patient however became very dizzy when trying to stand. Orthostatics and IVF ordered > orthostatics negative however patient is symptomatic. Suspect adverse reaction from Flexeril. PT will re-evaluate tomorrow > 1630-- ED care transferred to [facility] pending repeat troponin, UA, and PT/case management eval Medications Administered Discontinued Medications Generic Name Dose Route Start Last Admin Trade Name Freq PRN Reason Stop Dose Admin Acetaminophen 650 mg 09/23/24 13:14 09/23/24 14:12 Acetaminophen 325 Mg Tablet PO 09/23/24 13:15 650 mg ONCE ONE Administration Cyclobenzaprine HCl 10 mg 09/23/24 13:14 09/23/24 14:12 Cyclobenzaprine Hcl 10 Mg Tablet PO 09/23/24 13:15 10 mg ONCE ONE Administration Lidocaine 1 patch 09/23/24 13:14 09/23/24 14:12 Lidocaine 4 % Patch Adh..Patch TRANSDERMA 09/23/24 13:15 1 patch ONCE ONE Administration Protocol Medical Decision Making Medical Decision Making MDM Narrative: 88-year-old female with a past medical history of nephropathy, hypothyroid, heart block, PAD, GERD, restless leg syndrome, HLD, iron-deficiency anemia, HTN, proximal AFib, presenting to the ED via EMS complaining of atraumatic left shoulder and entire back pain since waking this morning. On exam vital signs stable, NAD, nontoxic appearing, no midline spinous tenderness throughout or red flag symptoms. Reproducible left upper back tenderness. No saddle anesthesia. Abdomen is soft and nontender. Concern for MSK pain/strain vs atypical ACS. Lower suspicion for fracture, cauda equina, cord compression, epidural abscess. Rule out pneumonia. Plan: EKG, labs, x-rays, re-evaluate Please refer to course for remaining clinical decision making, interpretation of labs/imaging results, and discussions with consultants and/or family members. Differential Diagnosis Differential Diagnoses: The differential diagnosis associated with the presentation includes As above Admission/Observation Consideration of admission/observation: Escalation of care including admission/observation considered Lab Data MDM Lab Attestation statement: I reviewed the patient's lab results. 09/23/24 14:09 09/23/24 14:09 Labs: Lab Results 09/23/24 Range/Units 14:09 WBC 8.4 (4.8-10.8) X10*3/uL RBC 4.89 (4.20-5.50) X10*6/uL Hgb 14.9 (12.0-16.0) g/dl Hct 45.5 (37.0-47.0) % MCV 93.0 (80.0-98.0) fL MCH 30.5 (27.0-33.0) pg MCHC 32.7 (31.0-35.0) g/dl RDW 12.7 (11.0-16.0) % Plt Count 127 L (160-400) X10*3/uL MPV 10.3 (9.4-12.3) fL Immature Gran % (Auto) 0.5 H (0.0-0.4) % Neut % (Auto) 73.7 H (45-73) % Lymph % (Auto) 14.9 L (20-40) % [place] % (Auto) 9.3 (2-11) % Eos % (Auto) 1.1 (0-4) % Baso % (Auto) 0.5 (0-2) % Lymph # (Auto) 1.3 (1.2-4.9) X10*3/uL [place] # (Auto) 0.8 (0.1-1.2) X10*3/uL Eos # (Auto) 0.1 (0.0-0.4) X10*3/uL Baso # (Auto) 0.0 (0.0-0.2) X10*3/uL Abs Immat Gran (auto) 0.04 H (0.00-0.03) X10*3/uL Absolute Neuts (auto) 6.2 (2.0-8.3) x10*3/uL Absolute Nucleated RBC 0.000 (0.0-0.012) X10*3/uL Nucleated RBC % (auto) 0.0 (0.0-0.2) /100WBC Sodium 141 (135-145) mmol/L Potassium 3.7 (3.3-5.1) mmol/L Chloride 101 (96-108) mmol/L Carbon Dioxide 27 (22-29) mmol/L Anion Gap 17 (12-20) BUN 31 H (9-16) mg/dL Creatinine 1.51 H (0.5-1.4) mg/dL Estim Creat Clear Calc 20.8 Estimated GFR 32 Random Glucose 104 (60-115) mg/dL Calcium 9.3 (8.4-10.2) mg/dL Total Bilirubin 1.3 H (0.0-1.0) mg/dL Direct Bilirubin 0.4 (0.0-0.5) mg/dL AST 25 (5-31) U/L ALT < 6 (0-31) U/L Alkaline Phosphatase 144 H (39-117) U/L Troponin I High Sens 9.7 (<3.5-17.0) ng/L Total Protein 6.7 (6.5-8.0) g/dL Albumin 4.0 (3.5-5.0) g/dL Independent Interpretation I performed an independent interpretation of an: EKG and Plain X-Ray Radiology Impression Discussion of test interpretation with radiology: I have reviewed the radiologist's reading. Independent Historian Clinical information obtained from an independent historian. History obtained from or confirmed by: EMS External Record Review External record reviewed: Inpatient record, Office record, Outpatient record, Prior outpatient labs, Prior outpatient radiology, Primary care record and Outside ED record Tests considered The following testing was considered but not selected: As above Prescription Management I considered prescription management with: Pain Medication Chronic Conditions Patient?s care impacted by: Other (a.fib, anemia) Social Determinants Patient?s care significantly limited by Social Determinants of Health including: Problems related to primary support group and Other Social Determinant of Health Discharge Plan Discharge Clinical Impression: Back pain, Rotator cuff disorder, Osteoarthritis Patient Disposition: Still a Patient Prescriptions: No Action ropinirole 0.5 mg tablet 0.5 mg PO BID PRN (Reason: restless leg) 90 Days Qty: 180 3RF Eliquis 2.5 mg tablet 2.5 mg PO BID 90 Days Qty: 180 3RF atorvastatin 10 mg tablet 10 mg PO DAILY Qty: 90 1RF gabapentin 100 mg capsule 100 mg PO BEDTIME 90 Days Qty: 90 0RF levothyroxine 50 mcg tablet 50 mcg PO DAILY 90 Days Qty: 90 0RF omeprazole 20 mg capsule,delayed release(DR/EC) 20 mg PO DAILY 90 Days Qty: 90 0RF mirtazapine 15 mg tablet 15 mg PO BEDTIME 90 Days Qty: 90 0RF bumetanide 2 mg tablet 1 mg PO DAILY Qty: 90 0RF spironolactone 25 mg tablet 12.5 mg PO DAILY 90 Days Qty: 45 0RF Protocol: Hold for SBP< HOLD for SBP < : 90 ferrous sulfate 143 mg (45 mg iron) tablet extended release 140 mg PO DAILY Qty: 60 0RF Systane Ultra 0.4-0.3 % drops 1 drp ophthalmic (eye) DAILY PRN (Reason: dry eye) Qty: 30 0RF Systane Ultra 0.4-0.3 % drops 1 drp ophthalmic (eye) TID PRN (Reason: dry eye(s)) Qty: 10 1RF doxycycline hyclate 100 mg capsule 100 mg PO BID 10 Days Qty: 20 0RF Print Language: Mozambican
--- NOTE | 2024-09-23 13:14 | ECG_ITS ---
Test Reason : L shoulder pain Blood Pressure : */* mmHG Vent. Rate : 61 BPM Atrial Rate : 227 BPM P-R Int : * ms QRS Dur : 144 ms QT Int : 494 ms P-R-T Axes : * -80 71 degrees QTcB Int : 497 ms Ventricular-paced rhythm Abnormal ECG When compared with ECG of 13-Nov-2020 09:55, Electronic ventricular pacemaker has replaced Electronic atrial pacemaker Referred By: Kristina Centeno Electronically Signed By: ALDEN DEL CID MD
[2024-09-23] MEDS: Lidocaine 4 % Patch ADH..PATCH 1 PATCH TRANSDERMA (14:12)
[2024-09-23] MEDS: Cyclobenzaprine HCl 10 MG TABLET PO (14:12)
[2024-09-23] MEDS: Acetaminophen 325 MG TABLET 650 MG PO (14:12)
[2024-09-23 14:13] LABS: MANUAL DIFF FLAG NO
[2024-09-23 14:17] LABS: Basophils Percent Auto 0.5 % (0-2); Eosinophils Absolute Auto 0.1 X10*3/uL (0.0-0.4); Eosinophils Percent Auto 1.1 % (0-4); Hematocrit 45.5 % (37.0-47.0); Hemoglobin 14.9 g/dl (12.0-16.0); Imm Gran Abs Auto 0.04 X10*3/uL (0.00-0.03); Imm Gran Pct Auto 0.5 % (0.0-0.4); Lymphocytes Absolute Auto 1.3 X10*3/uL (1.2-4.9); Lymphocytes Percent Auto 14.9 % (20-40); Mean Corpuscular HGB Conc 32.7 g/dl (31.0-35.0); Mean Corpuscular Hemoglobin 30.5 pg (27.0-33.0); Mean Platelet Volume 10.3 fL (9.4-12.3); Monocytes Absolute Auto 0.8 X10*3/uL (0.1-1.2); Monocytes Percent Auto 9.3 % (2-11); Neutrophils Absolute Auto 6.2 x10*3/uL (2.0-8.3); Neutrophils Percent Auto 73.7 % (45-73); Platelet Count 127 X10*3/uL (160-400); Red Blood Count 4.89 X10*6/uL (4.20-5.50); Red Cell Distribution Width 12.7 % (11.0-16.0); White Blood Count 8.4 X10*3/uL (4.8-10.8)
[2024-09-23 14:30] LABS: Alanine Aminotransferase < 6 U/L (0-31); Anion Gap 17 (12-20); Aspartate Amino Transferase 25 U/L (5-31); Bilirubin Direct 0.4 mg/dL (0.0-0.5); Bilirubin Total 1.3 mg/dL (0.0-1.0); Blood Urea Nitrogen 31 mg/dL (9-16); Calcium 9.3 mg/dL (8.4-10.2); Carbon Dioxide 27 mmol/L (22-29); Chloride 101 mmol/L (96-108); Creatinine Clr Calc Pharmacy 20.8; Estimated Glomerular Filt Rate 32; Glucose Random 104 mg/dL (60-115); Potassium 3.7 mmol/L (3.3-5.1); Sodium 141 mmol/L (135-145); Total Protein 6.7 g/dL (6.5-8.0)
[2024-09-23 14:36] LABS: Troponin-I High Sensitivity 9.7 ng/L (<3.5-17.0)
[2024-09-23 14:45] LABS: Alkaline Phosphatase 144 U/L (39-117)
[2024-09-23] MEDS: 0.9 % Sodium Chloride 1,000 ML 999 ML IV (16:20)
--- NOTE | 2024-09-23 16:25 | PC.NURSE ---
Patient swaying/unable to stand up unassisted - provider Kristina made aware. 1L NS running now.
[2024-09-23 17:57] LABS: Troponin-I High Sensitivity 9.9 ng/L (<3.5-17.0)
--- NOTE | 2024-09-23 20:38 | MHC.CM.ED ---
[facility] met with this patient at the request of Kristina ETIENNE. Pt is A&Ox3. She is a poor historian. She lives alone in senior housing, not LONG TERM. She uses a rollator and has a life alert. He daughter grocery shops for her. Her daughter cooks for her. The patient occasionally cooks for herself. Her PCP is Dr. Whitney. [facility]. Her meds are delivered in blister packs. Her HCP is on file. HCP#1/daughter Kellee Martin ([phone]) and HCP#2 is Parvez Cortes Jr ([phone]). PT evaluated patient and felt she needed more of a medical work-up, as she was dizzy when standing. She is requesting orthostatic VS and re-assessment of PT needs. FAWN spoke with daughterKellee. Aware that patient will stay overnight and be re-evaluated. No referrals placed at this time. [facility].
[2024-09-24 00:56] VITALS: BP 134/78; PULSE 60; RESP 16; TEMP 36.4; O2SAT 97
--- NOTE | 2024-09-24 00:56 | MHC.EDTECH ---
This pct just assumed care of Patient ,vitals taken ,Patient was assisted to bathroom ,void ,but miss the hat unable to collect urine sample .
[2024-09-24 04:51] VITALS: BP 120/70; PULSE 60; RESP 16; TEMP 37; O2SAT 96
--- NOTE | 2024-09-24 09:00 | PHA.MEDREC ---
Pharmacy Consult ? Medication Reconciliation Pharmacy has completed the medication reconciliation. Spoke with patient who admitted she has no idea what she takes for medications I did however ask about the doxycycline course to which she remembered those huge capsules? yeah, I finished them . I called patients daughter Kellee to see where patient gets their medications, Kellee stated patient gets a med box delivered from [facility]. Kellee was also able to quickly name the medications she should be on. I did ask about patients ropinirole, the daughter stated patient does still have restless leg syndrome and use to take something every night but can not remember the name, [facility] also shows no claims. Left unconfirmed.
[2024-09-24 09:41] VITALS: BP 124/78; PULSE 60; RESP 18; TEMP 36.3; O2SAT 94
[2024-09-24 13:18] LABS: Glucose, Whole Blood 88 mg/dL (60-115)
[2024-09-24 15:03] VITALS: BP 123/64; PULSE 61; RESP 16; TEMP 36.4; O2SAT 98
--- NOTE | 2024-09-24 15:16 | MHC.CM.PN ---
PT evaluated pt and recommends home with services. [facility] referral sent, awaiting accepting agency. This CM placed a call to pts daughter/HCP Kellee to attempt to coordinate discharge, voicemail left, awaiting return call.
--- NOTE | 2024-09-24 16:15 | MHC.EDTECH ---
Pt helped ambulate to and from bathroom using a walker with a steady gait. No complaints were given while ambulating. Call milan and bedside table within reach, RN made aware
[2024-09-24 17:04] VITALS: BP 123/64; PULSE 61; RESP 14; TEMP 36.4
--- NOTE | 2024-09-25 09:46 | MHC.CM.ED ---
Patient d/c'd from [facility] on 09/24. [facility] the only agency able to accept patient. F2F and ER d/c summary sent via [employer]. Attempted to notify patient and daughter, Kellee, via telephone at [phone]. Left message stating [facility] is only agency able to accept patient. CM contact info provided as well.
== END 2024-09-24 17:06 | disposition home or self-care (01) ==
PROVIDERS: Physician Assistant; Emergency Provider Emergency Medicine Emergency Medical Services
DX: M75.102 Unspecified rotator cuff tear or rupture of left shoulder, not specified as traumatic (principal); M19.012 Primary osteoarthritis, left shoulder; M54.6 Pain in thoracic spine; M54.50 Low back pain, unspecified; M25.512 Pain in left shoulder; M85.812 Other specified disorders of bone density and structure, left shoulder; R42 Dizziness and giddiness; R26.81 Unsteadiness on feet; Z79.899 Other long term (current) drug therapy
CPT/HCPCS: 36415; 72072; 72100; 73030; 80048; 80076; 82947; 84484; 85025; 93005; 96360; 96361; 97116; 97162; 99284; 99285

== ENCOUNTER → 2024-09-23 13:14 | Outpatient (BNV) | payer MEDICARE, SELFPAY | PROVIDERS: Emergency Provider Emergency Medicine Emergency Medical Services; Visit Provider Internal Medicine Cardiovascular Disease | DX: R94.31 Abnormal electrocardiogram [ECG] [EKG] (principal); M25.512 Pain in left shoulder | CPT/HCPCS: 93010 ==

== ENCOUNTER → 2024-09-23 13:14 | Outpatient (BNV) | payer MEDICARE, SELFPAY | PROVIDERS: Emergency Provider Emergency Medicine Emergency Medical Services; Visit Provider Radiology Diagnostic Radiology | DX: M51.34 Other intervertebral disc degeneration, thoracic region (principal); M85.88 Other specified disorders of bone density and structure, other site; M47.816 Spondylosis without myelopathy or radiculopathy, lumbar region; M85.812 Other specified disorders of bone density and structure, left shoulder | CPT/HCPCS: 72072; 72100; 73030 ==

== ENCOUNTER → 2024-09-25 23:59 | Outpatient (BNV) | payer MEDICARE, SELFPAY ==
--- NOTE | 2024-10-08 12:49 | A.OFFVIS_ITS ---
Intake Visit Reasons: remote device check- [facility] Allergies cat dander Allergy (Verified 10/02/24 11:59) stuffy nose, red eye codeine Adverse Reaction (Unknown, Verified 10/02/24 11:59) GI upset PFSH Medical History Congestive heart failure Tricuspid regurgitation Lipid disorder History of small bowel obstruction Osteosarcoma of bone Lipoma Osteoarthritis of both hips High cholesterol Atrial enlargement, left RLS (restless legs syndrome) Morbid obesity Urinary, incontinence, stress female Depression with anxiety Cancer of left tibia Constipation GERD (gastroesophageal reflux disease) Mitral valve insufficiency Tubular adenoma of colon Low hematocrit Surgical History S/P placement of cardiac pacemaker (~07/2020) Hx of colonoscopy History of intestinal surgery History of appendectomy H/O hysterectomy with oophorectomy S/P cataract surgery Family History Mother Alzheimers disease Brother Lung cancer Epilepsy Social History Household Members: None Housing: Assisted Living Facility Do you presently have visiting nurse or other home services: No ([facility]) Alcohol intake: current Alcohol intake frequency: does not drink Patient Tobacco Use Status: Former Tobacco user Years Smoked: 5 e-Cigarette/Vaping Use: Never Used service: No Current occupational status: retired Cognitive needs: No Hearing needs: No Vision needs: Yes Office Procedures Cardiac Device Check Cardiac Device Check Details: Figueredo permanent pacemaker. Battery life more than 5 years. VVIR mode. V paced more than 99%. [id number]-[id number] Cardiac Device Interrogation, pacemaker Procedure code (CPT) selection complete Assessment & Plan Assessment & Plan (1) Cardiac pacemaker in situ: Code(s): Z95.0 - Presence of cardiac pacemaker Category: Medical Plan Coding Level of Care Code Procedure Only Diagnoses Cardiac pacemaker in situ Z95.0 CPT Codes Cardiac Device Check - Cardiac Device 12: 82567-Szteyj Cardiac Device Interrogation, pacemaker ([id number])
== END ==
PROVIDERS: Visit Provider Internal Medicine Cardiovascular Disease
DX: Z45.018 Encounter for adjustment and management of other part of cardiac pacemaker (principal)
CPT/HCPCS: 93294

== ENCOUNTER 2024-10-02 11:57 | Outpatient (AMB) | payer MEDICARE, SELFPAY ==
[2024-10-02 11:59] VITALS: BP 136/74; PULSE 77; O2SAT 99; BMI 22.3
--- NOTE | 2024-10-02 11:59 | A.OFFPC_ITS ---
Vital Signs 10/02/24 11:59 Height 5 ft 3 in Weight 126 lb BMI 22.3 BP 136/74 Blood Pressure Location Rt brachial Position Sitting Pulse 77 Pulse Source Pulse Oximeter Pulse Oximetry (%) 99 Oxygen Delivery Method Room Air Intake Visit Reasons: follow-up infected umbilical Allergies cat dander Allergy (Verified 10/02/24 11:59) stuffy nose, red eye codeine Adverse Reaction (Unknown, Verified 10/02/24 11:59) GI upset Medication List - Last Reconciled 10/02/24 by Fidelina Whitney MD apixaban (Eliquis) 2.5 mg PO BID 90 days atorvastatin 10 mg PO DAILY bumetanide 1 mg (1/2 x 2 mg) PO DAILY ferrous sulfate ER 140 mg (0.979 x 143 mg (45 mg iron)) PO DAILY gabapentin 100 mg PO BEDTIME 90 days levothyroxine 50 mcg PO DAILY 90 days mirtazapine 15 mg PO BEDTIME 90 days omeprazole 20 mg PO DAILY 90 days peg 400-propylene glycol 0.4-0.3 % (Systane Ultra) 1 drp ophthalmic (eye) TID PRN ropinirole 0.5 mg PO BID PRN 90 days spironolactone 12.5 mg See Protocol PO DAILY 90 days Tobacco use date assessed: 10/02/24 Fall risk assessment: No Falls in past year Last assessed Fall Risk: 10/02/24 Dental Screening Dental Screen Date: 10/02/24 Did you have a dental visit in the last 12 months?: Yes Did you have a dental problem in the last 6 months where you did not have access to dental care?: No Was dental information given to patient?: Patient has dentist HPI follow-up infected umbilical HPI Details History - The patient is an 88-year-old female p resenting with an infection in the umbilical area. - The umbilical region infection, noted for redness and oozing, showed initial improvement but posed resistance to Doxycycline treatment. - The patient experienced gastrointestin al discomfort with the initial Doxycycline therapy, leading to the need for alternative treatment. - The patient's chronic kidney disease, evidenced by a GFR of 32, necessitates adjusted antibiotic dosing. - The patient is also being managed for low vitamin D levels, requiring supplementation. Problem List - Omphalitis - adverse reaction to Doxycycline - Chronic Kidney Disease with GFR of 32 - Vitamin D deficiency Patient Instructions - Take the new prescribed antibiotic Aug mentin as directed, twice daily for 10 days, with yogurt to minimize stomach upset. - Continue applying the prescribed ointm ent Bactroban to the area of infection after completing the oral antibiotics. - Monitor the infection site. If spreadi ng or no significant improvement occurs, notify me for further evaluation. - Maintain vitamin D supplementation as advised. - Schedule the next appointment in three months for review and kidney function assessment. Review of Systems - General: No fever no chills - Neurological: No headaches no dizziness - Ear nose throat: No sore throat no hearing difficulty no ear pain - Cardiovascular: No syncope, no chest pain, no palpitations - Gastrointestinal: No nausea vomiting or diarrhea - Endocrine: No polyuria polydipsia no heat intolerance - Genitourinary: No dysuria , no blood in urine Physical Exam General: No acute distress HEENT: No acute findings Neck: Supple Respiratory system: Able to talk in full sentences, no audible wheeze Cardiovascular: S1-S2 Gastrointestinal: Belly button is erythematous with crusting on the side Extremities: No new findings DREDGE OPERATOR: Alert awake oriented x3 motor sensory intact Skin: Normal turgor PFSH Medical History Congestive heart failure Tricuspid regurgitation Lipid disorder History of small bowel obstruction Osteosarcoma of bone Lipoma Osteoarthritis of both hips High cholesterol Atrial enlargement, left RLS (restless legs syndrome) Morbid obesity Urinary, incontinence, stress female Depression with anxiety Cancer of left tibia Constipation GERD (gastroesophageal reflux disease) Mitral valve insufficiency Tubular adenoma of colon Low hematocrit Surgical History S/P placement of cardiac pacemaker (~07/2020) Hx of colonoscopy History of intestinal surgery History of appendectomy H/O hysterectomy with oophorectomy S/P cataract surgery Family History Mother Alzheimers disease Brother Lung cancer Epilepsy Social History Household Members: None Housing: Assisted Living Facility Do you presently have visiting nurse or other home services: No ([facility]) Alcohol intake: current Alcohol intake frequency: does not drink Patient Tobacco Use Status: Former Tobacco user Years Smoked: 5 e-Cigarette/Vaping Use: Never Used service: No Current occupational status: retired Cognitive needs: No Hearing needs: No Vision needs: Yes Questionnaire PHQ-9 Over the last 2 weeks, how often have you been bothered by any of the following problems? 1. Little interest or pleasure in doing things: not at all 2. Feeling down, depressed, or hopeless: not at all 3. Trouble falling or staying asleep, or sleeping too much: not at all 4. Feeling tired or having little energy: not at all 5. Poor appetite or overeating: not at all 6. Feeling bad about yourself - or that you are a failure or have let yourself or your family down: not at all 7. Trouble concentrating on things, such as reading the newspaper or watching television: not at all 8. Moving or speaking so slowly that other people could have noticed. Or the opposite - being so fidgety or restless that you have been moving around a lot more than usual: several days 9. Thoughts that you would be better off or of hurting yourself in some way: not at all Total score: 1 Depression Screening Interpretation: Negative Depression Screening Done: Yes 06559 - PHQ-9 Billing: Yes Source: Developed by Drs. Frantz Meng, Calista Martinez, Evan Rodriguez and colleagues, with an educational monty from [employer]. Thrive Questionnaire Date Thrive assessed: 10/02/24 I am a: Patient What is your living situation today?: I have a steady place to live Within the past 12 months, did the food you bought not last and you didn't have the money to get more?: Never true Within the past 12 months, did you worry whether your food would run out before you got money to buy more?: Never true Do you have trouble paying for medicines?: No Do you have trouble getting transportation to medical appointments?: No Do you have trouble paying your heating and electricity bill?: No Do you have trouble taking care of your child, family member or friend?: No Do you have trouble with day-to-day activities such as bathing, preparing meals, shopping, managing finances, etc.?: Yes Are you currently unemployed and looking for a job?: No Are you interested in more education?: No Please select the resources that you would like help with: Transportation Currently or been in a relationship where the following occur: No concerns reported THRIVE Score: 0 AUDIT C Alcohol Use Questionnaire (AUDIT-C) 1. How often do you have a drink containing alcohol?: Never 3. How often do you have six or more drinks on one occasion?: Never Total Score: 0 Score Reviewed/Action Taken: Yes KAYLA-7 AMB Questionnaire KAYLA-7 Date KAYLA - 7 assessed: 09/11/24 Source: Developed by Drs. Frantz Meng, Calista Martinez, Evan Rodriguez and colleagues, with an educational monty from [employer]. Physical exam (Primary Care) Vital Signs: Last Vital Signs Pulse 77 10/02/24 11:59 BP 136/74 10/02/24 11:59 Pulse Ox 99 10/02/24 11:59 Oxygen Delivery Method Room Air 10/02/24 11:59 BMI result Body Mass Index 22.3 Tobacco/Smoking Status: Tobacco use Status Tobacco use date assessed 10/02/24 10/02/24 12:04 Patient Tobacco Use Status Former Tobacco user 10/02/24 12:04 e-Cigarette/Vaping Use Never Used 10/02/24 12:04 PHQ-9: PHQ-9 Score PHQ-9: Total score 1 10/02/24 12:24 Depression Screening Interpretation: Negative Thrive Assessment: Date of Thrive Assessment Date Thrive assessed 10/02/24 10/02/24 12:04 Currently or been in a relationship where the following occur: No concerns reported Coding Level of Care Code Est Pt Level 3 (25145) Diagnoses Cellulitis of umbilicus L03.316 Additional Codes PHQ-9 - 90055 - PHQ-9 Billing: Yes ([id number]) Assessment & Plan Assessment & Plan (1) Cellulitis of umbilicus: Code(s): L03.316 - Cellulitis of umbilicus Category: Medical Plan History - The patient is an 88-year-old female presenting with an infection in the umbilical area. - The umbilical region infection, noted for redness and oozing, showed initial improvement but posed resistance to Doxycycline treatment. - The patient experienced gastrointestinal discomfort with the initial Doxycycline therapy, leading to the need for alternative treatment. - The patient's chronic kidney disease, evidenced by a GFR of 32, necessitates adjusted antibiotic dosing. - The patient is also being managed for low vitamin D levels, requiring supplementation. Problem List - Omphalitis - adverse reaction to Doxycycline - Chronic Kidney Disease with GFR of 32 - Vitamin D deficiency Patient Instructions - Take the new prescribed antibiotic Augmentin as directed, twice daily for 10 days, with yogurt to minimize stomach upset. - Continue applying the prescribed ointment Bactroban to the area of infection after completing the oral antibiotics. - Monitor the infection site. If spreading or no significant improvement occurs, notify me for further evaluation. - Maintain vitamin D supplementation as advised. - Schedule the next appointment in three months for review and kidney function assessment. Medications: New amoxicillin-pot clavulanate 250-62.5 mg/5 mL (Augmentin) 5 mL PO BID 10 days 100 mL 0RF mupirocin calcium 2% 1 appl topical .am 30 days 30 grams 0RF
--- OUTSIDE RECORDS SUMMARY | 2024-10-02 14:31 | XMS_ITS | Clinical Summary ---
Author Organization [facility] Address [address] [place] [address] Care Team Providers Care Electromechanical Equipment Tester Name Role Phone Fidelina Whitney MD Primary Care Provider [phone] Allergies No known active allergies Medications Medication [...] age to complete this topic Care Teams Electromechanical Equipment Tester Relationship Specialty Start Date End Date Fidelina Whitney MD [address] [place] [address] PCP - General Internal Medicine 01/27/22
--- OUTSIDE RECORDS SUMMARY | 2024-10-02 14:31 | XMS_ITS | Data Portability ---
Author Organization [facility] [address] Address [address] [place] [address] Care Team Providers Care Frickertron Checker Name Role Phone KRISTEN BELL Primary Care Provider Assessment No assessment recorded. Plan of Treatment Reminders Order Date Submit Date Provider Last Modified By Organization Details Last Modified Time Details Appointments None recorded. Lab None recorded. Referral None recorded. Procedures None recorded. Surgeries None recorded. Imaging None recorded. Medication Orders famotidine 20 mg tablet 2022 [id number] [address] [place], [place], [id number], 3 14:32:51 clotrimazol e-betametha sone 1 %-0.05 % topical cream 2022 023 [id number], [address], [place], [id number], 3 14:32:57 Patient TargetsNo targets recorded. Patient Instructions Encounter Date Encounter Id Patient Instructions Last Modified By Organization Details Last Modified Time 07/24/2022 [id number] COOL COMPRESSES, COOL SHOWERS, MAY BE SOOTHING [...] Details Recorded Time Gastroesop hageal reflux disease 907718017 Active 2022 JAIMIE Oglesby [facility] 13:54:46 Hypothyroi dism 55314959 Active 2022 JAIMIE Ogles[facility] 01/22/202 3 13:55:02 Heart irregularl y irregular 033628369 Active 2022 has a pacemaker now LUBNA garcia PA - [facility] 3 13:55:26 Carcinoma of skin of lower limb 541715046 Active 2022 [facility] - [facility] [...] Name and Address Organization Details Recorded Time 776681 codeine medicatio n vomiting Not available Not [...] Updated DateTime 3 162.56 cm 24 kg/m2 59339.9 3 g 97 [degF] 100 % 100 % 61 /min 16 /min 132 mm[Hg] 82 mm[Hg] LUBNA ETIENNE - [facility] 3 14:02:42 Social History Question Answer Notes LastModified by Organizat ion Details LastModified Time Tobacco Smoking Status Former Smoker LUBNA garcia [place] - [facility] 07/24/2022 13:58:59 What Is Your Level Of Alcohol Consumption? None [email or web address] Information not available 07/24/2022 Do You Use Any Illicit Or Recreational Drugs? No [email or web address] Information not available 07/24/2022 Have You Recently Traveled Abroad? No [email or web address] Information not available 07/24/2022 Do You Or Have You Ever Used Any Other Forms Of Tobacco Or Nicotine? No [email or web address] Information not available 07/24/2022 Sex: Unknown Functional Status None recorded. Mental Status None recorded. Family History Relationship Description Onset Age of this Age Resolved Age Notes LastModified by Organization Details LastModified Time Brother Malignant tumor of lung [email or web address] Not available 2022 13:57:09 Mother Dementia Not availabl e 07/24/2022 13:57:19 Maternal Grandfather Heart disease had quad bipass Not available 07/24/2022 13:57:39 Maternal Grandfather Chronic gastric ulcer [email or web address] Not available 2022 13:57:52 Medical History No medical history recorded. Gynecological HistoryNo gynecological history recorded. Obstetrics History GPAL:G 0 P 0 0 0 0 Past Encounters Encounter ID Performer Location Encounter Start Date Encounter Closed Date Diagnosis/Indication Diagnosis SNOMED-CT Code Diagnosis ICD10 Code Diagnosis Note [id number] [address] [place] [address] 12/03/2017 14:56:45 12/03/2017 15:27:25 [id number] [address] [place] [address] 09/12/2016 16:06:13 09/12/2016 18:42:06 [id number] [address] [place] [address] 06/10/2018 13:53:50 06/10/2018 14:56:03 [id number] Servando Zamorano NP [address] [place] [address] 07/24/2022 13:00:51 07/24/2022 14:36:52 Gastro-esophageal reflux disease with esophagitis 145144301 K21.00 Macular eruption 1936148 05 R21 Health Concerns Section Related Observation LastModified by Organization Detai ls LastModified Time None Recorded Concern Status LastModified by Organization Details LastModified Time None Recorded Advance Directives Directive None Recorded Payers Encounter Date Sequence Insurance Name Policy Number Policy Ly Covered Member ID Ly Member ID Guarantor Name 09/12/2016 1 [place] [employer] Mavis A Sebastian [id number] Mavis A Renwick 09/12/2016 2 [place] [id number] Mavis A Renwick [id number] Mavis A Renwick 12/03/2017 1 [place] Mavis A Renwick [id number] Mavis A Sebastian 12/03/2017 2 [place] [id number] Mavis A Renwick [id number] Mavis A Sebastian 06/10/2018 1 [place] [employer] [place] Mavis A Renwick [id number] Mavis A Sebastian 06/10/2018 2 [place] [id number] Mavis A Renwick [id number] Mavis A Renwick 07/24/2022 2 [facility] [id number] Mavis A Sebastian [id number] Mavis A Renwick 07/24/2022 1 [place] Mavis A Renwick [id number] Mavis A Renwick Notes Date Note Type Note Provider Name and Address Organization Details Recorded Time 07/24/2022 text/html burning sensatio n this morning after eating muffin. also complaint of rash on her belly x 5 days. pain in stomach settled down as patient is taking omeprazole and daughter given tums this morning. Servando Zamorano NP [address] [place], [address], [place] - [facility] 07/30/2022 10:02:45 OBGyn Episode No OBEpisode recorded.
--- OUTSIDE RECORDS SUMMARY | 2024-10-02 14:31 | XMS_ITS | Data Portability ---
Author Organization [facility] [place] Address [address] [facility] [address] [place] [address] Care Team Providers Care Shirt Cleaner Name Role Phone KRISTEN BELL Primary Care Provider [phone] KRISTEN BELL Primary Care Provider Assessment Encounter [...] findings at length with the patient today. ? ? ?We discussed the nature and etiology of this problem along with current treatment options. We discussed the expected course and outcomes and what to expect. We also discussed risks and benefits. ? ? ? All of their questions were answered today, and there was exhibited understanding and comprehension of all that was discussed. Time Spent: 10 minutes were spent reviewing previous imaging and charting. ? ? ?10 minutes were spent obtaining patient history. ? ? ?5 minutes were spent on physical exam. ? ? ?5? ? ?minutes were spent explaining diagnosis and assessment. Today's [...] XR, knee, 4 or more view 2022 atz16 [facility], [address], [place] [address], [place], [address], 12:06:13 Medication Orders Kenalog 40 mg/mL suspension for injection 2022 [employer] [facility], [address], [place], [id number], 12:06:13 lidocaine (PF) 10 mg/mL (1 %) injection solution 2022 [address] [facility], [address], [place], [id number], 12:06:13 Patient TargetsNo targets recorded. Patient Instructions Encounter Date Encounter Id Patient Instructions Last Modified By Organization Details Last Modified Time 04/20/2023 [id number], Viola elias sunrise view reveals tricompartmental osteoarthritis of the [...] Name and Address Organization Details Recorded Time Knee Joint/Bursa Asp & Inj completed VARUN FAJARDO PA-C [address] [facility] [address], [place], [address], [place] [facility] 04/20/2023 11:07:37 tumor destruction completed Inés Noonan [facility] - [facility] 04/20/2023 11:24:52 Imaging Results None recorded. [...] Updated DateTime 04/20/2023 162.56 cm 22.3 kg/m2 27993.01 g Inés Noonan [facility] 04/20/2023 11:22:15 Social History Question Answer Notes LastModified by Organizat ion Details LastModified Time Tobacco Smoking Status Never [facility]oker [facility] 04/20/2023 11:23:42 What Is Your Level [...] SNOMED-CT Code Diagnosis ICD10 Code Diagnosis Note [id number] MD HUMBERTO Dougherty [facility] [address] [address] 04/20/2023 10:11:13 04/20/2023 11:01:43 Pain of left knee joint 2871590182 09852 M25.562 Osteoarthr itis of left knee joint 4645583595 69920 M17.12 Health Concerns Section Related Observation LastModified by Organization Detai ls LastModified Time None Recorded Concern Status LastModified by Organization Details LastModified Time None Recorded Advance Directives Directive None Recorded Payers Encounter Date Sequence Insurance Name Policy Number Policy Ly Covered Member ID Ly Member ID Guarantor Name 04/20/2023 1 [facility] (MEDICARE REPLACEMENT/A DVANTAGE - PPO) [id number] Yahaira Cortes [id number] Yahaira Cortes Notes Date Note Type Note [...] studies from 01/27/2022. VARUN FAJARDO PA-C [address] [facility] [address], [place], [address], [place] [facility] 04/20/2023 11:11:37 OBGyn Episode No OBEpisode recorded.
--- OUTSIDE RECORDS SUMMARY | 2024-10-02 14:32 | XMS_ITS | Encounter Summary ---
Author Organization [facility] Address [address] [place] [address] Phone Care Team Providers Care Screedman Name Role Phone Fidelina Whitney MD Primary Care Provider [phone] Encounter Details Date Type Department Care Team (Late st Contact Info) Description 11/09/2022 Telephone [facility] [address] [place] [address] Bee Newman Social History Tobacco [...] on her mother's recent labs. Please call [phone] documented in this encounter Plan of Treatment Not on file documented as of this encounter Visit Diagnoses Not on filedocumented in this encounter Care Teams Screedman Relationship Specialty Start Date End Date Fidelina Whitney MD [facility] [place] [address] PCP - General Internal Medicine 06/06/22 documented as of this encounter
--- OUTSIDE RECORDS SUMMARY | 2024-10-02 14:32 | XMS_ITS | Clinical Summary ---
Author Organization [facility] Address [address] [place] [address] Phone Care Team Providers Care Packaging Line Operator Name Role Phone Fidelina Whitney MD Primary Care Provider [phone] Allergies Active Allergy Reactions Criticality Noted Date [...] of 2 - PCV) 1940 Influenza Vaccine (Season Ended) 2025 Hepatitis B Vaccine Aged Out No longe r eligible based on patient's age to complete this topic Insurance [facility] MEDICARE [facility] MEDICARE Care Teams Packaging Line Operator Relationship Specialty Start Date End Date Fidelina Whitney MD [facility] [place] [address] PCP - General Internal Medicine 06/06/22
== END 2024-10-02 13:09 | disposition home or self-care (01) ==
LOC: HO.HMCC 11:58
PROVIDERS: PCP Internal Medicine; Visit Provider Internal Medicine
DX: L03.316 Cellulitis of umbilicus (principal)